=== PATIENT | female | born 1990 | race Caucasian/White ===

== ENCOUNTER 2022-06-07 10:49 | Inpatient (IN) | payer MEDICAID ==
[~2022-06-07] VITALS: Ht 167.7 cm; Wt 56.5 kg
[~2022-06-07 10:49] MED LIST: ACHD5005 PO; AMOX500C2 PO; ANTIBIOTIC FOR UTI; BCP; BUTA-234 PO; CEFD300C3 PO; CEFP500T4 PO; CEPH-38 PO; CEPH500C PO; CETI10TA17 PO; CPR500T; CPR500T PO; DOXY100C2 PO; ERYT333T4 PO; ETOMIDATE IV SOLN 20 MG/10 ML VIAL IV ONE; FAMO10TA71; FERR-57 PO; FERR325C PO; FRS325T PO; HYDR-3583 PO; HYDR1CAP2 PO; HYDR1TAB75 PO; HYDR1TAB8 OP; IBP800T PO; IRON1TAB94 PO; LEVO500T69 PO; MAGN400T6 PO; METR500T PO; MIDAZOLAM 5 MG/5 ML (VERSED) VIAL IJ ONE; NAPR-243 PO; NITR-65 PO; NITR100C3 PO; ONDA-42 SL; ONDAN4ODT PO; OXYC-12 PO; PHEN100T26 PO; PNT40TEC PO; PREN1TAB39 PO; PRM25T PO; PROM25SU10 PR; RNT150T PO; SUCCINYLCHOLINE INJ 20 MG/1 ML 10 ML VIAL INJ ONE; TRM50T PO
[2022-06-07] MEDS ORDERED: NS IV 500 ML 500 ML IV SCH (11:00)
[2022-06-07] MEDS ORDERED: ONDANSETRON 4 MG/2 ML (SDV) Z0FRAN IVP ONE (11:00)
--- NOTE | 2022-06-07 11:01 | ED General ---
General Stated Complaint: CHEST PAIN Source of Information: Patient Exam Limitations: No Limitations History of Present Illness Date Seen by Provider: Jun 07, 2022 Time Seen by Provider: 10:52 Initial Comments 32-year-old female with history of methamphetamine use abuse presents to the emergency department via ambulance for feeling well for the last 6 days. She states she had such profound generalized weakness that she has had to be carried around by her son on his back. She initially started to have chest pain which was the first symptom. Is described as dull achy and worse with deep inspiration. She feels as though she cannot catch her breath with some shortness of breath as well. She has been coughing. No fevers or chills per her report. No sick contacts. She has diffuse body aches. She states she has not smoked methamphetamine in about 7 days. She denies any IV drug use. She does have a history of a collapsed lung about 2 years ago. Allergies and Home Medications Allergies Coded Allergies: Sulfa (Sulfonamide Antibiotics) (Unverified Allergy, Intermediate, RASH, 10/13/11) Patient Home Medication List Home Medication List Reviewed: Yes Ferrous Sulfate (Ferrous Sulfate) 325 Mg Tablet, 325 MG PO TID, (Reported) Entered as Reported by: BEBO LEE on 12/12/12 0744 Hydrocodone Bit/Ibuprofen (Vicoprofen 200-7.5 Mg Tab) 1 Each Tablet, 1-2 EACH OP Q4-6HR PRN for PAIN Prescribed by: CHRISTY CORBETT on 02/14/14 1648 Levofloxacin (Levaquin 500 Mg) 500 Mg Tab, 1 EACH PO DAILY Prescribed by: CHRISTY CORBETT on 02/14/14 1648 Ondansetron Hcl (Zofran Oral Dissolve) 4 Mg Tab, 4 MG SL Q4H Prescribed by: CHRISTY CORBETT on 02/14/14 1648 Review of Systems Review of Systems Constitutional: weakness EENTM: nose congestion Respiratory: cough, short of breath Cardiovascular: chest pain Gastrointestinal: nausea Genitourinary: no symptoms reported Musculoskeletal: other (Body aches) Skin: other (Skin is mottled around her knees and distally on bilateral lower extremities.) Psychiatric/Neurological: No Symptoms Reported Hematologic/Lymphatic: No Symptoms Reported Immunological/Allergic: no symptoms reported Past Lbdwung-Jevzqs-Iuawyu Hx Patient Social History Tobacco Use?: Yes Use of E-Cig and/or Vaping dev: No Substance use?: Yes Substance type: Methamphetamine Alcohol Use?: No Seasonal Allergies Seasonal Allergies: No Past Medical History Reproductive Disorders: No Female Reproductive Disorders: Denies Sexually Transmitted Disease: No Family Medical History Reviewed Nursing Family Hx Patient reports no known family medical history. No Pertinent Family Hx Physical Exam Vital Signs Vital Signs - First Documented 06/07/22 10:51 Temp 36.1 Pulse 120 Resp 17 B/P (MAP) 119/72 (88) Pulse Ox 92 O2 Delivery Non Rebreather O2 Flow Rate 15.00 Capillary Refill : Height, Weight, BMI Height: 5'6" Weight: 120lbs. oz. 54.019004ej; BMI Method:Stated General Appearance: Chronically ill, Cachetic HEENT: PERRL/EOMI, Other (Mucous membranes) Neck: Normal Inspection, Non Tender Respiratory: Chest Non Tender, Normal Breath Sounds, Other (Tachypnea) Cardiovascular: Normal Peripheral Pulses, Tachycardia Gastrointestinal: Normal Bowel Sounds, No Organomegaly, Non Tender, Soft Extremity: Normal Capillary Refill, Normal Inspection, Non Tender, No Calf Tenderness Neurologic/Psychiatric: Alert, Oriented x3, No Motor/Sensory Deficits Skin: Normal Color, Warm/Dry Lymphatic: No Adenopathy Focused Exam Lactate Level 06/07/22 11:02: Lactic Acid Level 13.49*H Lactic Acid Level Laboratory Tests Test 06/07/22 11:02 Lactic Acid Level 13.49 MMOL/L (0.50-2.00) *H Progress/Results/Core Measures Suspected Sepsis SIRS Temperature: Pulse: Respiratory Rate: Laboratory Tests 06/07/22 11:02: White Blood Count 5.9 Blood Pressure / Mean: 06/07/22 11:02: Lactic Acid Level 13.49*H Laboratory Tests 06/07/22 11:02: Creatinine 1.54H, INR Comment 1.6H, Platelet Count 164, Total Bilirubin 0.6 Results/Orders Lab Results Laboratory Tests Test 06/07/22 11:02 06/07/22 11:05 06/07/22 11:09 Range/Units White Blood Count 5.9 4.3-11.0 10^3/uL Red Blood Count 4.29 3.80-5.11 10^6/uL Hemoglobin 8.1 L 11.5-16.0 g/dL Hematocrit 29 L 35-52 % Mean Corpuscular Volume 67 L 80-99 fL Mean Corpuscular Hemoglobin 19 L 25-34 pg Mean Corpuscular Hemoglobin Concent 28 L 32-36 g/dL Red Cell Distribution Width 18.7 H 10.0-14.5 % Platelet Count 164 130-400 10^3/uL Mean Platelet Volume 10.5 9.0-12.2 fL Immature Granulocyte % (Auto) 7 % Neutrophils (%) (Auto) 81 H 42-75 % Lymphocytes (%) (Auto) 9 L 12-44 % Monocytes (%) (Auto) 1 0-12 % Eosinophils (%) (Auto) 0 0-10 % Basophils (%) (Auto) 1 0-10 % Neutrophils # (Auto) 4.8 1.8-7.8 10^3/uL Lymphocytes # (Auto) 0.6 L 1.0-4.0 10^3/uL Monocytes # (Auto) 0.1 0.0-1.0 10^3/uL Eosinophils # (Auto) 0.0 0.0-0.3 10^3/uL Basophils # (Auto) 0.1 0.0-0.1 10^3/uL Immature Granulocyte # (Auto) 0.4 H 0.0-0.1 10^3/uL Neutrophils % (Manual) 41 % Lymphocytes % (Manual) 18 % Monocytes % (Manual) 3 % Eosinophils % (Manual) 0 % Basophils % (Manual) 0 % Metamyelocytes % 4 % Band Neutrophils 34 % Nucleated Red Blood Cells 1 Percent Immature Platelet Fraction 3.9 0.0-7.6 % Polychromasia MODERATE Hypochromasia MARKED Anisocytosis MODERATE Microcytosis MODERATE Target Cells SLIGHT Prothrombin Time 19.5 H 12.2-14.7 SEC INR Comment 1.6 H 0.8-1.4 Activated Partial Thromboplast Time 35 24-35 SEC Sodium Level 139 135-145 MMOL/L Potassium Level 4.4 3.6-5.0 MMOL/L Chloride Level 100 98-107 MMOL/L Carbon Dioxide Level 11 L 21-32 MMOL/L Anion Gap 28 H 5-14 MMOL/L Blood Urea Nitrogen 50 H 7-18 MG/DL Creatinine 1.54 H 0.60-1.30 MG/DL Estimat Glomerular Filtration Rate 46 BUN/Creatinine Ratio 32 Glucose Level 75 70-105 MG/DL Lactic Acid Level 13.49 *H 0.50-2.00 MMOL/L Calcium Level 8.6 8.5-10.1 MG/DL Corrected Calcium 9.6 8.5-10.1 MG/DL Total Bilirubin 0.6 0.1-1.0 MG/DL Aspartate Amino Transf (AST/SGOT) 71 H 5-34 U/L Alanine Aminotransferase (ALT/SGPT) 26 0-55 U/L Alkaline Phosphatase 86 40-136 U/L Troponin I < 0.028 <0.028 NG/ML Total Protein 7.2 6.4-8.2 GM/DL Albumin 2.8 L 3.2-4.5 GM/DL Serum Test, Qualitative NEGATIVE NEGATIVE Influenza Type A (RT-PCR) Not Detected Not Detecte Influenza Type B (RT-PCR) Not Detected Not Detecte SARS-CoV-2 RNA (RT-PCR) Not Detected Not Detecte Blood Gas Puncture Site L RAD Blood Gas Patient Temperature 36.1 Arterial Blood pH 7.34 *L 7.37-7.43 Arterial Blood Partial Pressure CO2 21 L 35-45 MMHG Arterial Blood Partial Pressure O2 39 *L 79-93 MMHG Arterial Blood HCO3 11 *L 23-27 MMOL/L Arterial Blood Total CO2 12.0 L 21.0-31.0 MMOL/L Arterial Blood Oxygen Saturation 64 L 94-100 % Arterial Blood Base Excess -13.6 L -2.5-2.5 MMOL/L Yong Test UNK Blood Gas Ventilator Setting NO Blood Gas Inspired Oxygen 15L My Orders Orders - BULL,HOLDEN L DO Hcg,Qualitative Serum (06/07/22 10:57) Cbc With Automated Diff (06/07/22 10:57) Comprehensive Metabolic Panel (06/07/22 10:57) Ua Culture If Indicated (06/07/22 10:57) Ns Iv 500 Ml (Sodium Chloride 0.9%) (06/07/22 11:00) Ondansetron Injection (Zofran Injectio (06/07/22 11:00) Blood Culture (06/07/22 10:57) Protime With Inr (06/07/22 10:57) Partial Thromboplastin Time (06/07/22 10:57) Chest 1 View, Ap/Pa Only (06/07/22 10:57) Ed Iv/Invasive Line Start (06/07/22 10:57) Vital Signs Adult Sepsis Patie Q15M (06/07/22 10:57) O2 (06/07/22 10:57) Lactic Acid Analyzer (06/07/22 10:57) Covid 19 Inhouse Test (06/07/22 10:57) Influenza A And B By Pcr (06/07/22 10:57) Troponin I Hai (06/07/22 11:01) Ekg Tracing (06/07/22 11:18) Arterial Blood Gas (06/07/22 11:18) Manual Differential (06/07/22 11:02) Cefepime Injection (Maxipime Injection) (06/07/22 11:45) Vancomycin Injection (Vancomycin Injecti (06/07/22 11:45) Ns Iv 1000 Ml (Sodium Chloride 0.9%) (06/07/22 11:45) Ct Chest W (06/07/22 11:59) Iohexol Injection (Omnipaque 350 Mg/Ml 1 (06/07/22 12:30) Received Contrast (Hold Metformin- Contr (06/07/22 12:30) Ns (Ivpb) (Sodium Chloride 0.9% Ivpb Bag (06/07/22 12:30) Ed Admission (Communication) (06/07/22 12:43) Medications Given in ED Current Medications Medications Dose Ordered Sig/Armida Route Start Time Stop Time Status Last Admin Dose Admin Cefepime HCl 1000 mg/Sodium Chloride 50 ml @ 100 mls/hr ONCE ONCE IV 06/07/22 11:45 06/07/22 12:14 DC 06/07/22 11:50 100 MLS/HR Iohexol 75 ml ONCE ONCE IV 06/07/22 12:30 06/07/22 12:31 DC 06/07/22 12:22 65 ML Ondansetron HCl 8 mg ONCE ONCE IVP 06/07/22 11:00 06/07/22 11:06 DC 06/07/22 11:23 8 MG Sodium Chloride 100 ml ONCE ONCE IV 06/07/22 12:30 06/07/22 12:31 DC 06/07/22 12:22 80 ML Vancomycin HCl 1000 mg/Sodium Chloride 250 ml @ 250 mls/hr ONCE ONCE IV 06/07/22 11:45 06/07/22 12:44 DC 06/07/22 11:50 250 MLS/HR Vital Signs/I&O 06/07/22 06/07/22 10:51 10:51 Temp 36.1 Pulse 120 Resp 17 B/P (MAP) 119/72 (88) Pulse Ox 92 92 O2 Delivery Non Rebreather Non Rebreather O2 Flow Rate 15.00 15.00 Capillary Refill : Critical Care Note Critical Care Total Time (minutes) 75 Departure Communication (Admissions) Patient appears acutely ill. Her oxygen saturation initially was quite low, confirmed on her ABG. She stable on a NRB with oxygen saturations 92 to 94%. She has increased work of breathing but is not in any respiratory distress. Chest x-ray shows no clear masslike lesion in her left lung, pneumonia versus mass per radiology read. CT scan confirms this is likely pneumonia. Prior to CT I did draw blood cultures, her lactic acid severely elevated so she is given 30 cc/kg fluid bolus as per protocol. She is also started on cefepime, vancomycin given her history of drug use. Though she denies IV drug use so we will go ahead and cover her for MRSA and use aggressive antibiotic administration and taper as able. I spoke with Dr. Powell. She initially was hesitant to admit the patient here and [facility] She spoke with the e[facility] doctor and they agree to admit the patient here. She is admitted in otherwise stable condition to the ICU Impression Primary Impression: CAP (community acquired pneumonia) Qualified Codes: J18.9 - Pneumonia, unspecified organism Additional Impression: Hypoxia Disposition: ADMITTED INPATIENT Condition: Stable Admissions Decision to Admit Reason: Admit from ER (General) Departure-Patient Inst. Referrals: NO,LOCAL PHYSICIAN (PCP/Family) Primary Care Physician HOLDEN GOTTLIEB DO Jun 07, 2022 11:01
[2022-06-07 11:15] LABS: BASOPHILS # (AUTO) 0.1 10^3/uL (0.0-0.1); BASOPHILS % (AUTO) 1 % (0-10); HEMOGLOBIN 8.1 g/dL (11.5-16.0)
[2022-06-07 11:17] LABS: EOSINOPHILS % (AUTO) 0 % (0-10); HEMATOCRIT 29 % (35-52); LYMPHOCYTES # (AUTO) 0.6 10^3/uL (1.0-4.0); LYMPHOCYTES % (AUTO) 9 % (12-44); MEAN CORPUSCULAR HEMOGLOBIN 19 pg (25-34); MEAN CORPUSCULAR HGB CONC 28 g/dL (32-36); MEAN CORPUSCULAR VOLUME 67 fL (80-99); MEAN PLATELET VOLUME 10.5 fL (9.0-12.2); MONOCYTES # (AUTO) 0.1 10^3/uL (0.0-1.0); MONOCYTES % (AUTO) 1 % (0-12); NEUTROPHILS # (AUTO) 4.8 10^3/uL (1.8-7.8); NEUTROPHILS % (AUTO) 81 % (42-75); PLATELET COUNT 164 10^3/uL (130-400); WHITE BLOOD COUNT 5.9 10^3/uL (4.3-11.0)
[2022-06-07 11:21] LABS: ABG BASE EXCESS -13.6 MMOL/L (-2.5-2.5); ABG PCO2 21 MMHG (35-45)
[2022-06-07 11:23] LABS: ABG PH 7.34 (7.37-7.43); ABG PO2 39 MMHG (79-93)
[2022-06-07 11:25] LABS: ABG OXYGEN SATURATION 64 % (94-100); INSPIRED O2 15L; PATIENT TEMP 36.1; VENTILATOR NO
[2022-06-07 11:27] LABS: ALBUMIN 2.8 GM/DL (3.2-4.5)
[2022-06-07 11:28] LABS: CHLORIDE 100 MMOL/L (98-107); INR 1.6 (0.8-1.4); POTASSIUM 4.4 MMOL/L (3.6-5.0); PROTHROMBIN TIME PATIENT 19.5 SEC (12.2-14.7); SODIUM 139 MMOL/L (135-145)
[2022-06-07 11:29] LABS: CALCIUM 8.6 MG/DL (8.5-10.1)
[2022-06-07 11:30] LABS: GLUCOSE 75 MG/DL (70-105); TOTAL PROTEIN 7.2 GM/DL (6.4-8.2)
[2022-06-07 11:31] LABS: CARBON DIOXIDE 11 MMOL/L (21-32)
[2022-06-07 11:32] LABS: BILIRUBIN,TOTAL 0.6 MG/DL (0.1-1.0)
[2022-06-07 11:33] LABS: ALKALINE PHOSPHATASE 86 U/L (40-136); BAND NEUTROPHILS 34 %; BASOPHILS % (MANUAL) 0 %; EOSINOPHILS % (MANUAL) 0 %; LYMPHOCYTES % (MANUAL) 18 %; METAMYELOCYTES % 4 %; MONOCYTES % (MANUAL) 3 %; NEUTROPHILS % (MANUAL) 41 %; NUCLEATED RED BLOOD CELLS 1
[2022-06-07 11:34] LABS: ANISOCYTOSIS MODERATE; CREATININE SERUM 1.54 MG/DL (0.60-1.30); GFR ESTIMATED 46; HYPOCHROMASIA MARKED; MICROCYTOSIS MODERATE; POLYCHROMASIA MODERATE; TARGET CELLS SLIGHT
[2022-06-07 11:35] LABS: BUN/CREATININE RATIO 32
[2022-06-07 11:36] LABS: ALANINE AMINOTRANSFERASE 26 U/L (0-55)
--- NOTE | 2022-06-07 11:44 | Diagnostic Imaging Report ---
CHEST 1 VIEW, AP/PA ONLY Indication: Dyspnea Comparison: 02/14/2014 Findings: Left lung masslike consolidation with surrounding opacities. There are patchy opacities in the right lung. No pleural effusion or pneumothorax. Heart is normal in size. Impression: 1. Left-sided masslike consolidation could be due to pneumonia. However, neoplasm could also give this appearance. At a minimum, short-term followup PA and lateral chest radiograph after appropriate antibiotic therapy is recommended. Alternatively, CT chest with IV contrast could provide more sensitive assessment. Dictated by: Dictated on workstation # [id number]
[2022-06-07] MEDS ORDERED: VANCOMYCIN INJECTION 1,000 MG in NS (IVPB) 250 ML IV ONE (11:45)
[2022-06-07] MEDS ORDERED: NS IV 1000 ML 1,000 ML IV SCH (11:45)
[2022-06-07] MEDS ORDERED: CEFEPIME INJECTION 1,000 MG in NS (IVPB) 50 ML IV ONE (11:45)
[2022-06-07] MEDS ORDERED: HOLD METFORMIN - RECEIVED CONTRAST 20 ML VIAL IV SCH (12:30)
[2022-06-07] MEDS ORDERED: IOHEXOL 350 MG/ML 100 ML (OMNIPAQUE 350) VIAL IV ONE (12:30)
[2022-06-07] MEDS ORDERED: NS 100 ML (IVPB) BAG IV ONE (12:30)
--- NOTE | 2022-06-07 12:38 | Diagnostic Imaging Report ---
CLINICAL INDICATIONS: Patient with chest pain, cough, shortness breath x1 week. Patient reports chronic meth use, last used a week ago. EXAM: Axial CT scan of the chest performed with 65 mL of Omnipaque 350 IV contrast. Sagittal and coronal reformatted images are created. Auto Exposure Controls were utilized during the CT exam to meet ALARA standards for radiation dose reduction. COMPARISON: Chest x-ray dated 12/12/2012. FINDINGS: Diffuse centrilobular emphysema is seen. There are multiple small areas of air-fluid level involving the lower aspect of left upper lobe related to the emphysema. There is near complete consolidation of right lower lobe concerning for infiltrate. There is small amount of infiltrates involving the posterior aspect of the right upper lobe. The middle lobe is clear. There is moderate amount of consolidation involving the left upper lobe and lingular region. There is moderate amount of consolidation involving the posterior left lower lobe region. There is no definite pleural effusion. There is no pneumothorax. There is no mediastinal or hilar lymphadenopathy. There is no significant axillary lymphadenopathy. There is fluid and air filled dilated esophagus which may be related to gastroesophageal reflux or esophageal dysmotility. There is air and fluid distended stomach noted. The visualized upper abdominal structures show no other significant abnormality. Bones show no significant abnormality. Extrathoracic soft tissue structures are unremarkable. IMPRESSION: 1: There are moderate size areas of consolidation involving both upper lobes and left lower lobe. There is complete consolidation right lower lobe. All of these findings are concerning for pneumonia. There is no endobronchial lesion or measurable mass seen. 2: There is centrilobular emphysema. 3.: Air-fluid filled dilated esophagus seen which may be related to gastroesophageal reflux or esophageal dysmotility. Dictated by: Dictated on workstation # [id number]
--- NOTE | 2022-06-07 13:12 | Tele-ICU Progress Note ---
Subjective Date Seen by a Provider: Jun 07, 2022 Subjective/Events-last exam This virtual visit was conducted using real time audio/video. Thank you for asking us to see this patient for respiratory insufficiency due todense B pna. Also pleutitic CP. Infl. and Covid serology neg. SH: smoking history: Meth. Denies IV use. PE: Ill appearing. VSS. O2 sat 92% on 15 LPM NRB mask. HEENT: No obvious masses, adenopathy or JVD. Chest: clear to auscultation. CV: RRR S1 S2 No murmur or added sounds. Abd: Non-tender. Bowel sounds Y. : Unremarkable. Figueroa N. TUMBLE TAILSTOCK TURRET LATHE OPERATOR/psychiatric: Grossly intact. No obvious focal findings. Extremities: No edema. Capillary refill < 3 seconds. Skin: unremarkable. Results: Elevated BUN 50, Creat 1.54, Lact 13.49. Decreased Hb 8.1. AB.34/21/39 on 15 LPM. CXR: B infilts. CTC: dilated esophagus, very dense ext ensile B infilts.. Available chart/ vitals / labs / images reviewed. Video assessment done using teleICU camera, rest of exam as per RN. A/P: Respiratory insufficiency: Continue present management with NRB. Monitor for increasing oxygenation needs and/or need for intubation. Critical Care: critically ill patient. Cont. abx, ivf. May need bronch if no significant clinical improvment. Would check HIV status. Discussed with KATHERINE Donato and Dr. Luna. Asked RN to reach out to eICU if any questions or concerns later. Time spent with patient/coordination of care with other health professionals (mins): 25 Sepsis Event Evaluation Height, Weight, BMI Height: 5'6" Weight: 120lbs. oz. 54.001512gg; 19.00 BMI Method:Stated Focused Exam Lactate Level 06/07/22 11:02: Lactic Acid Level 13.49*H Lactic Acid Level Laboratory Tests Test 06/07/22 11:02 Lactic Acid Level 13.49 MMOL/L (0.50-2.00) *H Exam Exam Patient acknowledged, consented, and participated in this virtual visit which was conducted using real time audio/video Vital Signs Date Time Temp Pulse Resp B/P (MAP) Pulse Ox O2 Delivery O2 Flow Rate FiO2 06/07/22 10:51 36.1 120 17 119/72 (88) 92 Non Rebreather 15.00 06/07/22 10:51 92 Non Rebreather 15.00 Height & Weight Height: 5'6" Weight: 120lbs. oz. 54.896173eq; 19.00 BMI Method:Stated General Appearance: Chronically ill, Cachetic HEENT: PERRL/EOMI, Other (Mucous membranes) Neck: Normal Inspection, Non Tender Respiratory: Chest Non Tender, Normal Breath Sounds, Other (Tachypnea) Cardiovascular: Normal Peripheral Pulses, Tachycardia Capillary Refill: Less Than 3 Seconds Extremity: Normal Capillary Refill, Normal Inspection, Non Tender, No Calf Tenderness Neurologic/Psychiatric: Alert, Oriented x3, No Motor/Sensory Deficits Skin: Normal Color, Warm/Dry Lymphatic: No Adenopathy Results Lab Laboratory Tests 06/07/22 11:02 Assessment/Plan Assessment/Plan See free text. Critical Care: Critically Ill Patient DONTE PACHECO MD Jun 07, 2022 13:12
[2022-06-07] MEDS ORDERED: BENZONATATE 100 MG (TESSALON) CAPSULE PO PRN (13:30)
[2022-06-07] MEDS ORDERED: VANCOMYCIN INJECTION 0.1 MG in NS (IVPB) 250 ML IV SCH (13:30)
[2022-06-07] MEDS ORDERED: MELATONIN 3 MG TABLET PO PRN (13:30)
[2022-06-07] MEDS ORDERED: ANTACID SUSP 30 ML UDC (MYLANTA) PO PRN (13:30)
--- NOTE | 2022-06-07 13:58 | History & Physical-Hospitalist ---
History of Present Illness HPI/Chief Complaint Pt is a 32yoCF with a PMH of methamphetamine abuse who presented to the ER due to weakness. History comes from both patient and her mom. Mom states she has a long history of meth use but has been trying to quit. She last used 7 days ago and then started to get very ill. Her mom wanted to take her in to be seen but the patient refused throoughout the week and finally decidied to come intoday due to her weakness. Reportedly her son has had to carry her from room to room because of how weak she is. On arrival to the emergency room her oxygen saturation was 40%. This was confirmed on an ABG with a PO2 of 39 and satu ration of 64 on 15 L nonrebreather. We were able to get her oxygen up into the 90s with oxi mask. Imaging revealed extensive bilateral infiltrates. She was also found to have a profound lactic acidosis fo 13. When I saw her in the ICU she was mottled to her knees and elbows though her capillary refill was adequate. She apparently has vomited twice this morning too. Source: patient, family Date Seen 06/07/22 Time Seen by a Provider: 13:48 Attending Physician No,Local Physician PCP Admitting Physician: Andi Luna MD Attending Physician: Andi Luna MD Referring Physician Date of Admission Jun 07, 2022 at 12:44 pm Home Medications & Allergies Home Medications Reviewed patient Home Medication Reconciliation performed by pharmacy medication reconciliations data reduction technician and/or nursing. Patients Allergies have been reviewed. Allergies Allergies Coded Allergies Sulfa (Sulfonamide Antibiotics) (Unverified Allergy, Intermediate, RASH, 10/13/11) Past Getoscy-Fgjpok-Nmzzze Hx Patient Social History Tobacco Use?: Yes Smoking Status: Heavy Tobacco Smoker Smokeless Tobacco Frequency: Never a User Use of E-Cig and/or Vaping dev: No Use of E-Cig and/or Vaping Radu: Never a User Substance use?: Yes Substance type: Methamphetamine Substance frequency: Couple times a week Alcohol Use?: No Pt feels they are or have been: No Seasonal Allergies Seasonal Allergies: No Current Status Advance Directives: No Communicates: Verbally Primary Language: Northern Irish Preferred Spoken Language: Northern Irish Is interpretation needed?: No Implanted or Applied Medical D: None Past Medical History Sexually Transmitted Disease: No Family Medical History Reviewed Nursing Family Hx Patient reports no known family medical history. No Pertinent Family Hx Review of Systems Constitutional: see HPI Physical Exam Physical Exam Vital Signs Vital Signs - First Documented 06/07/22 06/07/22 10:51 13:45 Temp 36.1 Pulse 120 Resp 17 B/P (MAP) 119/72 (88) Pulse Ox 92 O2 Delivery Non Rebreather O2 Flow Rate 15.00 FiO2 100 Capillary Refill : Less Than 3 Seconds Height, Weight, BMI Height: 5'6" Weight: 120lbs. oz. 54.151822np; 19.00 BMI Method:Stated General Appearance: Chronically ill, Cachetic, Thin HEENT: PERRL/EOMI, Scleral Icterus (L), Scleral Icterus (R) Neck: Normal Inspection, Supple Respiratory: Lungs Clear Cardiovascular: No Murmur, Tachycardia Gastrointestinal: Normal Bowel Sounds, Non Tender, Soft Extremity: Normal Capillary Refill, No Calf Tenderness, No Pedal Edema Neurologic/Psychiatric: Alert, Oriented x3 Skin: Mottled (to knees and on hands and forearms up to elbows), Other (grayish discoloration in general) Results Results/Procedures Labs Laboratory Tests 06/08/22 03:14 06/08/22 13:00 06/09/22 03:20 Patient resulted labs reviewed. Imaging: Reviewed Imaging Films, Reviewed Imaging Report Imaging [facility], [place] NAME: GEOVANNY LEON [facility] REC#: [id number] PT STATUS: REG ER : 1990 PHYSICIAN: HOLDEN GOTTLIEB DO ADMIT DATE: 06/07/22/ER Draft Date of Exam:06/07/22 CT CHEST W CLINICAL INDICATIONS: Patient with chest pain, cough, shortness breath x1 week. Patient reports chronic meth use, last used a week ago. EXAM: Axial CT scan of the chest performed with 65 mL of Omnipaque 350 IV contrast. Sagittal and coronal reformatted images are created. Auto Exposure Controls were utilized during the CT exam to meet ALARA standards for radiation dose reduction. COMPARISON: Chest x-ray dated 12/12/2012. FINDINGS: Diffuse centrilobular emphysema is seen. There are multiple small areas of air-fluid level involving the lower aspect of left upper lobe related to the emphysema. There is near complete consolidation of right lower lobe concerning for infiltrate. There is small amount of infiltrates involving the posterior aspect of the right upper lobe. The middle lobe is clear. There is moderate amount of consolidation involving the left upper lobe and lingular region. There is moderate amount of consolidation involving the posterior left lower lobe region. There is no definite pleural effusion. There is no pneumothorax. There is no mediastinal or hilar lymphadenopathy. There is no significant axillary lymphadenopathy. There is fluid and air filled dilated esophagus which may be related to gastroesophageal reflux or esophageal dysmotility. There is air and fluid distended stomach noted. The visualized upper abdominal structures show no other significant abnormality. Bones show no significant abnormality. Extrathoracic soft tissue structures are unremarkable. IMPRESSION: 1: There are moderate size areas of consolidation involving both upper lobes and left lower lobe. There is complete consolidation right lower lobe. All of these findings are concerning for pneumonia. There is no endobronchial lesion or measurable mass seen. 2: There is centrilobular emphysema. 3.: Air-fluid filled dilated esophagus seen which may be related to gastroesophageal reflux or esophageal dysmotility. Dictated on workstation # [id number] Dict: 06/07/22 1229 Trans: 06/07/22 1237 CV [id number] Interpreted by: GERMÁN SANCHEZ MD Electronically signed by: Assessment/Plan Admission Diagnosis septic shock Admission Status: Inpatient Order (span 2 midnights) Reason for Inpatient Admission: see below Assessment and Plan septic shock due to pneumonia Acute hypoxic respiratory failure ENOC transaminitis HAGMA- lactic acidosis Profound hypoxia on arrival CT Chest with extensive dense bilateral infiltrate Cefepime started in ER, continue and add Vanc Will check HIV status Cultures IVF Sats in the high 80s on NRB- switch to Vapotherm Agreeable to intubation if needed Very ill, guarded prognosis I discussed this with her mom and started I was unsure if she would survive but that we will continue all aggressive measures Methamphetamine use Cachexia Protein energy malnutrition Microcytic anemia REports only smokes Last use 7 days ago DVT ppx : Critical Care Critically Ill Patient Diagnosis/Problems Diagnosis/Problems (1) Transaminitis (2) Microcytic anemia (3) Bilateral pneumonia (4) Lactic acidosis Status: Acute (5) Tobacco abuse (6) Methamphetamine abuse (7) Cachexia (8) Protein-energy malnutrition (9) Acute respiratory failure Status: Acute Qualifiers: Respiratory failure complication: hypoxia and hypercapnia Qualified Codes: J96.01 - Acute respiratory failure with hypoxia; J96.02 - Acute respiratory failure with hypercapnia (10) Septic shock Status: Acute (11) ENOC (acute kidney injury) Status: Acute Clinical Quality Measures AMI/AHF: ASA po Prior to arrival: ANDI Hernandez MD Jun 07, 2022 13:58
[2022-06-07] MEDS ORDERED: PROMETHAZINE INJ 25 MG/ML (PHENERGAN) AMP IVP PRN (15:30)
[2022-06-07 15:36] VITALS: BP 126/77
[2022-06-07] MEDS: NS IV 1000 ML 1,000 ML IV SCH ×2 (15:54→20:43)
[2022-06-07] MEDS ORDERED: ACETAMINOPHEN 500 MG TAB (TYLENOL) PO PRN (16:45)
[2022-06-07 18:26] VITALS: BP 112/71
[2022-06-07] MEDS ORDERED: PROPOFOL DRIP (ICU) 100 ML IV ONE (18:40)
--- NOTE | 2022-06-07 19:28 | Anesthesia-Procedure Note ---
Procedures/Interventions Procedure Start/Stop/Diagnosis Date of Procedure: Jun 07, 2022 Start Time: 19:10 Referring Physician: Dr Luna Preprocedural Diagnosis: Respiratory Failure Brief History Brief history obtained from chart and patient/mother. Explained the intubation procedure, ?'s answered and consent signed. Stop Time: 19:20 Postprocedural Diagnosis: Same Intubation Reason Intubation/Diagnosis: Respiratory Failure RSI: Yes 100% pre-Ox, [id number]: Yes (via BiPAP) Intubation Method: orotracheal Videoscope used: Yes ([place]) Grade View: 1 Medications: Etomidate (20 mg), Rocuronium (10 mg), Succinylcholine (60 mg), Versed (2 mg) Mask Ventilation: negative Positive End Tide CO2: Yes (+ color change) Breath Sounds after Intubation: bilateral-equal ETT Securred @ (cm): 21 Intubated with ease: Yes Intubation Complications: no complications DAYNA JACKSON DO Jun 07, 2022 19:28
[2022-06-07] MEDS ORDERED: fentaNYL DRIP PRE-MIX 250 ML IV ONE (19:38)
--- NOTE | 2022-06-07 19:38 | Tele-ICU Progress Note ---
Progress Note Intubated for worsening oxygenation due to multifocal pneumonia. Vent , sedation , analgesia orders placed. ABG , CXR AND RESTRAINTS ORDERED WELL AND D/W THE BEDISDE NURSE. Interventions- Vent settings , sedation and cxr Focused Exam Lactate Level 06/07/22 13:30: Lactic Acid Level 9.25*H 06/07/22 15:43: Lactic Acid Level 5.63*H 06/07/22 18:27: Height, Weight, BMI Height: 5'6" Weight: 120lbs. oz. 54.313040je; 19.34 BMI Method:Stated Lactic Acid Level Laboratory Tests Test 06/07/22 15:43 06/07/22 18:27 Lactic Acid Level 5.63 MMOL/L (0.50-2.00) *ABEBA YEBOAH MD Jun 07, 2022 19:38
[2022-06-07 19:48] VITALS: BP 106/66
--- NOTE | 2022-06-07 19:49 | Diagnostic Imaging Report ---
INDICATION: Respiratory failure. FINDINGS: There is an ET tube projecting over the trachea. NG tube projects over the stomach. There are bilateral perihilar infiltrates which are worse compared to earlier in the day. There is no effusion or pneumothorax. IMPRESSION: Worsening bilateral pulmonary infiltrates. This is especially worse on the right compared to earlier in the day. Slightly worse on the left compared to earlier in the day. Dictated by: Dictated on workstation # [id number]
[2022-06-07] MEDS ORDERED: ROCURONIUM 50 MG/5 ML (ZEMURON) VIAL IV ONE (20:12)
[2022-06-07] MEDS ORDERED: ROCURONIUM 10 MG/ML 5 ML SYRINGE IV ONE (20:15)
[2022-06-07] MEDS: fentaNYL DRIP PRE-MIX 250 ML IV SCH ×2 (20:18→22:57)
[2022-06-07] MEDS: PROPOFOL DRIP (ICU) 100 ML IV SCH (20:19)
[2022-06-07] MEDS ORDERED: LACTATED RINGERS 1,000 ML IV SCH (20:30)
[2022-06-07] MEDS ORDERED: PROPOFOL DRIP (ICU) 100 ML IV SCH (20:30)
--- NOTE | 2022-06-07 20:36 | Tele-ICU Progress Note ---
Progress Note Chart and imaging - CT chest reviewed. CT chest with bilateral dense multifocal consolidations and extensive emphysematous bullous disease. Currently with ARDS picture, intubated and on high PEEP and FIO2. Will follow lung protective / ARDS net protocol and keep Peak pr < 35 and Pplat <30 as much as possible and DP <15. D/W RT and nursing. Pt is currently sedated to RASS -4 and Paralytics started. Will try prone ventilation. Viewed Pt on camera. Focused Exam Lactate Level 06/07/22 13:30: Lactic Acid Level 9.25*H 06/07/22 15:43: Lactic Acid Level 5.63*H 06/07/22 19:38: Lactic Acid Level 3.99*H Height, Weight, BMI Height: 5'6" Weight: 120lbs. oz. 54.254938wd; 19.34 BMI Method:Stated Lactic Acid Level Laboratory Tests Test 06/07/22 19:38 Lactic Acid Level 3.99 MMOL/L (0.50-2.00) *ABEBA YEBOAH MD Jun 07, 2022 20:36
[2022-06-07] MEDS: CEFEPIME INJECTION 1,000 MG in NS (IVPB) 50 ML IV SCH (20:44)
[2022-06-07 20:46] VITALS: BP 107/67
[2022-06-07] MEDS ORDERED: LACTATED RINGERS 1,000 ML IV ONE (21:08)
--- NOTE | 2022-06-07 21:57 | Anesthesia-Procedure Note ---
Procedures/Interventions Procedure Start/Stop/Diagnosis Date of Procedure: Jun 07, 2022 Start Time: 21:40 Stop Time: 21:50 Arterial Line Arterial Line Catheter: 20G Type: Radial Location: Left Procedure: prepped, draped in sterile fashion, good wave-form was obtained, patient tolerated procedure well, no immediate complications, post procedure area cleaned, post procedure dressing applied LELA AVILA CRNA Jun 07, 2022 21:57
[2022-06-07] MEDS ORDERED: NOREPINEPHRINE 8 MG/250 ML 250 ML IV ONE (22:06)
[2022-06-07] MEDS ORDERED: PHENYLEPHRINE DRIP 250 ML IV ONE (22:14)
--- NOTE | 2022-06-07 22:30 | Tele-ICU Progress Note ---
Progress Note Hypotension - likely due to sedation and possible septic shock as well. LA 4.5 Vaso and Brayden started in addition to Levo , HR 120s. Hydrocortisone started for possible adrenalin insufficiency. D/W the bedside nurse. Interventions Minor-Other: Septic shock Focused Exam Lactate Level 06/07/22 15:43: Lactic Acid Level 5.63*H 06/07/22 19:38: Lactic Acid Level 3.99*H 06/07/22 21:27: Lactic Acid Level 4.18*H Height, Weight, BMI Height: 5'6" Weight: 120lbs. oz. 54.865290xs; 19.34 BMI Method:Stated Lactic Acid Level Laboratory Tests Test 06/07/22 19:38 06/07/22 21:27 Lactic Acid Level 3.99 MMOL/L (0.50-2.00) *H 4.18 MMOL/L (0.50-2.00) *H ABEBA MCGUIRE MD Jun 07, 2022 22:29
[2022-06-07] MEDS: NOREPINEPHRINE 8 MG/250 ML 250 ML IV SCH (22:38)
[2022-06-07] MEDS: PHENYLEPHRINE DRIP 250 ML IV SCH (22:40)
[2022-06-07] MEDS ORDERED: LACTATED RINGERS 250 ML IV SCH (22:45)
--- NOTE | 2022-06-07 22:45 | CONSULTATION REPORT ---
DATE OF SERVICE: 06/07/2022 HISTORY OF PRESENT ILLNESS: The patient is a 32-year-old female who presented to the Emergency Department with generalized weakness, chest pain as well as shortness of breath. She states that this is worth upon inspiration. She also states that this has been associated with a cough that has been nonproductive. She also reports diffuse body aches. An x-ray did show significant bilateral lung consolidation consistent with pneumonia. The patient is also hypotensive and will require mechanical ventilation as well as IV sedation and likely pressors. She is also chronic methamphetamine user. PAST MEDICAL HISTORY: Drug abuse, history of spontaneous pneumothorax. PAST SURGICAL HISTORY: Unknown. ALLERGIES: SULFA. MEDICATIONS: Iron 325 mg t.i.d., hydrocodone p.r.n., levofloxacin 500 mg daily, Zofran p.r.n. SOCIAL HISTORY: Positive for cigarette smoking and methamphetamine. FAMILY HISTORY: Noncontributory. REVIEW OF SYSTEMS: This is a thin-appearing female who is intubated. She presented with shortness of breath as well as cough and generalized weakness. Chest x-ray does show considerable amount of consolidation consistent with bilateral pneumonia. There is no known history of any nausea or vomiting as well as no chest pain, palpitations or diaphoresis. She is now intubated and will require sedation and paralyzation and is also hypotensive. PHYSICAL EXAMINATION: VITAL SIGNS: Temperature 36.1, blood pressure 121/79, pulse 137, respirations 28, pulse ox 76%, on 100% FiO2. CHEST: Decreased breath sounds and scattered wheezes and rhonchi bilaterally. HEART: Regular, no murmurs. EXTREMITIES: No lower extremity edema. Negative Homans sign. HEENT: No scleral icterus. No cervical lymphadenopathy. ABDOMEN: Soft, nontender, nondistended. SKIN: Warm and dry. ASSESSMENT AND PLAN: A 32-year-old female with bilateral lung consolidation and likely pneumonia with respiratory requiring intubation and mechanical ventilation and will require a number of IV medical therapy as well as vasopressors and will require a central venous catheter, which we will proceed with. Job ID: [id number] DocumentID: [id number] Dictated Date: 06/07/2022 21:36:20 Composite Mechanic Date: 06/07/2022 22:43:00 Dictated By: HUBER STARK MD
--- NOTE | 2022-06-07 22:47 | Diagnostic Imaging Report ---
INDICATION: Line placement. EXAMINATION: Frontal chest was obtained at 10:14 p.m. COMPARISON: Same day at 7:25 PM. FINDINGS: ET tube and NG tube are unchanged. New left subclavian central line tip overlies the SVC. There is no pneumothorax or pleural fluid. Extensive bilateral infiltrates are unchanged. IMPRESSION: No change in extensive bilateral infiltrates. Stable ET tube and NG tube. New left subclavian central line tip overlies the upper SVC Dictated by: Dictated on workstation # [id number]
[2022-06-07] MEDS ORDERED: VASOPRESSIN (PYXIS DRIP KIT) 20 UNIT/1 ML VIAL ONE (22:53)
[2022-06-07] MEDS ORDERED: NS (IVPB) 100 ML ONE (22:54)
[2022-06-07] MEDS: HYDROCORTISONE 100 MG/2 ML (Solu-CORTEF) VIAL IV SCH (22:56)
[2022-06-07] MEDS: VASOPRESSIN INJECTION 20 UNIT in NS (IVPB) 100 ML IV SCH (23:02)
[2022-06-07] MEDS: CISATRACURIUM DRIP 250 ML IV SCH (23:27)
[2022-06-08] VITALS (9 sets, daily range): BP systolic 121–136; BP diastolic 48–62
[2022-06-08] MEDS: LACRI-LUBE OPTHALMIC OINT 3.5 GM TUBE OU SCH ×6 (00:31→21:11)
[2022-06-08] MEDS: PROPOFOL DRIP (ICU) 100 ML IV SCH ×4 (01:09→18:29)
[2022-06-08] MEDS: PHENYLEPHRINE DRIP 250 ML IV SCH ×4 (01:42→15:19)
[2022-06-08] MEDS: fentaNYL DRIP PRE-MIX 250 ML IV SCH ×4 (02:14→11:53)
--- NOTE | 2022-06-08 02:47 | OPERATIVE REPORT ---
DATE OF SERVICE: 06/07/2022 PREOPERATIVE DIAGNOSIS: Respiratory failure, sepsis, hypotension. POSTOPERATIVE DIAGNOSIS: Respiratory failure, sepsis, hypotension. PROCEDURE: Placement of left subclavian central venous catheter. SURGEON: Dr. Huber Stark ANESTHESIA: Local. ESTIMATED BLOOD LOSS: Minimal. DISPOSITION: The patient tolerated the procedure well. INDICATIONS: The patient is a 32-year-old female who presented to the Emergency Department with generalized weakness and shortness of breath starting 6 days ago, which progressively worsened. She had also described an achy pain upon deep inspiration. The patient also had state development and increased cough; however, nonproductive. The patient is a chronic methamphetamine user. Chest x-rays showed significant bilateral lung consolidation consistent with bilateral pneumonia. The patient is hypotensive and tachycardic and has been intubated on mechanical ventilation. The patient will need to be placed on a multitude of IV medications as well as vasopressors and will require a central venous catheter. DESCRIPTION OF PROCEDURE: The chest and neck were prepped and draped in standard surgical fashion. A 1% lidocaine was used to anesthetize the left subclavian region. The left subclavian vein was then cannulated with return venous blood. The guidewire was then inserted without any resistance. The cannulating needle was removed and a skin incision made using an 11 blade. A tract was then created using a venous dilator and through this opening, a triple lumen central venous catheter was placed over the wire using the Seldinger technique and the guidewire was removed. All 3 ports kecia venous blood and saline pushing without any resistance. The catheter was then sutured to the skin using interrupted 3-0 silk sutures. A catheter was then cleaned and covered with Op-Site. The patient tolerated the procedure well. We will get a post-procedure chest x-ray. Job ID: [id number] DocumentID: [id number] Dictated Date: 06/07/2022 22:12:19 Policy Issue Clerk Date: 06/08/2022 02:44:00 Dictated By: HUBER STARK MD [facility]
[2022-06-08] MEDS: NS IV 1000 ML 1,000 ML IV SCH ×2 (03:05→10:56)
[2022-06-08 03:27] LABS: BASOPHILS % (AUTO) 0 % (0-10); EOSINOPHILS % (AUTO) 0 % (0-10); MEAN CORPUSCULAR HEMOGLOBIN 19 pg (25-34); MEAN PLATELET VOLUME 10.5 fL (9.0-12.2); NEUTROPHILS % (AUTO) 85 % (42-75)
[2022-06-08 03:29] LABS: HEMATOCRIT 23 % (35-52); LYMPHOCYTES % (AUTO) 5 % (12-44); MEAN CORPUSCULAR HGB CONC 29 g/dL (32-36); MEAN CORPUSCULAR VOLUME 68 fL (80-99); MONOCYTES # (AUTO) 0.2 10^3/uL (0.0-1.0); MONOCYTES % (AUTO) 1 % (0-12); NEUTROPHILS # (AUTO) 17.2 10^3/uL (1.8-7.8); PLATELET COUNT 116 10^3/uL (130-400); WHITE BLOOD COUNT 20.2 10^3/uL (4.3-11.0)
[2022-06-08 03:37] LABS: POTASSIUM 4.4 MMOL/L (3.6-5.0)
[2022-06-08 03:39] LABS: CALCIUM 7.4 MG/DL (8.5-10.1)
[2022-06-08 03:40] LABS: TOTAL PROTEIN 5.5 GM/DL (6.4-8.2)
[2022-06-08 03:42] LABS: BILIRUBIN,TOTAL 0.5 MG/DL (0.1-1.0)
[2022-06-08 03:43] LABS: CREATININE SERUM 0.79 MG/DL (0.60-1.30)
[2022-06-08 03:46] LABS: HEMOGLOBIN 6.5 g/dL (11.5-16.0); MAGNESIUM 2.5 MG/DL (1.6-2.4)
[2022-06-08 04:00] LABS: BAND NEUTROPHILS 18 %; LYMPHOCYTES % (MANUAL) 6 %; MONOCYTES % (MANUAL) 2 %; NEUTROPHILS % (MANUAL) 71 %
[2022-06-08] MEDS ORDERED: NS IV 500 ML 500 ML IV SCH ×2 (04:00)
[2022-06-08] MEDS ORDERED: FUROSEMIDE 40 MG/4 ML INJ (LASIX) IVP ONE (04:00)
[2022-06-08 04:01] LABS: HYPOCHROMASIA SLIGHT; MICROCYTOSIS MARKED; TARGET CELLS SLIGHT
[2022-06-08 04:02] LABS: METAMYELOCYTES % 3 %; NUCLEATED RED BLOOD CELLS 4
[2022-06-08] MEDS: CEFEPIME INJECTION 1,000 MG in NS (IVPB) 50 ML IV SCH ×4 (04:23→22:19)
[2022-06-08] MEDS: HYDROCORTISONE 100 MG/2 ML (Solu-CORTEF) VIAL IV SCH ×4 (04:24→22:19)
[2022-06-08] MEDS: NOREPINEPHRINE 8 MG/250 ML 250 ML IV SCH (06:11)
--- NOTE | 2022-06-08 06:47 | Occ Therapy Progress Note ---
Therapy Progress Note OT orders received. Pt currently intubated and will need new orders when extubated until then OT will monitor pt's status and will initiate treatment when pt is medically stable and able to actively participate in skilled in skilled therapy. JESUS TAYLOR Jun 08, 2022 06:47
[2022-06-08] MEDS: VASOPRESSIN INJECTION 20 UNIT in NS (IVPB) 100 ML IV SCH ×2 (07:56→18:29)
--- NOTE | 2022-06-08 08:14 | Physical Therapy Progress Note ---
Therapy Progress Note PT orders received. Pt currently intubated and will need new orders when extubated until then PT will monitor pt's status and will initiate treatment when pt is medically stable and able to actively participate in skilled therapy. RADHA SOLIS PT Jun 08, 2022 08:14
--- NOTE | 2022-06-08 09:17 | Tele-ICU Progress Note ---
Subjective Date Seen by a Provider: Jun 08, 2022 Time Seen by a Provider: 09:17 Subjective/Events-last exam (Tele-ICU Physician , Progress Note ) Service provided via interactive audio and video telecommunications E-CARE system to a patient admitted to ICU bed in [facility]. Patient is seen today due to persistent need of ICU care Available chart/ vitals / labs / Images reviewed Video assessment done using teleICU camera, rest of exam as per RN Discussed with RN Events overnight : Afebrile hemodynamically stable Respiratory - I/O = Drips: Pressors- VENT SETTINGS and ABG reviewed NOT CANDIDATE for SBTreviewed possible contraindications including Cardiovascular Stability /Sedation Score / FI02/PEEP / ABG / CXR/ secretions Sedation, discussed with RN, RASS on prop 50 fent 100 nimbex 2 / Consultants: Hospital course: (06/07) 32F Admitted with PNA. CT shows Mod size areas of consolidation involving bilateral upper and left lower lobe. There is complete consolidation of RLL. Also centrilobular emphysema. -On BIPAP 100% sats 86%-Plan [place]ubate. [place] [address]/08 - AC 400 26 100% peep 5 , shock : levo 0.9 vaso , brant 175 , Hb 6.5 - transfusion 06/08 1 UPRBC A/P Acute resp failure with PNA ( in additional to signic=ficant emphyseme upper lovbes on CT - suspected due to inhalation of meth and possible other drugs ? ) - intubated 06/07 AC 400 26 100% peep 5 Shock . septic - stress dose steroid - pressors support - levo 0.9 vaso , brant 175 PNA - bilateral , most likely CAP ( neg covid , flu ) - sputum cx pending -vanco , cefepime Bacteremia - sterp pneumo - repeat 06/08 blood cx Anemia - Hb 6.5 - suspect delutiona; - transfusion 06/08 1 UPRBC thrombocytopenia - - delutional Elv trig - on propofol history of methamphetamine use abuse - sedated, paralized now Elv INT 1.6 Lines : l scl 06/07 , a line 06/07 , (Central Line Necessity Reviewed) Figueroa: + OG: Nutrition: npo Analgesia: Anxiety/ delirium VTE Prophylaxis: scd Stress Ulcer Prophylaxis: ppi Plans in collaboration with bedside consultants and IM MDs. Discussed with RN to reach out if any questions or concerns A total of 55 minutes of critical care time was devoted to this patient today, required to treat and/or prevent further deterioration of critical care condition ( as above ) . I am remotely monitoring this patient from another state. I am unable to do the bedside exam, and history/physical and pertinent information is taken from other notes in the computer and bedside staff. Sepsis Event Evaluation Height, Weight, BMI Height: 5'6" Weight: 120lbs. oz. 54.861130sm; 19.34 BMI Method:Stated Focused Exam Lactate Level 06/08/22 03:14: Lactic Acid Level 2.31*H 06/08/22 05:12: Lactic Acid Level 2.25*H 06/08/22 08:44: Lactic Acid Level 1.91 Lactic Acid Level Laboratory Tests Test 06/08/22 08:44 Lactic Acid Level 1.91 MMOL/L (0.50-2.00) Exam Exam Patient acknowledged, consented, and participated in this virtual visit which was conducted using real time audio/video Vital Signs Date Time Temp Pulse Resp B/P (MAP) Pulse Ox O2 Delivery O2 Flow Rate FiO2 06/08/22 08:48 100 129/56 06/08/22 08:47 100 130/56 06/08/22 07:56 104 135/53 06/08/22 07:56 104 134/53 06/08/22 07:51 37.2 06/08/22 07:20 105 06/08/22 07:12 105 26 86 100 06/08/22 07:10 37.3 104 26 128/48 88 Mechanical Ventilator 100 06/08/22 06:43 37.4 106 26 124/48 86 Mechanical Ventilator 100 06/08/22 06:12 107 121/46 06/08/22 06:11 107 119/46 06/08/22 06:08 107 120/46 06/08/22 06:00 37.2 107 20 86 Mechanical Ventilator 100.00 06/08/22 05:32 106 120/48 06/08/22 05:29 106 120/47 06/08/22 05:27 106 120/47 06/08/22 05:00 37.1 106 20 86 Mechanical Ventilator 100.00 06/08/22 04:00 86 Mechanical Ventilator 100 06/08/22 04:00 100 06/08/22 04:00 37.1 06/08/22 04:00 36.9 06/08/22 04:00 37.0 107 20 84 Mechanical Ventilator 100.00 06/08/22 03:06 110 126/49 06/08/22 03:00 37.3 06/08/22 03:00 37.4 110 20 82 Mechanical Ventilator 100.00 06/08/22 02:49 111 26 81 100 06/08/22 02:14 112 129/50 06/08/22 02:00 37.5 111 20 84 Mechanical Ventilator 100.00 06/08/22 01:42 113 126/49 06/08/22 01:09 113 133/51 06/08/22 01:00 113 06/08/22 01:00 37.4 113 20 82 Mechanical Ventilator 100.00 06/08/22 00:04 116 131/51 06/08/22 00:04 116 136/56 06/08/22 00:00 100 06/08/22 00:00 37.5 06/08/22 00:00 37.4 117 20 84 Mechanical Ventilator 100.00 06/08/22 00:00 81 Mechanical Ventilator 100 06/07/22 23:02 121 108/40 06/07/22 23:00 37.5 122 20 85 Mechanical Ventilator 100.00 06/07/22 22:57 121 113/41 06/07/22 22:40 122 121/40 06/07/22 22:38 122 111/40 06/07/22 22:35 37.5 123 20 86 Mechanical Ventilator 100.00 06/07/22 21:00 38.8 133 27 105/61 (76) 76 NIV Bilevel 100.00 06/07/22 20:46 137 28 76 100 06/07/22 20:19 137 104/66 06/07/22 20:18 137 104/66 06/07/22 20:00 133 41 122/65 (84) 79 NIV Bilevel 100.00 06/07/22 20:00 38.9 06/07/22 19:53 37.1 06/07/22 19:48 137 38 76 100 06/07/22 19:00 130 06/07/22 19:00 130 37 119/68 (85) 86 NIV Bilevel 100.00 06/07/22 18:26 126 34 86 100.00 06/07/22 18:00 125 35 125/74 (91) 90 NIV Bilevel 100.00 06/07/22 17:00 120 32 126/74 (91) 89 NIV Bilevel 100.00 06/07/22 16:00 121 31 126/75 (92) 93 NIV Bilevel 100.00 06/07/22 15:46 NIV Bilevel 100.00 06/07/22 15:36 117 26 93 100.00 06/07/22 15:00 90 Vapotherm 38.00 100 06/07/22 15:00 120 19 127/71 (89) 91 Vapotherm 38.00 100.00 06/07/22 14:00 116 27 121/79 (93) 93 Vapotherm 38.00 100.00 06/07/22 14:00 37.1 06/07/22 13:54 Vapotherm 35.00 100 06/07/22 13:45 88 Vapotherm 38.00 100 06/07/22 13:15 121 98/74 (82) Vapotherm 38.00 100.00 06/07/22 13:00 36.1 98 16 133/87 92 Non Rebreather 15.00 06/07/22 10:51 36.1 120 17 119/72 (88) 92 Non Rebreather 15.00 06/07/22 10:51 92 Non Rebreather 15.00 I & O 06/08/22 07:00 Intake Total 6575 ml Output Total 1450 ml Balance 5125 ml Height & Weight Height: 5'6" Weight: 120lbs. oz. 54.812402dn; 19.34 BMI Method:Stated General Appearance: Chronically ill, Cachetic HEENT: PERRL/EOMI, Other (Mucous membranes) Neck: Normal Inspection, Non Tender Respiratory: Chest Non Tender, Normal Breath Sounds, Other (Tachypnea) Cardiovascular: Normal Peripheral Pulses, Tachycardia Capillary Refill: Less Than 3 Seconds Extremity: Normal Capillary Refill, Normal Inspection, Non Tender, No Calf Tenderness Neurologic/Psychiatric: Alert, Oriented x3, No Motor/Sensory Deficits Skin: Normal Color, Warm/Dry Lymphatic: No Adenopathy Results Lab Laboratory Tests 06/07/22 11:02 06/08/22 03:14 Assessment/Plan Assessment/Plan 1 EFREN VALENCIA MD Jun 08, 2022 09:17
[2022-06-08] MEDS: PANTOPRAZOLE 40 MG (PROTONIX) VIAL IV SCH (10:18)
[2022-06-08] MEDS ORDERED: FUROSEMIDE 40 MG/4 ML INJ (LASIX) IVP NR (10:30)
[2022-06-08] MEDS ORDERED: fentaNYL DRIP PRE-MIX 250 ML IV ONE (11:44)
[2022-06-08] MEDS ORDERED: VANCOMYCIN 750 MG/NS 250 ML IVPB IV SCH ×2 (12:00)
[2022-06-08] MEDS: CISATRACURIUM DRIP 250 ML IV SCH (12:34)
--- NOTE | 2022-06-08 13:11 | Progress Note - Hospitalist ---
JASBIRFLO 06/08/22 1311: Subjective HPI/CC On Admission Date Seen by Provider: Jun 08, 2022 Time Seen by Provider: 08:00 Pt is a 32yoCF with a PMH of methamphetamine abuse who presented to the ER due to weakness. History comes from both patient and her mom. Mom states she has a long history of meth use but has been trying to quit. She last used 7 days ago and then started to get very ill. Her mom wanted to take her in to be seen but the patient refused throoughout the week and finally decidied to come intoday due to her weakness. Reportedly her son has had to carry her from room to room because of how weak she is. On arrival to the emergency room her oxygen saturation was 40%. This was confirmed on an ABG with a PO2 of 39 and saturation of 64 on 15 L nonrebreather. We were able to get her oxygen up into the 90s with oxi mask. Imaging revealed extensive bilateral infiltrates. She was also found to have a profound lactic acidosis fo 13. When I saw her in the ICU she was mottled to her knees and elbows though her capillary refill was adequate. She apparently has vomited twice this morning too. Subjective/Events-last exam Pt is sedated on mechanical vent. Per nurse pt has improved since admission, but is currently requiring 3 pressors to be stable. Family was contacted and plan was discussed. Focused Exam Lactate Level 06/08/22 03:14: Lactic Acid Level 2.31*H 06/08/22 05:12: Lactic Acid Level 2.25*H 06/08/22 08:44: Lactic Acid Level 1.91 Objective Exam Vital Signs Vital Signs Date Time Temp Pulse Resp B/P (MAP) Pulse Ox O2 Delivery O2 Flow Rate FiO2 06/08/22 11:56 96 115/51 06/08/22 10:44 26 88 100 06/08/22 10:00 36.8 Mechanical Ventilator 100.00 Capillary Refill : Less Than 3 Seconds General Appearance: No Apparent Distress Respiratory: Lungs Clear, Normal Breath Sounds Cardiovascular: Regular Rate, Rhythm, No Edema, No Murmur, Normal Peripheral Pulses Gastrointestinal: Normal Bowel Sounds, No Organomegaly, Soft Results/Procedures Lab Laboratory Tests 06/08/22 03:14 Patient resulted labs reviewed. Imaging: Reviewed Imaging Films, Reviewed Imaging Report Assessment/Plan Assessment and Plan Assess & Plan/Chief Complaint ARDS Consider lowering tidal volume on mechanical ventilator Continue sedation and paralysis Continue Stress Ulcer PPx w/ PPI Septic Shock Secondary to Pneumonia and Preliminary Strep. Pneumococcus Bacteremia Continue Blood Pressure Support Continue Abx ENOC Monitor Kidney Function Lactic Acidosis Continue supple fluids Monitor Lactic Acidosis Trend +Illicit Drug Use Thrombocytopenia Continue to monitor platelets and signs of bleeding Clinical Quality Measures AMI/AHF: ASA po Prior to arrival: No KENYA REYNA MD 06/08/22 1828: Subjective HPI/CC On Admission Time Seen by Provider: 09:30 Objective Exam General Appearance: No Apparent Distress, Thin, Other (intubated and sedated) Respiratory: No Respiratory Distress, Decreased Breath Sounds, Other (intubated and mechanically ventilated) Cardiovascular: Regular Rate, Rhythm, No Murmur Gastrointestinal: Normal Bowel Sounds, Soft Extremity: Normal Inspection, No Pedal Edema Neurologic/Psychiatric: Other (sedated) Assessment/Plan Assessment and Plan Assess & Plan/Chief Complaint Acute respiratory distress syndrome Acute respiratory failure with hypoxia and hypercapnia Endotracheally intubated Septic shock Multifocal pneumonia Strep pneumoniae bacteremia Lactic acidosis Acute kidney injury Substance abuse Poor prognosis TeleICU following Ventilator with near max oxygen support Sedated and paralyzed Wean pressors as able CXR with multifocal pneumonia Blood cultures with likely Strep pneumoniae IV antibiotics Poor prognosis discussed with patient's mother Critical Care: Critically Ill Patient Diagnosis/Problems Diagnosis/Problems (1) Septic shock Status: Acute (2) Acute respiratory failure Status: Acute Qualifiers: Qualified Codes: J96.01 - Acute respiratory failure with hypoxia; J96.02 - Acute respiratory failure with hypercapnia (3) ARDS (adult respiratory distress syndrome) Status: Acute (4) Endotracheally intubated Status: Acute (5) Bacteremia due to Streptococcus pneumoniae Status: Acute (6) Multifocal pneumonia Status: Acute (7) Substance abuse Status: Acute (8) Poor prognosis Status: Acute (9) Lactic acidosis Status: Acute (10) ENOC (acute kidney injury) Status: Acute Supervisory-Addendum Brief Verification & Attestation Participated in pt care: history, MDM, physical Personally performed: exam, history, MDM, supervision of care Care discussed with: Medical Student Procedures: n/a Results interpretation: Verified all documentation A medical student performed and documented this service in my presence. I reviewed and verified all information documented by the medical student and made modifications to such information, when appropriate. I personally performed the physical exam and medical decision making. FLO MARTELL Jun 08, 2022 13:11 KENYA REYNA MD Jun 08, 2022 18:28
[2022-06-08 13:17] LABS: HEMOGLOBIN 7.9 g/dL (11.5-16.0)
[2022-06-08 14:17] LABS: ABG BASE EXCESS -4.9 MMOL/L (-2.5-2.5); ABG OXYGEN SATURATION 89 % (94-100); ABG PCO2 53 MMHG (35-45); ABG PO2 65 MMHG (79-93); ABG TCO2 23.1 MMOL/L (21.0-31.0)
[2022-06-08 14:21] LABS: ABG PH 7.23 (7.37-7.43)
[2022-06-08 14:22] LABS: INSPIRED O2 100%; PATIENT TEMP 36.8; VENTILATOR YES
[2022-06-08] MEDS: RT-ALBUTEROL/IPRATROPIUM 3 ML (DUONEB) VIAL INH SCH ×4 (14:55→21:31)
[2022-06-08] MEDS: fentaNYL INJECTION 5,000 MCG in EMPTY IV BAG (PVC) 1 EA IV SCH (14:58)
[2022-06-08] MEDS ORDERED: ALBUMIN 25% 25 GM/100 ML 100 ML IV NR (15:00)
[2022-06-08] MEDS: NOREPINEPHRINE 16 MG/250 ML DRIP IV SCH ×2 (16:04)
[2022-06-08 18:07] LABS: BILIRUBIN,URINE NEGATIVE (NEGATIVE); CLARITY,URINE CLEAR; COLOR,URINE YELLOW; GLUCOSE, URINE (UA) NEGATIVE (NEGATIVE); KETONES,URINE NEGATIVE (NEGATIVE); LEUKOCYTE ESTERASE ,URINE NEGATIVE (NEGATIVE); NITRITE,URINE NEGATIVE (NEGATIVE); PH,URINE 5.5 (5-9); PROTEIN,URINE TRACE (NEGATIVE)
[2022-06-08 18:21] LABS: BACTERIA,URINE FEW /HPF; WBC,URINE RARE /HPF
[2022-06-09] VITALS (14 sets, daily range): BP systolic 114–135; BP diastolic 48–81
[2022-06-09] MEDS: LACRI-LUBE OPTHALMIC OINT 3.5 GM TUBE OU SCH ×7 (00:37→23:41)
[2022-06-09] MEDS: PROPOFOL DRIP (ICU) 100 ML IV SCH ×5 (00:52→22:34)
[2022-06-09] MEDS: RT-ALBUTEROL/IPRATROPIUM 3 ML (DUONEB) VIAL INH SCH ×6 (02:32→22:38)
[2022-06-09] MEDS: fentaNYL INJECTION 5,000 MCG in EMPTY IV BAG (PVC) 1 EA IV SCH ×2 (03:38→15:23)
[2022-06-09] MEDS: CISATRACURIUM DRIP 250 ML IV SCH ×2 (03:40→17:22)
[2022-06-09 03:42] LABS: BASOPHILS % (AUTO) 0 % (0-10); EOSINOPHILS % (AUTO) 0 % (0-10)
[2022-06-09 03:44] LABS: HEMATOCRIT 23 % (35-52); LYMPHOCYTES % (AUTO) 4 % (12-44); MEAN CORPUSCULAR HEMOGLOBIN 21 pg (25-34); MEAN CORPUSCULAR HGB CONC 30 g/dL (32-36); MEAN CORPUSCULAR VOLUME 71 fL (80-99); MEAN PLATELET VOLUME 10.6 fL (9.0-12.2); MONOCYTES # (AUTO) 0.3 10^3/uL (0.0-1.0); MONOCYTES % (AUTO) 1 % (0-12); NEUTROPHILS # (AUTO) 22.3 10^3/uL (1.8-7.8); NEUTROPHILS % (AUTO) 87 % (42-75); PLATELET COUNT 77 10^3/uL (130-400); WHITE BLOOD COUNT 25.6 10^3/uL (4.3-11.0)
[2022-06-09 03:50] LABS: HEMOGLOBIN 6.9 g/dL (11.5-16.0)
[2022-06-09 03:54] LABS: ABG BASE EXCESS -3.1 MMOL/L (-2.5-2.5); ABG OXYGEN SATURATION 95 % (94-100); ABG PCO2 67 MMHG (35-45); ABG PO2 109 MMHG (79-93); ABG TCO2 25.9 MMOL/L (21.0-31.0)
[2022-06-09 03:55] LABS: ALBUMIN 2.5 GM/DL (3.2-4.5); POTASSIUM 4.4 MMOL/L (3.6-5.0)
[2022-06-09 03:55] LABS: ABG PH 7.19 (7.37-7.43); ALLENS TEST YES-POS; INSPIRED O2 100%; PATIENT TEMP 37.9; VENTILATOR YES
[2022-06-09 03:56] LABS: CALCIUM 7.8 MG/DL (8.5-10.1)
[2022-06-09 03:58] LABS: TOTAL PROTEIN 5.9 GM/DL (6.4-8.2)
[2022-06-09 03:59] LABS: BILIRUBIN,TOTAL 0.9 MG/DL (0.1-1.0)
[2022-06-09 04:01] LABS: CREATININE SERUM 0.75 MG/DL (0.60-1.30)
[2022-06-09 04:04] LABS: MAGNESIUM 2.6 MG/DL (1.6-2.4)
--- NOTE | 2022-06-09 04:15 | Tele-ICU Progress Note ---
Subjective Date Seen by a Provider: Jun 09, 2022 Time Seen by a Provider: 04:12 Subjective/Events-last exam called for ABG 7./109 On AC 32,Vt 400 FiO2 100%, PEEP 15, will leave vent on same settings CXR shows dense peripoheral infiltrates, Hb 6.9, Sepsis Event Evaluation Height, Weight, BMI Height: 5'6" Weight: 120lbs. oz. 54.237315kf; 19.34 BMI Method:Stated Focused Exam Lactate Level 06/08/22 03:14: Lactic Acid Level 2.31*H 06/08/22 05:12: Lactic Acid Level 2.25*H 06/08/22 08:44: Lactic Acid Level 1.91 Exam Exam Patient acknowledged, consented, and participated in this virtual visit which was conducted using real time audio/video Vital Signs Date Time Temp Pulse Resp B/P (MAP) Pulse Ox O2 Delivery O2 Flow Rate FiO2 06/09/22 04:00 37.8 106 32 95 Mechanical Ventilator 100.00 06/09/22 03:00 37.9 105 32 95 Mechanical Ventilator 100.00 06/09/22 02:33 103 32 95 100 06/09/22 02:00 37.7 105 32 95 Mechanical Ventilator 100.00 06/09/22 01:00 37.7 105 32 95 Mechanical Ventilator 100.00 06/09/22 01:00 105 06/09/22 00:52 104 124/58 06/09/22 00:00 37.7 105 32 95 Mechanical Ventilator 100.00 06/09/22 00:00 100 06/08/22 23:59 94 Mechanical Ventilator 100.00 06/08/22 23:00 37.6 104 32 95 Mechanical Ventilator 100.00 06/08/22 22:00 37.5 103 32 95 Mechanical Ventilator 100.00 06/08/22 21:31 100 32 94 100 06/08/22 21:00 37.4 101 32 94 Mechanical Ventilator 100.00 06/08/22 20:50 100 120/55 06/08/22 20:00 94 Mechanical Ventilator 100.00 06/08/22 20:00 37.4 101 32 94 Mechanical Ventilator 100.00 06/08/22 20:00 100 06/08/22 19:55 100 123/56 06/08/22 19:00 37.2 98 32 94 Mechanical Ventilator 100.00 06/08/22 19:00 98 06/08/22 18:33 99 32 93 100 06/08/22 18:29 98 124/55 06/08/22 18:29 98 124/55 06/08/22 18:00 37.1 99 32 92 Mechanical Ventilator 100.00 06/08/22 17:18 104 121/50 06/08/22 17:00 37.1 101 31 90 Mechanical Ventilator 100.00 06/08/22 16:24 91 Mechanical Ventilator 100.00 06/08/22 16:23 100 06/08/22 16:04 104 121/50 06/08/22 16:00 37.1 105 28 91 Mechanical Ventilator 100.00 06/08/22 15:53 104 121/50 06/08/22 15:19 101 125/53 06/08/22 15:00 93 26 90 100 06/08/22 15:00 36.9 94 26 90 Mechanical Ventilator 100.00 06/08/22 14:00 36.8 94 26 90 Mechanical Ventilator 100.00 06/08/22 13:42 93 06/08/22 13:18 94 132/60 06/08/22 13:15 Mechanical Ventilator 100.00 06/08/22 13:00 36.7 93 26 90 Mechanical Ventilator 100.00 06/08/22 12:47 93 132/60 06/08/22 12:00 100 06/08/22 12:00 88 Mechanical Ventilator 100.00 06/08/22 12:00 36.8 93 25 86 Mechanical Ventilator 100.00 06/08/22 11:56 96 115/51 06/08/22 11:53 96 115/51 06/08/22 11:00 36.8 96 26 89 Mechanical Ventilator 100.00 06/08/22 10:44 96 26 88 100 06/08/22 10:00 36.8 98 25 88 Mechanical Ventilator 100.00 06/08/22 09:49 36.9 98 26 136/62 88 Mechanical Ventilator 100 06/08/22 09:27 96 130/58 06/08/22 09:00 36.9 100 25 88 Mechanical Ventilator 100.00 06/08/22 08:48 100 129/56 06/08/22 08:47 100 130/56 06/08/22 08:00 37.2 104 25 88 Mechanical Ventilator 100.00 06/08/22 07:56 104 135/53 06/08/22 07:56 104 134/53 06/08/22 07:51 37.2 06/08/22 07:30 86 Mechanical Ventilator 100.00 06/08/22 07:20 105 06/08/22 07:15 100 06/08/22 07:12 105 26 86 100 06/08/22 07:10 37.3 104 26 128/48 88 Mechanical Ventilator 100 06/08/22 07:00 37.3 106 34 86 Mechanical Ventilator 100.00 06/08/22 06:43 37.4 106 26 124/48 86 Mechanical Ventilator 100 06/08/22 06:12 107 121/46 06/08/22 06:11 107 119/46 06/08/22 06:08 107 120/46 06/08/22 06:00 37.2 107 20 86 Mechanical Ventilator 100.00 06/08/22 05:32 106 120/48 06/08/22 05:29 106 120/47 06/08/22 05:27 106 120/47 06/08/22 05:00 37.1 106 20 86 Mechanical Ventilator 100.00 I & O 06/09/22 07:00 Intake Total 3642 ml Output Total 2160 ml Balance 1482 ml Height & Weight Height: 5'6" Weight: 120lbs. oz. 54.841407lw; 19.34 BMI Method:Stated General Appearance: No Apparent Distress, Thin, Other (intubated and sedated) HEENT: PERRL/EOMI, Other (Mucous membranes) Neck: Normal Inspection, Non Tender Respiratory: No Respiratory Distress, Decreased Breath Sounds, Other (intubated and mechanically ventilated) Cardiovascular: Regular Rate, Rhythm, No Murmur Capillary Refill: Less Than 3 Seconds Extremity: Normal Inspection, No Pedal Edema Neurologic/Psychiatric: Other (sedated) Skin: Normal Color, Warm/Dry Lymphatic: No Adenopathy Results Lab Laboratory Tests 06/07/22 11:02 06/08/22 03:14 06/08/22 13:00 06/09/22 03:20 Assessment/Plan Assessment/Plan will give one unit of PRBC, vent is already on maximum also temp 37.8, has mild elevation of AST, will order PRN tylenol Critical Care: Critically Ill Patient Time spent with patient (mins): 20 NIKO LAMAS MD Jun 09, 2022 04:15
[2022-06-09] MEDS ORDERED: ACETAMINOPHEN 650 MG SUPP (TYLENOL) PR PRN (04:30)
[2022-06-09] MEDS: CEFEPIME INJECTION 1,000 MG in NS (IVPB) 50 ML IV SCH ×2 (04:33→09:19)
[2022-06-09] MEDS: HYDROCORTISONE 100 MG/2 ML (Solu-CORTEF) VIAL IV SCH ×4 (04:36→22:18)
[2022-06-09] MEDS: VASOPRESSIN INJECTION 20 UNIT in NS (IVPB) 100 ML IV SCH ×2 (05:41→17:22)
--- NOTE | 2022-06-09 06:51 | Occ Therapy Progress Note ---
Therapy Progress Note Pt currently intubated and will need new orders when extubated until then OT will monitor pt's status and will initiate treatment when new orders received and pt is medically stable and able to actively participate in skilled in skilled therapy. JESUS TAYLOR Jun 09, 2022 06:51
--- NOTE | 2022-06-09 07:22 | Physical Therapy Progress Note ---
Therapy Progress Note Pt currently intubated and will need new orders when extubated until then PT will monitor pt's status and will initiate treatment when pt is medically stable and able to actively participate in skilled therapy. DIMITRIOS GUERRERO PT Jun 09, 2022 07:22
--- NOTE | 2022-06-09 07:56 | Diagnostic Imaging Report ---
INDICATION: Mechanical ventilation, pulmonary infiltrate, ICU care management. TECHNIQUE: Single view chest 3:53 AM. CORRELATION STUDY: 06/07/2022 FINDINGS: Endotracheal tube, gastric tube and left-sided central line all remain in place. Heart size and mediastinum are generally stable. Overlying monitor leads and defibrillator pads obscure detail. Extensive infiltrate particularly in the mid and lower lung martinez does persist but overall appears perhaps minimally improved. IMPRESSION: 1. Stable support lines and tubes. 2. Extensive bilateral pulmonary infiltrate-like opacities do persist but overall may be slightly improved from previous study. Dictated by: Dictated on workstation # [id number]
--- NOTE | 2022-06-09 08:28 | Tele-ICU Progress Note ---
Subjective Date Seen by a Provider: Jun 09, 2022 Time Seen by a Provider: 08:27 Subjective/Events-last exam (Tele-ICU Physician , Progress Note ) Service provided via interactive audio and video telecommunications E-CARE system to a patient admitted to ICU bed in [facility]. Patient is seen today due to persistent need of ICU care Available chart/ vitals / labs / Images reviewed Video assessment done using teleICU camera, rest of exam as per RN Discussed with RN Events overnight : Afebrile hemodynamically stable Respiratory - I/O = 3 l pos Drips: Pressors- levo 0.19 , vaso OFF REYNALDO VENT SETTINGS and ABG reviewed NOT CANDIDATE for SBTreviewed possible contraindications including Cardiovascular Stability /Sedation Score / FI02/PEEP / ABG / CXR/ secretions Sedation, discussed with RN, RASS on prop 50 fent 400 nimbex 2.4 06/27 Consultants: Hospital course: (06/07) 32F Admitted with PNA. CT shows Mod size areas of consolidation involving bilateral upper and left lower lobe. There is complete consolidation of RLL. Also centrilobular emphysema. -On BIPAP 100% sats 86%-Plan to intubate. Intubated @ 1918 06/08 - AC 400 26 100% peep 5 , shock : levo 0.9 vaso , reynaldo 175 , Hb 6.5 - transfusion 06/08 1 UPRBC A/P Acute resp failure with PNA ( in additional to signic=ficant emphyseme upper lovbes on CT - suspected due to inhalation of meth and possible other drugs ? ) - intubated 06/07 AC 400 26 100% peep 5 Shock . septic - stress dose steroid - pressors support - levo 0.9 vaso , reynaldo OFF PNA - bilateral , most likely CAP ( neg covid , flu ) - sputum cx -Streptococcus pneumoniae -vanco , cefepime Bacteremia - sterp pneumo - repeat 06/08 blood cx Anemia - Hb 6.5 06/08 1 u PRBC , and 1uPRBC 06/09 - no clear sigh of bleeding - suspect delutiona; - transfusion 06/08 1 UPRBC thrombocytopenia - - delutional most likely , but will check dic panel Elv trig - on propofol history of methamphetamine use abuse - sedated, paralized now - HIV neg Lines : l scl 06/07 , a line 06/07 , (Central Line Necessity Reviewed) Figueroa: + OG: Nutrition: npo Analgesia: Anxiety/ delirium VTE Prophylaxis: scd Stress Ulcer Prophylaxis: ppi Plans in collaboration with bedside consultants and IM MDs. Discussed with RN to reach out if any questions or concerns A total of 35 minutes of critical care time was devoted to this patient today, required to treat and/or prevent further deterioration of critical care condition ( as above ) . I am remotely monitoring this patient from another state. I am unable to do the bedside exam, and history/physical and pertinent information is taken from other notes in the computer and bedside staff. Sepsis Event Evaluation Height, Weight, BMI Height: 5'6" Weight: 120lbs. oz. 54.389496ql; 20.05 BMI Method:Stated Focused Exam Lactate Level 06/08/22 03:14: Lactic Acid Level 2.31*H 06/08/22 05:12: Lactic Acid Level 2.25*H 06/08/22 08:44: Lactic Acid Level 1.91 Exam Exam Patient acknowledged, consented, and participated in this virtual visit which was conducted using real time audio/video Vital Signs Date Time Temp Pulse Resp B/P (MAP) Pulse Ox O2 Delivery O2 Flow Rate FiO2 06/09/22 07:00 37.9 110 32 96 Mechanical Ventilator 100.00 06/09/22 07:00 110 06/09/22 06:49 37.9 109 32 119/53 94 Mechanical Ventilator 100 06/09/22 06:39 108 32 94 100 06/09/22 06:29 37.9 113 32 119/55 94 Mechanical Ventilator 100 06/09/22 06:09 37.9 112 32 123/54 94 Mechanical Ventilator 100 06/09/22 06:00 37.9 112 32 95 Mechanical Ventilator 100.00 06/09/22 05:49 37.9 112 32 122/52 94 Mechanical Ventilator 100 06/09/22 05:41 112 120/50 06/09/22 05:29 37.8 112 32 118/49 94 Mechanical Ventilator 100 06/09/22 05:14 37.8 113 32 121/49 95 Mechanical Ventilator 100 06/09/22 05:10 37.8 113 32 121/48 94 Mechanical Ventilator 100 06/09/22 05:00 37.8 115 32 95 Mechanical Ventilator 100.00 06/09/22 04:00 100 06/09/22 04:00 37.8 106 32 95 Mechanical Ventilator 100.00 06/09/22 04:00 95 Mechanical Ventilator 100.00 06/09/22 03:00 37.9 105 32 95 Mechanical Ventilator 100.00 06/09/22 02:33 103 32 95 100 06/09/22 02:00 37.7 105 32 95 Mechanical Ventilator 100.00 06/09/22 01:00 37.7 105 32 95 Mechanical Ventilator 100.00 06/09/22 01:00 105 06/09/22 00:52 104 124/58 06/09/22 00:00 37.7 105 32 95 Mechanical Ventilator 100.00 06/09/22 00:00 100 06/08/22 23:59 94 Mechanical Ventilator 100.00 06/08/22 23:00 37.6 104 32 95 Mechanical Ventilator 100.00 06/08/22 22:00 37.5 103 32 95 Mechanical Ventilator 100.00 06/08/22 21:31 100 32 94 100 06/08/22 21:00 37.4 101 32 94 Mechanical Ventilator 100.00 06/08/22 20:50 100 120/55 06/08/22 20:00 94 Mechanical Ventilator 100.00 06/08/22 20:00 37.4 101 32 94 Mechanical Ventilator 100.00 06/08/22 20:00 100 06/08/22 19:55 100 123/56 06/08/22 19:00 37.2 98 32 94 Mechanical Ventilator 100.00 06/08/22 19:00 98 06/08/22 18:33 99 32 93 100 06/08/22 18:29 98 124/55 06/08/22 18:29 98 124/55 06/08/22 18:00 37.1 99 32 92 Mechanical Ventilator 100.00 06/08/22 17:18 104 121/50 06/08/22 17:00 37.1 101 31 90 Mechanical Ventilator 100.00 06/08/22 16:24 91 Mechanical Ventilator 100.00 06/08/22 16:23 100 06/08/22 16:04 104 121/50 06/08/22 16:00 37.1 105 28 91 Mechanical Ventilator 100.00 06/08/22 15:53 104 121/50 06/08/22 15:19 101 125/53 06/08/22 15:00 93 26 90 100 06/08/22 15:00 36.9 94 26 90 Mechanical Ventilator 100.00 06/08/22 14:00 36.8 94 26 90 Mechanical Ventilator 100.00 06/08/22 13:42 93 06/08/22 13:18 94 132/60 06/08/22 13:15 Mechanical Ventilator 100.00 06/08/22 13:00 36.7 93 26 90 Mechanical Ventilator 100.00 06/08/22 12:47 93 132/60 06/08/22 12:00 100 06/08/22 12:00 88 Mechanical Ventilator 100.00 06/08/22 12:00 36.8 93 25 86 Mechanical Ventilator 100.00 06/08/22 11:56 96 115/51 06/08/22 11:53 96 115/51 06/08/22 11:00 36.8 96 26 89 Mechanical Ventilator 100.00 06/08/22 10:44 96 26 88 100 06/08/22 10:00 36.8 98 25 88 Mechanical Ventilator 100.00 06/08/22 09:49 36.9 98 26 136/62 88 Mechanical Ventilator 100 06/08/22 09:27 96 130/58 06/08/22 09:00 36.9 100 25 88 Mechanical Ventilator 100.00 06/08/22 08:48 100 129/56 06/08/22 08:47 100 130/56 I & O 06/09/22 07:00 Intake Total 3893 ml Output Total 2540 ml Balance 1353 ml Height & Weight Height: 5'6" Weight: 120lbs. oz. 54.939070iz; 20.05 BMI Method:Stated General Appearance: No Apparent Distress, Thin, Other (intubated and sedated) HEENT: PERRL/EOMI, Other (Mucous membranes) Neck: Normal Inspection, Non Tender Respiratory: No Respiratory Distress, Decreased Breath Sounds, Other (intubated and mechanically ventilated) Cardiovascular: Regular Rate, Rhythm, No Murmur Capillary Refill: Less Than 3 Seconds Extremity: Normal Inspection, No Pedal Edema Neurologic/Psychiatric: Other (sedated) Skin: Normal Color, Warm/Dry Lymphatic: No Adenopathy Results Lab Laboratory Tests 06/07/22 11:02 06/08/22 03:14 06/08/22 13:00 06/09/22 03:20 Assessment/Plan Assessment/Plan 1 EFREN VALENCIA MD Jun 09, 2022 08:28
[2022-06-09] MEDS: PANTOPRAZOLE 40 MG (PROTONIX) VIAL IV SCH (08:50)
[2022-06-09 09:30] LABS: FIBRIN DEGRADATION PRODUCTS 8.42 UG/ML (0.00-0.49); INR 1.2 (0.8-1.4); PROTHROMBIN TIME PATIENT 15.9 SEC (12.2-14.7)
[2022-06-09] MEDS: NOREPINEPHRINE 16 MG/250 ML DRIP IV SCH ×4 (11:06→17:24)
[2022-06-09] MEDS: cefTRIAXone 2,000 MG in NS (IVPB) 50 ML IV SCH (11:39)
--- NOTE | 2022-06-09 15:16 | Progress Note - Hospitalist ---
FLO MARTELL 06/09/22 1516: Subjective HPI/CC On Admission Date Seen by Provider: Jun 09, 2022 Time Seen by Provider: 09:00 Pt is a 32yoCF with a PMH of methamphetamine abuse who presented to the ER due to weakness. History comes from both patient and her mom. Mom states she has a long history of meth use but has been trying to quit. She last used 7 days ago and then started to get very ill. Her mom wanted to take her in to be seen but the patient refused throoughout the week and finally decidied to come intoday due to her weakness. Reportedly her son has had to carry her from room to room because of how weak she is. On arrival to the emergency room her oxygen saturation was 40%. This was confirmed on an ABG with a PO2 of 39 and saturation of 64 on 15 L nonrebreather. We were able to get her oxygen up into the 90s with oxi mask. Imaging revealed extensive bilateral infiltrates. She was also found to have a profound lactic acidosis fo 13. When I saw her in the ICU she was mottled to her knees and elbows though her capillary refill was adequate. She apparently has vomited twice this morning too. Subjective/Events-last exam Pt is sedated on ventilator and was unable to participate in interview. Pt is currently on two pressors and had one unit of blood transfused due to low hemoglobin. Pt didn't have any family in room today. Focused Exam Lactate Level 06/08/22 03:14: Lactic Acid Level 2.31*H 06/08/22 05:12: Lactic Acid Level 2.25*H 06/08/22 08:44: Lactic Acid Level 1.91 Objective Exam Vital Signs Vital Signs Date Time Temp Pulse Resp B/P (MAP) Pulse Ox O2 Delivery O2 Flow Rate FiO2 06/09/22 14:41 99 34 97 80 06/09/22 14:00 38.3 Mechanical Ventilator 90.00 Capillary Refill : Less Than 3 Seconds General Appearance: Other (Sedated on Vent) Respiratory: Lungs Clear, Normal Breath Sounds Cardiovascular: Regular Rate, Rhythm, No Edema, No Murmur, Normal Peripheral Pulses Gastrointestinal: Normal Bowel Sounds, Soft Results/Procedures Lab Laboratory Tests 06/09/22 03:20 Patient resulted labs reviewed. Imaging: Reviewed Imaging Films, Reviewed Imaging Report Assessment/Plan Assessment and Plan Assess & Plan/Chief Complaint ARDS secondary to Septic Shock Change Vent setting per TeleICU Continue sedation and paralysis Continue Stress Ulcer PPx w/ PPI CXR: Stable support lines and tubes.Extensive bilateral pulmonary infiltrate- like opacities but overall may be slightly improved from previous study Septic Shock Secondary to Pneumonia and Preliminary Strep. Pneumococcus Bacteremia Continue Blood Pressure Support Continue Abx ENOC Monitor Kidney Function Continue Iv Fluids Lactic Acidosis Continue fluids Monitor Lactic Acidosis Trend +Illicit Drug Use Transaminitis Thrombocytopenia DIC pannel ordered Elevated Fibrinogen and D-Dimer not consistent with DIC Continue to monitor platelets and signs of bleeding Clinical Quality Measures AMI/AHF: ASA po Prior to arrival: KENYA Groves MD 06/09/22 1548: Subjective HPI/CC On Admission Time Seen by Provider: 09:05 Objective Exam General Appearance: No Apparent Distress, Thin, Other (intubated, sedated, paralyzed) Respiratory: No Respiratory Distress, Crackles, Decreased Breath Sounds, Other (intubated and mechanically ventilated) Cardiovascular: Regular Rate, Rhythm, No Murmur Gastrointestinal: Normal Bowel Sounds, Soft Extremity: Normal Inspection, No Pedal Edema Neurologic/Psychiatric: Other (sedated and paralyzed) Results/Procedures Imaging: Reviewed Imaging Report Assessment/Plan Assessment and Plan Assess & Plan/Chief Complaint Continue ventilator support, teleICU following. Transiiton to Rocephin for Strep. Weaning pressors as able. Prognosis remains guarded. Critical Care: Critically Ill Patient Diagnosis/Problems Diagnosis/Problems (1) ARDS (adult respiratory distress syndrome) Status: Acute (2) Acute respiratory failure Status: Acute Qualifiers: Qualified Codes: J96.01 - Acute respiratory failure with hypoxia; J96.02 - Acute respiratory failure with hypercapnia (3) Septic shock Status: Acute (4) Bacteremia due to Streptococcus pneumoniae Status: Acute (5) Endotracheally intubated Status: Acute (6) Multifocal pneumonia Status: Acute (7) Lactic acidosis Status: Resolved Resolution Date/Time: 06/09/22 @ 15:48 (8) ENOC (acute kidney injury) Status: Resolved Resolution Date/Time: 06/09/22 @ 15:48 (9) Anemia Status: Acute (10) Substance abuse Status: Acute (11) Poor prognosis Status: Acute Supervisory-Addendum Brief Verification & Attestation Participated in pt care: history, MDM, physical Personally performed: exam, history, MDM, supervision of care Care discussed with: Medical Student Procedures: n/a Results interpretation: Verified all documentation A medical student performed and documented this service in my presence. I reviewed and verified all information documented by the medical student and made modifications to such information, when appropriate. I personally performed the physical exam and medical decision making. FLO MARTELL Jun 09, 2022 15:16 KENYA REYNA MD Jun 09, 2022 15:48
[2022-06-10] MEDS: RT-ALBUTEROL/IPRATROPIUM 3 ML (DUONEB) VIAL INH SCH ×6 (02:51→22:16)
[2022-06-10 02:53] VITALS: BP 130/77
[2022-06-10] MEDS: fentaNYL INJECTION 5,000 MCG in EMPTY IV BAG (PVC) 1 EA IV SCH ×2 (03:35→16:02)
[2022-06-10] MEDS: VASOPRESSIN INJECTION 20 UNIT in NS (IVPB) 100 ML IV SCH (03:42)
[2022-06-10] MEDS: PROPOFOL DRIP (ICU) 100 ML IV SCH ×4 (03:42→22:22)
[2022-06-10] MEDS: PHENYLEPHRINE DRIP 250 ML IV SCH ×2 (03:46→18:01)
[2022-06-10] MEDS: LACRI-LUBE OPTHALMIC OINT 3.5 GM TUBE OU SCH ×5 (03:47→20:33)
[2022-06-10] MEDS: HYDROCORTISONE 100 MG/2 ML (Solu-CORTEF) VIAL IV SCH ×4 (03:48→22:31)
[2022-06-10 04:06] LABS: HEMOGLOBIN 7.8 g/dL (11.5-16.0)
[2022-06-10 04:07] LABS: ABG BASE EXCESS -1.7 MMOL/L (-2.5-2.5); ABG OXYGEN SATURATION 94 % (94-100); ABG PCO2 40 MMHG (35-45); ABG PH 7.37 (7.37-7.43); ABG PO2 80 MMHG (79-93); ALLENS TEST ART LINE; INSPIRED O2 60%; PATIENT TEMP 35.4; VENTILATOR YES
[2022-06-10 04:09] LABS: BASOPHILS # (AUTO) 0.1 10^3/uL (0.0-0.1); BASOPHILS % (AUTO) 1 % (0-10); EOSINOPHILS % (AUTO) 0 % (0-10); HEMATOCRIT 26 % (35-52); LYMPHOCYTES # (AUTO) 0.9 10^3/uL (1.0-4.0); LYMPHOCYTES % (AUTO) 5 % (12-44); MEAN CORPUSCULAR HEMOGLOBIN 22 pg (25-34); MEAN CORPUSCULAR HGB CONC 31 g/dL (32-36); MEAN CORPUSCULAR VOLUME 72 fL (80-99); MONOCYTES # (AUTO) 0.3 10^3/uL (0.0-1.0); MONOCYTES % (AUTO) 1 % (0-12); NEUTROPHILS # (AUTO) 16.5 10^3/uL (1.8-7.8); NEUTROPHILS % (AUTO) 83 % (42-75); PLATELET COUNT 56 10^3/uL (130-400); WHITE BLOOD COUNT 19.8 10^3/uL (4.3-11.0)
[2022-06-10 04:20] LABS: ALBUMIN 2.4 GM/DL (3.2-4.5); POTASSIUM 3.8 MMOL/L (3.6-5.0)
[2022-06-10 04:22] LABS: CALCIUM 7.7 MG/DL (8.5-10.1)
[2022-06-10 04:27] LABS: CREATININE SERUM 0.62 MG/DL (0.60-1.30)
[2022-06-10 04:30] LABS: MAGNESIUM 2.4 MG/DL (1.6-2.4)
[2022-06-10] MEDS: POTASSIUM CL 10MEQ/50ML IVPB 50 ML IV SCH (04:41)
[2022-06-10] MEDS: MAGNESIUM 1 GM/100 ML IVPB 100 ML IV SCH (04:42)
[2022-06-10] MEDS: KCL 20 MEQ TAB (K-DUR) PO SCH (04:42)
[2022-06-10] MEDS ORDERED: NS IV 500 ML 500 ML IV PRN (04:45)
--- NOTE | 2022-06-10 06:50 | Occ Therapy Progress Note ---
Therapy Progress Note Pt currently intubated and will need new orders when extubated until then OT will monitor pt's status and will initiate treatment when new orders received and pt is medically stable and able to actively participate in skilled in skilled therapy. JESUS TAYLOR Jun 10, 2022 06:50
[2022-06-10 07:28] VITALS: BP 105/77
[2022-06-10] MEDS: CISATRACURIUM DRIP 250 ML IV SCH (07:42)
--- NOTE | 2022-06-10 07:58 | Physical Therapy Progress Note ---
Therapy Progress Note Pt currently intubated and will need new orders when extubated until then PT will monitor pt's status and will initiate treatment when pt is medically stable and able to actively participate in skilled therapy. THEO ARNETT PT Jun 10, 2022 07:58
--- NOTE | 2022-06-10 08:16 | Tele-ICU Progress Note ---
Subjective Date Seen by a Provider: Jun 10, 2022 Time Seen by a Provider: 08:16 Subjective/Events-last exam (Tele-ICU Physician , Progress Note ) Service provided via interactive audio and video telecommunications E-CARE system to a patient admitted to ICU bed in [facility]. Patient is seen today due to persistent need of ICU care Available chart/ vitals / labs / Images reviewed Video assessment done using teleICU camera, rest of exam as per RN Discussed with RN Events overnight : Remaind on vent, paralyzed and sedated Nimbex @ 2.2, TOF 3-4, on IV Propofol @ 50, IV Fentanyl @ 400, AC 34 Vt 400 FiO2 55% PEEP 15, levo @0.04, vaso 0.3 remains on levophed @ CXR today shows ET in good position, same dense bilateral mid lung peripheral infiltrates, L > R, mild hyperinflation On IV Rocephin for strep pneumonia in blood WBC down to 19 from 25 TG's are elevated at 525, on IV Propofol-will check serum lipase Sepsis Event Evaluation Height, Weight, BMI Height: 5'6" Weight: 120lbs. oz. 54.279243af; 20.05 BMI Method:Stated Focused Exam Lactate Level 06/08/22 03:14: Lactic Acid Level 2.31*H 06/08/22 05:12: Lactic Acid Level 2.25*H 06/08/22 08:44: Lactic Acid Level 1.91 Exam Exam Patient acknowledged, consented, and participated in this virtual visit which was conducted using real time audio/video Vital Signs Date Time Temp Pulse Resp B/P (MAP) Pulse Ox O2 Delivery O2 Flow Rate FiO2 06/10/22 08:00 81 33 118/88 (98) 93 Mechanical Ventilator 55.00 06/10/22 07:45 Mechanical Ventilator 55.00 06/10/22 07:45 36.2 06/10/22 07:38 77 105/77 06/10/22 07:28 76 34 96 60 06/10/22 07:09 79 06/10/22 07:00 35.8 77 34 122/87 (99) 95 Mechanical Ventilator 60.00 06/10/22 06:00 35.6 78 34 120/84 (96) 95 Mechanical Ventilator 60.00 06/10/22 05:00 35.4 77 34 126/91 (103) 96 Mechanical Ventilator 60.00 06/10/22 04:10 35.4 80 34 94/70 (78) 96 Mechanical Ventilator 60.00 06/10/22 04:00 100 06/10/22 04:00 96 Mechanical Ventilator 60.00 06/10/22 03:42 77 130/77 06/10/22 03:42 77 130/77 06/10/22 03:23 36.4 06/10/22 03:00 35.6 77 34 95 Mechanical Ventilator 60.00 06/10/22 02:57 Mechanical Ventilator 60.00 06/10/22 02:53 77 34 98 70 06/10/22 02:00 35.7 77 34 97 Mechanical Ventilator 70.00 06/10/22 01:00 35.8 80 34 97 Mechanical Ventilator 70.00 06/10/22 01:00 80 06/10/22 00:00 36.0 84 34 96 Mechanical Ventilator 70.00 06/10/22 00:00 100 06/09/22 23:59 96 Mechanical Ventilator 70.00 06/09/22 23:55 37.0 06/09/22 23:00 36.3 82 34 96 Mechanical Ventilator 70.00 06/09/22 22:41 Mechanical Ventilator 70.00 06/09/22 22:38 82 34 98 80 06/09/22 22:34 79 135/79 06/09/22 22:00 36.5 79 34 98 Mechanical Ventilator 80.00 06/09/22 21:00 36.6 85 34 97 Mechanical Ventilator 80.00 06/09/22 20:00 96 Mechanical Ventilator 80.00 06/09/22 20:00 100 06/09/22 20:00 36.8 89 34 97 Mechanical Ventilator 80.00 06/09/22 19:31 36.4 06/09/22 19:18 89 34 97 80 06/09/22 19:00 37.1 88 34 96 Mechanical Ventilator 80.00 06/09/22 19:00 88 06/09/22 18:00 37.3 92 33 96 Mechanical Ventilator 80.00 06/09/22 17:24 99 114/63 06/09/22 17:22 99 114/63 06/09/22 17:00 37.8 96 34 96 Mechanical Ventilator 80.00 06/09/22 16:54 99 114/63 06/09/22 16:53 36.9 06/09/22 16:15 96 Mechanical Ventilator 80.00 06/09/22 16:15 99 114/63 06/09/22 16:00 38.3 100 33 95 Mechanical Ventilator 80.00 06/09/22 16:00 100 06/09/22 15:23 38.3 06/09/22 15:00 38.3 101 33 96 Mechanical Ventilator 80.00 06/09/22 14:41 99 34 97 80 06/09/22 14:00 38.3 100 34 97 Mechanical Ventilator 90.00 06/09/22 13:30 38.2 06/09/22 13:00 37.7 102 33 95 Mechanical Ventilator 90.00 06/09/22 12:44 38.3 06/09/22 12:16 96 Mechanical Ventilator 100.00 06/09/22 12:05 104 06/09/22 12:00 38.2 102 34 96 Mechanical Ventilator 90.00 06/09/22 12:00 100 06/09/22 11:59 101 114/57 06/09/22 11:06 101 118/61 06/09/22 11:00 38.1 101 33 96 Mechanical Ventilator 90.00 06/09/22 10:15 101 118/61 06/09/22 10:08 34 95 Mechanical Ventilator 90.00 06/09/22 10:00 37.9 101 33 96 Mechanical Ventilator 100.00 06/09/22 09:45 101 34 97 90 06/09/22 09:00 37.9 103 31 97 Mechanical Ventilator 100.00 06/09/22 08:32 38.0 105 32 119/59 96 Mechanical Ventilator 100 I & O 06/10/22 07:00 Intake Total 700 ml Output Total 1260 ml Balance -560 ml Height & Weight Height: 5'6" Weight: 120lbs. oz. 54.686716ey; 20.05 BMI Method:Stated General Appearance: No Apparent Distress, Thin, Other (intubated, sedated, paralyzed) HEENT: PERRL/EOMI, Scleral Icterus (L), Scleral Icterus (R) Neck: Normal Inspection, Supple Respiratory: No Respiratory Distress, Crackles, Decreased Breath Sounds, Rhonci (tracy RUL, ), Other (intubated and mechanically ventilated) Cardiovascular: Regular Rate, Rhythm, No Murmur Capillary Refill: Less Than 3 Seconds Gastrointestinal: non tender, soft, distended, other (hypoacitive BS, mild distension) Extremity: Normal Inspection, No Pedal Edema, Pedal Edema, Other Neurologic/Psychiatric: Other (sedated and paralyzed, trace leg edeam) Skin: Mottled (to knees and on hands and forearms up to elbows), Other (grayish discoloration in general) Lymphatic: No Adenopathy Results Lab Laboratory Tests 06/08/22 13:00 06/09/22 03:20 06/10/22 03:50 Assessment/Plan Assessment/Plan A/P Acute resp failure with PNA from strep pneumonie ( in additional to signic=ficant emphyseme upper lovbes on CT - suspected due to inhalation of meth and possible other drugs ? ) - intubated 06/07 AC 400 AC 34 60% peep 15 At this point I would try to lower PEEP which will allow to lower pressor infusiton Shock . septic - stress dose steroid - pressors support - levo 0.04 vaso 0.03, brant OFF PNA - bilateral , most likely CAP ( neg covid , flu ) - sputum cx -Streptococcus pneumoniae -IV rocephin Bacteremia - sterp pneumo - repeat 06/08 blood cx Anemia - Hb today 7.8 thrombocytopenia - - delutional most likely , plt today 56 Elv trig - on propofol @ 50 TG 524, will order lipase history of methamphetamine use abuse - sedated, paralyzed now TOF 4/4, will try to decrease and possibly stop, no autoPPEP on vent graphics according to RT, [place] in low 30's - HIV neg Lines : l scl 06/07 , a line 06/07 , (Central Line Necessity Reviewed) Critical Care: Ventilator Management Time spent with patient (mins): 30 NIKO LAMAS MD Jun 10, 2022 08:16
--- NOTE | 2022-06-10 08:24 | Diagnostic Imaging Report ---
INDICATION: Pulmonary infiltrate, mechanical ventilation, ICU care management. TECHNIQUE: Single view chest 4:23 AM. CORRELATION STUDY: 06/09/2022 FINDINGS: The endotracheal tube, gastric tube and left-sided central line remain in place and appears stable. Heart size and mediastinal configuration appear unchanged. Extensive infiltrate-like opacities about the particularly central aspect of both lung martinez, left greater than right, persist. On the right, may be minimally improved. Stable to slightly increased on the left. Some relative sparing of the upper lung field. IMPRESSION: 1. Extensive infiltrate-like opacities at both lung martinez, left greater than right. May be minimally improved on the right and perhaps slightly increased on the left. Dictated by: Dictated on workstation # [id number]
[2022-06-10] MEDS: PANTOPRAZOLE 40 MG (PROTONIX) VIAL IV SCH (08:39)
[2022-06-10 10:03] VITALS: BP 109/80
[2022-06-10] MEDS ORDERED: NS IV 1000 ML 1,000 ML ONE (10:36)
--- NOTE | 2022-06-10 11:02 | Anesthesia-Procedure Note ---
Procedures/Interventions Procedure Start/Stop/Diagnosis Date of Procedure: Jun 10, 2022 Start Time: 10:40 Stop Time: 10:50 Postprocedural Diagnosis: X1 ATTEMPT WITH ULTRASOUND Arterial Line Arterial Line Catheter: 22G Type: Radial Location: Right Procedure: prepped, draped in sterile fashion, good wave-form was obtained, patient tolerated procedure well, no immediate complications, post procedure area cleaned, post procedure dressing applied NIKKI BUSCH CRNA Jun 10, 2022 11:02
[2022-06-10] MEDS: cefTRIAXone 2,000 MG in NS (IVPB) 50 ML IV SCH (13:17)
--- NOTE | 2022-06-10 14:23 | Progress Note - Hospitalist ---
FLO MARTELL 06/10/22 1423: Subjective HPI/CC On Admission Date Seen by Provider: Jun 10, 2022 Time Seen by Provider: 08:15 Pt is a 32yoCF with a PMH of methamphetamine abuse who presented to the ER due to weakness. History comes from both patient and her mom. Mom states she has a long history of meth use but has been trying to quit. She last used 7 days ago and then started to get very ill. Her mom wanted to take her in to be seen but the patient refused throoughout the week and finally decidied to come intoday due to her weakness. Reportedly her son has had to carry her from room to room because of how weak she is. On arrival to the emergency room her oxygen saturation was 40%. This was confirmed on an ABG with a PO2 of 39 and saturation of 64 on 15 L nonrebreather. We were able to get her oxygen up into the 90s with oxi mask. Imaging revealed extensive bilateral infiltrates. She was also found to have a profound lactic acidosis fo 13. When I saw her in the ICU she was mottled to her knees and elbows though her capillary refill was adequate. She apparently has vomited twice this morning too. Subjective/Events-last exam Pt is improving on ventilator. Pt still sedated, so could not participate during interview. FiO2 requirement have decreased down to 55% which is an improvement from yesterday. Anesthesiology consulted for new arterial line. Focused Exam Lactate Level 06/08/22 03:14: Lactic Acid Level 2.31*H 06/08/22 05:12: Lactic Acid Level 2.25*H 06/08/22 08:44: Lactic Acid Level 1.91 Objective Exam Vital Signs Vital Signs Date Time Temp Pulse Resp B/P (MAP) Pulse Ox O2 Delivery O2 Flow Rate FiO2 06/10/22 12:45 93 Mechanical Ventilator 60.00 06/10/22 12:45 55 06/10/22 11:56 36.7 06/10/22 11:00 93 34 118/77 (91) Capillary Refill : Less Than 3 Seconds General Appearance: Other (Sedated on Vent) Respiratory: Chest Non Tender, Lungs Clear, Normal Breath Sounds Cardiovascular: Regular Rate, Rhythm, No Murmur, Normal Peripheral Pulses Gastrointestinal: Normal Bowel Sounds, Soft Rectal: Deferred Results/Procedures Lab Laboratory Tests 06/10/22 03:50 Patient resulted labs reviewed. Imaging: Reviewed Imaging Report Assessment/Plan Assessment and Plan Assess & Plan/Chief Complaint ARDS secondary to Septic Shock CAP ENOC Lactic Acidosis Anemia Transaminitis Change Vent setting per TeleICU Consider relief from paralysis Consider Tube Feeding w/ nutrition consultation if relieved from paralysis Continue Stress Ulcer PPx w/ PPI CXR: 06/09 Stable support lines and tubes.Extensive bilateral pulmonary infiltrate-like opacities but overall may be slightly improved from previous study 06/10 Minimally improved on the right and perhaps slightly increased on the left. Continue Blood Pressure Support Continue Abx Monitor Kidney Function Continue IV Fluids Monitor H&H trends transfuse accordingly +Illicit Drug Use Thrombocytopenia DIC pannel ordered Elevated Fibrinogen and D-Dimer not consistent with DIC Continue to monitor platelets and signs of bleeding Transfuse accordingly Clinical Quality Measures AMI/AHF: ASA po Prior to arrival: KENYA Groves MD 06/10/22 1545: Subjective HPI/CC On Admission Time Seen by Provider: 10:25 Assessment/Plan Assessment and Plan Assess & Plan/Chief Complaint Remains intubated and sedated. Ventilator requirements decreased. Attempt to wean Nimbex today. If able, begin tube feeds. Wean pressors as able. Critical Care: Critically Ill Patient Diagnosis/Problems Diagnosis/Problems (1) Septic shock Status: Acute (2) Multifocal pneumonia Status: Acute (3) Bacteremia due to Streptococcus pneumoniae Status: Acute (4) Endotracheally intubated Status: Acute (5) Acute respiratory failure Status: Acute Qualifiers: Qualified Codes: J96.01 - Acute respiratory failure with hypoxia; J96.02 - Acute respiratory failure with hypercapnia (6) ARDS (adult respiratory distress syndrome) Status: Acute (7) Anemia Status: Acute (8) ENOC (acute kidney injury) Status: Resolved Resolution Date/Time: 06/09/22 @ 15:48 (9) Substance abuse Status: Acute Supervisory-Addendum Brief Verification & Attestation Participated in pt care: history, MDM, physical Personally performed: exam, history, MDM, supervision of care Care discussed with: Medical Student Procedures: n/a Results interpretation: Verified all documentation A medical student performed and documented this service in my presence. I reviewed and verified all information documented by the medical student and made modifications to such information, when appropriate. I personally performed the physical exam and medical decision making. FLO MARTELL Jun 10, 2022 14:23 KENYA REYNA MD Jun 10, 2022 15:45
[2022-06-10 14:59] VITALS: BP 108/53
[2022-06-10] MEDS: APAP 325 MG/10.15 ML LIQ (TYLENOL) UDC PO PRN (15:26)
[2022-06-10 18:40] VITALS: BP 102/67
[2022-06-10 22:16] VITALS: BP 108/67
[2022-06-11] MEDS: LACRI-LUBE OPTHALMIC OINT 3.5 GM TUBE OU SCH ×7 (00:42→23:46)
[2022-06-11 02:33] VITALS: BP 97/69
[2022-06-11] MEDS: RT-ALBUTEROL/IPRATROPIUM 3 ML (DUONEB) VIAL INH SCH ×6 (02:33→22:06)
[2022-06-11 04:04] LABS: ABG BASE EXCESS 2.2 MMOL/L (-2.5-2.5); ABG OXYGEN SATURATION 96 % (94-100); ABG PCO2 41 MMHG (35-45); ABG PH 7.42 (7.37-7.43); ABG PO2 89 MMHG (79-93); ABG TCO2 27.5 MMOL/L (21.0-31.0)
[2022-06-11 04:06] LABS: ALLENS TEST ART LINE; INSPIRED O2 60%; PATIENT TEMP 37.2; VENTILATOR YES
[2022-06-11] MEDS: PROPOFOL DRIP (ICU) 100 ML IV SCH ×2 (04:06→09:51)
[2022-06-11] MEDS: HYDROCORTISONE 100 MG/2 ML (Solu-CORTEF) VIAL IV SCH ×4 (04:06→22:09)
[2022-06-11 04:13] LABS: BASOPHILS % (AUTO) 0 % (0-10); EOSINOPHILS % (AUTO) 0 % (0-10); PLATELET COUNT 62 10^3/uL (130-400)
[2022-06-11 04:15] LABS: HEMATOCRIT 23 % (35-52); LYMPHOCYTES # (AUTO) 0.7 10^3/uL (1.0-4.0); LYMPHOCYTES % (AUTO) 5 % (12-44); MEAN CORPUSCULAR HEMOGLOBIN 22 pg (25-34); MEAN CORPUSCULAR HGB CONC 31 g/dL (32-36); MEAN CORPUSCULAR VOLUME 72 fL (80-99); MONOCYTES # (AUTO) 0.3 10^3/uL (0.0-1.0); MONOCYTES % (AUTO) 2 % (0-12); NEUTROPHILS # (AUTO) 13.2 10^3/uL (1.8-7.8); NEUTROPHILS % (AUTO) 87 % (42-75); WHITE BLOOD COUNT 15.3 10^3/uL (4.3-11.0)
[2022-06-11 04:20] LABS: ALBUMIN 2.4 GM/DL (3.2-4.5)
[2022-06-11 04:21] LABS: POTASSIUM 3.5 MMOL/L (3.6-5.0)
[2022-06-11 04:22] LABS: CALCIUM 7.4 MG/DL (8.5-10.1)
[2022-06-11 04:23] LABS: TOTAL PROTEIN 5.7 GM/DL (6.4-8.2)
[2022-06-11 04:25] LABS: BILIRUBIN,TOTAL 0.9 MG/DL (0.1-1.0)
[2022-06-11 04:27] LABS: CREATININE SERUM 0.56 MG/DL (0.60-1.30)
[2022-06-11 04:30] LABS: MAGNESIUM 2.2 MG/DL (1.6-2.4)
[2022-06-11] MEDS: fentaNYL DRIP PRE-MIX 250 ML IV SCH ×4 (05:06→17:08)
--- NOTE | 2022-06-11 05:34 | Diagnostic Imaging Report ---
INDICATION: Shortness of breath. Comparison is made with prior examination 06/10/2022. FINDINGS: Heart size is normal. There is some venous congestion. There is a persistent infiltrate in left midlung compatible with pneumonia. There is no pleural effusion or pneumothorax. Mediastinum is unremarkable. Lines and tubes are in satisfactory position. IMPRESSION: Persistent pneumonia in the mid left lung. Central pulmonary venous congestion. Dictated by: Dictated on workstation # [id number]
[2022-06-11] MEDS: MAGNESIUM 1 GM/100 ML IVPB 100 ML IV SCH (05:56)
[2022-06-11] MEDS: KCL 20 MEQ TAB (K-DUR) PO SCH (05:57)
[2022-06-11] MEDS: POTASSIUM CL 10MEQ/50ML IVPB 50 ML IV SCH ×3 (05:57→07:12)
--- NOTE | 2022-06-11 06:50 | Occ Therapy Progress Note ---
Therapy Progress Note Pt currently intubated and will need new orders when extubated until then OT will monitor pt's status and will initiate treatment when new orders received and pt is medically stable and able to actively participate in skilled in skilled therapy. JESUS TAYLOR Jun 11, 2022 06:50
[2022-06-11 07:01] VITALS: BP 92/69
--- NOTE | 2022-06-11 07:10 | Physical Therapy Progress Note ---
Therapy Progress Note Pt currently intubated and will need new orders when extubated until then PT will monitor pt's status and will initiate treatment when pt is medically stable and able to actively participate in skilled therapy. DIMITRIOS GUERRERO PT Jun 11, 2022 07:10
[2022-06-11] MEDS: PHENYLEPHRINE DRIP 250 ML IV SCH ×2 (07:12→19:35)
[2022-06-11] MEDS ORDERED: fentaNYL DRIP PRE-MIX 250 ML IV ONE ×2 (08:30→12:22)
[2022-06-11] MEDS: PANTOPRAZOLE 40 MG (PROTONIX) VIAL IV SCH (08:37)
--- NOTE | 2022-06-11 09:10 | Tele-ICU Progress Note ---
Subjective Date Seen by a Provider: Jun 11, 2022 Time Seen by a Provider: 09:10 Subjective/Events-last exam (Tele-ICU Physician , Progress Note ) Service provided via interactive audio and video telecommunications E-CARE system to a patient admitted to ICU bed in [facility]. Patient is seen today due to persistent need of ICU care Available chart/ vitals / labs / Images reviewed Video assessment done using teleICU camera, rest of exam as per RN Discussed with RN Events overnight : Afebrile hemodynamically stable Respiratory - I/O = neg 300 Drips: Pressors- levo , vaso OFF, OFF REYNALDO VENT SETTINGS and ABG reviewed NOT CANDIDATE for SBTreviewed possible contraindications including Cardiovascular Stability /Sedation Score / FI02/PEEP / ABG / CXR/ secretions Sedation, discussed with RN, RASS on prop 50 fent 375 Consultants: Hospital course: (06/07) 32F Admitted with PNA. CT shows Mod size areas of consolidation involving bilateral upper and left lower lobe. There is complete consolidation of RLL. Also centrilobular emphysema. -On BIPAP 100% sats 86%-Plan to intubate. Intubated @ 1918 06/08 - AC 400 26 100% peep 5 , shock : levo 0.9 vaso , reynaldo 175 , Hb 6.5 - transfusion 06/08 1 UPRBC 06/10 - OFF nimbex 06/10-Fio2 60 % +10 A/P Acute resp failure with PNA ( in additional to signic=ficant emphyseme upper lovbes on CT - suspected due to inhalation of meth and possible other drugs ? ) - intubated 06/07 AC 400 26 100% peep 5 Shock . septic - stress dose steroid 50 q 6 - pressors support - levo to wean off PNA - bilateral , most likely CAP ( neg covid , flu ) - sputum cx -Streptococcus pneumoniae -ceftriaxone Bacteremia - sterp pneumo - repeat 06/08 blood cx - NEG so far Anemia - Hb 6.5 06/08 1 u PRBC , and 1uPRBC 06/09 - no clear sigh of bleeding - suspect delutiona; - transfusion 06/09 1 UPRBC - tending down , still thrombocytopenia - DIC panel l neg on 06/09 - delutional most likely , but will check dic panel Elv trig - on propofol 06/10 history of methamphetamine use abuse - sedated, fentanyl - HIV neg Nutritions - try to advance 20 /h - talha alena advance - Increase free wated Lines : l scl 06/07 , a line 06/07 , (Central Line Necessity Reviewed) Figueroa: + OG: Nutrition: TF Analgesia: Anxiety/ delirium VTE Prophylaxis: scd Stress Ulcer Prophylaxis: ppi Plans in collaboration with bedside consultants and IM MDs. Discussed with RN to reach out if any questions or concerns A total of 35 minutes of critical care time was devoted to this patient today, required to treat and/or prevent further deterioration of critical care condition ( as above ) . I am remotely monitoring this patient from another state. I am unable to do the bedside exam, and history/physical and pertinent information is taken from other notes in the computer and bedside staff. Sepsis Event Evaluation Height, Weight, BMI Height: 5'6" Weight: 120lbs. oz. 54.821803am; 20.05 BMI Method:Stated Exam Exam Patient acknowledged, consented, and participated in this virtual visit which was conducted using real time audio/video Vital Signs Date Time Temp Pulse Resp B/P (MAP) Pulse Ox O2 Delivery O2 Flow Rate FiO2 06/11/22 08:39 90 127/71 06/11/22 08:37 90 127/71 06/11/22 08:06 93 129/69 06/11/22 08:00 36.5 06/11/22 08:00 37.0 85 33 95 Mechanical Ventilator 60.00 06/11/22 07:01 86 34 95 60 06/11/22 07:00 37.0 86 33 98 Mechanical Ventilator 60.00 06/11/22 07:00 85 06/11/22 06:00 37.0 86 33 93 Mechanical Ventilator 60.00 06/11/22 05:06 86 93/62 06/11/22 05:00 37.1 89 34 94 Mechanical Ventilator 60.00 06/11/22 04:06 89 108/66 06/11/22 04:00 37.2 89 33 95 Mechanical Ventilator 60.00 06/11/22 03:34 91 Mechanical Ventilator 65.00 06/11/22 03:31 60 06/11/22 03:00 37.3 89 34 95 Mechanical Ventilator 60.00 06/11/22 02:42 FI02 60.00 06/11/22 02:33 88 34 95 60 06/11/22 02:22 88 97/69 06/11/22 02:00 37.3 87 34 96 Mechanical Ventilator 65.00 06/11/22 01:00 37.4 93 34 96 Mechanical Ventilator 65.00 06/11/22 01:00 90 06/11/22 00:00 37.5 95 34 94 Mechanical Ventilator 65.00 06/10/22 23:46 65 06/10/22 23:45 91 Mechanical Ventilator 65.00 06/10/22 23:00 37.7 97 34 95 Mechanical Ventilator 65.00 06/10/22 22:22 93 102/68 06/10/22 22:16 92 34 95 65 06/10/22 22:00 37.7 93 34 95 Mechanical Ventilator 65.00 06/10/22 21:00 37.7 96 34 94 Mechanical Ventilator 65.00 06/10/22 20:00 37.8 101 33 94 Mechanical Ventilator 65.00 06/10/22 19:45 101 108/66 06/10/22 19:36 65 06/10/22 19:36 91 Mechanical Ventilator 65.00 06/10/22 19:00 101 06/10/22 19:00 38.0 105 33 92 Mechanical Ventilator 65.00 06/10/22 18:40 105 34 92 65 06/10/22 18:00 37.9 107 33 92 Mechanical Ventilator 65.00 06/10/22 17:58 37.9 06/10/22 17:00 37.9 112 34 92 Mechanical Ventilator 65.00 06/10/22 16:45 55 06/10/22 16:45 91 Mechanical Ventilator 65.00 06/10/22 16:02 38.0 06/10/22 16:00 37.9 106 32 107/63 (78) 91 Mechanical Ventilator 65.00 06/10/22 15:26 37.9 06/10/22 15:25 110 115/55 06/10/22 15:07 Mechanical Ventilator 65.00 06/10/22 15:00 37.8 101 33 103/63 (76) 92 Mechanical Ventilator 60.00 06/10/22 14:59 100 34 92 60 06/10/22 14:00 37.5 93 34 114/75 (88) 93 Mechanical Ventilator 60.00 06/10/22 14:00 110 115/55 06/10/22 13:37 91 06/10/22 13:00 37.2 89 34 106/75 (85) 93 Mechanical Ventilator 60.00 06/10/22 12:45 93 Mechanical Ventilator 60.00 06/10/22 12:45 55 06/10/22 12:00 36.9 88 33 118/77 (91) 93 Mechanical Ventilator 60.00 06/10/22 11:56 36.7 06/10/22 11:00 36.7 93 34 118/77 (91) 92 Mechanical Ventilator 60.00 06/10/22 10:41 92 60 06/10/22 10:41 Mechanical Ventilator 60.00 06/10/22 10:03 88 34 95 55 06/10/22 10:00 84 111/80 06/10/22 10:00 36.5 85 33 109/80 (90) 93 Mechanical Ventilator 55.00 I & O 06/11/22 06:59 Intake Total 946 ml Output Total 1275 ml Balance -329 ml Height & Weight Height: 5'6" Weight: 120lbs. oz. 54.600860rb; 20.05 BMI Method:Stated General Appearance: No Apparent Distress, Thin, Other (intubated, sedated, paralyzed) HEENT: PERRL/EOMI, Scleral Icterus (L), Scleral Icterus (R) Neck: Normal Inspection, Supple Respiratory: No Respiratory Distress, Crackles, Decreased Breath Sounds, Rhonci (tracy RUL, ), Other (intubated and mechanically ventilated) Cardiovascular: Regular Rate, Rhythm, No Murmur Capillary Refill: Less Than 3 Seconds Gastrointestinal: non tender, soft, distended, other (hypoacitive BS, mild distension) Extremity: Normal Inspection, No Pedal Edema, Pedal Edema, Other Neurologic/Psychiatric: Other (sedated and paralyzed, trace leg edeam) Skin: Mottled (to knees and on hands and forearms up to elbows), Other (grayish discoloration in general) Lymphatic: No Adenopathy Results Lab Laboratory Tests 06/10/22 03:50 06/11/22 03:50 Assessment/Plan Assessment/Plan 1 EFREN VALENCIA MD Jun 11, 2022 09:10
[2022-06-11] MEDS ORDERED: SODIUM PHOSPHATE INJ 30 MM in NS (IVPB) 250 ML INJ ONE (09:30)
[2022-06-11] MEDS: MIDAZOLAM DRIP PRE-MIX 100 ML IV SCH (10:13)
[2022-06-11] MEDS: NOREPINEPHRINE 16 MG/250 ML DRIP IV SCH ×2 (10:15)
[2022-06-11 10:30] VITALS: BP 111/68
[2022-06-11] MEDS: inSUlin ASPART (NovoLOG) 1 UNIT/0.01 ML (CHARGE PER UNIT) SC SCH ×3 (11:00→20:00)
[2022-06-11] MEDS ORDERED: IBUPROFEN 600 MG (MOTRIN) TAB PO ONE (11:28)
[2022-06-11] MEDS: cefTRIAXone 2,000 MG in NS (IVPB) 50 ML IV SCH (12:31)
--- NOTE | 2022-06-11 13:28 | Progress Note - Hospitalist ---
JASBIRFLO 06/11/22 1328: Subjective HPI/CC On Admission Pt is a 32yoCF with a PMH of methamphetamine abuse who presented to the ER due to weakness. History comes from both patient and her mom. Mom states she has a long history of meth use but has been trying to quit. She last used 7 days ago and then started to get very ill. Her mom wanted to take her in to be seen but the patient refused throoughout the week and finally decidied to come intoday due to her weakness. Reportedly her son has had to carry her from room to room because of how weak she is. On arrival to the emergency room her oxygen saturation was 40%. This was confirmed on an ABG with a PO2 of 39 and saturation of 64 on 15 L nonrebreather. We were able to get her oxygen up into the 90s with oxi mask. Imaging revealed extensive bilateral infiltrates. She was also found to have a profound lactic acidosis fo 13. When I saw her in the ICU she was mottled to her knees and elbows though her capillary refill was adequate. She apparently has vomited twice this morning too. Subjective/Events-last exam Pt is sedated on vent. Pt is improving; started tube feeding after discontinuation of nimbex. Pt is only requiring one pressor at this time for blood pressure control. Pt was w/o family in room. Objective Exam Vital Signs Vital Signs Date Time Temp Pulse Resp B/P (MAP) Pulse Ox O2 Delivery O2 Flow Rate FiO2 06/11/22 12:42 89 06/11/22 12:38 98/62 06/11/22 12:00 36.9 33 93 Mechanical Ventilator 60.00 06/11/22 10:30 60 Capillary Refill : Less Than 3 Seconds General Appearance: Other (sedated on vent) Respiratory: Lungs Clear, Normal Breath Sounds Cardiovascular: Regular Rate, Rhythm, No Murmur, Normal Peripheral Pulses Gastrointestinal: Normal Bowel Sounds, Soft Results/Procedures Lab Laboratory Tests 06/11/22 03:50 Patient resulted labs reviewed. Imaging: Reviewed Imaging Report Assessment/Plan Assessment and Plan Assess & Plan/Chief Complaint ARDS secondary to Septic Shock CAP ENOC Lactic Acidosis Anemia Transaminitis Endotracheal Intubation Hypernatremia Change Vent setting per TeleICU Nimbex discontinued yesterday Continue Tube Feeding w/ nutrition Continue Stress Ulcer PPx w/ PPI CXR: 06/09 Stable support lines and tubes.Extensive bilateral pulmonary infiltrate-like opacities but overall may be slightly improved from previous study 06/10 Minimally improved on the right and perhaps slightly increased on the left 06/11 Persistent pneumonia in the mid left lung Continue Blood Pressure Support Continue Abx Monitor Kidney Function Continue IV Fluids Monitor H&H trends transfuse accordingly Free water bolus tx Hypernatremia +Illicit Drug Use Thrombocytopenia Platelet count improved; still low; monitor for signs of bleeding and transfuse accordingly Clinical Quality Measures AMI/AHF: ASA po Prior to arrival: No KENYA REYNA MD 06/11/221918: Subjective HPI/CC On Admission Date Seen by Provider: Jun 11, 2022 Time Seen by Provider: 09:40 Objective Exam General Appearance: No Apparent Distress, Thin Respiratory: Lungs Clear, No Respiratory Distress, Other (intubated and sedated) Cardiovascular: Regular Rate, Rhythm, No Murmur Gastrointestinal: Normal Bowel Sounds, Soft Extremity: Normal Inspection, No Pedal Edema Neurologic/Psychiatric: Other (sedated) Skin: Normal Color, Warm/Dry Assessment/Plan Assessment and Plan Assess & Plan/Chief Complaint Off Nimbex. Weaning sedation and ventilator. Started on tube feeds. Increase free water boluses. Critical Care: Critically Ill Patient Diagnosis/Problems Diagnosis/Problems (1) Septic shock Status: Acute (2) Bacteremia due to Streptococcus pneumoniae Status: Acute (3) Multifocal pneumonia Status: Acute (4) Endotracheally intubated Status: Acute (5) Acute respiratory failure Status: Acute Qualifiers: Qualified Codes: J96.01 - Acute respiratory failure with hypoxia; J96.02 - Acute respiratory failure with hypercapnia (6) ARDS (adult respiratory distress syndrome) Status: Acute (7) ENOC (acute kidney injury) Status: Resolved Resolution Date/Time: 06/09/22 @ 15:48 (8) Anemia Status: Acute Supervisory-Addendum Brief Verification & Attestation Participated in pt care: history, MDM, physical Personally performed: exam, history, MDM, supervision of care Care discussed with: Medical Student Procedures: n/a Results interpretation: Verified all documentation A medical student performed and documented this service in my presence. I reviewed and verified all information documented by the medical student and made modifications to such information, when appropriate. I personally performed the physical exam and medical decision making. FLO MARTELL Jun 11, 2022 13:28 KENYA REYNA MD Jun 11, 2022 19:19
[2022-06-11 13:34] VITALS: BP 117/65
[2022-06-11 18:51] VITALS: BP 125/77
[2022-06-11 22:06] VITALS: BP 115/74
[2022-06-12] MEDS: fentaNYL DRIP PRE-MIX 250 ML IV SCH ×4 (00:26→22:53)
[2022-06-12 02:27] VITALS: BP 115/72
[2022-06-12] MEDS: RT-ALBUTEROL/IPRATROPIUM 3 ML (DUONEB) VIAL INH SCH ×6 (02:27→22:18)
[2022-06-12] MEDS: HYDROCORTISONE 100 MG/2 ML (Solu-CORTEF) VIAL IV SCH ×3 (04:35→21:34)
[2022-06-12] MEDS: LACRI-LUBE OPTHALMIC OINT 3.5 GM TUBE OU SCH ×6 (04:35→23:25)
[2022-06-12 05:02] LABS: ABG BASE EXCESS 5.9 MMOL/L (-2.5-2.5); ABG OXYGEN SATURATION 92 % (94-100); ABG PCO2 41 MMHG (35-45); ABG PH 7.47 (7.37-7.43); ABG PO2 58 MMHG (79-93); ABG TCO2 30.9 MMOL/L (21.0-31.0); ALLENS TEST YES-POS; INSPIRED O2 100%; VENTILATOR YES
[2022-06-12 05:03] LABS: PATIENT TEMP 37
[2022-06-12 05:07] LABS: BASOPHILS % (AUTO) 0 % (0-10); EOSINOPHILS % (AUTO) 0 % (0-10); HEMOGLOBIN 7.2 g/dL (11.5-16.0); MEAN CORPUSCULAR HEMOGLOBIN 22 pg (25-34)
[2022-06-12 05:08] LABS: BASOPHILS # (AUTO) 0.1 10^3/uL (0.0-0.1); HEMATOCRIT 24 % (35-52); LYMPHOCYTES # (AUTO) 0.8 10^3/uL (1.0-4.0); LYMPHOCYTES % (AUTO) 6 % (12-44); MEAN CORPUSCULAR HGB CONC 30 g/dL (32-36); MEAN CORPUSCULAR VOLUME 73 fL (80-99); MONOCYTES # (AUTO) 0.3 10^3/uL (0.0-1.0); MONOCYTES % (AUTO) 2 % (0-12); NEUTROPHILS # (AUTO) 12.4 10^3/uL (1.8-7.8); NEUTROPHILS % (AUTO) 85 % (42-75); PLATELET COUNT 73 10^3/uL (130-400); WHITE BLOOD COUNT 14.5 10^3/uL (4.3-11.0)
[2022-06-12 05:30] LABS: ALBUMIN 2.2 GM/DL (3.2-4.5); BILIRUBIN,TOTAL 0.7 MG/DL (0.1-1.0); CALCIUM 7.3 MG/DL (8.5-10.1); CREATININE SERUM 0.46 MG/DL (0.60-1.30); MAGNESIUM 2.2 MG/DL (1.6-2.4); POTASSIUM 2.9 MMOL/L (3.6-5.0); TOTAL PROTEIN 5.6 GM/DL (6.4-8.2)
[2022-06-12] MEDS: MAGNESIUM 1 GM/100 ML IVPB 100 ML IV SCH (05:54)
[2022-06-12] MEDS: KCL 20 MEQ TAB (K-DUR) PO SCH (05:54)
[2022-06-12] MEDS: inSUlin ASPART (NovoLOG) 1 UNIT/0.01 ML (CHARGE PER UNIT) SC SCH ×3 (05:55→18:17)
[2022-06-12] MEDS: POTASSIUM CL 10MEQ/50ML IVPB 50 ML IV SCH ×8 (05:57→17:09)
--- NOTE | 2022-06-12 06:41 | Occ Therapy Progress Note ---
Therapy Progress Note Pt is currently intubated and will need new orders when extubated until then OT to monitor pt's status then will initiate treatment when new orders received and pt is medically stable and able to participate in skilled therapy. JESUS TAYLOR Jun 12, 2022 06:41
[2022-06-12 07:09] VITALS: BP 93/88
--- NOTE | 2022-06-12 07:14 | Physical Therapy Progress Note ---
Therapy Progress Note Pt currently intubated and will need new orders when extubated until then PT will monitor pt's status and will initiate treatment when pt is medically stable and able to actively participate in skilled therapy. DIMITRIOS GUERRERO PT Jun 12, 2022 07:13
[2022-06-12] MEDS ORDERED: POTASSIUM PHOSPHATE INJ 30 MM in NS (IVPB) 250 ML IV ONE (08:00)
[2022-06-12] MEDS: PANTOPRAZOLE 40 MG (PROTONIX) VIAL IV SCH (08:19)
[2022-06-12] MEDS: MILK OF MAGNESIA 400 MG/5 ML 30 ML UDC PO PRN (08:19)
[2022-06-12] MEDS: PHENYLEPHRINE DRIP 250 ML IV SCH ×2 (08:30→21:29)
[2022-06-12] MEDS ORDERED: FUROSEMIDE 40 MG/4 ML INJ (LASIX) IVP ONE (09:45)
--- NOTE | 2022-06-12 10:00 | Tele-ICU Progress Note ---
Subjective Date Seen by a Provider: Jun 12, 2022 Time Seen by a Provider: 10:00 Subjective/Events-last exam (Tele-ICU Physician , Progress Note ) Service provided via interactive audio and video telecommunications E-CARE system to a patient admitted to ICU bed in [facility]. Patient is seen today due to persistent need of ICU care Available chart/ vitals / labs / Images reviewed Video assessment done using teleICU camera, rest of exam as per RN Discussed with RN Events overnight : Afebrile hemodynamically stable Respiratory - I/O = neg 300 Drips: Pressors- levo , vaso OFF, OFF REYNALDO VENT SETTINGS and ABG reviewed NOT CANDIDATE for SBTreviewed possible contraindications including Cardiovascular Stability /Sedation Score / FI02/PEEP / ABG / CXR/ secretions Sedation, discussed with RN, RASS -2 versed 2 , fent 150 - open eyes , can open mouth on direction Consultants: Hospital course: (06/07) 32F Admitted with PNA. CT shows Mod size areas of consolidation involving bilateral upper and left lower lobe. There is complete consolidation of RLL. Also centrilobular emphysema. -On BIPAP 100% sats 86%-Plan to intubate. Intubated @ 1918 06/08 - AC 400 26 100% peep 5 , shock : levo 0.9 vaso , reynaldo 175 , Hb 6.5 - transfusion 06/08 1 UPRBC 06/10 - OFF nimbex 06/10-Fio2 60 % +10 06/11- Episodes of junctional robson or sinus robson with PAC. fibrinogen 213 06/12 - 50 % , s/p transfusion 06/08 1 u PRBC, PLT 73 A/P Acute resp failure with PNA ( in additional to signic=ficant emphyseme upper lovbes on CT - suspected due to inhalation of meth and possible other drugs ? ) - intubated 06/07 AC 400 34 100% peep 5 decrease to 26 Shock . septic - stress dose steroid 50 q 6 - decrease dose q8 06/12 - pressors support - levo OFF PNA - bilateral , most likely CAP ( neg covid , flu ) - sputum cx -Streptococcus pneumoniae -ceftriaxone Bacteremia - sterp pneumo - repeat 06/08 blood cx - NEG so far Anemia s/p transfusion 06/08 1 u PRBC , 1uPRBC 06/09 - no clear sigh of bleeding - suspect delutional? vs slow bleed thrombocytopenia - DIC panel l neg on 06/09 , fibrinogen 213 on 06/11 Episodes of junctional robson or sinus robson with PAC. 06/11 - resolved - monitor lytes Elv trig - on propofol 06/10 - decreasing , lipase 69 06/11 Encephalopaty - doing SAT -sedation awakening trials - versed 2 , fent 150 - open eyes , can open mouth on direction history of methamphetamine use abuse - sedated, fentanyl gtt , decresing - HIV neg Nutritions - try to advance /h - try to advance - 06/12 - added reglan prn Hypernatremia - TF with already H2O 100 q4 h - will add DW gtt ( given lasix Lines : l scl 06/07 , a line 06/07 , (Central Line Necessity Reviewed) Figueroa: + OG: Nutrition: TF Analgesia: Anxiety/ delirium VTE Prophylaxis: scd Stress Ulcer Prophylaxis: ppi Plans in collaboration with bedside consultants and IM MDs. Discussed with RN to reach out if any questions or concerns A total of 35 minutes of critical care time was devoted to this patient today, required to treat and/or prevent further deterioration of critical care condition ( as above ) . I am remotely monitoring this patient from another state. I am unable to do the bedside exam, and history/physical and pertinent information is taken from other notes in the computer and bedside staff. Sepsis Event Evaluation Height, Weight, BMI Height: 5'6" Weight: 120lbs. oz. 54.154295xx; 20.05 BMI Method:Stated Exam Exam Patient acknowledged, consented, and participated in this virtual visit which was conducted using real time audio/video Vital Signs Date Time Temp Pulse Resp B/P (MAP) Pulse Ox O2 Delivery O2 Flow Rate FiO2 06/12/22 08:20 88 150/74 06/12/22 08:00 37.2 06/12/22 08:00 37.2 82 33 93 Mechanical Ventilator 50.00 06/12/22 07:40 50 06/12/22 07:40 91 Mechanical Ventilator 50.00 06/12/22 07:09 92 34 91 50 06/12/22 07:00 92 06/12/22 07:00 37.4 87 33 91 Mechanical Ventilator 50.00 06/12/22 06:00 37.5 93 34 92 Mechanical Ventilator 50.00 06/12/22 05:00 37.4 83 33 92 Mechanical Ventilator 50.00 06/12/22 04:26 81 115/72 06/12/22 04:00 96 Mechanical Ventilator 50.00 06/12/22 04:00 50 06/12/22 04:00 37.5 87 33 95 Mechanical Ventilator 50.00 06/12/22 03:00 37.5 84 33 94 Mechanical Ventilator 50.00 06/12/22 02:32 Mechanical Ventilator 50.00 06/12/22 02:27 81 34 96 60 06/12/22 02:00 37.4 80 34 95 Mechanical Ventilator 60.00 06/12/22 01:00 88 06/12/22 01:00 37.7 88 34 99 Mechanical Ventilator 60.00 06/12/22 00:26 89 115/74 06/11/22 23:51 99 Mechanical Ventilator 60.00 06/11/22 23:49 60 06/11/22 23:49 37.6 77 33 99 Mechanical Ventilator 60.00 06/11/22 23:00 37.4 77 33 99 Mechanical Ventilator 60.00 06/11/22 22:06 89 34 99 60 06/11/22 22:00 37.3 77 33 99 Mechanical Ventilator 60.00 06/11/22 21:06 84 125/77 06/11/22 21:00 37.2 77 33 100 Mechanical Ventilator 60.00 06/11/22 20:00 60 06/11/22 20:00 100 Mechanical Ventilator 60.00 06/11/22 20:00 37.0 96 34 95 Mechanical Ventilator 60.00 06/11/22 19:51 37.0 06/11/22 19:35 84 125/77 06/11/22 19:00 81 06/11/22 19:00 37.0 78 34 100 Mechanical Ventilator 60.00 06/11/22 18:51 84 34 100 60 06/11/22 18:17 37.1 80 33 99 Mechanical Ventilator 60.00 06/11/22 17:34 37.1 98 33 () 96 Mechanical Ventilator 60.00 06/11/22 17:08 93 144/76 06/11/22 16:38 93 144/76 06/11/22 16:00 60 06/11/22 16:00 37.2 98 33 112/67 (82) 95 Mechanical Ventilator 06/11/22 16:00 95 Mechanical Ventilator 60.00 06/11/22 14:00 37.0 95 34 95 Mechanical Ventilator 60.00 06/11/22 13:51 95 117/65 06/11/22 13:34 95 34 96 60 06/11/22 12:42 89 06/11/22 12:38 89 98/62 06/11/22 12:37 95 117/65 06/11/22 12:32 93 111/68 06/11/22 12:00 60 06/11/22 12:00 91 Mechanical Ventilator 60.00 06/11/22 12:00 36.9 93 33 93 Mechanical Ventilator 60.00 06/11/22 11:00 36.9 102 34 92 Mechanical Ventilator 60.00 06/11/22 10:30 98 34 91 60 06/11/22 10:15 40 178/90 06/11/22 10:13 89 33 102/71 I & O 06/12/22 07:00 Intake Total 2260 ml Output Total 1200 ml Balance 1060 ml Height & Weight Height: 5'6" Weight: 120lbs. oz. 54.638005qo; 20.05 BMI Method:Stated General Appearance: No Apparent Distress, Thin HEENT: PERRL/EOMI, Scleral Icterus (L), Scleral Icterus (R) Neck: Normal Inspection, Supple Respiratory: Lungs Clear, No Respiratory Distress, Other (intubated and sedated) Cardiovascular: Regular Rate, Rhythm, No Murmur Capillary Refill: Less Than 3 Seconds Gastrointestinal: non tender, soft, distended, other (hypoacitive BS, mild distension) Extremity: Normal Inspection, No Pedal Edema Neurologic/Psychiatric: Other (sedated) Skin: Normal Color, Warm/Dry Lymphatic: No Adenopathy Results Lab Laboratory Tests 06/11/22 03:50 06/12/22 04:51 Assessment/Plan Assessment/Plan 1 EFREN VALENCIA MD Jun 12, 2022 10:00
--- NOTE | 2022-06-12 10:03 | Diagnostic Imaging Report ---
CHEST 1 VIEW, AP/PA ONLY Indication: Intubation Comparison: 06/11/2022 Findings: Stable ET and enteric tubes. Stable left subclavian central venous catheter. Bilateral basilar pulmonary consolidations are unchanged. No pleural effusion or pneumothorax. Normal heart size. Impression: 1. Stable support devices. 2. No change in bibasilar pulmonary consolidations. Dictated by: Dictated on workstation # [id number]
[2022-06-12] MEDS: D5W 1000 ML IV SOLUTION 1,000 ML IV SCH (10:16)
[2022-06-12] MEDS: NOREPINEPHRINE 16 MG/250 ML DRIP IV SCH ×2 (10:16)
[2022-06-12] MEDS: METOCLOPRAMIDE INJ 10 MG/2 ML (REGLAN) IVP PRN ×2 (10:16→18:43)
[2022-06-12 10:55] VITALS: BP 155/73
[2022-06-12] MEDS: cefTRIAXone 2,000 MG in NS (IVPB) 50 ML IV SCH (12:14)
[2022-06-12 14:29] VITALS: BP 145/70
--- NOTE | 2022-06-12 14:38 | Progress Note - Hospitalist ---
JASBIRFLO 06/12/22 1438: Subjective HPI/CC On Admission Date Seen by Provider: Jun 12, 2022 Time Seen by Provider: 10:30 Pt is a 32yoCF with a PMH of methamphetamine abuse who presented to the ER due to weakness. History comes from both patient and her mom. Mom states she has a long history of meth use but has been trying to quit. She last used 7 days ago and then started to get very ill. Her mom wanted to take her in to be seen but the patient refused throoughout the week and finally decidied to come intoday due to her weakness. Reportedly her son has had to carry her from room to room because of how weak she is. On arrival to the emergency room her oxygen saturation was 40%. This was confirmed on an ABG with a PO2 of 39 and saturation of 64 on 15 L nonrebreather. We were able to get her oxygen up into the 90s with oxi mask. Imaging revealed extensive bilateral infiltrates. She was also found to have a profound lactic acidosis fo 13. When I saw her in the ICU she was mottled to her knees and elbows though her capillary refill was adequate. She apparently has vomited twice this morning too. Subjective/Events-last exam Pt is doing better. Still sedated and on vent. Per nurse pt opened eyes and was able to follow commands during oral care. Pt is currently off propofol and is currently sedated with versed and fentanyl. Yesterday pt had two bardycardic events w// unknown etiology, but is not stable. She is requiring less oxygen support. Objective Exam Vital Signs Vital Signs Date Time Temp Pulse Resp B/P (MAP) Pulse Ox O2 Delivery O2 Flow Rate FiO2 06/12/22 13:00 36.9 96 22 93 Mechanical Ventilator 60.00 06/12/22 12:09 60 Capillary Refill : Less Than 3 Seconds Respiratory: Lungs Clear, Normal Breath Sounds Cardiovascular: Regular Rate, Rhythm, No Edema, No Murmur, Normal Peripheral Pulses Gastrointestinal: Abnormal Bowel Sounds, Distended Results/Procedures Lab Laboratory Tests 06/12/22 04:51 06/12/22 13:25 Patient resulted labs reviewed. Imaging: Reviewed Imaging Report Assessment/Plan Assessment and Plan Assess & Plan/Chief Complaint ARDS secondary to Septic Shock CAP ENOC Lactic Acidosis Anemia Transaminitis Endotracheal Intubation Hypernatremia Change Vent setting per TeleICU Nimbex discontinued Continue Tube Feeding w/ nutrition Continue Stress Ulcer PPx w/ PPI CXR: 06/09 Stable support lines and tubes.Extensive bilateral pulmonary infiltrate-like opacities but overall may be slightly improved from previous study 06/10 Minimally improved on the right and perhaps slightly increased on the left 06/11 Persistent pneumonia in the mid left lung 06/12 No change in bibasilar pulmonary consolidations Continue Blood Pressure Support Continue Abx Monitor Kidney Function Continue IV Fluids and Free water bolus: D5W amd Free water bolus; increase bolus to 150 at end of the day dependent on gastric residuals Monitor H&H trends transfuse accordingly +Illicit Drug Use Thrombocytopenia Platelet count improved; still low; monitor for signs of bleeding and transfu se accordingly Clinical Quality Measures AMI/AHF: ASA po Prior to arrival: KENYA Groves MD 06/12/22 1728: Subjective HPI/CC On Admission Time Seen by Provider: 10:40 Objective Exam General Appearance: No Apparent Distress, Chronically ill, Thin Respiratory: Lungs Clear, No Respiratory Distress, Other (intubated and mechani cici ventilated) Cardiovascular: Regular Rate, Rhythm, No Murmur Gastrointestinal: Soft, Abnormal Bowel Sounds Extremity: Normal Inspection, No Pedal Edema Neurologic/Psychiatric: Other (sedated) Assessment/Plan Assessment and Plan Assess & Plan/Chief Complaint Off paralytics. Off pressors. Weaning sedation as able. Ventilator requirements decreasing. Continue tube feeds. Increase free water. Critical Care: Critically Ill Patient Diagnosis/Problems Diagnosis/Problems (1) Septic shock Status: Acute (2) Bacteremia due to Streptococcus pneumoniae Status: Acute (3) Multifocal pneumonia Status: Acute (4) Endotracheally intubated Status: Acute (5) Acute respiratory failure Status: Acute Qualifiers: Qualified Codes: J96.01 - Acute respiratory failure with hypoxia; J96.02 - Acute respiratory failure with hypercapnia (6) ARDS (adult respiratory distress syndrome) Status: Acute (7) ENOC (acute kidney injury) Status: Resolved Resolution Date/Time: 06/09/22 @ 15:48 (8) Lactic acidosis Status: Resolved Resolution Date/Time: 06/09/22 @ 15:48 (9) Anemia Status: Acute (10) Substance abuse Status: Acute Supervisory-Addendum Brief Verification & Attestation Participated in pt care: history, MDM, physical Personally performed: exam, history, MDM, supervision of care Care discussed with: Medical Student Procedures: n/a Results interpretation: Verified all documentation A medical student performed and documented this service in my presence. I reviewed and verified all information documented by the medical student and made modifications to such information, when appropriate. I personally performed the physical exam and medical decision making. FLO MARTELL Jun 12, 2022 14:38 KENYA REYNA MD Jun 12, 2022 17:28
[2022-06-12 18:52] VITALS: BP 136/75
[2022-06-12 22:18] VITALS: BP 154/75
[2022-06-13] VITALS (8 sets, daily range): BP systolic 104–127; BP diastolic 63–75
[2022-06-13] MEDS: MIDAZOLAM DRIP PRE-MIX 100 ML IV SCH (02:08)
[2022-06-13 02:17] LABS: BASOPHILS % (AUTO) 0 % (0-10); EOSINOPHILS % (AUTO) 0 % (0-10); HEMATOCRIT 23 % (35-52); LYMPHOCYTES # (AUTO) 0.7 10^3/uL (1.0-4.0); LYMPHOCYTES % (AUTO) 5 % (12-44); MEAN CORPUSCULAR HEMOGLOBIN 22 pg (25-34); MEAN CORPUSCULAR HGB CONC 30 g/dL (32-36); MEAN CORPUSCULAR VOLUME 74 fL (80-99); MONOCYTES # (AUTO) 0.3 10^3/uL (0.0-1.0); MONOCYTES % (AUTO) 2 % (0-12); NEUTROPHILS # (AUTO) 12.9 10^3/uL (1.8-7.8); NEUTROPHILS % (AUTO) 88 % (42-75); PLATELET COUNT 95 10^3/uL (130-400); WHITE BLOOD COUNT 14.6 10^3/uL (4.3-11.0)
[2022-06-13 02:21] LABS: HEMOGLOBIN 6.7 g/dL (11.5-16.0)
[2022-06-13 02:30] LABS: ALBUMIN 2.4 GM/DL (3.2-4.5)
[2022-06-13 02:31] LABS: POTASSIUM 3.7 MMOL/L (3.6-5.0)
[2022-06-13 02:32] LABS: CALCIUM 7.4 MG/DL (8.5-10.1)
[2022-06-13 02:33] LABS: TOTAL PROTEIN 6.1 GM/DL (6.4-8.2)
[2022-06-13 02:35] LABS: BILIRUBIN,TOTAL 0.5 MG/DL (0.1-1.0)
[2022-06-13 02:37] LABS: CREATININE SERUM 0.47 MG/DL (0.60-1.30)
[2022-06-13 02:40] LABS: MAGNESIUM 2.3 MG/DL (1.6-2.4)
[2022-06-13 02:41] LABS: ABG OXYGEN SATURATION 99 % (94-100); ABG PCO2 41 MMHG (35-45); ABG PH 7.48 (7.37-7.43); ABG PO2 171 MMHG (79-93); ABG TCO2 30.9 MMOL/L (21.0-31.0)
[2022-06-13 02:44] LABS: ALLENS TEST YES-POS; INSPIRED O2 100%; PATIENT TEMP 37.3; VENTILATOR YES
[2022-06-13] MEDS: RT-ALBUTEROL/IPRATROPIUM 3 ML (DUONEB) VIAL INH SCH ×6 (02:57→21:12)
[2022-06-13] MEDS ORDERED: NS IV 500 ML 500 ML IV SCH ×2 (03:00)
[2022-06-13] MEDS: LACRI-LUBE OPTHALMIC OINT 3.5 GM TUBE OU SCH ×5 (03:48→20:04)
[2022-06-13] MEDS: fentaNYL DRIP PRE-MIX 250 ML IV SCH ×4 (05:20→20:55)
[2022-06-13] MEDS: HYDROCORTISONE 100 MG/2 ML (Solu-CORTEF) VIAL IV SCH ×3 (05:20→22:06)
[2022-06-13] MEDS: MAGNESIUM 1 GM/100 ML IVPB 100 ML IV SCH (05:21)
[2022-06-13] MEDS: POTASSIUM CL 10MEQ/50ML IVPB 50 ML IV SCH (05:21)
[2022-06-13] MEDS: KCL 20 MEQ TAB (K-DUR) PO SCH (05:21)
[2022-06-13] MEDS: inSUlin ASPART (NovoLOG) 1 UNIT/0.01 ML (CHARGE PER UNIT) SC SCH ×4 (05:24→18:04)
[2022-06-13] MEDS: D5W 1000 ML IV SOLUTION 1,000 ML IV SCH ×2 (06:15→22:06)
--- NOTE | 2022-06-13 08:09 | Diagnostic Imaging Report ---
INDICATION: Dyspnea, follow-up infiltrates. COMPARISON: 06/12/2022. DISCUSSION: Single portable frontal view of the chest was obtained. Left-sided central line and endotracheal tube along with the enteric tube are stable. Stable normal heart size. Severe infiltrates within the lung bases, left greater than right, stable. No pleural fluid or pneumothorax. No osseous abnormality. IMPRESSION: 1. Stable chest. Dictated by: Dictated on workstation # [id number]
[2022-06-13] MEDS: PANTOPRAZOLE 40 MG (PROTONIX) VIAL IV SCH (08:32)
--- NOTE | 2022-06-13 09:25 | Tele-ICU Progress Note ---
Subjective Date Seen by a Provider: Jun 13, 2022 Time Seen by a Provider: 09:25 Subjective/Events-last exam (Tele-ICU Physician , Progress Note ) Service provided via interactive audio and video telecommunications E-CARE system to a patient admitted to ICU bed in [facility]. Patient is seen today due to persistent need of ICU care Available chart/ vitals / labs / Images reviewed Video assessment done using teleICU camera, rest of exam as per RN Discussed with RN Events overnight : Afebrile hemodynamically stable Respiratory - I/O = neg 300 Drips: Pressors- levo , vaso OFF, OFF REYNALDO VENT SETTINGS and ABG reviewed NOT CANDIDATE for SBTreviewed possible contraindications including Cardiovascular Stability /Sedation Score / FI02/PEEP / ABG / CXR/ secretions Sedation, discussed with RN, RASS -2 versed 3 , fent 250- open eyes, Consultants: Hospital course: (06/07) 32F Admitted with PNA. CT shows Mod size areas of consolidation involving bilateral upper and left lower lobe. There is complete consolidation of RLL. Also centrilobular emphysema. -On BIPAP 100% sats 86%-Plan to intubate. Intubated @ 1918 06/08 - AC 400 26 100% peep 5 , shock : levo 0.9 vaso , reynaldo 175 , Hb 6.5 - transfusion 06/08 1 UPRBC 06/10 - OFF nimbex 06/10-Fio2 60 % +10 06/11- Episodes of junctional robson or sinus robson with PAC. fibrinogen 213 06/12 - 50 % , s/p transfusion 06/08 1 u PRBC, PLT 73 06/13 - 65%, hb 6.7 - transfusion 1 pRBC A/P Acute resp failure with PNA ( in additional to signic=ficant emphyseme upper lovbes on CT - suspected due to inhalation of meth and possible other drugs ? ) - intubated 06/07 AC 400 34 100% peep 5 decrease to 22 Shock . septic - stress dose steroid 50 q 6 - decrease dose q8 06/12 - >25 q8 06/13 - pressors support - levo OFF PNA - bilateral , most likely CAP ( neg covid , flu ) - sputum cx -Streptococcus pneumoniae -ceftriaxone Bacteremia - sterp pneumo - repeat 06/08 blood cx - NEG so far Anemia s/p transfusion 06/08 1 u PRBC , 1uPRBC 1/17 , 06/13-hb 6.7 - transfusion 1 pRBC - no clear sigh of bleeding - suspect delutional? vs slow bleed thrombocytopenia - DIC panel l neg on 06/09 , fibrinogen 213 on 06/11 - stable low Episodes of junctional robson or sinus robson with PAC. 06/11 - resolved - monitor lytes Elv trig - on propofol 06/10 - decreasing , lipase 69 06/11 Encephalopaty - doing SAT -sedation awakening trials - versed 2 , fent 150 - open eyes , can open mouth on direction history of methamphetamine use abuse - sedated, fentanyl gtt , decresing - HIV neg Nutritions - try to advance 20 /h - try to advance - 06/12 - added reglan prn Hypernatremia - TF with already H2O 100 q4 h - will add DW gtt ( given lasix - CPM , improving Lines : l scl 06/07 , a line 06/07 , (Central Line Necessity Reviewed) Figueroa: + OG: Nutrition: TF Analgesia: Anxiety/ delirium VTE Prophylaxis: scd Stress Ulcer Prophylaxis: ppi Plans in collaboration with bedside consultants and IM MDs. Discussed with RN to reach out if any questions or concerns A total of 35 minutes of critical care time was devoted to this patient today, required to treat and/or prevent further deterioration of critical care condition ( as above ) . I am remotely monitoring this patient from another state. I am unable to do the bedside exam, and history/physical and pertinent information is taken from other notes in the computer and bedside staff. Sepsis Event Evaluation Height, Weight, BMI Height: 5'6" Weight: 120lbs. oz. 54.981710xd; 20.05 BMI Method:Stated Exam Exam Patient acknowledged, consented, and participated in this virtual visit which was conducted using real time audio/video Vital Signs Date Time Temp Pulse Resp B/P (MAP) Pulse Ox O2 Delivery O2 Flow Rate FiO2 06/13/22 09:00 37.3 102 20 91 Mechanical Ventilator 65.00 06/13/22 08:00 37.1 96 30 93 Mechanical Ventilator 65.00 06/13/22 07:37 37.1 90 30 124/73 95 Mechanical Ventilator 65 06/13/22 07:00 92 06/13/22 07:00 37.3 102 30 97 Mechanical Ventilator 60.00 1/21/23 06:53 89 29 98 70 06/13/22 06:00 98 28 98 Mechanical Ventilator 60.00 06/13/22 05:21 37.2 94 26 125/75 99 Mechanical Ventilator 70 06/13/22 05:20 93 115/71 06/13/22 05:06 37.2 93 17 118/72 98 70 06/13/22 05:00 96 16 98 Mechanical Ventilator 60.00 06/13/22 04:01 91 Mechanical Ventilator 70 06/13/22 04:01 70 06/13/22 04:00 96 24 96 Mechanical Ventilator 60.00 06/13/22 03:00 105 16 94 Mechanical Ventilator 60.00 06/13/22 02:55 104 30 97 70 06/13/22 02:53 96 120/72 06/13/22 02:08 100 23 137/70 06/13/22 02:00 101 23 98 Mechanical Ventilator 60.00 06/13/22 01:00 100 06/13/22 01:00 99 29 99 Mechanical Ventilator 60.00 06/13/22 00:00 99 28 99 Mechanical Ventilator 60.00 06/12/22 23:46 70 06/12/22 23:46 91 Mechanical Ventilator 70 06/12/22 23:00 98 28 98 Mechanical Ventilator 60.00 06/12/22 22:53 98 160/74 06/12/22 22:18 94 30 98 70 06/12/22 22:00 97 25 99 Mechanical Ventilator 60.00 06/12/22 21:00 98 29 99 Mechanical Ventilator 60.00 06/12/22 20:11 98 111/84 06/12/22 20:00 98 28 99 Mechanical Ventilator 60.00 06/12/22 19:30 70 06/12/22 19:30 91 Mechanical Ventilator 70 06/12/22 19:00 100 06/12/22 19:00 96 29 96 Mechanical Ventilator 60.00 06/12/22 18:52 98 30 97 70 06/12/22 18:00 102 26 95 Mechanical Ventilator 60.00 06/12/22 17:00 109 23 97 Mechanical Ventilator 60.00 06/12/22 16:35 60 06/12/22 16:35 91 Mechanical Ventilator 60.00 06/12/22 16:25 97 135/77 06/12/22 16:00 96 24 92 Mechanical Ventilator 60.00 06/12/22 15:00 106 29 92 Mechanical Ventilator 60.00 06/12/22 14:29 98 28 93 60 06/12/22 14:00 92 25 93 Mechanical Ventilator 60.00 06/12/22 13:00 36.9 96 22 93 Mechanical Ventilator 60.00 06/12/22 12:59 92 06/12/22 12:20 96 155/73 06/12/22 12:15 93 Mechanical Ventilator 60.00 06/12/22 12:09 60 06/12/22 12:00 37.3 98 26 93 Mechanical Ventilator 60.00 06/12/22 11:49 Mechanical Ventilator 60.00 06/12/22 11:00 37.4 90 25 91 Mechanical Ventilator 50.00 06/12/22 10:55 90 29 91 50 06/12/22 10:00 37.2 82 33 94 Mechanical Ventilator 50.00 I & O 06/13/22 07:00 Intake Total 2970 ml Output Total 2775 ml Balance 195 ml Height & Weight Height: 5'6" Weight: 120lbs. oz. 54.529632tl; 20.05 BMI Method:Stated General Appearance: No Apparent Distress, Chronically ill, Thin HEENT: PERRL/EOMI, Scleral Icterus (L), Scleral Icterus (R) Neck: Normal Inspection, Supple Respiratory: Lungs Clear, No Respiratory Distress, Other (intubated and mechanically ventilated) Cardiovascular: Regular Rate, Rhythm, No Murmur Capillary Refill: Less Than 3 Seconds Gastrointestinal: non tender, soft, distended, other (hypoacitive BS, mild distension) Extremity: Normal Inspection, No Pedal Edema Neurologic/Psychiatric: Other (sedated) Skin: Normal Color, Warm/Dry Lymphatic: No Adenopathy Results Lab Laboratory Tests 06/12/22 04:51 06/12/22 13:25 06/13/22 02:00 Assessment/Plan Assessment/Plan 1 EFREN VALENCIA MD Jun 13, 2022 09:25
[2022-06-13] MEDS ORDERED: FUROSEMIDE 40 MG/4 ML INJ (LASIX) IVP ONE (09:30)
[2022-06-13] MEDS ORDERED: KCL 20 MEQ TAB (K-DUR) PO ONE (09:30)
--- NOTE | 2022-06-13 10:13 | Tele-ICU Progress Note ---
Subjective Date Seen by a Provider: Jun 13, 2022 Time Seen by a Provider: 10:13 Subjective/Events-last exam (Tele-ICU Physician , Progress Note ) Service provided via interactive audio and video telecommunications E-CARE system to a patient admitted to ICU bed in [facility]. Patient is seen today due to persistent need of ICU care Available chart/ vitals / labs / Images reviewed Video assessment done using teleICU camera, rest of exam as per RN Discussed with RN Events overnight : Afebrile hemodynamically stable Respiratory - I/O = neg 300 Drips: Pressors- levo , vaso OFF, OFF REYNALDO VENT SETTINGS and ABG reviewed NOT CANDIDATE for SBTreviewed possible contraindications including Cardiovascular Stability /Sedation Score / FI02/PEEP / ABG / CXR/ secretions Sedation, discussed with RN, RASS -2 versed 3 , fent 250- open eyes, Consultants: Hospital course: (06/07) 32F Admitted with PNA. CT shows Mod size areas of consolidation involving bilateral upper and left lower lobe. There is complete consolidation of RLL. Also centrilobular emphysema. -On BIPAP 100% sats 86%-Plan to intubate. Intubated @ 1918 06/08 - AC 400 26 100% peep 5 , shock : levo 0.9 vaso , reynaldo 175 , Hb 6.5 - transfusion 06/08 1 UPRBC 06/10 - OFF nimbex 06/10-Fio2 60 % +10 06/11- Episodes of junctional robson or sinus robson with PAC. fibrinogen 213 06/12 - 50 % , s/p transfusion 06/08 1 u PRBC, PLT 73 06/13 - 65%, hb 6.7 - transfusion 1 pRBC A/P Acute resp failure with PNA ( in additional to signic=ficant emphyseme upper lovbes on CT - suspected due to inhalation of meth and possible other drugs ? ) - intubated 06/07 AC 400 34 100% peep 5 decrease to 22 Shock . septic - stress dose steroid 50 q 6 - decrease dose q8 06/12 - >25 q8 06/13 - pressors support - levo OFF PNA - bilateral , most likely CAP ( neg covid , flu ) - sputum cx -Streptococcus pneumoniae -ceftriaxone Bacteremia - sterp pneumo - repeat 06/08 blood cx - NEG so far Anemia s/p transfusion 06/08 1 u PRBC , 1uPRBC 1/17 , 06/13-hb 6.7 - transfusion 1 pRBC - no clear sigh of bleeding - suspect delutional? vs slow bleed thrombocytopenia - DIC panel l neg on 06/09 , fibrinogen 213 on 06/11 - stable low Episodes of junctional robson or sinus robson with PAC. 06/11 - resolved - monitor lytes Elv trig - on propofol 06/10 - decreasing , lipase 69 06/11 Encephalopaty - doing SAT -sedation awakening trials - versed 2 , fent 150 - open eyes , can open mouth on direction history of methamphetamine use abuse - sedated, fentanyl gtt , decresing - HIV neg Nutritions - try to advance 20 /h - try to advance - 06/12 - added reglan prn Hypernatremia - TF with already H2O 100 q4 h - will add DW gtt ( given lasix - CPM , improving Lines : l scl 06/07 , a line 06/07 , (Central Line Necessity Reviewed) Figueroa: + OG: Nutrition: TF Analgesia: Anxiety/ delirium VTE Prophylaxis: scd Stress Ulcer Prophylaxis: ppi Plans in collaboration with bedside consultants and IM MDs. Discussed with RN to reach out if any questions or concerns A total of 35 minutes of critical care time was devoted to this patient today, required to treat and/or prevent further deterioration of critical care condition ( as above ) . I am remotely monitoring this patient from another state. I am unable to do the bedside exam, and history/physical and pertinent information is taken from other notes in the computer and bedside staff. Sepsis Event Evaluation Height, Weight, BMI Height: 5'6" Weight: 120lbs. oz. 54.414730tc; 20.05 BMI Method:Stated Exam Exam Patient acknowledged, consented, and participated in this virtual visit which was conducted using real time audio/video Vital Signs Date Time Temp Pulse Resp B/P (MAP) Pulse Ox O2 Delivery O2 Flow Rate FiO2 06/13/22 10:00 37.2 99 30 90 Mechanical Ventilator 65.00 06/13/22 09:00 37.3 102 20 91 Mechanical Ventilator 65.00 06/13/22 08:00 37.1 96 30 93 Mechanical Ventilator 65.00 06/13/22 08:00 70 06/13/22 07:48 92 Mechanical Ventilator 65 06/13/22 07:37 37.1 90 30 124/73 95 Mechanical Ventilator 65 06/13/22 07:00 92 06/13/22 07:00 37.3 102 30 97 Mechanical Ventilator 60.00 06/13/22 06:53 89 29 98 70 06/13/22 06:00 98 28 98 Mechanical Ventilator 60.00 06/13/22 05:21 37.2 94 26 125/75 99 Mechanical Ventilator 70 06/13/22 05:20 93 115/71 06/13/22 05:06 37.2 93 17 118/72 98 70 06/13/22 05:00 96 16 98 Mechanical Ventilator 60.00 06/13/22 04:01 91 Mechanical Ventilator 70 06/13/22 04:01 70 06/13/22 04:00 96 24 96 Mechanical Ventilator 60.00 06/13/22 03:00 105 16 94 Mechanical Ventilator 60.00 06/13/22 02:55 104 30 97 70 06/13/22 02:53 96 120/72 06/13/22 02:08 100 23 137/70 06/13/22 02:00 101 23 98 Mechanical Ventilator 60.00 06/13/22 01:00 100 06/13/22 01:00 99 29 99 Mechanical Ventilator 60.00 06/13/22 00:00 99 28 99 Mechanical Ventilator 60.00 06/12/22 23:46 70 06/12/22 23:46 91 Mechanical Ventilator 70 06/12/22 23:00 98 28 98 Mechanical Ventilator 60.00 06/12/22 22:53 98 160/74 06/12/22 22:18 94 30 98 70 06/12/22 22:00 97 25 99 Mechanical Ventilator 60.00 06/12/22 21:00 98 29 99 Mechanical Ventilator 60.00 06/12/22 20:11 98 111/84 06/12/22 20:00 98 28 99 Mechanical Ventilator 60.00 06/12/22 19:30 70 06/12/22 19:30 91 Mechanical Ventilator 70 06/12/22 19:00 100 06/12/22 19:00 96 29 96 Mechanical Ventilator 60.00 06/12/22 18:52 98 30 97 70 06/12/22 18:00 102 26 95 Mechanical Ventilator 60.00 06/12/22 17:00 109 23 97 Mechanical Ventilator 60.00 06/12/22 16:35 60 06/12/22 16:35 91 Mechanical Ventilator 60.00 06/12/22 16:25 97 135/77 06/12/22 16:00 96 24 92 Mechanical Ventilator 60.00 06/12/22 15:00 106 29 92 Mechanical Ventilator 60.00 06/12/22 14:29 98 28 93 60 06/12/22 14:00 92 25 93 Mechanical Ventilator 60.00 06/12/22 13:00 36.9 96 22 93 Mechanical Ventilator 60.00 06/12/22 12:59 92 06/12/22 12:20 96 155/73 06/12/22 12:15 93 Mechanical Ventilator 60.00 06/12/22 12:09 60 06/12/22 12:00 37.3 98 26 93 Mechanical Ventilator 60.00 06/12/22 11:49 Mechanical Ventilator 60.00 06/12/22 11:00 37.4 90 25 91 Mechanical Ventilator 50.00 06/12/22 10:55 90 29 91 50 I & O 06/13/22 07:00 Intake Total 2970 ml Output Total 2775 ml Balance 195 ml Height & Weight Height: 5'6" Weight: 120lbs. oz. 54.988501bv; 20.05 BMI Method:Stated General Appearance: No Apparent Distress, Chronically ill, Thin HEENT: PERRL/EOMI, Scleral Icterus (L), Scleral Icterus (R) Neck: Normal Inspection, Supple Respiratory: Lungs Clear, No Respiratory Distress, Other (intubated and m echanically ventilated) Cardiovascular: Regular Rate, Rhythm, No Murmur Capillary Refill: Less Than 3 Seconds Gastrointestinal: non tender, soft, distended, other (hypoacitive BS, mild distension) Extremity: Normal Inspection, No Pedal Edema Neurologic/Psychiatric: Other (sedated) Skin: Normal Color, Warm/Dry Lymphatic: No Adenopathy Results Lab Laboratory Tests 06/12/22 04:51 06/12/22 13:25 06/13/22 02:00 Assessment/Plan Assessment/Plan 1 EFREN VALENCIA MD Jun 13, 2022 10:13
[2022-06-13] MEDS: NOREPINEPHRINE 16 MG/250 ML DRIP IV SCH ×2 (10:19)
[2022-06-13] MEDS: cefTRIAXone 2,000 MG in NS (IVPB) 50 ML IV SCH (11:03)
[2022-06-13] MEDS: PHENYLEPHRINE DRIP 250 ML IV SCH (12:05)
[2022-06-13] MEDS: APAP 325 MG/10.15 ML LIQ (TYLENOL) UDC PO PRN (12:05)
--- NOTE | 2022-06-13 13:43 | Progress Note - Hospitalist ---
GEOVANNA MARTELLEB 06/13/22 1343: Subjective HPI/CC On Admission Date Seen by Provider: Jun 13, 2022 Time Seen by Provider: 08:25 Pt is a 32yoCF with a PMH of methamphetamine abuse who presented to the ER due to weakness. History comes from both patient and her mom. Mom states she has a long history of meth use but has been trying to quit. She last used 7 days ago and then started to get very ill. Her mom wanted to take her in to be seen but the patient refused throoughout the week and finally decidied to come intoday due to her weakness. Reportedly her son has had to carry her from room to room because of how weak she is. On arrival to the emergency room her oxygen saturation was 40%. This was confirmed on an ABG with a PO2 of 39 and saturation of 64 on 15 L nonrebreather. We were able to get her oxygen up into the 90s with oxi mask. Imaging revealed extensive bilateral infiltrates. She was also found to have a profound lactic acidosis fo 13. When I saw her in the ICU she was mottled to her knees and elbows though her capillary refill was adequate. She apparently has vomited twice this morning too. Subjective/Events-last exam Pt is improving, but is still sedated on ventilator. Pt attempted opening eyes and wiggling toes on command. Pt was not able to communicate during the visit. She is currently not requiring any support from pressors. Pt was not accompanied by family. Objective Exam Vital Signs Vital Signs Date Time Temp Pulse Resp B/P (MAP) Pulse Ox O2 Delivery O2 Flow Rate FiO2 06/13/22 13:00 37.7 105 23 95 Mechanical Ventilator 90.00 06/13/22 12:38 65 Capillary Refill : Less Than 3 Seconds General Appearance: Other (Sedated) Respiratory: Lungs Clear, Normal Breath Sounds Cardiovascular: Regular Rate, Rhythm, No Edema, No Murmur, Normal Peripheral Pulses Gastrointestinal: Normal Bowel Sounds, Soft Rectal: Deferred Skin: Normal Color, Warm/Dry Results/Procedures Lab Laboratory Tests 06/13/22 02:00 Patient resulted labs reviewed. Imaging: Reviewed Imaging Report Assessment/Plan Assessment and Plan Assess & Plan/Chief Complaint ARDS Endotracheal Intubation w/ Vent Sedation w/ Fentanyl and Midazolam Continue to wean off Sedation and Ventilation Continue Stress Ulcer PPx w/ PPI Septic Shock Improved; Pressors discontinued CAP CXR - Severe infiltrates within the lung bases, left greater than right, stable Continue Abx regime Repeat CXR tomorrow Anemia Hgb dropped to 6.7 1 Unit Transfused Iron Study ordered e Monitor H&H trends transfuse accordingly Hypernatremia Due to free water deficit Improving Continue D5W IV Fluids and Free water bolus Thrombocytopenia Platelet count improving; still low; monitor for signs of bleeding and transfuse accordingly ENOC Slightly worse Cr Monitor production and Cr levels +Illicit Drug Use Clinical Quality Measures AMI/AHF: ASA po Prior to arrival: KEYNA Groves MD 06/13/22 1652: Subjective HPI/CC On Admission Time Seen by Provider: 10:30 Objective Exam General Appearance: No Apparent Distress, WD/WN, Other (sedated but following commands) Respiratory: Lungs Clear, No Respiratory Distress, Other (intubated and mechanically ventilated) Cardiovascular: No Murmur, Tachycardia Gastrointestinal: Normal Bowel Sounds, Soft Extremity: Normal Inspection, No Pedal Edema Neurologic/Psychiatric: Other (sedated, attempts to open eyes and wiggle toes, following commands) Results/Procedures Imaging: Reviewed Imaging Report Assessment/Plan Assessment and Plan Assess & Plan/Chief Complaint Continue weaning sedation and ventilator as able. TeleICU following. Critical Care: Critically Ill Patient Diagnosis/Problems Diagnosis/Problems (1) Septic shock Status: Acute (2) Bacteremia due to Streptococcus pneumoniae Status: Acute (3) Multifocal pneumonia Status: Acute (4) Endotracheally intubated Status: Acute (5) Acute respiratory failure Status: Acute Qualifiers: Qualified Codes: J96.01 - Acute respiratory failure with hypoxia; J96.02 - Acute respiratory failure with hypercapnia (6) ARDS (adult respiratory distress syndrome) Status: Acute (7) Anemia Status: Acute (8) ENOC (acute kidney injury) Status: Resolved Resolution Date/Time: 06/09/22 @ 15:48 (9) Substance abuse Status: Acute Supervisory-Addendum Brief Verification & Attestation Participated in pt care: history, MDM, physical Personally performed: exam, history, MDM, supervision of care Care discussed with: Medical Student Procedures: n/a Results interpretation: Verified all documentation A medical student performed and documented this service in my presence. I reviewed and verified all information documented by the medical student and made modifications to such information, when appropriate. I personally performed the physical exam and medical decision making. FLO MARTELL Jun 13, 2022 13:43 KENYA REYNA MD Jun 13, 2022 16:52
[2022-06-13] MEDS: LORazepam INJ 2 MG/ML (ATIVAN) VIAL IVP PRN (14:29)
[2022-06-13] MEDS: ENOXAPARIN 40 MG/0.4 ML (LOVENOX) SYR SC SCH (17:19)
[2022-06-14] MEDS: inSUlin ASPART (NovoLOG) 1 UNIT/0.01 ML (CHARGE PER UNIT) SC SCH ×4 (00:57→18:47)
[2022-06-14] MEDS: LACRI-LUBE OPTHALMIC OINT 3.5 GM TUBE OU SCH ×3 (00:58→08:01)
[2022-06-14] MEDS: PHENYLEPHRINE DRIP 250 ML IV SCH ×2 (00:58→14:35)
[2022-06-14] MEDS: fentaNYL DRIP PRE-MIX 250 ML IV SCH ×5 (01:38→22:42)
[2022-06-14] MEDS: RT-ALBUTEROL/IPRATROPIUM 3 ML (DUONEB) VIAL INH SCH ×6 (02:27→22:31)
[2022-06-14 02:28] VITALS: BP 165/79
[2022-06-14 03:44] LABS: ABG BASE EXCESS 4.2 MMOL/L (-2.5-2.5); ABG OXYGEN SATURATION 98 % (94-100); ABG PCO2 42 MMHG (35-45); ABG PH 7.44 (7.37-7.43); ABG PO2 136 MMHG (79-93); ABG TCO2 29.4 MMOL/L (21.0-31.0); ALLENS TEST YES-POS; INSPIRED O2 100%; PATIENT TEMP 37.3; VENTILATOR YES
[2022-06-14 03:50] LABS: BASOPHILS % (AUTO) 0 % (0-10); WHITE BLOOD COUNT 13.3 10^3/uL (4.3-11.0)
[2022-06-14 03:52] LABS: EOSINOPHILS # (AUTO) 0.1 10^3/uL (0.0-0.3); EOSINOPHILS % (AUTO) 1 % (0-10); HEMATOCRIT 25 % (35-52); HEMOGLOBIN 7.4 g/dL (11.5-16.0); LYMPHOCYTES # (AUTO) 0.7 10^3/uL (1.0-4.0); LYMPHOCYTES % (AUTO) 5 % (12-44); MEAN CORPUSCULAR HEMOGLOBIN 23 pg (25-34); MEAN CORPUSCULAR HGB CONC 30 g/dL (32-36); MEAN CORPUSCULAR VOLUME 77 fL (80-99); MEAN PLATELET VOLUME 11.5 fL (9.0-12.2); MONOCYTES # (AUTO) 0.2 10^3/uL (0.0-1.0); MONOCYTES % (AUTO) 2 % (0-12); NEUTROPHILS # (AUTO) 12.1 10^3/uL (1.8-7.8); NEUTROPHILS % (AUTO) 91 % (42-75); PLATELET COUNT 124 10^3/uL (130-400)
[2022-06-14 04:00] LABS: ALBUMIN 2.3 GM/DL (3.2-4.5)
[2022-06-14 04:01] LABS: POTASSIUM 3.7 MMOL/L (3.6-5.0)
[2022-06-14 04:02] LABS: CALCIUM 7.6 MG/DL (8.5-10.1)
[2022-06-14 04:03] LABS: TOTAL PROTEIN 5.8 GM/DL (6.4-8.2)
[2022-06-14 04:05] LABS: BILIRUBIN,TOTAL 0.4 MG/DL (0.1-1.0)
[2022-06-14 04:07] LABS: CREATININE SERUM 0.43 MG/DL (0.60-1.30)
[2022-06-14 04:10] LABS: MAGNESIUM 1.8 MG/DL (1.6-2.4)
[2022-06-14 04:44] LABS: LYMPHOCYTES % (MANUAL) 6 %; NEUTROPHILS % (MANUAL) 94 %
[2022-06-14] MEDS: MIDAZOLAM DRIP PRE-MIX 100 ML IV SCH (04:44)
[2022-06-14 04:45] LABS: HYPOCHROMASIA MODERATE; POLYCHROMASIA SLIGHT
[2022-06-14 04:46] LABS: ANISOCYTOSIS SLIGHT
[2022-06-14] MEDS: MAGNESIUM 1 GM/100 ML IVPB 100 ML IV SCH (05:03)
[2022-06-14] MEDS: POTASSIUM CL 10MEQ/50ML IVPB 50 ML IV SCH (05:03)
[2022-06-14] MEDS: KCL 20 MEQ TAB (K-DUR) PO SCH (05:03)
[2022-06-14] MEDS: HYDROCORTISONE 100 MG/2 ML (Solu-CORTEF) VIAL IV SCH ×3 (05:56→22:42)
[2022-06-14 07:38] VITALS: BP 123/69
--- NOTE | 2022-06-14 07:41 | Diagnostic Imaging Report ---
INDICATION: Shortness of breath. COMPARISON is made with prior exam of 06/13/2022. FINDINGS: There are bilateral pulmonary infiltrates. There is no pleural effusion or pneumothorax. Lines and tubes are in satisfactory position. Heart size is normal. The mediastinum is unremarkable. IMPRESSION: Bilateral pulmonary infiltrates suspect for pneumonia. Some underlying central pulmonary venous congestion could not be excluded. Recommend clinical correlation. Dictated by: Dictated on workstation # [id number]
[2022-06-14] MEDS: PANTOPRAZOLE 40 MG (PROTONIX) VIAL IV SCH (08:01)
[2022-06-14] MEDS: LORazepam INJ 2 MG/ML (ATIVAN) VIAL IVP PRN ×3 (08:41→22:42)
--- NOTE | 2022-06-14 09:16 | Tele-ICU Progress Note ---
Progress Note video rounds completed 32 y/o female with hx of methamphetamine use admited with PNA and hypoxemia Required mechanical ventilation Still intubated but hypoxemia improving FIO2 turned down to 65% PE sedated and comfortable on vent Pulse: 100 BP: 121/71 Pulse ox 97% IMP: sepsis and PNA with hypoxemia vent depeendent, but improving Hyponatremia improving , na is 134 today Thrombocytopenia improving, plts up to 124,000 today PLAN: wean FIO2 as tolerates, if can get FIOS around 40$ beck stop sedation and try SBT Continue antibiotics for PNA Focused Exam Height, Weight, BMI Height: 5'6" Weight: 120lbs. oz. 54.141568kd; 20.05 BMI Method:Stated Labs Laboratory Tests 06/14/22 03:35 NIKO PALOMO MD Jun 14, 2022 09:16
[2022-06-14] MEDS: NOREPINEPHRINE 16 MG/250 ML DRIP IV SCH ×2 (10:16)
[2022-06-14 10:49] VITALS: BP 134/74
[2022-06-14] MEDS: cefTRIAXone 2,000 MG in NS (IVPB) 50 ML IV SCH (11:14)
[2022-06-14] MEDS ORDERED: FUROSEMIDE 40 MG/4 ML INJ (LASIX) IVP ONE (11:30)
[2022-06-14] MEDS ORDERED: FUROSEMIDE 40 MG/4 ML INJ (LASIX) ONE (11:45)
--- NOTE | 2022-06-14 13:59 | Progress Note - Hospitalist ---
GEOVANNA MARTELLEB 06/14/22 1359: Subjective HPI/CC On Admission Date Seen by Provider: Jun 14, 2022 Time Seen by Provider: 09:15 Pt is a 32yoCF with a PMH of methamphetamine abuse who presented to the ER due to weakness. History comes from both patient and her mom. Mom states she has a long history of meth use but has been trying to quit. She last used 7 days ago and then started to get very ill. Her mom wanted to take her in to be seen but the patient refused throoughout the week and finally decidied to come intoday due to her weakness. Reportedly her son has had to carry her from room to room because of how weak she is. On arrival to the emergency room her oxygen saturation was 40%. This was confirmed on an ABG with a PO2 of 39 and saturation of 64 on 15 L nonrebreather. We were able to get her oxygen up into the 90s with oxi mask. Imaging revealed extensive bilateral infiltrates. She was also found to have a profound lactic acidosis fo 13. When I saw her in the ICU she was mottled to her knees and elbows though her capillary refill was adequate. She apparently has vomited twice this morning too. Subjective/Events-last exam Pt is a 32yo female presenting with ARDS and Septic Shock. Yesterday nurse turned off all sedation for 3min to check her status; during this pt attempted to squeeze hands but pt became tachypenic and hypertensive, so sedation was restarted. This morning pt's versed was increased due to agitation. FiO2 is currently at 65% which is down from the night guard. Pt was unable to participate in interview due to sedation. Objective Exam Vital Signs Vital Signs Date Time Temp Pulse Resp B/P (MAP) Pulse Ox O2 Delivery O2 Flow Rate FiO2 06/14/22 13:00 37.7 110 25 116/70 (85) 92 Mechanical Ventilator 55.00 06/14/22 12:28 55 Capillary Refill : Less Than 3 Seconds General Appearance: Other (Sedated on Vent) Respiratory: Chest Non Tender, Lungs Clear, Normal Breath Sounds Cardiovascular: Regular Rate, Rhythm, No Murmur, Normal Peripheral Pulses Gastrointestinal: Normal Bowel Sounds, Soft Results/Procedures Lab Laboratory Tests 06/14/22 03:35 Patient resulted labs reviewed. Imaging: Reviewed Imaging Report Assessment/Plan Assessment and Plan Assess & Plan/Chief Complaint ARDS Endotracheal Intubation w/ Vent Sedation w/ Fentanyl and Midazolam Continue to wean off Sedation and Ventilation Continue Stress Ulcer PPx w/ PPI Lasix Ordered for lung optimization Septic Shock Improved; Pressors discontinued CAP CXR - Severe infiltrates within the lung bases, left greater than right, stable Continue Abx regime Repeat CXR tomorrow Anemia Hgb has improved; @ 7.4 Monitor H&H trends transfuse accordingly Hypernatremia Due to free water deficit Improved Continue Free water bolus q6hr Thrombocytopenia Platelet count improving; still low; monitor for signs of bleeding and transfuse accordingly ENOC Improving +Illicit Drug Use Clinical Quality Measures AMI/AHF: ASA po Prior to arrival: KENYA Groves MD 06/14/225: Subjective HPI/CC On Admission Time Seen by Provider: 11:00 Objective Exam General Appearance: No Apparent Distress, Chronically ill, Thin Respiratory: Lungs Clear, No Respiratory Distress, Other (intubated and mechanically ventilated) Cardiovascular: No Murmur, Tachycardia Gastrointestinal: Normal Bowel Sounds, Soft Extremity: Normal Inspection, Pedal Edema Neurologic/Psychiatric: Other (sedated) Skin: Normal Color, Warm/Dry Assessment/Plan Assessment and Plan Assess & Plan/Chief Complaint Continue antibiotics. Weaning sedation and oxygen as able. Lasix ordered. Decrease free water boluses. Critical Care: Critically Ill Patient Diagnosis/Problems Diagnosis/Problems (1) Septic shock Status: Acute (2) Multifocal pneumonia Status: Acute (3) Bacteremia due to Streptococcus pneumoniae Status: Acute (4) Endotracheally intubated Status: Acute (5) Acute respiratory failure Status: Acute Qualifiers: Qualified Codes: J96.01 - Acute respiratory failure with hypoxia; J96.02 - Acute respiratory failure with hypercapnia (6) ARDS (adult respiratory distress syndrome) Status: Acute (7) ENOC (acute kidney injury) Status: Resolved Resolution Date/Time: 06/09/22 @ 15:48 (8) Lactic acidosis Status: Resolved Resolution Date/Time: 06/09/22 @ 15:48 (9) Anemia Status: Acute (10) Substance abuse Status: Acute Supervisory-Addendum Brief Verification & Attestation Participated in pt care: history, MDM, physical Personally performed: exam, history, MDM, supervision of care Care discussed with: Medical Student Procedures: n/a Results interpretation: Verified all documentation A medical student performed and documented this service in my presence. I reviewed and verified all information documented by the medical student and made modifications to such information, when appropriate. I personally performed the physical exam and medical decision making. FLO MARTELL Jun 14, 2022 13:59 KENYA REYNA MD Jun 14, 2022 18:15
[2022-06-14 14:44] VITALS: BP 152/66
[2022-06-14] MEDS: ENOXAPARIN 40 MG/0.4 ML (LOVENOX) SYR SC SCH (16:58)
[2022-06-14 18:52] VITALS: BP 131/61
[2022-06-14 22:32] VITALS: BP 204/180
[2022-06-15] MEDS: inSUlin ASPART (NovoLOG) 1 UNIT/0.01 ML (CHARGE PER UNIT) SC SCH ×5 (00:44→23:18)
[2022-06-15] MEDS: LORazepam INJ 2 MG/ML (ATIVAN) VIAL IVP PRN ×3 (02:11→21:29)
[2022-06-15 02:38] VITALS: BP 166/137
[2022-06-15] MEDS: RT-ALBUTEROL/IPRATROPIUM 3 ML (DUONEB) VIAL INH SCH ×3 (02:38→10:29)
[2022-06-15] MEDS: PHENYLEPHRINE DRIP 250 ML IV SCH ×2 (03:50→17:00)
[2022-06-15] MEDS: KCL 20 MEQ TAB (K-DUR) PO SCH (03:53)
[2022-06-15] MEDS: fentaNYL DRIP PRE-MIX 250 ML IV SCH ×6 (04:01→23:05)
[2022-06-15 04:18] LABS: ABG BASE EXCESS 4.8 MMOL/L (-2.5-2.5); ABG OXYGEN SATURATION 93 % (94-100); ABG PCO2 43 MMHG (35-45); ABG PH 7.44 (7.37-7.43); ABG PO2 67 MMHG (79-93); BASOPHILS % (AUTO) 0 % (0-10); EOSINOPHILS % (AUTO) 0 % (0-10); HEMATOCRIT 24 % (35-52); HEMOGLOBIN 7.2 g/dL (11.5-16.0); LYMPHOCYTES # (AUTO) 0.7 10^3/uL (1.0-4.0); LYMPHOCYTES % (AUTO) 5 % (12-44); MEAN CORPUSCULAR HEMOGLOBIN 23 pg (25-34); MEAN CORPUSCULAR HGB CONC 30 g/dL (32-36); MEAN CORPUSCULAR VOLUME 76 fL (80-99); MEAN PLATELET VOLUME 11.7 fL (9.0-12.2); MONOCYTES # (AUTO) 0.3 10^3/uL (0.0-1.0); MONOCYTES % (AUTO) 2 % (0-12); NEUTROPHILS # (AUTO) 11.5 10^3/uL (1.8-7.8); NEUTROPHILS % (AUTO) 92 % (42-75); PLATELET COUNT 165 10^3/uL (130-400); WHITE BLOOD COUNT 12.5 10^3/uL (4.3-11.0)
[2022-06-15 04:19] LABS: ALLENS TEST YES-POS; INSPIRED O2 100%; VENTILATOR YES
[2022-06-15 04:22] LABS: PATIENT TEMP 37.4
[2022-06-15 04:43] LABS: BILIRUBIN,TOTAL 0.5 MG/DL (0.1-1.0); CALCIUM 7.5 MG/DL (8.5-10.1); CREATININE SERUM 0.41 MG/DL (0.60-1.30); MAGNESIUM 1.7 MG/DL (1.6-2.4); POTASSIUM 3.4 MMOL/L (3.6-5.0); TOTAL PROTEIN 5.7 GM/DL (6.4-8.2)
[2022-06-15] MEDS: POTASSIUM CL 10MEQ/50ML IVPB 50 ML IV SCH ×2 (05:14→06:05)
[2022-06-15] MEDS: MAGNESIUM 1 GM/100 ML IVPB 100 ML IV SCH ×2 (05:15→06:05)
[2022-06-15] MEDS: HYDROCORTISONE 100 MG/2 ML (Solu-CORTEF) VIAL IV SCH ×2 (05:17→20:41)
[2022-06-15] MEDS: MIDAZOLAM DRIP PRE-MIX 100 ML IV SCH ×5 (05:34→18:06)
--- NOTE | 2022-06-15 06:32 | Occ Therapy Progress Note ---
Therapy Progress Note Pt currently intubated. Pt will need new orders when extubated until then OT to monitor pt's status and initiate treatment when new orders received and pt is medically stable to participate in skilled therapy. JESUS TAYLOR Jun 15, 2022 06:32
[2022-06-15 07:25] VITALS: BP 111/53
--- NOTE | 2022-06-15 07:37 | Physical Therapy Progress Note ---
Therapy Progress Note Patient remains intubated and sedated. PT to remove patient from services at this time. Will require new orders when patient is able to actively participate with skilled therapy. DIMITRIOS GUERRERO PT Jun 15, 2022 07:37
[2022-06-15] MEDS: PANTOPRAZOLE 40 MG (PROTONIX) VIAL IV SCH (08:28)
--- NOTE | 2022-06-15 08:56 | Diagnostic Imaging Report ---
INDICATION: Respiratory distress. COMPARISON: 06/14/2022. FINDINGS: ET tube in thoracic trachea. Left PICC at the lower SVC. Bilateral infiltrates greatest in the lower lobe. Consolidations and background COPD showed no significant change. No effusion or pneumothorax. IMPRESSION: Unchanged bilateral infiltrates. Support apparatus projects in good alignment stable from prior. Dictated by: Dictated on workstation # [id number]
--- NOTE | 2022-06-15 09:23 | Tele-ICU Progress Note ---
Subjective Date Seen by a Provider: Jun 15, 2022 Time Seen by a Provider: 09:23 Subjective/Events-last exam (Tele-ICU Physician , Progress Note ) Service provided via interactive audio and video telecommunications E-CARE system to a patient admitted to ICU bed in [facility]. Patient is seen today due to persistent need of ICU care Available chart/ vitals / labs / Images reviewed Video assessment done using teleICU camera, rest of exam as per RN Discussed with RN Events overnight : FEBRILE hemodynamically stable Respiratory - I/O = neg 300 Drips: Pressors- REYNALDO VENT SETTINGS and ABG reviewed NOT CANDIDATE for SBTreviewed possible contraindications including Cardiovascular Stability /Sedation Score / FI02/PEEP / ABG / CXR/ secretions Sedation, discussed with RN, RASS -2 versed 10 , fent 250- open eyes, Consultants: Hospital course: (06/07) 32F Admitted with PNA. CT shows Mod size areas of consolidation involving bilateral upper and left lower lobe. There is complete consolidation of RLL. Also centrilobular emphysema. -On BIPAP 100% sats 86%-Plan [place]ubate. [place] [address]/08 - AC 400 26 100% peep 5 , shock : levo 0.9 vaso , reynaldo 175 , Hb 6.5 - transfusion 06/08 1 UPRBC 06/10 - OFF nimbex 06/10-Fio2 60 % +10 06/11- Episodes of junctional robson or sinus robson with PAC. fibrinogen 213 06/12 - 50 % , s/p transfusion 06/08 1 u PRBC, PLT 73 06/13 - 65%, hb 6.7 - transfusion 1 pRBC 06/15- follows commands on SAT. 60% +7 . T38 A/P Acute resp failure with PNA ( in additional to signic=ficant emphyseme upper lovbes on CT - suspected due to inhalation of meth and possible other drugs ? ) - intubated 06/07 AC 400 22 peep 7 60% - minimal secretions , no wheezing Shock . septic - stress dose steroid 50 q 6 - decrease dose q8 06/12 - >25 q8 06/13 - pressors OFF ID - STILL FEBRILE 38 last 24 h PNA - bilateral , most likely CAP ( neg covid , flu ) - sputum cx -Streptococcus pneumoniae and H flu 06/08 , sputum 06/14 - posible Staph Aur - pending -ceftriaxone Bacteremia - sterp pneumo - repeat 06/08 blood cx - NEG so far Anemia s/p transfusion 06/08 1 u PRBC , 1uPRBC 06/09 , 06/13-hb 6.7 - transfusion 1 pRBC - no clear sigh of bleeding - suspect delutional? vs slow bleed thrombocytopenia - DIC panel l neg on 06/09 , fibrinogen 213 on 06/11 - stable - IMPROVING Episodes of junctional robson or sinus robson with PAC. 06/11 - resolved - monitor lytes Elv trig - on propofol 06/10 -OFF now , lipase 69 06/11 Encephalopaty - doing SAT -sedation awakening trials - versed 2 , fent 150 - open eyes , can open mouth on direction , follow command history of methamphetamine use abuse - sedated, fentanyl gtt , decresing - HIV neg Nutritions - almost at goal - 06/12 - added reglan prn Hypernatremia - resolved Lines : l scl 06/07 , a line 06/07 , (Central Line Necessity Reviewed) Figueroa: + OG: Nutrition: TF Analgesia: Anxiety/ delirium VTE Prophylaxis: lovenox 40 Stress Ulcer Prophylaxis: ppi Plans in collaboration with bedside consultants and IM MDs. Discussed with RN to reach out if any questions or concerns A total of 35 minutes of critical care time was devoted to this patient today, required to treat and/or prevent further deterioration of critical care condition ( as above ) . I am remotely monitoring this patient from another state. I am unable to do the bedside exam, and history/physical and pertinent information is taken from other notes in the computer and bedside staff. Sepsis Event Evaluation Height, Weight, BMI Height: 5'6" Weight: 120lbs. oz. 54.643329kv; 20.05 BMI Method:Stated Exam Exam Patient acknowledged, consented, and participated in this virtual visit which was conducted using real time audio/video Vital Signs Date Time Temp Pulse Resp B/P (MAP) Pulse Ox O2 Delivery O2 Flow Rate FiO2 06/15/22 09:00 37.1 104 41 108/60 (76) 96 Mechanical Ventilator 60.00 06/15/22 08:33 40 06/15/22 08:29 107 20 97/51 06/15/22 08:05 107 99/53 06/15/22 08:00 37.2 107 26 113/63 (80) 93 Mechanical Ventilator 60.00 06/15/22 08:00 95 Mechanical Ventilator 60.00 06/15/22 07:36 112 06/15/22 07:25 109 29 91 60 06/15/22 07:00 37.1 113 25 115/63 (80) 91 Mechanical Ventilator 60.00 06/15/22 06:33 125 40 121/86 06/15/22 06:32 123 121/86 06/15/22 06:00 36.9 109 37 131/76 (94) 93 Mechanical Ventilator 60.00 06/15/22 05:41 120 06/15/22 05:34 115 40 121/84 06/15/22 05:18 Mechanical Ventilator 60.00 06/15/22 05:00 37.3 93 26 108/63 (78) 94 Mechanical Ventilator 40.00 06/15/22 04:00 40 06/15/22 04:00 37.4 93 26 110/65 (80) 94 Mechanical Ventilator 40.00 06/15/22 04:00 92 50 06/15/22 03:00 37.5 98 25 113/68 (83) 98 Mechanical Ventilator 40.00 06/15/22 02:38 99 26 95 50 06/15/22 02:00 37.8 108 25 110/63 (79) 96 Mechanical Ventilator 50.00 06/15/22 01:00 105 06/15/22 01:00 38.0 105 34 106/66 (79) 93 Mechanical Ventilator 50.00 06/15/22 00:00 37.9 103 26 109/66 (80) 93 Mechanical Ventilator 50.00 06/15/22 00:00 50 06/14/22 23:59 92 50 06/14/22 23:00 37.4 103 25 108/64 (79) 90 Mechanical Ventilator 50.00 06/14/22 22:32 112 28 94 50 06/14/22 22:00 37.7 108 27 116/85 (95) 92 Mechanical Ventilator 50.00 06/14/22 21:00 37.6 108 34 103/57 (72) 93 Mechanical Ventilator 50.00 06/14/22 20:00 37.4 103 25 113/64 (80) 93 Mechanical Ventilator 50.00 06/14/22 20:00 92 50 06/14/22 20:00 50 06/14/22 19:00 37.8 06/14/22 19:00 103 06/14/22 19:00 37.5 104 31 104/60 (75) 93 Mechanical Ventilator 50.00 06/14/22 18:52 101 29 96 55 06/14/22 18:00 37.7 109 26 115/64 (81) 94 Mechanical Ventilator 55.00 06/14/22 17:24 37.8 109 26 116/67 (83) 92 Mechanical Ventilator 55.00 06/14/22 16:16 106 152/66 06/14/22 16:15 93 Mechanical Ventilator 55 06/14/22 16:00 37.7 112 36 128/70 (89) 91 Mechanical Ventilator 55.00 06/14/22 16:00 55 06/14/22 15:12 106 152/66 06/14/22 15:00 112 39 135/77 (96) 91 Mechanical Ventilator 55.00 06/14/22 14:44 106 38 94 55 06/14/22 14:00 37.6 104 25 121/74 (90) 91 Mechanical Ventilator 55.00 06/14/22 13:00 37.7 110 25 116/70 (85) 92 Mechanical Ventilator 55.00 06/14/22 12:59 103 06/14/22 12:28 92 Mechanical Ventilator 55 06/14/22 12:27 55 06/14/22 12:00 37.5 99 29 148/69 (95) 92 Mechanical Ventilator 55.00 06/14/22 11:11 97 134/74 06/14/22 11:00 37.4 102 29 116/76 (89) 94 Mechanical Ventilator 55.00 06/14/22 10:53 Mechanical Ventilator 55.00 06/14/22 10:49 97 28 96 55 06/14/22 10:45 97 134/74 06/14/22 10:02 96 Mechanical Ventilator 60.00 06/14/22 10:00 37.5 96 96 Mechanical Ventilator 65.00 I & O 06/15/22 07:00 Intake Total 1700 ml Output Total 3675 ml Balance -1975 ml Height & Weight Height: 5'6" Weight: 120lbs. oz. 54.065288tg; 20.05 BMI Method:Stated General Appearance: No Apparent Distress, Chronically ill, Thin HEENT: PERRL/EOMI, Scleral Icterus (L), Scleral Icterus (R) Neck: Normal Inspection, Supple Respiratory: Lungs Clear, No Respiratory Distress, Other (intubated and mechanically ventilated) Cardiovascular: No Murmur, Tachycardia Capillary Refill: Less Than 3 Seconds Gastrointestinal: non tender, soft, distended, other (hypoacitive BS, mild distension) Extremity: Normal Inspection, Pedal Edema Neurologic/Psychiatric: Other (sedated) Skin: Normal Color, Warm/Dry Lymphatic: No Adenopathy Results Lab Laboratory Tests 06/14/22 03:35 06/15/22 04:05 Assessment/Plan Assessment/Plan 1 EFREN VALENCIA MD Jun 15, 2022 09:23
--- NOTE | 2022-06-15 09:31 | Progress Note - Hospitalist ---
JOAQUÍN SMITH 06/15/22 0931: Subjective HPI/CC On Admission Pt is a 32yoCF with a PMH of methamphetamine abuse who presented to the ER due to weakness. History comes from both patient and her mom. Mom states she has a long history of meth use but has been trying to quit. She last used 7 days ago and then started to get very ill. Her mom wanted to take her in to be seen but the patient refused throoughout the week and finally decidied to come intoday due to her weakness. Reportedly her son has had to carry her from room to room because of how weak she is. On arrival to the emergency room her oxygen saturation was 40%. This was confirmed on an ABG with a PO2 of 39 and saturation of 64 on 15 L nonrebreather. We were able to get her oxygen up into the 90s with oxi mask. Imaging revealed extensive bilateral infiltrates. She was also found to have a profound lactic acidosis fo 13. When I saw her in the ICU she was mottled to her knees and elbows though her capillary refill was adequate. She apparently has vomited twice this morning too. Subjective/Events-last exam patient is in bed sedated at the time I saw her. She is currently intubated with FiO2 60 and PEEP 7.0. She is receiving pulmicare tube feeding at 40ml/hr. She has a cameron catheter in place with good urine output. It was reported to me by the nurse that sedation was attempted to be decreased this morning and the patient became agitated at that time. She is being followed by E-ICU who is hoping to trial SBT if FiO2 reaches around 40%. Review of Systems Unable to be obtained at this time Objective Exam Vital Signs Vital Signs Date Time Temp Pulse Resp B/P (MAP) Pulse Ox O2 Delivery O2 Flow Rate FiO2 06/15/22 10:29 101 26 96 60 06/15/22 10:00 37.1 106/56 (73) Mechanical Ventilator 60.00 Capillary Refill : Less Than 3 Seconds General Appearance: Thin, Other (Sedated and intubated) HEENT: No Moist Mucous Membranes Respiratory: No Accessory Muscle Use, No Respiratory Distress, Rhonci (diffusely); No Wheezing Cardiovascular: No Edema, No Murmur, Normal Peripheral Pulses, Tachycardia, Other (regular rhythm) Gastrointestinal: Normal Bowel Sounds, Non Tender, Soft Extremity: Normal Capillary Refill, No Pedal Edema Neurologic/Psychiatric: Other (patient is sedated at this time with minimal stirring when I tried speaking to her.) Skin: Normal Color, Warm/Dry Lymphatic: No Adenopathy Results/Procedures Lab Laboratory Tests 06/15/22 04:05 Patient resulted labs reviewed. Imaging: Reviewed Imaging Report Assessment/Plan Assessment and Plan Assess & Plan/Chief Complaint Acute respiratory Distress Syndrome -Mechanical Ventilation with PEEP 7.0 and FiO2 60%. Back off the vent as tolerated. Will trial SBT if fiO2 nears 40. -Sedation wih fentanyl 50 mcg/hr IV and Midazolam 450 mcg/hr IV -Lasix given yesterday for possible pulmonary vascular congestion seen on CXR. -Stress ulcer prophylaxis w/ PPI Septic Shock -Patient originally presented in septic shock. This is improved and patient is normotensive w/out requiring pressors at this time. CAP -Day 7 ceftriaxone 2g IV Q24 -Sputum culture from 06/14 is suspicious for probable s. aureas with final culture/susceptibility pending. -Initiating Vancomycin IV at this time. 1250mg IV loading dose followed by 750mg IV BID 12 hours later. Anemia -Hgb today 7.2 which is down slightly from 7.4 pn 06/14. -Patient received 1 unit RBC 06/13 for a hgb of 6.7. 3 total units received as of 06/15. Hypernatremia -Improved. Monitor for now. Hyperkalemia -K+ of 3.4 today. Likely dilutional. monitor for now. thrombocytopenia -Platelets today of 165, improved from 124 yesterday. ENOC -improved metabolic alkalosis -06/15 pH 7.44, paCO2 43, PaO2 67, PaHCO3 29 -very mild at this time and mostly unchanged since yesterday. Monitor for now. Clinical Quality Measures AMI/AHF: ASA po Prior to arrival: No ANDI LUNA MD 06/15/22 1301: Assessment/Plan Assessment and Plan Assess & Plan/Chief Complaint Pt remains on vent though settings and support lessening. Discussed with RN and decreassing sedation as well. Staph growing in sputum culture and sensitivities pending. Will add Vancomycin for now as this grew with Rocephin on board. Has been intubated for roughly 8 days. I am hopeful with lessening vent support she will be able to be extubated but may need trach if unable to wean soon. Supervisory-Addendum Brief Verification & Attestation Participated in pt care: history, MDM, physical Personally performed: exam, history, MDM, supervision of care Care discussed with: Medical Student Procedures: n/a Results interpretation: Verified all documentation Verification and Attestation of Medical Student E/M Service A medical student performed and documented this service in my presence. I reviewed and verified all information documented by the medical student and made modifications to such information, when appropriate. I personally performed the physical exam and medical decision making. Andi Luna, Jun 15, 2022,12:58 JOAQUÍN SMITH Jun 15, 2022 09:31 ANDI LUNA MD Jun 15, 2022 13:01
[2022-06-15] MEDS ORDERED: VANCOMYCIN INJECTION 0.1 MG in NS (IVPB) 250 ML IV SCH (10:15)
[2022-06-15 10:29] VITALS: BP 179/165
[2022-06-15] MEDS: NOREPINEPHRINE 16 MG/250 ML DRIP IV SCH ×2 (10:52)
[2022-06-15] MEDS ORDERED: VANCOMYCIN 1250 MG/NS 250 ML IVPB IV ONE ×2 (11:00)
[2022-06-15] MEDS: cefTRIAXone 2,000 MG in NS (IVPB) 50 ML IV SCH (11:08)
[2022-06-15 14:51] VITALS: BP 140/123
[2022-06-15] MEDS: RT-IPRATROPIUM (ATROVENT) 0.5MG/2.5ML AMP IH SCH ×3 (14:51→21:16)
[2022-06-15] MEDS: RT-ALBUTEROL SULF 2.5 MG/3 ML PRE-MIX VIAL INH SCH ×3 (14:51→21:16)
[2022-06-15] MEDS: ENOXAPARIN 40 MG/0.4 ML (LOVENOX) SYR SC SCH (18:04)
[2022-06-15 18:10] VITALS: BP 109/61
[2022-06-15 21:16] VITALS: BP 120/68
[2022-06-15] MEDS ORDERED: VANCOMYCIN 750 MG/NS 250 ML IVPB IV SCH ×2 (23:00)
[2022-06-16] MEDS: RT-IPRATROPIUM (ATROVENT) 0.5MG/2.5ML AMP IH SCH ×6 (01:34→22:11)
[2022-06-16 01:35] VITALS: BP 104/56
[2022-06-16] MEDS: RT-ALBUTEROL SULF 2.5 MG/3 ML PRE-MIX VIAL INH SCH ×6 (01:35→22:11)
[2022-06-16] MEDS: fentaNYL DRIP PRE-MIX 250 ML IV SCH ×3 (02:31→17:40)
[2022-06-16] MEDS: PHENYLEPHRINE DRIP 250 ML IV SCH ×2 (04:04→20:09)
[2022-06-16 04:11] LABS: BASOPHILS % (AUTO) 0 % (0-10); EOSINOPHILS % (AUTO) 0 % (0-10); HEMATOCRIT 25 % (35-52); HEMOGLOBIN 7.7 g/dL (11.5-16.0); LYMPHOCYTES # (AUTO) 0.5 10^3/uL (1.0-4.0); LYMPHOCYTES % (AUTO) 4 % (12-44); MEAN CORPUSCULAR HEMOGLOBIN 24 pg (25-34); MEAN CORPUSCULAR HGB CONC 30 g/dL (32-36); MEAN CORPUSCULAR VOLUME 78 fL (80-99); MEAN PLATELET VOLUME 11.2 fL (9.0-12.2); MONOCYTES # (AUTO) 0.2 10^3/uL (0.0-1.0); MONOCYTES % (AUTO) 2 % (0-12); NEUTROPHILS # (AUTO) 11.4 10^3/uL (1.8-7.8); NEUTROPHILS % (AUTO) 93 % (42-75); PLATELET COUNT 249 10^3/uL (130-400); WHITE BLOOD COUNT 12.2 10^3/uL (4.3-11.0)
[2022-06-16 04:18] LABS: ALBUMIN 2.3 GM/DL (3.2-4.5); POTASSIUM 4.1 MMOL/L (3.6-5.0)
[2022-06-16 04:19] LABS: CALCIUM 7.8 MG/DL (8.5-10.1)
[2022-06-16 04:21] LABS: TOTAL PROTEIN 6.3 GM/DL (6.4-8.2)
[2022-06-16 04:23] LABS: BILIRUBIN,TOTAL 0.3 MG/DL (0.1-1.0)
[2022-06-16 04:24] LABS: CREATININE SERUM 0.47 MG/DL (0.60-1.30)
[2022-06-16 04:27] LABS: MAGNESIUM 1.9 MG/DL (1.6-2.4)
[2022-06-16 04:30] LABS: ABG BASE EXCESS 3.1 MMOL/L (-2.5-2.5); ABG OXYGEN SATURATION 93 % (94-100); ABG PCO2 42 MMHG (35-45); ABG PH 7.43 (7.37-7.43); ABG PO2 67 MMHG (79-93); ABG TCO2 28.3 MMOL/L (21.0-31.0); ALLENS TEST ARTLINE
[2022-06-16 04:31] LABS: INSPIRED O2 100%; PATIENT TEMP 37.2; VENTILATOR YES
[2022-06-16] MEDS: LORazepam INJ 2 MG/ML (ATIVAN) VIAL IVP PRN ×2 (04:39→17:40)
[2022-06-16] MEDS: MIDAZOLAM DRIP PRE-MIX 100 ML IV SCH ×2 (04:39→14:18)
[2022-06-16] MEDS: inSUlin ASPART (NovoLOG) 1 UNIT/0.01 ML (CHARGE PER UNIT) SC SCH ×3 (04:43→17:15)
[2022-06-16] MEDS: KCL 20 MEQ TAB (K-DUR) PO SCH (04:43)
--- NOTE | 2022-06-16 06:37 | Occ Therapy Progress Note ---
Therapy Progress Note Patient remains intubated and sedated. OT to remove patient from services at this time. Pt will require new orders when patient is able to actively participate with skilled therapy. JESUS TAYLOR Jun 16, 2022 06:36
[2022-06-16 07:05] VITALS: BP 103/60
--- NOTE | 2022-06-16 07:50 | Diagnostic Imaging Report ---
Indication: 32-year-old female inpatient currently on a vent, pneumonia follow-up Comparisons: 06/15/2022 FINDINGS: Single view chest shows bilateral lower lobe consolidation. A slight interval increase in the right lower lobe consolidation. Cardiac contour is within normal limits. ET tube tip overlies trachea at the level of the clavicles. Left subclavian central line tip is projected over the SVC. Soft tissues and bony thorax unremarkable. IMPRESSION: 1. Increasing right lower lobe consolidation with persistent left lower lobe consolidation. 2. Stable support lines. Dictated by: Dictated on workstation # [id number]
[2022-06-16] MEDS: HYDROCORTISONE 100 MG/2 ML (Solu-CORTEF) VIAL IV SCH ×2 (08:06→20:49)
[2022-06-16] MEDS: PANTOPRAZOLE 40 MG (PROTONIX) VIAL IV SCH (08:09)
[2022-06-16] MEDS: MILK OF MAGNESIA 400 MG/5 ML 30 ML UDC PO PRN (08:19)
--- NOTE | 2022-06-16 08:48 | Progress Note - Hospitalist ---
JOAQUÍN SMITH 06/16/22 8:48am: Subjective HPI/CC On Admission Time Seen by Provider: 08:00 Pt is a 32yoCF with a PMH of methamphetamine abuse who presented to the ER due to weakness. History comes from both patient and her mom. Mom states she has a long history of meth use but has been trying to quit. She last used 7 days ago and then started to get very ill. Her mom wanted to take her in to be seen but the patient refused throoughout the week and finally decidied to come intoday due to her weakness. Reportedly her son has had to carry her from room to room because of how weak she is. On arrival to the emergency room her oxygen satura tion was 40%. This was confirmed on an ABG with a PO2 of 39 and saturation of 64 on 15 L nonrebreather. We were able to get her oxygen up into the 90s with oxi mask. Imaging revealed extensive bilateral infiltrates. She was also found to have a profound lactic acidosis fo 13. When I saw her in the ICU she was mottled to her knees and elbows though her capillary refill was adequate. She apparently has vomited twice this morning too. Subjective/Events-last exam Patient was in bed sedated when seen this morning. She stirred slightly when I spoke with her this morning. She remains intubated at this time with a PEEP of 7.0 and FiO2 of 45% which is improved from 60% yesterday. She had a sedation vacation this morning that lasted for 28 minutes before patient had increased work of breathing and cough. She is currently on midazolam 8mg/hr and Fentanyl 200mcg/hr for sedation. She has a cameron catheter in place with clear yellow urine present. She is receiving Pulmicare 45ml/hr tube feeding. She has not had a BM charted since she arrived. Review of Systems Unable to be obtained at this time Objective Exam Vital Signs Vital Signs Date Time Temp Pulse Resp B/P (MAP) Pulse Ox O2 Delivery O2 Flow Rate FiO2 06/16/22 11:05 106 120/72 06/16/22 11:00 37.1 24 94 Mechanical Ventilator 45.00 06/16/22 10:08 45 Capillary Refill : Less Than 3 Seconds General Appearance: Thin, Other (Patient is sedated and intubated at this time) HEENT: No Moist Mucous Membranes Respiratory: No Accessory Muscle Use; Rhonci (diffusely); No Wheezing Cardiovascular: Regular Rate, Rhythm, No Murmur, Normal Peripheral Pulses Gastrointestinal: Other (decreased bowel sounds. soft, nondistended, no masses felt.) Extremity: Normal Capillary Refill, No Pedal Edema Skin: Normal Color, Warm/Dry Lymphatic: No Adenopathy Results/Procedures Lab Laboratory Tests 06/16/22 04:03 Patient resulted labs reviewed. Imaging: Reviewed Imaging Report Assessment/Plan Assessment and Plan Assess & Plan/Chief Complaint Acute respiratory Distress Syndrome -Mechanical Ventilation with PEEP 7.0 and FiO2 45%. Back off the vent and sedation as tolerated. Will trial SBT if fiO2 nears 40. -Sedation with fentanyl 200 mcg/hr IV and Midazolam 8 mg/hr IV at this time. Plan to transition from midazolam to precedex per E-ICU doctors recommendations. -Lasix 40mg IV given 06/15 for possible pulmonary vascular congestion seen on CXR. -Stress ulcer prophylaxis w/ PPI Septic Shock -Patient originally presented in septic shock. This is improved and patient is normotensive w/out requiring pressors at this time. -Hydrocortisone 25mg Q12hr IV for refractory shock. E-ICU doctor weening pt. off slowly at this time. CAP -Day 8 ceftriaxone 2g IV Q24 -Sputum culture from 06/14 showed presumptive MSSA. -06/15/22 Initiated Vancomycin IV. 1250mg IV loading dose followed by 750mg IV BID 12 hours later. Today (06/16) would be day 2 of Vanc, but will discontinue at this time given MSSA results. Anemia -Hgb today 7.7 which is slightly improved from 7.2 on 06/15. -Patient received 1 unit RBC 06/13 for a hgb of 6.7. 3 total units received as of 06/16. Hypernatremia -Improved. Monitor for now. Hyperkalemia -Improved. Monitor for now thrombocytopenia -Platelets today of 249. Continuing to improve. ENOC -improved metabolic alkalosis -06/15 pH 7.44, paCO2 43, PaO2 67, PaHCO3 29 -06/16 improved at this time. PaO2 does remain at 67. Continue to monitor. Constipation -No BM since arrival -Likely secondary to decreased consumption and opioid sedation -Will trial relistor given prolonged opioid sedation Clinical Quality Measures AMI/AHF: ASA po Prior to arrival: No ANDI LUNA MD 06/16/22 11:35am: Assessment/Plan Assessment and Plan Assess & Plan/Chief Complaint Patient continues to slowly improve. Down to 45% FiO2. Hopeful for liberation maybe end of week if she continues to improve. No BM and has been on high dose fentanyl gtt. Will trial Relistor. Supervisory-Addendum Brief Verification & Attestation Participated in pt care: history, MDM, physical Personally performed: exam, history, MDM, supervision of care Care discussed with: Medical Student Procedures: n/a Results interpretation: Verified all documentation Verification and Attestation of Medical Student E/M Service A medical student performed and documented this service in my presence. I reviewed and verified all information documented by the medical student and made modifications to such information, when appropriate. I personally performed the physical exam and medical decision making. Andi Luna, Jun 16, 2022,11:33 JOAQUÍN SMITH Jun 16, 2022 8:48 am ANDI LUNA MD Jun 16, 2022 11:35 am
[2022-06-16 10:08] VITALS: BP 131/84
[2022-06-16] MEDS: NOREPINEPHRINE 16 MG/250 ML DRIP IV SCH ×2 (11:04)
[2022-06-16] MEDS: DexMEDEtomidine 250 ML DRIP 250 ML IV SCH (11:05)
[2022-06-16] MEDS: cefTRIAXone 2,000 MG in NS (IVPB) 50 ML IV SCH (11:06)
[2022-06-16] MEDS ORDERED: METHYLNALTREXONE 12 MG/0.6 ML (RELISTOR) VIAL SQ NR (12:00)
[2022-06-16] MEDS: fentaNYL PATCH 75 MCG (DURAGESIC) TD SCH (12:42)
--- NOTE | 2022-06-16 13:29 | Tele-ICU Progress Note ---
Subjective Date Seen by a Provider: Jun 16, 2022 Time Seen by a Provider: 13:29 Subjective/Events-last exam (Tele-ICU Physician , Progress Note ) Service provided via interactive audio and video telecommunications E-CARE system to a patient admitted to ICU bed in [facility]. Patient is seen today due to persistent need of ICU care Available chart/ vitals / labs / Images reviewed Video assessment done using teleICU camera, rest of exam as per RN Discussed with RN Events overnight : FEBRILE , but less them yesterday , t max 37.7 hemodynamically stable Respiratory - I/O = pos 1L Drips: Pressors- REYNALDO VENT SETTINGS and ABG reviewed NOT CANDIDATE for SBTreviewed possible contraindications including Cardiovascular Stability /Sedation Score / FI02/PEEP / ABG / CXR/ secretions Sedation, discussed with RN, RASS -2 versed 10-7 , fent 250 150 - open eyes, Consultants: Hospital course: (06/07) 32F Admitted with PNA. CT shows Mod size areas of consolidation involving bilateral upper and left lower lobe. There is complete consolidation of RLL. Also centrilobular emphysema. -On BIPAP 100% sats 86%-Plan to intubate. Intubated @ 1918 06/08 - AC 400 26 100% peep 5 , shock : levo 0.9 vaso , reynaldo 175 , Hb 6.5 - transfusion 06/08 1 UPRBC 06/10 - OFF nimbex 06/10-Fio2 60 % +10 06/11- Episodes of junctional robson or sinus robson with PAC. fibrinogen 213 06/12 - 50 % , s/p transfusion 06/08 1 u PRBC, PLT 73 06/13 - 65%, hb 6.7 - transfusion 1 pRBC 06/15- follows commands on SAT. 60% +7 . T38 06/16 - fentanyl gtt , decreasing dose , changing to precedex , starting fentanyl patch , fio2 40% , but secreating thicker - adding mucomist nebs A/P Acute resp failure with PNA ( in additional to signic=ficant emphyseme upper lovbes on CT - suspected due to inhalation of meth and possible other drugs ? ) - intubated 06/07 AC 400 22 peep 7 45 % - secreating thicker - adding mucomist nebs , no wheezing -WILL TRY SBT TOMORROW IF CAN BALANCE SEDATION FOR SBT , MIGHT NEED TRACH Shock . septic - stress dose steroid 50 q 6 - decrease dose q8 06/12 - >25 q8 06/13 - pressors OFF ID PNA - bilateral , most likely CAP ( neg covid , flu ) - sputum cx -Streptococcus pneumoniae and H flu 06/08 , sputum 06/14 - posible Staph Aur - PRESUMPTIVE MSSA -ceftriaxone Bacteremia - sterp pneumo - repeat 06/08 blood cx - NEG so far Anemia s/p transfusion 06/08 1 u PRBC , 1uPRBC 06/09 , 06/13-hb 6.7 - transfusion 1 pRBC - no clear sigh of bleeding - suspect delutional? vs slow bleed thrombocytopenia - DIC panel l neg on 06/09 , fibrinogen 213 on 06/11 - stable - IMPROVING Episodes of junctional robson or sinus robson with PAC. 06/11 - resolved - monitor lytes Encephalopaty - doing SAT -sedation awakening trials - versed 2 , fent 150 - open eyes , can open mouth on direction , follow command history of methamphetamine use abuse - sedated, fentanyl gtt , decresing dose , changing to precedex , starting fentanyl patch - HIV neg Nutritions - at goal - 06/12 - added reglan prn Hypernatremia - resolved Lines : l scl 06/07 , a line 06/07 - removed 06/16 , (Central Line Necessity Reviewed) Figueroa: + OG: Nutrition: TF Analgesia: Anxiety/ delirium VTE Prophylaxis: lovenox 40 Stress Ulcer Prophylaxis: ppi Plans in collaboration with bedside consultants and IM MDs. Discussed with RN to reach out if any questions or concerns A total of 34 minutes of critical care time was devoted to this patient today, required to treat and/or prevent further deterioration of critical care condition ( as above ) . I am remotely monitoring this patient from another state. I am unable to do the bedside exam, and history/physical and pertinent information is taken from other notes in the computer and bedside staff. Sepsis Event Evaluation Height, Weight, BMI Height: 5'6" Weight: 120lbs. oz. 54.188162rg; 21.51 BMI Method:Stated Exam Exam Patient acknowledged, consented, and participated in this virtual visit which was conducted using real time audio/video Vital Signs Date Time Temp Pulse Resp B/P (MAP) Pulse Ox O2 Delivery O2 Flow Rate FiO2 06/16/22 12:46 89 06/16/22 12:45 90 114/62 06/16/22 12:45 91 114/62 06/16/22 12:00 37.1 104 27 113/63 (80) 92 Mechanical Ventilator 45.00 06/16/22 12:00 37.1 06/16/22 11:58 93 Mechanical Ventilator 45 06/16/22 11:57 45 06/16/22 11:05 106 120/72 06/16/22 11:00 37.1 109 24 120/72 (88) 94 Mechanical Ventilator 45.00 06/16/22 10:08 89 29 94 45 06/16/22 10:00 36.9 101 22 128/78 (95) 95 Mechanical Ventilator 45.00 06/16/22 09:25 100 125/79 06/16/22 09:00 36.9 90 26 114/73 (87) 93 Mechanical Ventilator 45.00 06/16/22 08:10 90 Mechanical Ventilator 45 06/16/22 08:10 45 06/16/22 08:00 37.0 102 25 113/68 (83) 91 Mechanical Ventilator 45.00 06/16/22 08:00 37.0 06/16/22 07:05 103 27 92 45 06/16/22 07:00 98 06/16/22 07:00 37.0 100 26 103/60 (74) 92 Mechanical Ventilator 45.00 06/16/22 06:31 97 110/64 06/16/22 06:00 37.0 97 28 110/64 (79) 97 Mechanical Ventilator 45.00 06/16/22 05:00 37.1 105 28 132/80 (97) 97 Mechanical Ventilator 45.00 06/16/22 04:57 105 130/86 06/16/22 04:57 105 35 130/86 06/16/22 04:45 105 130/86 06/16/22 04:41 93 138/87 06/16/22 04:39 105 30 138/87 06/16/22 04:32 105 138/87 06/16/22 04:00 105 34 91 06/16/22 04:00 37.1 102 28 131/85 (100) 93 Mechanical Ventilator 45.00 06/16/22 03:55 93 Mechanical Ventilator 45 06/16/22 03:55 45 1/24/23 03:05 94 106/58 06/16/22 03:00 37.2 96 28 104/55 (71) 92 Mechanical Ventilator 45.00 06/16/22 02:31 102 102/57 06/16/22 02:31 103 28 102/57 06/16/22 02:00 37.2 94 28 107/57 (74) 93 Mechanical Ventilator 45.00 06/16/22 01:50 89 106/58 06/16/22 01:50 89 26 106/58 06/16/22 01:49 Mechanical Ventilator 45.00 06/16/22 01:35 83 22 94 50 06/16/22 01:00 37.4 105 28 112/59 (76) 94 Mechanical Ventilator 50.00 06/16/22 01:00 105 06/16/22 00:44 83 104/56 06/16/22 00:00 37.5 100 28 109/67 (81) 94 Mechanical Ventilator 50.00 06/15/22 23:46 98 116/75 06/15/22 23:15 92 Mechanical Ventilator 50 06/15/22 23:10 50 06/15/22 23:10 37.6 105 28 92 Mechanical Ventilator 50.00 06/15/22 23:05 108 112/66 06/15/22 23:00 37.7 110 26 112/66 (81) 93 Mechanical Ventilator 50.00 06/15/22 22:00 37.7 110 26 116/70 (85) 100 Mechanical Ventilator 50.00 06/15/22 21:31 105 129/78 06/15/22 21:16 104 29 92 50 06/15/22 21:00 37.4 97 26 115/70 (85) 94 Mechanical Ventilator 50.00 06/15/22 20:44 100 114/67 06/15/22 20:43 100 114/67 06/15/22 20:41 Mechanical Ventilator 50.00 06/15/22 20:37 101 114/67 06/15/22 20:36 104 114/67 06/15/22 20:00 93 Mechanical Ventilator 60 06/15/22 20:00 37.5 106 26 108/89 (95) 93 Mechanical Ventilator 60.00 06/15/22 19:50 60 06/15/22 19:00 115 06/15/22 19:00 37.5 113 26 110/60 (77) 91 Mechanical Ventilator 60.00 Arterial Line 06/15/22 18:10 111 30 92 60 06/15/22 18:06 111 19 109/61 06/15/22 18:00 37.2 113 35 109/61 (77) 91 Mechanical Ventilator 60.00 06/15/22 17:31 Mechanical Ventilator 60.00 06/15/22 17:00 37.2 110 47 112/63 (79) 89 Mechanical Ventilator 55.00 06/15/22 16:34 Mechanical Ventilator 55.00 06/15/22 16:32 105 120/98 06/15/22 16:00 40 06/15/22 16:00 37.2 110 25 116/62 (80) 92 Mechanical Ventilator 50.00 06/15/22 16:00 90 55 06/15/22 15:00 37.3 96 26 110/59 (76) 92 Mechanical Ventilator 50.00 06/15/22 15:00 98 110/86 06/15/22 14:51 92 26 92 50 06/15/22 14:00 37.1 101 26 106/58 (74) 92 Mechanical Ventilator 50.00 I & O 06/16/22 06:59 Intake Total 3394.5 ml Output Total 1625 ml Balance 1769.5 ml Height & Weight Height: 5'6" Weight: 120lbs. oz. 54.598801hk; 21.51 BMI Method:Stated General Appearance: Thin, Other (Patient is sedated and intubated at this time) HEENT: No Moist Mucous Membranes Neck: Normal Inspection, Supple Respiratory: No Accessory Muscle Use; Rhonci (diffusely); No Wheezing Cardiovascular: Regular Rate, Rhythm, No Murmur, Normal Peripheral Pulses Capillary Refill: Less Than 3 Seconds Gastrointestinal: non tender, soft, distended, other (hypoacitive BS, mild d istension) Extremity: Normal Capillary Refill, No Pedal Edema Neurologic/Psychiatric: Other (patient is sedated at this time with minimal stirring when I tried speaking to her.) Skin: Normal Color, Warm/Dry Lymphatic: No Adenopathy Results Lab Laboratory Tests 06/15/22 04:05 06/16/22 04:03 Assessment/Plan Assessment/Plan 1 EFREN VALENCIA MD Jun 16, 2022 13:29
[2022-06-16 13:49] VITALS: BP 106/62
[2022-06-16] MEDS: aCETylcysteine 20% (MUCOMYST) 4 ML SOLN VIAL INH SCH ×2 (13:49→22:12)
[2022-06-16] MEDS: ENOXAPARIN 40 MG/0.4 ML (LOVENOX) SYR SC SCH (17:15)
[2022-06-16 18:42] VITALS: BP 106/57
[2022-06-16 22:12] VITALS: BP 101/58
[2022-06-17] VITALS (9 sets, daily range): BP systolic 1–137; BP diastolic 58–88
[2022-06-17] MEDS: inSUlin ASPART (NovoLOG) 1 UNIT/0.01 ML (CHARGE PER UNIT) SC SCH ×4 (00:14→18:00)
[2022-06-17] MEDS: RT-IPRATROPIUM (ATROVENT) 0.5MG/2.5ML AMP IH SCH ×6 (02:16→22:29)
[2022-06-17] MEDS: RT-ALBUTEROL SULF 2.5 MG/3 ML PRE-MIX VIAL INH SCH ×6 (02:16→22:29)
[2022-06-17 04:27] LABS: ABG BASE EXCESS 3.1 MMOL/L (-2.5-2.5); ABG OXYGEN SATURATION 96 % (94-100); ABG PCO2 43 MMHG (35-45); ABG PH 7.42 (7.37-7.43); ABG PO2 80 MMHG (79-93); ABG TCO2 28.7 MMOL/L (21.0-31.0)
[2022-06-17 04:31] LABS: ALLENS TEST YES-POS; BASOPHILS % (AUTO) 0 % (0-10); EOSINOPHILS % (AUTO) 0 % (0-10); HEMATOCRIT 23 % (35-52); LYMPHOCYTES # (AUTO) 0.9 10^3/uL (1.0-4.0); LYMPHOCYTES % (AUTO) 11 % (12-44); MEAN CORPUSCULAR HEMOGLOBIN 24 pg (25-34); MEAN CORPUSCULAR HGB CONC 30 g/dL (32-36); MEAN CORPUSCULAR VOLUME 79 fL (80-99); MEAN PLATELET VOLUME 10.6 fL (9.0-12.2); MONOCYTES # (AUTO) 0.4 10^3/uL (0.0-1.0); MONOCYTES % (AUTO) 5 % (0-12); NEUTROPHILS # (AUTO) 6.6 10^3/uL (1.8-7.8); NEUTROPHILS % (AUTO) 83 % (42-75); PATIENT TEMP 36.5; PLATELET COUNT 287 10^3/uL (130-400); VENTILATOR YES
[2022-06-17 04:34] LABS: HEMOGLOBIN 6.9 g/dL (11.5-16.0)
[2022-06-17] MEDS ORDERED: NS IV 500 ML 500 ML IV SCH ×2 (04:45)
[2022-06-17 04:46] LABS: ALBUMIN 2.2 GM/DL (3.2-4.5); BILIRUBIN,TOTAL 0.3 MG/DL (0.1-1.0); CREATININE SERUM 0.44 MG/DL (0.60-1.30); MAGNESIUM 2.1 MG/DL (1.6-2.4); PHOSPHORUS 3.8 MG/DL (2.3-4.7); POTASSIUM 4.1 MMOL/L (3.6-5.0); TOTAL PROTEIN 5.9 GM/DL (6.4-8.2)
[2022-06-17] MEDS: MAGNESIUM 1 GM/100 ML IVPB 100 ML IV SCH (04:48)
[2022-06-17] MEDS: POTASSIUM CL 10MEQ/50ML IVPB 50 ML IV SCH (04:48)
[2022-06-17] MEDS: KCL 20 MEQ TAB (K-DUR) PO SCH (04:48)
[2022-06-17] MEDS: fentaNYL DRIP PRE-MIX 250 ML IV SCH ×3 (05:25→17:39)
[2022-06-17] MEDS: aCETylcysteine 20% (MUCOMYST) 4 ML SOLN VIAL INH SCH ×3 (06:30→22:29)
[2022-06-17] MEDS: PHENYLEPHRINE DRIP 250 ML IV SCH ×2 (06:58→21:28)
[2022-06-17] MEDS ORDERED: fentaNYL INJ 1,250 MCG in NS (IVPB) 225 ML IV SCH (07:00)
[2022-06-17] MEDS: MIDAZOLAM DRIP PRE-MIX 100 ML IV SCH (08:15)
[2022-06-17] MEDS: PANTOPRAZOLE 40 MG (PROTONIX) VIAL IV SCH (08:15)
[2022-06-17] MEDS: HYDROCORTISONE 100 MG/2 ML (Solu-CORTEF) VIAL IV SCH (08:15)
--- NOTE | 2022-06-17 09:14 | Diagnostic Imaging Report ---
INDICATION: Respiratory distress. It is compared to 06/16/2022. FINDINGS: Bilateral [id number]-chooq lung consolidations, airspace disease, and infiltrates greater right showed no significant change. ET tube mid thoracic trachea. Vascular catheter at the lower SVC. No pneumothorax. IMPRESSION: Extensive lower lobe consolidations unchanged. Stable support apparatus. Dictated by: Dictated on workstation # [id number]
--- NOTE | 2022-06-17 09:33 | Tele-ICU Progress Note ---
Subjective Date Seen by a Provider: Jun 17, 2022 Time Seen by a Provider: 09:32 Subjective/Events-last exam (Tele-ICU Physician , Progress Note ) Service provided via interactive audio and video telecommunications E-CARE system to a patient admitted to ICU bed in [facility]. Patient is seen today due to persistent need of ICU care Available chart/ vitals / labs / Images reviewed Video assessment done using teleICU camera, rest of exam as per RN Discussed with RN Events overnight : FEBRILE , but less them yesterday , t max 37.7 hemodynamically stable Respiratory - I/O = pos 1L Drips: Pressors- REYNALDO VENT SETTINGS and ABG reviewed CANDIDATE for SBTreviewed possible contraindications including Cardiovascular Stability /Sedation Score / FI02/PEEP / ABG / CXR/ secretions Sedation, discussed with RN, RASS -2 versed 5 , fent 100- precedex 0.5 folow commands Consultants: Hospital course: (06/07) 32F Admitted with PNA. CT shows Mod size areas of consolidation involving bilateral upper and left lower lobe. There is complete consolidation of RLL. Also centrilobular emphysema. -On BIPAP 100% sats 86%-Plan [place]ubate. [place] [address]/08 - AC 400 26 100% peep 5 , shock : levo 0.9 vaso , reynaldo 175 , Hb 6.5 - transfusion 06/08 1 UPRBC 06/10 - OFF nimbex 06/10-Fio2 60 % +10 06/11- Episodes of junctional robson or sinus robson with PAC. fibrinogen 213 06/12 - 50 % , s/p transfusion 06/08 1 u PRBC, PLT 73 06/13 - 65%, hb 6.7 - transfusion 1 pRBC 06/15- follows commands on SAT. 60% +7 . T38 06/16 - fentanyl gtt , decreasing dose , changing to precedex , starting fentanyl patch , fio2 40% , but secreating thicker - adding mucomist nebs 06/17- 55% +6 . transfusion 1 P rbc , - Iron low - starting IV iron 06/17 , follows commands A/P Acute resp failure with PNA ( in additional to signic=ficant emphyseme upper lovbes on CT - suspected due to inhalation of meth and possible other drugs ? ) - intubated 06/07 AC 400 22 peep 7 45 % - secreating thicker - adding mucomist nebs , no wheezing -WILL TRY SBT TODAY , - cough strong enoiught , ? general weakness , ++ secreations -MIGHT NEED TRACH ID PNA - bilateral , most likely CAP ( neg covid , flu ) - sputum cx -Streptococcus pneumoniae and H flu 06/08 , sputum 06/14 - posible Staph Aur - PRESUMPTIVE MSSA -ceftriaxone Bacteremia - sterp pneumo - repeat 06/08 blood cx - NEG so far Anemia s/p transfusion 1 u PRBC on 06/08 , 06/09 , 06/13, - no clear sigh of bleeding - suspect delutional? vs slow bleed - Iron low - starting IV iron 06/17 Encephalopaty - doing SAT -sedation awakening trials - follow command , on fentanyl patch 100 and minmal versed thrombocytopenia - DIC panel l neg on 06/09 , fibrinogen 213 on 06/11 - stable -RESOLVED Shock . septic - stress dose steroid 50 q 6 - decrease dose q8 06/12 - >25 q8 06/13- decrease dose to 25 q24 h - pressors OFF Episodes of junctional robson or sinus robson with PAC. 06/11 - resolved history of methamphetamine use abuse - sedated, fentanyl gtt , decresing dose , changing to precedex , starting fentanyl patch - HIV neg Nutritions - at goal 45 - 06/12 - added reglan prn Hypernatremia - resolved Lines : l scl 06/07 , a line 06/07 - removed 06/16 , (Central Line Necessity Reviewed) Figueroa: + OG: Nutrition: TF Analgesia: Anxiety/ delirium VTE Prophylaxis: lovenox 40 Stress Ulcer Prophylaxis: ppi Plans in collaboration with bedside consultants and IM MDs. Discussed with RN to reach out if any questions or concerns A total of 34 minutes of critical care time was devoted to this patient today, required to treat and/or prevent further deterioration of critical care condition ( as above ) . I am remotely monitoring this patient from another state. I am unable to do the bedside exam, and history/physical and pertinent information is taken from other notes in the computer and bedside staff. Sepsis Event Evaluation Height, Weight, BMI Height: 5'6" Weight: 120lbs. oz. 54.807607ge; 21.51 BMI Method:Stated Exam Exam Patient acknowledged, consented, and participated in this virtual visit which was conducted using real time audio/video Vital Signs Date Time Temp Pulse Resp B/P (MAP) Pulse Ox O2 Delivery O2 Flow Rate FiO2 06/17/22 08:34 37.1 89 34 126/75 93 Mechanical Ventilator 55 06/17/22 08:15 89 25 119/75 06/17/22 07:28 70 06/17/22 06:53 36.7 63 25 101/60 93 Mechanical Ventilator 55 06/17/22 06:38 36.6 63 26 101/63 96 Mechanical Ventilator 55 06/17/22 06:30 66 26 96 55 06/17/22 06:00 36.7 71 18 104/59 (74) 96 Mechanical Ventilator 55.00 06/17/22 05:25 76 99/62 06/17/22 05:00 36.6 66 25 101/62 (75) 96 Mechanical Ventilator 55.00 06/17/22 04:00 36.5 68 25 100/64 (76) 95 Mechanical Ventilator 55.00 06/17/22 04:00 45 06/17/22 04:00 96 Mechanical Ventilator 55 06/17/22 03:00 36.7 73 25 102/63 (76) 97 Mechanical Ventilator 55.00 06/17/22 02:16 76 26 96 45 06/17/22 02:00 75 25 99/59 (72) 95 Mechanical Ventilator 55.00 06/17/22 02:00 37.1 06/17/22 01:00 77 25 101/57 (72) 97 Mechanical Ventilator 55.00 06/17/22 01:00 77 06/17/22 01:00 37.2 06/17/22 00:00 37.2 06/17/22 00:00 45 06/17/22 00:00 82 25 103/58 (73) 96 Mechanical Ventilator 55.00 06/16/22 23:59 94 Mechanical Ventilator 55 06/16/22 23:00 85 26 102/58 (73) 94 Mechanical Ventilator 55.00 06/16/22 23:00 37.1 06/16/22 22:12 79 26 94 45 06/16/22 22:00 37.0 06/16/22 22:00 85 26 100/55 (70) 94 Mechanical Ventilator 55.00 06/16/22 21:40 87 104/55 06/16/22 21:00 37.0 87 26 104/55 (71) 94 Mechanical Ventilator 55.00 06/16/22 20:09 Mechanical Ventilator 55.00 06/16/22 20:00 45 06/16/22 20:00 37.6 98 29 106/56 (73) 93 Mechanical Ventilator 45.00 06/16/22 20:00 89 Mechanical Ventilator 45 06/16/22 19:32 37.8 101 26 102/54 (70) 89 Mechanical Ventilator 45.00 06/16/22 19:00 37.9 96 24 98/53 (68) 91 Mechanical Ventilator 45.00 06/16/22 19:00 96 06/16/22 18:42 91 26 92 45 06/16/22 18:00 37.7 95 26 112/55 (74) 90 Mechanical Ventilator 45.00 06/16/22 17:40 98 106/58 06/16/22 17:40 98 29 104/58 06/16/22 17:02 89 113/58 06/16/22 17:02 93 27 113/58 06/16/22 17:00 37.3 99 28 104/58 (73) 88 Mechanical Ventilator 45.00 06/16/22 16:05 104 106/60 06/16/22 16:05 96 27 106/60 06/16/22 16:00 90 Mechanical Ventilator 45 06/16/22 16:00 45 06/16/22 16:00 37.3 98 30 118/80 (93) 92 Mechanical Ventilator 45.00 06/16/22 16:00 98 118/80 06/16/22 15:00 37.0 90 25 110/64 (79) 91 Mechanical Ventilator 45.00 06/16/22 14:19 90 111/65 06/16/22 14:18 104 111/65 06/16/22 14:18 89 26 111/65 06/16/22 14:00 36.8 89 27 113/69 (84) 92 Mechanical Ventilator 45.00 06/16/22 13:49 87 27 91 45 06/16/22 13:30 89 111/65 06/16/22 13:00 36.9 92 25 106/62 (77) 94 Mechanical Ventilator 45.00 06/16/22 12:46 89 06/16/22 12:45 90 114/62 06/16/22 12:45 91 114/62 06/16/22 12:45 92 26 113/69 06/16/22 12:00 37.1 104 27 113/63 (80) 92 Mechanical Ventilator 45.00 06/16/22 12:00 37.1 06/16/22 11:58 93 Mechanical Ventilator 45 06/16/22 11:57 45 06/16/22 11:05 106 120/72 06/16/22 11:00 37.1 109 24 120/72 (88) 94 Mechanical Ventilator 45.00 06/16/22 10:08 89 29 94 45 06/16/22 10:00 36.9 101 22 128/78 (95) 95 Mechanical Ventilator 45.00 I & O 06/17/22 07:00 Intake Total 2070 ml Output Total 1770 ml Balance 300 ml Height & Weight Height: 5'6" Weight: 120lbs. oz. 54.723687it; 21.51 BMI Method:Stated General Appearance: Thin, Other (Patient is sedated and intubated at this time) HEENT: No Moist Mucous Membranes Neck: Normal Inspection, Supple Respiratory: No Accessory Muscle Use; Rhonci (diffusely); No Wheezing Cardiovascular: Regular Rate, Rhythm, No Murmur, Normal Peripheral Pulses Capillary Refill: Less Than 3 Seconds Gastrointestinal: non tender, soft, distended, other (hypoacitive BS, mild distension) Extremity: Normal Capillary Refill, No Pedal Edema Neurologic/Psychiatric: Other (patient is sedated at this time with minimal stirring when I tried speaking to her.) Skin: Normal Color, Warm/Dry Lymphatic: No Adenopathy Results Lab Laboratory Tests 06/16/22 04:03 06/17/22 03:55 Assessment/Plan Assessment/Plan 1 EFREN VALENCIA MD Jun 17, 2022 09:33
[2022-06-17] MEDS: DOCUSATE SODIUM 10 MG/ML 10 ML UDC (COLACE) PO PRN (09:41)
[2022-06-17] MEDS ORDERED: TROUGH ORDER-PHARMACY XX ONE (10:00)
--- NOTE | 2022-06-17 10:25 | Progress Note - Hospitalist ---
JOAQUÍN SMITH 06/17/22 1025: Subjective HPI/CC On Admission Pt is a 32yoCF with a PMH of methamphetamine abuse who presented to the ER due to weakness. History comes from both patient and her mom. Mom states she has a long history of meth use but has been trying to quit. She last used 7 days ago and then started to get very ill. Her mom wanted to take her in to be seen but the patient refused throoughout the week and finally decidied to come intoday due to her weakness. Reportedly her son has had to carry her from room to room because of how weak she is. On arrival to the emergency room her oxygen saturation was 40%. This was confirmed on an ABG with a PO2 of 39 and saturation of 64 on 15 L nonrebreather. We were able to get her oxygen up into the 90s with oxi mask. Imaging revealed extensive bilateral infiltrates. She was also found to have a profound lactic acidosis fo 13. When I saw her in the ICU she was mottled to her knees and elbows though her capillary refill was adequate. She apparently has vomited twice this morning too. Subjective/Events-last exam Patient remains intubated and sedated when seen this morning. She was able to be aroused minimally upon questioning. Her vent settings at the time included PEEP 6.0, FiO2 55% and TV 400. She is sedated at this time with fentanyl 75 mcg Patch Q72hr, Fentanyl 100mcg/hr IV drip, Precidex .5mcg/hr, and medazolam 5mg/hr. She did not have a SBT yesterday. She has not had a BM despite receiving relistor 12mg SQ yesterday. She is receiving pulmicare 45ml/hr and continues to have cameron catheter in place with clear yellow drainage. Review of Systems Unable to be obtained at this time Objective Exam Vital Signs Vital Signs Date Time Temp Pulse Resp B/P (MAP) Pulse Ox O2 Delivery O2 Flow Rate FiO2 06/17/22 11:59 92 125/76 06/17/22 11:53 37.4 06/17/22 10:25 Mechanical Ventilator 60.00 06/17/22 10:00 25 92 06/17/22 08:34 55 Capillary Refill : Less Than 3 Seconds General Appearance: No Apparent Distress, Thin HEENT: No Moist Mucous Membranes Respiratory: No Accessory Muscle Use, Other (diffuse rhonchi bilaterally) Cardiovascular: Regular Rate, Rhythm, No Edema, No Murmur, Normal Peripheral Pulses Gastrointestinal: Normal Bowel Sounds, Non Tender, Soft, Distended Extremity: Normal Capillary Refill, No Pedal Edema Neurologic/Psychiatric: Other (Patient remains sedated) Skin: Normal Color, Warm/Dry Lymphatic: No Adenopathy Results/Procedures Lab Laboratory Tests 06/17/22 03:55 Patient resulted labs reviewed. Imaging: Reviewed Imaging Report Assessment/Plan Assessment and Plan Assess & Plan/Chief Complaint Acute respiratory Distress Syndrome -Mechanical Ventilation with PEEP 76.0 and FiO2 55%. Back off the vent and sedation as tolerated. Will trial SBT if fiO2 nears 40. -Sedation with fentanyl 100 mcg/hr IV, fentanyl 75mcg patch Q72hr, Midazolam 5 mg/hr IV, and precidex .5mcg/hr at this time. Plan to transition from midazolam to precidex per E-ICU doctors recommendations. -Stress ulcer prophylaxis w/ Pantoprazole 40mg IV PO - 06/17/22: PEEP improved slightly, FiO2 back to 55%. PaO2 of 80 this morning. Will continue to attempt to back off FiO2 as tolerated and will trial SBT if FiO2 approaches 40% w/ PEEP of around 5. Continue to ween sedation as tolerated. Septic Shock -Patient originally presented in septic shock. This is improved and patient is normotensive w/out requiring pressors at this time. -Hydrocortisone 25mg Q12hr IV for refractory shock. E-ICU doctor weening pt. off slowly at this time. CAP -Day 9 ceftriaxone 2g IV Q24. Will continue 5 more days for initial Streptococcal bacteremia and continued CAP. -Sputum culture from 06/14 showed presumptive MSSA. -06/15/22 Initiated Vancomycin IV. 1250mg IV loading dose followed by 750mg IV BID 12 hours later. Discontinued after 1 day following presumptive MSSA sputum culture. -06/17/22 WBC improved to 8 from 12.2 yesterday. CXR unchanged from previous and pt. continues to have diffuse rhonchi on exam Anemia -Hgb today 6.9. Will give 1 unit pRBC. 4 total units received as of 06/17 Hypernatremia -Improved. Monitor for now. Hyperkalemia -Improved. Monitor for now thrombocytopenia -resolved. platelets today of 287 Continuing to improve. ENOC -improved metabolic alkalosis -1/23 pH 7.44, paCO2 43, PaO2 67, PaHCO3 29 -06/16 improved at this time. PaO2 does remain at 67. Continue to monitor. -06/17 continues to improve. PaO2 of 80 today. Constipation -No BM since arrival -Likely secondary to decreased consumption and opioid sedation -Relistor 12mg SC QD for opioid-induced constipation -docusate 100mg PO PRN added Clinical Quality Measures AMI/AHF: ASA po Prior to arrival: No ANDI LUNA MD 06/17/22 1440: Subjective HPI/CC On Admission Date Seen by Provider: Jun 17, 2022 Assessment/Plan Assessment and Plan Assess & Plan/Chief Complaint Pt remains sedated on the ventilator. Plan to try SBT today. Will adjust abx per sensitivities and extend duration. Discussed with pharmacy and will switch to Ancef for MSSA in sputum. I called and spoke with pt's mom today to update and discuss possible trach in the near future if unable to liberate from vent. Supervisory-Addendum Brief Verification & Attestation Participated in pt care: history, MDM, physical Personally performed: exam, history, MDM, supervision of care Care discussed with: Medical Student Procedures: n/a Results interpretation: Verified all documentation Verification and Attestation of Medical Student E/M Service A medical student performed and documented this service in my presence. I reviewed and verified all information documented by the medical student and made modifications to such information, when appropriate. I personally performed the physical exam and medical decision making. Andi Luna, Jun 17, 2022,14:25 JOAQUÍN SMITH Jun 17, 2022 10:25 ANDI LUNA MD Jun 17, 2022 14:40
[2022-06-17] MEDS: cefTRIAXone 2,000 MG in NS (IVPB) 50 ML IV SCH (11:10)
[2022-06-17] MEDS ORDERED: HYDROCORTISONE 100 MG/2 ML (Solu-CORTEF) VIAL IV PRN (11:45)
[2022-06-17] MEDS ORDERED: EPINEPHrine INJECTION 1 MG/ML AMP IM PRN (11:45)
[2022-06-17] MEDS ORDERED: RT-ALBUTEROL SULF 2.5 MG/3 ML PRE-MIX VIAL IH PRN (11:45)
[2022-06-17] MEDS ORDERED: diphenhydrAMINE 50 MG/ML INJ (BENADRYL) IV PRN (11:45)
[2022-06-17] MEDS: DexMEDEtomidine 250 ML DRIP 250 ML IV SCH (11:59)
[2022-06-17] MEDS ORDERED: IRON DEXTRAN INJECTION 25 MG in NS (IVPB) 5.75 ML IV NR (12:00)
[2022-06-17] MEDS ORDERED: IRON DEXTRAN INJECTION 1,000 MG in NS (IVPB) 250 ML IV ONE (12:15)
[2022-06-17] MEDS: NS IV 500 ML 500 ML IV SCH (12:57)
[2022-06-17] MEDS: NOREPINEPHRINE 16 MG/250 ML DRIP IV SCH ×2 (13:00)
[2022-06-17] MEDS: APAP 325 MG/10.15 ML LIQ (TYLENOL) UDC PO PRN (15:08)
[2022-06-17] MEDS: ENOXAPARIN 40 MG/0.4 ML (LOVENOX) SYR SC SCH (16:59)
[2022-06-17] MEDS: MICONAZOLE 2% POWDER (DESENEX AF) 90 GM TOP SCH ×2 (17:11→21:35)
[2022-06-17] MEDS: LORazepam INJ 2 MG/ML (ATIVAN) VIAL IVP PRN ×2 (19:24→23:37)
[2022-06-17] MEDS: ceFAZolin INJECTION 2,000 MG in NS (IVPB) 50 ML IV SCH (21:35)
[2022-06-17 22:47] LABS: ABG BASE EXCESS 2.5 MMOL/L (-2.5-2.5); ABG OXYGEN SATURATION 95 % (94-100); ABG PCO2 46 MMHG (35-45); ABG PH 7.39 (7.37-7.43); ABG PO2 73 MMHG (79-93); ABG TCO2 28.5 MMOL/L (21.0-31.0)
[2022-06-17 22:48] LABS: ALLENS TEST YES-POS; INSPIRED O2 85%; VENTILATOR YES
[2022-06-18] MEDS: inSUlin ASPART (NovoLOG) 1 UNIT/0.01 ML (CHARGE PER UNIT) SC SCH ×4 (00:13→18:36)
[2022-06-18] MEDS: APAP 325 MG/10.15 ML LIQ (TYLENOL) UDC PO PRN ×3 (00:27→17:43)
[2022-06-18] MEDS: fentaNYL DRIP PRE-MIX 250 ML IV SCH ×5 (01:57→20:38)
[2022-06-18] MEDS: MIDAZOLAM DRIP PRE-MIX 100 ML IV SCH ×3 (01:59→23:46)
[2022-06-18] MEDS: RT-IPRATROPIUM (ATROVENT) 0.5MG/2.5ML AMP IH SCH ×7 (02:34→23:22)
[2022-06-18] MEDS: RT-ALBUTEROL SULF 2.5 MG/3 ML PRE-MIX VIAL INH SCH ×6 (02:34→23:22)
[2022-06-18 02:35] VITALS: BP 110/62
[2022-06-18 03:58] LABS: BASOPHILS % (AUTO) 0 % (0-10); EOSINOPHILS # (AUTO) 0.1 10^3/uL (0.0-0.3); EOSINOPHILS % (AUTO) 1 % (0-10); HEMATOCRIT 27 % (35-52); HEMOGLOBIN 8.4 g/dL (11.5-16.0); LYMPHOCYTES # (AUTO) 0.9 10^3/uL (1.0-4.0); LYMPHOCYTES % (AUTO) 10 % (12-44); MEAN CORPUSCULAR HEMOGLOBIN 25 pg (25-34); MEAN CORPUSCULAR HGB CONC 31 g/dL (32-36); MEAN CORPUSCULAR VOLUME 80 fL (80-99); MEAN PLATELET VOLUME 9.8 fL (9.0-12.2); MONOCYTES # (AUTO) 0.4 10^3/uL (0.0-1.0); MONOCYTES % (AUTO) 5 % (0-12); NEUTROPHILS # (AUTO) 7.6 10^3/uL (1.8-7.8); NEUTROPHILS % (AUTO) 84 % (42-75); PLATELET COUNT 325 10^3/uL (130-400)
[2022-06-18 04:20] LABS: ABG OXYGEN SATURATION 90 % (94-100); ABG PCO2 47 MMHG (35-45); ABG PH 7.39 (7.37-7.43); ABG PO2 61 MMHG (79-93); ABG TCO2 28.7 MMOL/L (21.0-31.0)
[2022-06-18 04:21] LABS: ALLENS TEST YES-POS; INSPIRED O2 85%; PATIENT TEMP 37.8; VENTILATOR YES
[2022-06-18] MEDS: NS IV 500 ML 500 ML IV SCH ×2 (04:21→21:14)
[2022-06-18 04:31] LABS: ALBUMIN 2.2 GM/DL (3.2-4.5); POTASSIUM 3.8 MMOL/L (3.6-5.0)
[2022-06-18 04:34] LABS: TOTAL PROTEIN 6.1 GM/DL (6.4-8.2)
[2022-06-18 04:36] LABS: BILIRUBIN,TOTAL 0.3 MG/DL (0.1-1.0)
[2022-06-18 04:38] LABS: CREATININE SERUM 0.45 MG/DL (0.60-1.30)
[2022-06-18] MEDS ORDERED: DEXTROSE 50% 50 ML (IMS) SYR ONE (05:58)
[2022-06-18] MEDS ORDERED: DEXTROSE 50% 50 ML (IMS) SYR IV ONE (06:00)
[2022-06-18] MEDS: MAGNESIUM 1 GM/100 ML IVPB 100 ML IV SCH (06:03)
[2022-06-18] MEDS: KCL 20 MEQ TAB (K-DUR) PO SCH (06:03)
[2022-06-18] MEDS: POTASSIUM CL 10MEQ/50ML IVPB 50 ML IV SCH (06:03)
[2022-06-18] MEDS: ceFAZolin INJECTION 2,000 MG in NS (IVPB) 50 ML IV SCH ×3 (06:09→22:17)
[2022-06-18 06:45] VITALS: BP 95/57
[2022-06-18] MEDS: LORazepam INJ 2 MG/ML (ATIVAN) VIAL IVP PRN ×2 (06:45→20:57)
[2022-06-18] MEDS: aCETylcysteine 20% (MUCOMYST) 4 ML SOLN VIAL INH SCH ×3 (06:45→23:22)
[2022-06-18] MEDS: DOCUSATE SODIUM 10 MG/ML 10 ML UDC (COLACE) PO PRN (06:45)
[2022-06-18] MEDS: D5 NS 1000 ML IV SOLUTION 1,000 ML IV SCH (07:52)
[2022-06-18] MEDS: HYDROCORTISONE 100 MG/2 ML (Solu-CORTEF) VIAL IV SCH (08:42)
[2022-06-18] MEDS: MICONAZOLE 2% POWDER (DESENEX AF) 90 GM TOP SCH ×2 (08:56→20:38)
[2022-06-18] MEDS: PANTOPRAZOLE 40 MG (PROTONIX) VIAL IV SCH (08:56)
[2022-06-18 09:07] VITALS: BP 106/74
--- NOTE | 2022-06-18 09:13 | Diagnostic Imaging Report ---
CHEST 1 VIEW, AP/PA ONLY Indication: Intubation. Comparison: 06/17/2022 Findings: Stable ET and enteric tubes. Stable left subclavian central venous catheter. Bilateral mid and lower lung zone pulmonary consolidations have not substantially changed. No pneumothorax. Stable cardiac silhouette. Impression: 1. Stable support devices. 2. No appreciable change in bilateral pulmonary consolidations that could be due to edema, hemorrhage and/or ARDS. Dictated by: Dictated on workstation # [id number]
--- NOTE | 2022-06-18 09:52 | Progress Note - Hospitalist ---
JOAQUÍN SMITH 06/18/22 0952: Subjective HPI/CC On Admission Pt is a 32yoCF with a PMH of methamphetamine abuse who presented to the ER due to weakness. History comes from both patient and her mom. Mom states she has a long history of meth use but has been trying to quit. She last used 7 days ago and then started to get very ill. Her mom wanted to take her in to be seen but the patient refused throoughout the week and finally decidied to come intoday due to her weakness. Reportedly her son has had to carry her from room to room because of how weak she is. On arrival to the emergency room her oxygen saturation was 40%. This was confirmed on an ABG with a PO2 of 39 and saturation of 64 on 15 L nonrebreather. We were able to get her oxygen up into the 90s with oxi mask. Imaging revealed extensive bilateral infiltrates. She was also found to have a profound lactic acidosis fo 13. When I saw her in the ICU she was mottled to her knees and elbows though her capillary refill was adequate. She apparently has vomited twice this morning too. Subjective/Events-last exam Patient was in bed sedated when seen this morning. Her respiratory status slightly worsened overnight and she is now requiring FiO2 85% and PEEP of 6.0. She is requiring more sedation as well and was receiving fentanyl IV 275mcg/hr, fentanyl 75mg Patch, Precidex IV 15 mls/hr, and midazolam 9 mg/hr. This morning she required an additional lorazepam 2mg one time dose for increased agitation and pulling at tube. E-ICU would like to do a SBT but it has been unable to happen due to patients increased vent requirements. She continues to receive 45ml/hr pulmicare. She has not yet had a BM. Review of Systems Unable to be obtained at this time Focused Exam Lactate Level 06/18/22 10:23: Lactic Acid Level 0.66 Lactic Acid Level Laboratory Tests Test 06/18/22 10:23 Lactic Acid Level 0.66 MMOL/L (0.50-2.00) Objective Exam Vital Signs Vital Signs Date Time Temp Pulse Resp B/P (MAP) Pulse Ox O2 Delivery O2 Flow Rate FiO2 06/18/22 12:00 37.6 89 24 103/62 (76) 90 Mechanical Ventilator 85.00 06/18/22 08:00 85 Capillary Refill : Less Than 3 Seconds General Appearance: No Apparent Distress, Thin Respiratory: Other (tachypnic breathing with diffuse rhonchi) Cardiovascular: Regular Rate, Rhythm, No Edema, No Murmur Gastrointestinal: Other (decreased bowel sounds, abdomen feels full) Extremity: No Pedal Edema, Slow Capillary Refill (bilateral feet) Neurologic/Psychiatric: Other (medically sedated) Skin: Mottled (feet bilaterally) Lymphatic: No Adenopathy Results/Procedures Lab Laboratory Tests 06/18/22 03:40 Patient resulted labs reviewed. Imaging: Reviewed Imaging Report Assessment/Plan Assessment and Plan Assess & Plan/Chief Complaint Acute respiratory Distress Syndrome -Mechanical Ventilation with PEEP 76.0 and FiO2 55%. Back off the vent and sedation as tolerated. Will trial SBT if fiO2 nears 40. -Sedation with fentanyl 100 mcg/hr IV, fentanyl 75mcg patch Q72hr, Midazolam 5 mg/hr IV, and precidex .5mcg/hr at this time. Plan to transition from midazolam to precidex per E-ICU doctors recommendations. -Stress ulcer prophylaxis w/ Pantoprazole 40mg IV PO - 06/17/22: PEEP improved slightly, FiO2 back to 55%. PaO2 of 80 this morning. Will continue to attempt to back off FiO2 as tolerated and will trial SBT if FiO2 approaches 40% w/ PEEP of around 5. Continue to ween sedation as tolerated. - 06/18/22: peep 6.0, fIo2 85%, paO2 61. Requiring more sedation and vent sup port at this time. will continue to attempt to ween as appropriate. Potential need for Trach has been communicated with family who is in agreement if needed. Septic Shock -Patient originally presented in septic shock. This is improved and patient is normotensive w/out requiring pressors at this time. -Hydrocortisone was given refractory shock. last dose given 06/17/22. CAP -Sputum culture from 06/14 showed presumptive MSSA. -06/15/22 Initiated Vancomycin IV. 1250mg IV loading dose followed by 750mg IV BID 12 hours later. Discontinued after 1 day following presumptive MSSA sputum culture. -06/17/22 WBC improved to 8 from 12.2 yesterday. CXR unchanged from previous and pt. continues to have diffuse rhonchi on exam -06/18/22 Patient finished course of ceftriaxone. Cefazolin 2g IV TID for 5 days initiated for MSSA sputum culture/sensitivity results. Anemia -Hgb improved from 6.9 to 8.4 following 1 unit pRBC yesterday.4 total units received as of 06/18 Hypernatremia -Improved. Monitor for now. Hyperkalemia -Improved. Monitor for now thrombocytopenia -resolved. platelets today of 325. ENOC -improved metabolic alkalosis -06/15 pH 7.44, paCO2 43, PaO2 67, PaHCO3 29 -06/16 improved at this time. PaO2 does remain at 67. Continue to monitor. -06/17 continues to improve. PaO2 of 80 today. Constipation -No BM since arrival -Likely secondary to decreased consumption and opioid sedation -Relistor 12mg SC QD for opioid-induced constipation -docusate 100mg PO PRN added 06/17. Senna started 06/18. Clinical Quality Measures AMI/AHF: ASA po Prior to arrival: No ANDI LUNA MD 06/19/22 1143: Assessment/Plan Assessment and Plan Assess & Plan/Chief Complaint Patient doing worse today. Had increasing oxygen requirement overnight and now fevering. Repeat cultures ordered by eICU. Will add COVID swab. CT Chest/Abd/Pelvis ordered by eICU as well. Family discussed with RN and wish to make patient a DNR. Will meet with them tomorrow to discuss goals of care and prognosis. Supervisory-Addendum Brief Verification & Attestation Participated in pt care: history, MDM, physical Personally performed: exam, history, MDM, supervision of care Care discussed with: Medical Student Procedures: n/a Results interpretation: Verified all documentation Verification and Attestation of Medical Student E/M Service A medical student performed and documented this service in my presence. I reviewed and verified all information documented by the medical student and made modifications to such information, when appropriate. I personally performed the physical exam and medical decision making. Andi Luna, Jun 19, 2022,11:40 JOAQUÍN SMITH Jun 18, 2022 09:52 ANDI LUNA MD Jun 19, 2022 11:43
[2022-06-18] MEDS ORDERED: ROCURONIUM 10 MG/ML 5 ML SYRINGE IV PRN (10:00)
[2022-06-18] MEDS: DexMEDEtomidine 250 ML DRIP 250 ML IV SCH (10:15)
[2022-06-18] MEDS ORDERED: NS 100 ML (IVPB) BAG IV ONE (10:30)
[2022-06-18] MEDS ORDERED: IOHEXOL 350 MG/ML 100 ML (OMNIPAQUE 350) VIAL IV ONE (10:30)
[2022-06-18] MEDS ORDERED: ROCURONIUM 50 MG/5 ML (ZEMURON) VIAL IV PRN (10:30)
[2022-06-18] MEDS ORDERED: SENNA W/DOCUSATE (SENOKOT S) TABLET PO PRN (11:00)
--- NOTE | 2022-06-18 11:24 | Diagnostic Imaging Report ---
PROCEDURE: CT chest with contrast, CT abdomen and pelvis with and without contrast. TECHNIQUE: Pre and post intravenous contrast axial imaging of the abdomen and pelvis and post contrast axial imaging of the chest were performed. Auto Exposure Controls were utilized during the CT exam to meet ALARA standards for radiation dose reduction. INDICATION: Persistent fever with pneumonia and possible abscess. COMPARISON: 06/07/2022. FINDINGS: There has been development of moderate amount of bilateral pleural fluid with persistent bilateral lower lobe consolidation. Extensive emphysema involves the remaining upper lobes and right middle lobe. There has been placement of nasogastric tube with decompression of the esophagus. Endotracheal tube is in place with tip extending just to the level of the thoracic inlet. Below the diaphragm, there is obgl-ox-ypzwdscm residual fluid within the lumen of the stomach with mild hyperdensity in the dependent aspect. Unenhanced images of liver are unremarkable. There is mild splenomegaly without focal splenic lesion. Unenhanced images of the pancreas, adrenal glands and kidneys are also unremarkable. Gallbladder is partially contracted which limits evaluation. There is mild peritoneal free fluid within the abdomen and pelvis. There is diffuse mural thickening of sigmoid colon without pericolonic inflammation or abscess identified. There is anasarca. Figueroa catheter is present in the urinary bladder with intraluminal gas, likely related to instrumentation. IMPRESSION: Bilateral lower lobe consolidations with background emphysema are again identified with interval development of moderate bilateral pleural fluid. There is also diffuse anasarca and mild peritoneal fluid. No drainable fluid collections identified. There is contraction of the gallbladder which limits evaluation and moderate mural thickening is seen throughout the sigmoid colon. Dictated by: Dictated on workstation # [id number]
--- NOTE | 2022-06-18 12:24 | Tele-ICU Progress Note ---
Subjective Date Seen by a Provider: Jun 18, 2022 Time Seen by a Provider: 10:06 Subjective/Events-last exam (Tele-ICU Physician , Progress Note ) Service provided via interactive audio and video telecommunications E-CARE system to a patient admitted to ICU bed in [facility]. Patient is seen today due to persistent need of ICU care Available chart/ vitals / labs / Images reviewed Video assessment done using teleICU camera, rest of exam as per RN Discussed with RN Events overnight : FEBRILE , but less them yesterday , t max 37.7 hemodynamically stable Respiratory - I/O = pos 1L Drips: Pressors- REYNALDO VENT SETTINGS and ABG reviewed CANDIDATE for SBTreviewed possible contraindications including Cardiovascular Stability /Sedation Score / FI02/PEEP / ABG / CXR/ secretions Sedation, discussed with RN, RASS -2 versed 5 , fent 100- precedex 0.5 folow commands Consultants: Hospital course: (06/07) 32F Admitted with PNA. CT shows Mod size areas of consolidation involving bilateral upper and left lower lobe. There is complete consolidation of RLL. Also centrilobular emphysema. -On BIPAP 100% sats 86%-Plan to intubate. Intubated @ 1918 06/08 - AC 400 26 100% peep 5 , shock : levo 0.9 vaso , reynaldo 175 , Hb 6.5 - transfusion 06/08 1 UPRBC 06/10 - OFF nimbex 06/10-Fio2 60 % +10 06/11- Episodes of junctional robson or sinus robson with PAC. fibrinogen 213 06/12 - 50 % , s/p transfusion 06/08 1 u PRBC, PLT 73 06/13 - 65%, hb 6.7 - transfusion 1 pRBC 06/15- follows commands on SAT. 60% +7 . T38 06/16 - fentanyl gtt , decreasing dose , changing to precedex , starting fentanyl patch , fio2 40% , but secreating thicker - adding mucomist nebs 06/17- 55% +6 . transfusion 1 P rbc , - Iron low - starting IV iron 06/17 , follows commands can NOT TRY SBT TODAY with elevated RR 06/18- [id number]% peep 8 A/P Acute resp failure with PNA ( in additional to significant emphysema upper lovbes on CT - suspected due to inhalation of meth and possible other drugs ? ) - intubated 06/07 AC 400 22 peep 7 45 % - secreting thicker - adding mucomist nebs , no wheezing , no wheezing if correct fio2 - WILL NEED TRACH FEVER - infection vs not infectious ( less likely, low suspicious for thrombosis or dug fever - will do CT today to r/o abscess , cavitary lesion in lungs , empyema, intra- abd issues - repeat mixon cx ID PNA - bilateral , most likely CAP ( neg covid , flu ) - sputum cx -Streptococcus pneumoniae and H flu 06/08 , sputum 06/14 - posible Staph Aur - PRESUMPTIVE MSSA -ceftriaxone Bacteremia - sterp pneumo - repeat 06/08 blood cx - NEG so far Anemia s/p transfusion 1 u PRBC on 06/08 , 06/09 , 06/13, - no clear sigh of bleeding - suspect delutional? vs slow bleed - Iron low - starting IV iron 06/17 Encephalopaty - doing SAT -sedation awakening trials - follow command , on fentanyl patch 100 and minmal versed thrombocytopenia - DIC panel l neg on 06/09 , fibrinogen 213 on 06/11 - stable -RESOLVED Shock . septic - stress dose steroid 50 q 6 - decrease dose q8 06/12 - >25 q8 06/13- decrease dose to 25 q24 h - pressors OFF Episodes of junctional robson or sinus robson with PAC. 06/11 - resolved history of methamphetamine use abuse - sedated, fentanyl gtt , decresing dose , changing to precedex , starting fentanyl patch - HIV neg Nutritions - at goal 45 - 06/12 - added reglan prn Hypernatremia - resolved Lines : l scl 06/07 , a line 06/07 - removed 06/16 , (Central Line Necessity Reviewed) Figueroa: + OG: Nutrition: TF Analgesia: Anxiety/ delirium VTE Prophylaxis: lovenox 40 Stress Ulcer Prophylaxis: ppi Plans in collaboration with bedside consultants and IM MDs. Discussed with RN to reach out if any questions or concerns A total of 37 minutes of critical care time was devoted to this patient today, required to treat and/or prevent further deterioration of critical care condition ( as above ) . I am remotely monitoring this patient from another state. I am unable to do the bedside exam, and history/physical and pertinent information is taken from other notes in the computer and bedside staff. Sepsis Event Evaluation Height, Weight, BMI Height: 5'6" Weight: 120lbs. oz. 54.456879oc; 21.51 BMI Method:Stated Focused Exam Lactate Level 06/18/22 10:23: Lactic Acid Level 0.66 Lactic Acid Level Laboratory Tests Test 06/18/22 10:23 Lactic Acid Level 0.66 MMOL/L (0.50-2.00) Exam Exam Patient acknowledged, consented, and participated in this virtual visit which was conducted using real time audio/video Vital Signs Date Time Temp Pulse Resp B/P (MAP) Pulse Ox O2 Delivery O2 Flow Rate FiO2 06/18/22 12:00 37.6 89 24 103/62 (76) 90 Mechanical Ventilator 85.00 06/18/22 11:00 37.6 86 21 113/67 (82) 93 Mechanical Ventilator 85.00 06/18/22 10:15 78 90/55 06/18/22 10:13 78 90/55 06/18/22 10:00 37.8 93 21 98/46 (63) 93 Mechanical Ventilator 85.00 06/18/22 09:00 37.9 78 24 90/55 (67) 93 Mechanical Ventilator 85.00 06/18/22 08:00 38.1 89 25 96/61 (73) 92 Mechanical Ventilator 85.00 06/18/22 08:00 85 06/18/22 08:00 38.0 06/18/22 08:00 92 Mechanical Ventilator 85 06/18/22 07:15 38.1 06/18/22 07:00 90 06/18/22 07:00 38.0 89 19 97/67 (77) 92 Mechanical Ventilator 85.00 06/18/22 06:53 83 104/95 06/18/22 06:53 83 24 104/95 06/18/22 06:45 38.1 06/18/22 06:32 90 113/68 06/18/22 06:00 38.0 90 26 113/68 (83) 93 Mechanical Ventilator 85.00 06/18/22 05:57 87 108/67 06/18/22 05:00 37.8 87 24 108/67 (81) 93 Mechanical Ventilator 85.00 06/18/22 04:00 90 Mechanical Ventilator 85 06/18/22 04:00 85 06/18/22 04:00 37.7 92 21 106/61 (76) 94 Mechanical Ventilator 85.00 06/18/22 03:00 37.7 96 23 105/58 (74) 94 Mechanical Ventilator 85.00 06/18/22 02:45 89 108/62 06/18/22 02:35 91 27 95 85 06/18/22 02:00 100 114/62 06/18/22 02:00 37.8 102 25 114/62 (79) 94 Mechanical Ventilator 85.00 06/18/22 01:59 103 23 132/79 06/18/22 01:57 103 132/79 06/18/22 01:16 103 132/79 06/18/22 01:16 103 132/79 06/18/22 01:06 109 131/71 06/18/22 01:06 108 131/71 06/18/22 01:00 109 06/18/22 01:00 37.9 103 23 131/71 (91) 93 Mechanical Ventilator 85.00 06/18/22 00:57 108 123/61 06/18/22 00:57 108 22 123/61 06/18/22 00:57 37.8 06/18/22 00:27 37.8 06/18/22 00:12 110 131/77 06/18/22 00:00 85 06/18/22 00:00 37.5 111 27 131/77 (95) 91 Mechanical Ventilator 85.00 06/17/22 23:59 92 Mechanical Ventilator 85 06/17/22 23:40 107 124/70 06/17/22 23:00 37.1 92 20 99/60 (73) 94 Mechanical Ventilator 85.00 06/17/22 22:29 89 25 95 85 06/17/22 22:00 93 18 102/53 (69) 95 Mechanical Ventilator 85.00 06/17/22 21:39 94 90/56 06/17/22 21:00 37.1 94 18 90/56 (67) 95 Mechanical Ventilator 85.00 06/17/22 20:15 37.0 Mechanical Ventilator 85.00 06/17/22 20:00 75 06/17/22 20:00 89 Mechanical Ventilator 75 06/17/22 20:00 36.9 94 19 104/63 (77) 95 Mechanical Ventilator 75.00 06/17/22 19:44 36.5 06/17/22 19:40 Mechanical Ventilator 75.00 06/17/22 19:34 85 105/66 06/17/22 19:05 92 24 94 65 06/17/22 19:05 Mechanical Ventilator 65.00 06/17/22 19:00 37.1 94 26 101/65 (77) 93 Mechanical Ventilator 60.00 06/17/22 19:00 73 06/17/22 18:00 37.2 102 17 103/71 (82) 93 Mechanical Ventilator 60.00 06/17/22 17:39 100 109/58 06/17/22 17:00 37.2 98 24 111/77 (88) 93 Mechanical Ventilator 60.00 06/17/22 16:26 95 Mechanical Ventilator 55 06/17/22 16:26 55 06/17/22 16:23 96 110/102 06/17/22 16:00 37.5 96 21 110/102 (105) 90 Mechanical Ventilator 60.00 06/17/22 15:45 37.4 06/17/22 15:32 36.7 06/17/22 15:08 37.9 06/17/22 15:00 37.8 101 24 132/96 (108) 94 Mechanical Ventilator 60.00 06/17/22 14:29 90 25 92 65 06/17/22 14:00 37.7 97 27 127/72 (90) 91 Mechanical Ventilator 60.00 06/17/22 13:00 37.6 90 24 124/77 (93) 95 Mechanical Ventilator 60.00 06/17/22 12:50 100 I & O 06/18/22 07:00 Intake Total 2800 ml Output Total 2150 ml Balance 650 ml Height & Weight Height: 5'6" Weight: 120lbs. oz. 54.396857pz; 21.51 BMI Method:Stated General Appearance: No Apparent Distress, Thin HEENT: No Moist Mucous Membranes Neck: Normal Inspection, Supple Respiratory: Other (tachypnic breathing with diffuse rhonchi) Cardiovascular: Regular Rate, Rhythm, No Edema, No Murmur Capillary Refill: Less Than 3 Seconds Gastrointestinal: non tender, soft, distended, other (hypoacitive BS, mild distension) Extremity: No Pedal Edema, Slow Capillary Refill (bilateral feet) Neurologic/Psychiatric: Other (medically sedated) Skin: Mottled (feet bilaterally) Lymphatic: No Adenopathy Results Lab Laboratory Tests 06/17/22 03:55 06/18/22 03:40 Assessment/Plan Assessment/Plan 1 EFREN VALENCIA MD Jun 18, 2022 12:24
[2022-06-18] MEDS: NOREPINEPHRINE 16 MG/250 ML DRIP IV SCH ×2 (12:34)
[2022-06-18] MEDS: PHENYLEPHRINE DRIP 250 ML IV SCH (12:34)
[2022-06-18 13:54] VITALS: BP 88/63
[2022-06-18] MEDS: ENOXAPARIN 40 MG/0.4 ML (LOVENOX) SYR SC SCH (17:43)
[2022-06-18] MEDS ORDERED: PIPERACILLIN SODIUM/TAZOBACTAM 4.5 GM in NS (IVPB) 100 ML IV NR (19:15)
[2022-06-18 19:49] VITALS: BP 92/60
[2022-06-18 23:22] VITALS: BP 98/67
[2022-06-19] MEDS: fentaNYL DRIP PRE-MIX 250 ML IV SCH ×5 (00:33→19:26)
[2022-06-19] MEDS: inSUlin ASPART (NovoLOG) 1 UNIT/0.01 ML (CHARGE PER UNIT) SC SCH ×4 (00:35→17:48)
[2022-06-19] MEDS: D5 NS 1000 ML IV SOLUTION 1,000 ML IV SCH ×2 (00:35→17:16)
[2022-06-19] MEDS: PIPERACILLIN SODIUM/TAZOBACTAM 4.5 GM in NS (IVPB) 100 ML IV SCH ×3 (01:20→17:15)
[2022-06-19] MEDS: PHENYLEPHRINE DRIP 250 ML IV SCH ×2 (01:20→15:08)
[2022-06-19] MEDS: DexMEDEtomidine 250 ML DRIP 250 ML IV SCH ×2 (02:49→19:26)
[2022-06-19 03:13] VITALS: BP 101/63
[2022-06-19] MEDS: RT-IPRATROPIUM (ATROVENT) 0.5MG/2.5ML AMP IH SCH ×6 (03:13→23:12)
[2022-06-19] MEDS: RT-ALBUTEROL SULF 2.5 MG/3 ML PRE-MIX VIAL INH SCH ×6 (03:13→23:12)
[2022-06-19 03:45] LABS: ABG BASE EXCESS 2.6 MMOL/L (-2.5-2.5); ABG OXYGEN SATURATION 92 % (94-100); ABG PCO2 52 MMHG (35-45); ABG PH 7.35 (7.37-7.43); ABG PO2 79 MMHG (79-93); ABG TCO2 29.3 MMOL/L (21.0-31.0)
[2022-06-19 03:47] LABS: ALLENS TEST YES-POS; BASOPHILS % (AUTO) 0 % (0-10); EOSINOPHILS # (AUTO) 0.1 10^3/uL (0.0-0.3); EOSINOPHILS % (AUTO) 1 % (0-10); HEMATOCRIT 27 % (35-52); HEMOGLOBIN 7.9 g/dL (11.5-16.0); INSPIRED O2 85%; LYMPHOCYTES # (AUTO) 0.8 10^3/uL (1.0-4.0); LYMPHOCYTES % (AUTO) 12 % (12-44); MEAN CORPUSCULAR HEMOGLOBIN 24 pg (25-34); MEAN CORPUSCULAR HGB CONC 30 g/dL (32-36); MEAN CORPUSCULAR VOLUME 82 fL (80-99); MEAN PLATELET VOLUME 9.8 fL (9.0-12.2); MONOCYTES # (AUTO) 0.4 10^3/uL (0.0-1.0); MONOCYTES % (AUTO) 6 % (0-12); NEUTROPHILS # (AUTO) 5.2 10^3/uL (1.8-7.8); NEUTROPHILS % (AUTO) 80 % (42-75); PATIENT TEMP 37.2; PLATELET COUNT 347 10^3/uL (130-400); VENTILATOR YES; WHITE BLOOD COUNT 6.5 10^3/uL (4.3-11.0)
[2022-06-19 03:57] LABS: ALBUMIN 2.1 GM/DL (3.2-4.5)
[2022-06-19 03:58] LABS: POTASSIUM 3.7 MMOL/L (3.6-5.0)
[2022-06-19 04:00] LABS: TOTAL PROTEIN 5.7 GM/DL (6.4-8.2)
[2022-06-19 04:02] LABS: BILIRUBIN,TOTAL 0.3 MG/DL (0.1-1.0)
[2022-06-19 04:04] LABS: CREATININE SERUM 0.45 MG/DL (0.60-1.30)
[2022-06-19 04:06] LABS: MAGNESIUM 1.8 MG/DL (1.6-2.4)
[2022-06-19] MEDS: POTASSIUM CL 10MEQ/50ML IVPB 50 ML IV SCH (04:14)
[2022-06-19] MEDS: MAGNESIUM 1 GM/100 ML IVPB 100 ML IV SCH (04:14)
[2022-06-19] MEDS: KCL 20 MEQ TAB (K-DUR) PO SCH (04:15)
[2022-06-19] MEDS: LORazepam INJ 2 MG/ML (ATIVAN) VIAL IVP PRN ×2 (05:07→10:48)
[2022-06-19] MEDS: ceFAZolin INJECTION 2,000 MG in NS (IVPB) 50 ML IV SCH (05:43)
[2022-06-19 06:56] VITALS: BP 104/70
[2022-06-19] MEDS: aCETylcysteine 20% (MUCOMYST) 4 ML SOLN VIAL INH SCH ×3 (06:56→23:12)
[2022-06-19] MEDS ORDERED: IRON SUCROSE 200 MG/10 ML (VENOFER) VIAL IV SCH (09:00)
[2022-06-19] MEDS: MIDAZOLAM DRIP PRE-MIX 100 ML IV SCH ×2 (09:20→18:27)
[2022-06-19] MEDS: HYDROCORTISONE 100 MG/2 ML (Solu-CORTEF) VIAL IV SCH (09:21)
[2022-06-19] MEDS: PANTOPRAZOLE 40 MG (PROTONIX) VIAL IV SCH (09:21)
[2022-06-19] MEDS: MICONAZOLE 2% POWDER (DESENEX AF) 90 GM TOP SCH ×2 (09:21→21:15)
[2022-06-19] MEDS: NOREPINEPHRINE 16 MG/250 ML DRIP IV SCH ×2 (10:15)
--- NOTE | 2022-06-19 10:30 | Tele-ICU Progress Note ---
Subjective Date Seen by a Provider: Jun 19, 2022 Time Seen by a Provider: 10:30 Subjective/Events-last exam (Tele-ICU Physician , Progress Note ) Service provided via interactive audio and video telecommunications E-CARE system to a patient admitted to ICU bed in [facility]. Patient is seen today due to persistent need of ICU care Available chart/ vitals / labs / Images reviewed Video assessment done using teleICU camera, rest of exam as per RN Discussed with RN Events overnight : AFEBRILE hemodynamically stable Respiratory - 80% + 8 I/O = neg 900 Drips: Pressors- REYNALDO OFF VENT SETTINGS and ABG reviewed CANDIDATE for SBTreviewed possible contraindications including Cardiovascular Stability /Sedation Score / FI02/PEEP / ABG / CXR/ secretions Sedation, discussed with RN, RASS -2 versed 10 , fent 300 precedex 1 , folow commands Consultants: Hospital course: (06/07) 32F Admitted with PNA. CT shows Mod size areas of consolidation involving bilateral upper and left lower lobe. There is complete consolidation of RLL. Also centrilobular emphysema. -On BIPAP 100% sats 86%-Plan to intubate. Intubated @ 1918 06/08 - AC 400 26 100% peep 5 , shock : levo 0.9 vaso , reynaldo 175 , Hb 6.5 - transfusion 06/08 1 UPRBC 06/10 - OFF nimbex 06/10-Fio2 60 % +10 06/11- Episodes of junctional robson or sinus robson with PAC. fibrinogen 213 06/12 - 50 % , s/p transfusion 06/08 1 u PRBC, PLT 73 06/13 - 65%, hb 6.7 - transfusion 1 pRBC 06/15- follows commands on SAT. 60% +7 . T38 06/16 - fentanyl gtt , decreasing dose , changing to precedex , starting fentanyl patch , fio2 40% , but secreating thicker - adding mucomist nebs 06/17- 55% +6 . transfusion 1 P rbc , - Iron low - starting IV iron 06/17 , follows commands can NOT TRY SBT TODAY with elevated RR 06/18- xlt7502-39% peep 8, CT chest/abd/pelvis - no abscess, anasarca , plural effusions , ZOSYN started 06/19-80% + 8 , afebrile , LASIX with albumin x3 A/P Acute resp failure with PNA ( in additional to significant emphysema upper lovbes on CT - suspected due to inhalation of meth and possible other drugs ? ) - intubated 06/07 AC 400 22 80% + 8 - secreting thick. LESS - on mucomist nebs , no wheezing if correct fio2 - WILL NEED TRACH, discussed with Dr Luna - as per her discussion with POA - will re-asses on Wednesday FEVER - infection vs not infectious ( less likely, low suspicious for thrombosis or dug fever - will do CT06/18/22 -NO abscess , cavitary lesion in lungs , empyema, intra- abd issues, + anasarca , plural effusions - mixon cx 06/18- pendin g -ZOSYN 06/18--> ID PNA - bilateral , most likely CAP ( neg covid , flu ) - sputum cx -Streptococcus pneumoniae and H flu 06/08 , sputum 06/14 - posible Staph Aur - PRESUMPTIVE MSSA, zosyn started 06/18 Bacteremia - sterp pneumo - repeat 06/08 blood cx - NEG so far Anasarca , plural effusions on Ct 06/18 - LASIX with albumin x3 Anemia s/p transfusion 1 u PRBC on 06/08 , 06/09 , 06/13, - no clear sigh of bleeding - suspect delutional? vs slow bleed - Iron low - starting IV iron 06/17 Encephalopaty - doing SAT -sedation awakening trials - follow command , on fentanyl patch 100 and minmal versed thrombocytopenia - DIC panel l neg on 06/09 , fibrinogen 213 on 06/11 - stable -RESOLVED Shock . septic - stress dose steroid 50 q 6 - decrease dose q8 06/12 - >25 q8 06/13- decrease dose to 25 q24 h - pressors OFF Episodes of junctional robson or sinus robson with PAC. 06/11 - resolved history of methamphetamine use abuse - sedated, fentanyl gtt , decresing dose , changing to precedex , starting fentanyl patch - HIV neg Nutritions - at goal 45 - 06/12 - added reglan prn Lines : l scl 06/07 , a line 06/07 - removed 06/16 , (Central Line Necessity Reviewed) Figueroa: + OG: Nutrition: TF Analgesia: Anxiety/ delirium VTE Prophylaxis: lovenox 40 Stress Ulcer Prophylaxis: ppi Plans in collaboration with bedside consultants and IM MDs. Discussed with RN to reach out if any questions or concerns A total of 37 minutes of critical care time was devoted to this patient today, required to treat and/or prevent further deterioration of critical care condition ( as above ) . I am remotely monitoring this patient from another state. I am unable to do the bedside exam, and history/physical and pertinent information is taken from other notes in the computer and bedside staff. Sepsis Event Evaluation Height, Weight, BMI Height: 5'6" Weight: 120lbs. oz. 54.548441kd; 21.51 BMI Method:Stated Focused Exam Lactate Level 06/18/22 10:23: Lactic Acid Level 0.66 Exam Exam Patient acknowledged, consented, and participated in this virtual visit which was conducted using real time audio/video Vital Signs Date Time Temp Pulse Resp B/P (MAP) Pulse Ox O2 Delivery O2 Flow Rate FiO2 06/19/22 09:53 100 Mechanical Ventilator 75.00 06/19/22 09:20 86 109/81 06/19/22 09:20 89 25 109/81 06/19/22 09:00 37.3 89 18 118/80 (93) 96 Mechanical Ventilator 80.00 06/19/22 08:53 89 109/81 06/19/22 08:07 Mechanical Ventilator 80.00 06/19/22 08:00 37.1 99 20 125/84 (98) 96 Mechanical Ventilator 85.00 06/19/22 07:47 37.2 06/19/22 07:40 80 06/19/22 07:40 94 Mechanical Ventilator 80 06/19/22 07:00 37.1 91 23 109/63 (78) 98 Mechanical Ventilator 85.00 06/19/22 07:00 92 06/19/22 06:56 93 28 98 85 06/19/22 06:00 37.2 101 24 107/74 (85) 97 Mechanical Ventilator 85.00 06/19/22 05:00 37.1 100 23 111/64 (80) 94 Mechanical Ventilator 85.00 06/19/22 04:53 89 101/63 06/19/22 04:00 94 Mechanical Ventilator 85 06/19/22 04:00 85 06/19/22 04:00 37.2 100 24 115/70 (85) 95 Mechanical Ventilator 85.00 06/19/22 03:13 89 25 99 85 06/19/22 03:00 37.0 86 20 107/71 (83) 99 Mechanical Ventilator 85.00 06/19/22 02:49 90 112/72 06/19/22 02:00 36.6 86 24 99/61 (74) 97 Mechanical Ventilator 85.00 06/19/22 01:00 89 06/19/22 01:00 36.0 89 24 98/67 (77) 96 Mechanical Ventilator 85.00 06/19/22 00:33 90 112/72 06/19/22 00:00 85 06/19/22 00:00 35.7 90 25 112/72 (85) 97 Mechanical Ventilator 85.00 06/18/22 23:59 94 Mechanical Ventilator 85 06/18/22 23:46 83 24 98/67 06/18/22 23:22 83 24 97 85 06/18/22 23:00 35.8 84 24 93/64 (74) 97 Mechanical Ventilator 85.00 06/18/22 22:00 35.9 77 24 98/62 (74) 93 Mechanical Ventilator 85.00 06/18/22 21:00 36.4 77 25 101/62 (75) 90 Mechanical Ventilator 85.00 06/18/22 20:38 73 92/60 06/18/22 20:00 Mechanical Ventilator 85.00 06/18/22 20:00 36.7 74 20 92/60 (71) 95 Mechanical Ventilator 85.00 06/18/22 20:00 94 Mechanical Ventilator 85 06/18/22 20:00 85 06/18/22 19:49 73 24 93 85 06/18/22 19:00 83 06/18/22 19:00 37.4 80 24 92/60 (71) 92 Mechanical Ventilator 85.00 06/18/22 18:13 37.5 06/18/22 18:00 37.5 84 23 97/60 (72) 90 Mechanical Ventilator 85.00 06/18/22 17:00 37.5 85 25 99/61 (74) 91 Mechanical Ventilator 85.00 06/18/22 16:09 85 06/18/22 16:09 94 Mechanical Ventilator 80 06/18/22 16:02 89 103/65 06/18/22 16:00 37.6 86 27 97/60 (72) 92 Mechanical Ventilator 85.00 06/18/22 15:00 37.5 89 27 103/65 (78) 97 Mechanical Ventilator 85.00 06/18/22 14:13 89 88/63 06/18/22 14:13 89 88/63 06/18/22 14:00 37.7 89 15 88/63 (71) 97 Mechanical Ventilator 85.00 06/18/22 13:54 84 24 97 80 06/18/22 13:41 90 24 103/62 06/18/22 13:00 37.7 88 24 93/63 (73) 94 Mechanical Ventilator 85.00 06/18/22 13:00 90 06/18/22 12:34 89 103/62 06/18/22 12:34 89 103/62 06/18/22 12:00 85 06/18/22 12:00 37.6 89 24 103/62 (76) 90 Mechanical Ventilator 85.00 06/18/22 12:00 90 Mechanical Ventilator 85 06/18/22 11:00 37.6 86 21 113/67 (82) 93 Mechanical Ventilator 85.00 06/18/22 10:32 89 103/62 I & O 06/19/22 07:00 Intake Total 1560 ml Output Total 3100 ml Balance -1540 ml Height & Weight Height: 5'6" Weight: 120lbs. oz. 54.258675ya; 21.51 BMI Method:Stated General Appearance: No Apparent Distress, Thin HEENT: No Moist Mucous Membranes Neck: Normal Inspection, Supple Respiratory: Other (tachypnic breathing with diffuse rhonchi) Cardiovascular: Regular Rate, Rhythm, No Edema, No Murmur Capillary Refill: Less Than 3 Seconds Gastrointestinal: non tender, soft, distended, other (hypoacitive BS, mild distension) Extremity: No Pedal Edema, Slow Capillary Refill (bilateral feet) Neurologic/Psychiatric: Other (medically sedated) Skin: Mottled (feet bilaterally) Lymphatic: No Adenopathy Results Lab Laboratory Tests 06/18/22 03:40 06/19/22 03:35 Assessment/Plan Assessment/Plan 1 EFREN VALENCIA MD Jun 19, 2022 10:30
[2022-06-19] MEDS: ALBUMIN 25% 25 GM/100 ML 100 ML IV SCH ×2 (10:48→19:25)
[2022-06-19 11:12] VITALS: BP 98/63
--- NOTE | 2022-06-19 11:50 | Progress Note - Hospitalist ---
Subjective HPI/CC On Admission Date Seen by Provider: Jun 19, 2022 Pt is a 32yoCF with a PMH of methamphetamine abuse who presented to the ER due to weakness. History comes from both patient and her mom. Mom states she has a long history of meth use but has been trying to quit. She last used 7 days ago and then started to get very ill. Her mom wanted to take her in to be seen but the patient refused throoughout the week and finally decidied to come intoday due to her weakness. Reportedly her son has had to carry her from room to room because of how weak she is. On arrival to the emergency room her oxygen saturation was 40%. This was confirmed on an ABG with a PO2 of 39 and saturation of 64 on 15 L nonrebreather. We were able to get her oxygen up into the 90s with oxi mask. Imaging revealed extensive bilateral infiltrates. She was also found to have a profound lactic acidosis fo 13. When I saw her in the ICU she was mottled to her knees and elbows though her capillary refill was adequate. She apparently has vomited twice this morning too. Subjective/Events-last exam Pt remains on vent. Does answer some yes or no questions for me. Denies pain. RN reports no concerns. Returned to the room to discuss with mom and kayla. We discussed her current status from our last conversation two days ago and increasing oxygen requirement but stability in her BP. Starting to wean down oxygen again though today. Plan is for time trial to see how she does over the weekend before decided on trach/peg. Focused Exam Lactate Level 06/18/22 10:23: Lactic Acid Level 0.66 Objective Exam Vital Signs Vital Signs Date Time Temp Pulse Resp B/P (MAP) Pulse Ox O2 Delivery O2 Flow Rate FiO2 06/19/22 11:12 93 25 98 75 06/19/22 11:00 37.8 99/61 (74) Mechanical Ventilator 75.00 Capillary Refill : Less Than 3 Seconds General Appearance: Chronically ill, Thin Respiratory: No Accessory Muscle Use, Rhonci Cardiovascular: Regular Rate, Rhythm, No Murmur Neurologic/Psychiatric: Alert, Other (answers some yes and no questions) Results/Procedures Lab Laboratory Tests 06/19/22 03:35 Patient resulted labs reviewed. Imaging: Reviewed Imaging Report Assessment/Plan Assessment and Plan Assess & Plan/Chief Complaint septic shock due to pneumonia,staph aureus pneumonia Acute hypoxic respiratory failure Emphysema Remains on vent Continue IV abx TeleICU consulted, appreciate recs Discussed with Dr Prince this morning, patient will likely need trach/peg next week Updated family, plan is to watch patient throughout the weekend and see if she improves or backsteps again Continue to wean stress dose steroids Will attempt to diuresis today Microcytic anemia Hgb stable today s/p 4 units pRBCs total Methamphetamine use Cachexia Protein energy malnutrition DVT ppx : lovenox Critical Care Critically Ill Patient Diagnosis/Problems Diagnosis/Problems (1) Transaminitis (2) Microcytic anemia (3) Bilateral pneumonia (4) Lactic acidosis Status: Resolved Resolution Date/Time: 06/09/22 @ 15:48 (5) Tobacco abuse (6) Methamphetamine abuse (7) Cachexia (8) Protein-energy malnutrition (9) Acute respiratory failure Status: Acute Qualifiers: Respiratory failure complication: hypoxia and hypercapnia Qualified Codes: J96.01 - Acute respiratory failure with hypoxia; J96.02 - Acute respiratory failure with hypercapnia (10) Septic shock Status: Acute (11) ENOC (acute kidney injury) Status: Resolved Resolution Date/Time: 06/09/22 @ 15:48 Clinical Quality Measures AMI/AHF: ASA po Prior to arrival: ANDI Hernandez MD Jun 19, 2022 11:50
[2022-06-19] MEDS ORDERED: DEXTROSE 50% 50 ML (IMS) SYR IV NR (12:00)
[2022-06-19] MEDS: FENTANYL PATCH REMOVAL TP SCH (12:04)
[2022-06-19] MEDS: fentaNYL PATCH 75 MCG (DURAGESIC) TD SCH (12:06)
--- NOTE | 2022-06-19 12:06 | Diagnostic Imaging Report ---
INDICATION: OG tube placement Frontal chest obtained at 11:18 a.m. and compared with yesterday. ET tube tip overlies the mid trachea. OG tube tip overlies the gastric fundus. Left subclavian central catheter is unchanged. There is no change in extensive bibasilar infiltrates and emphysematous changes. There is no pneumothorax or pleural fluid. IMPRESSION: Life support lines, as above. No change in extensive bilateral infiltrates. Dictated by: Dictated on workstation # [id number]
[2022-06-19] MEDS: FUROSEMIDE 40 MG/4 ML INJ (LASIX) IVP SCH ×2 (13:37→21:15)
[2022-06-19] MEDS ORDERED: ALBUMIN 25% 25 GM/100 ML 100 ML IV SCH (14:00)
[2022-06-19] MEDS ORDERED: FUROSEMIDE 40 MG/4 ML INJ (LASIX) IVP SCH (14:00)
[2022-06-19] MEDS: NS IV 500 ML 500 ML IV SCH (14:01)
[2022-06-19 14:27] VITALS: BP 96/60
[2022-06-19] MEDS: ENOXAPARIN 40 MG/0.4 ML (LOVENOX) SYR SC SCH (17:15)
[2022-06-19 19:00] VITALS: BP 102/58
[2022-06-19 23:13] VITALS: BP 97/63
[2022-06-20] MEDS: fentaNYL DRIP PRE-MIX 250 ML IV SCH ×5 (00:26→21:30)
[2022-06-20] MEDS: inSUlin ASPART (NovoLOG) 1 UNIT/0.01 ML (CHARGE PER UNIT) SC SCH ×4 (00:31→18:13)
[2022-06-20] MEDS: PIPERACILLIN SODIUM/TAZOBACTAM 4.5 GM in NS (IVPB) 100 ML IV SCH ×3 (01:42→18:10)
[2022-06-20 01:54] VITALS: BP 111/80
[2022-06-20] MEDS: RT-IPRATROPIUM (ATROVENT) 0.5MG/2.5ML AMP IH SCH ×6 (01:54→21:55)
[2022-06-20] MEDS: RT-ALBUTEROL SULF 2.5 MG/3 ML PRE-MIX VIAL INH SCH ×6 (01:54→21:55)
[2022-06-20] MEDS: ALBUMIN 25% 25 GM/100 ML 100 ML IV SCH (02:49)
[2022-06-20] MEDS: MIDAZOLAM DRIP PRE-MIX 100 ML IV SCH ×2 (04:45→15:33)
[2022-06-20] MEDS: FUROSEMIDE 40 MG/4 ML INJ (LASIX) IVP SCH (04:46)
[2022-06-20 05:02] LABS: BASOPHILS % (AUTO) 0 % (0-10); EOSINOPHILS # (AUTO) 0.1 10^3/uL (0.0-0.3); EOSINOPHILS % (AUTO) 1 % (0-10); HEMATOCRIT 25 % (35-52); HEMOGLOBIN 7.6 g/dL (11.5-16.0); LYMPHOCYTES # (AUTO) 0.9 10^3/uL (1.0-4.0); LYMPHOCYTES % (AUTO) 19 % (12-44); MEAN CORPUSCULAR HEMOGLOBIN 25 pg (25-34); MEAN CORPUSCULAR HGB CONC 30 g/dL (32-36); MEAN CORPUSCULAR VOLUME 82 fL (80-99); MEAN PLATELET VOLUME 9.5 fL (9.0-12.2); MONOCYTES # (AUTO) 0.4 10^3/uL (0.0-1.0); MONOCYTES % (AUTO) 8 % (0-12); NEUTROPHILS # (AUTO) 3.3 10^3/uL (1.8-7.8); NEUTROPHILS % (AUTO) 72 % (42-75); PLATELET COUNT 359 10^3/uL (130-400); WHITE BLOOD COUNT 4.7 10^3/uL (4.3-11.0)
[2022-06-20 05:28] LABS: ALBUMIN 3.2 GM/DL (3.2-4.5)
[2022-06-20 05:29] LABS: CALCIUM 8.4 MG/DL (8.5-10.1)
[2022-06-20 05:31] LABS: TOTAL PROTEIN 6.3 GM/DL (6.4-8.2)
[2022-06-20 05:32] LABS: BILIRUBIN,TOTAL 0.3 MG/DL (0.1-1.0)
[2022-06-20] MEDS: PHENYLEPHRINE DRIP 250 ML IV SCH ×2 (05:33→16:55)
[2022-06-20 05:34] LABS: CREATININE SERUM 0.44 MG/DL (0.60-1.30)
[2022-06-20 05:37] LABS: MAGNESIUM 1.8 MG/DL (1.6-2.4)
[2022-06-20] MEDS ORDERED: POTASSIUM CL 10MEQ/50ML IVPB 250 ML IV ONE (05:44)
[2022-06-20] MEDS ORDERED: POTASSIUM CL 10MEQ/50ML IVPB 50 ML IV ONE (05:45)
[2022-06-20] MEDS: POTASSIUM CL 10MEQ/50ML IVPB 50 ML IV SCH ×4 (05:46→09:04)
[2022-06-20] MEDS: MAGNESIUM 1 GM/100 ML IVPB 100 ML IV SCH (06:02)
[2022-06-20] MEDS: KCL 20 MEQ TAB (K-DUR) PO SCH (06:02)
[2022-06-20] MEDS: NS IV 500 ML 500 ML IV SCH ×2 (06:03→23:05)
[2022-06-20] MEDS: aCETylcysteine 20% (MUCOMYST) 4 ML SOLN VIAL INH SCH ×3 (07:14→21:55)
[2022-06-20 07:16] VITALS: BP 96/61
[2022-06-20] MEDS: HYDROCORTISONE 100 MG/2 ML (Solu-CORTEF) VIAL IV SCH (07:54)
[2022-06-20] MEDS: PANTOPRAZOLE 40 MG (PROTONIX) VIAL IV SCH (07:54)
[2022-06-20] MEDS: MICONAZOLE 2% POWDER (DESENEX AF) 90 GM TOP SCH ×2 (07:54→21:31)
--- NOTE | 2022-06-20 08:02 | Progress Note - Hospitalist ---
Subjective HPI/CC On Admission Date Seen by Provider: Jun 20, 2022 Pt is a 32yoCF with a PMH of methamphetamine abuse who presented to the ER due to weakness. History comes from both patient and her mom. Mom states she has a long history of meth use but has been trying to quit. She last used 7 days ago and then started to get very ill. Her mom wanted to take her in to be seen but the patient refused throoughout the week and finally decidied to come intoday due to her weakness. Reportedly her son has had to carry her from room to room because of how weak she is. On arrival to the emergency room her oxygen saturation was 40%. This was confirmed on an ABG with a PO2 of 39 and saturation of 64 on 15 L nonrebreather. We were able to get her oxygen up into the 90s with oxi mask. Imaging revealed extensive bilateral infiltrates. She was also found to have a profound lactic acidosis fo 13. When I saw her in the ICU she was mottled to her knees and elbows though her capillary refill was adequate. She apparently has vomited twice this morning too. Subjective/Events-last exam Pt remains sedated on the vent. No concerns per RN. No family at bedside this AM. Down to 45% FiO2. Focused Exam Lactate Level 06/18/22 10:23: Lactic Acid Level 0.66 Objective Exam Vital Signs Vital Signs Date Time Temp Pulse Resp B/P (MAP) Pulse Ox O2 Delivery O2 Flow Rate FiO2 06/20/22 07:16 72 24 97 45 06/20/22 06:00 37.3 106/68 (81) Mechanical Ventilator 45.00 Capillary Refill : Less Than 3 Seconds General Appearance: Chronically ill, Thin Respiratory: No Accessory Muscle Use, Decreased Breath Sounds, Other (on vent) Cardiovascular: Regular Rate, Rhythm, No Murmur Gastrointestinal: Normal Bowel Sounds, Non Tender, Soft, Abnormal Bowel Sounds (slow) Extremity: No Pedal Edema Neurologic/Psychiatric: Other (sedated, appears comfortable) Results/Procedures Lab Laboratory Tests 06/20/22 04:50 Patient resulted labs reviewed. Imaging: Reviewed Imaging Report Assessment/Plan Assessment and Plan Assess & Plan/Chief Complaint septic shock due to pneumonia,staph aureus pneumonia Acute hypoxic respiratory failure Emphysema Remains on vent- improving oxygen need Continue IV abx TeleICU consulted, appreciate recs Continue to wean stress dose steroids Diuresed well yesterday, ~1L negative Microcytic anemia Hgb stable today s/p 4 units pRBCs total Methamphetamine use Cachexia Protein energy malnutrition DVT ppx : lovenox Critical Care Critically Ill Patient Diagnosis/Problems Diagnosis/Problems (1) Transaminitis (2) Microcytic anemia (3) Bilateral pneumonia (4) Lactic acidosis Status: Resolved Resolution Date/Time: 06/09/22 @ 3:48 pm (5) Tobacco abuse (6) Methamphetamine abuse (7) Cachexia (8) Protein-energy malnutrition (9) Acute respiratory failure Status: Acute Qualifiers: Respiratory failure complication: hypoxia and hypercapnia Qualified Codes: J96.01 - Acute respiratory failure with hypoxia; J96.02 - Acute respiratory failure with hypercapnia (10) Septic shock Status: Acute (11) ENOC (acute kidney injury) Status: Resolved Resolution Date/Time: 06/09/22 @ 3:48 pm Clinical Quality Measures AMI/AHF: ASA po Prior to arrival: ANDI Hernandez MD Jun 20, 2022 8:02 am
[2022-06-20] MEDS ORDERED: METHYLNALTREXONE 12 MG/0.6 ML (RELISTOR) VIAL SQ NR (08:30)
--- NOTE | 2022-06-20 09:19 | Tele-ICU Progress Note ---
Subjective Date Seen by a Provider: Jun 20, 2022 Subjective/Events-last exam This virtual visit was conducted using real time audio/video. Thank you for asking us to see this patient for respiratory insufficiency due to dense B pna, sepsis with AMS. Also B uper lobe emphysema noted. PE: sedated on vent. VSS. O2 sat 87-93% on AC 24/400/50%/+6 HEENT: No obvious masses, adenopathy or JVD. Chest: clear to auscultation. CV: RRR S1 S2 No murmur or added sounds. Abd: Non-tender. Bowel sounds Y. : Unremarkable. Figueroa Y. [employer]PERINT[employer]ENT GENERAL/psychiatric: Grossly intact. No obvious focal findings. Extremities: No edema. Capillary refill < 3 seconds. Skin: unremarkable. Results: Decreased Hb 7.6. AB.35/52/79 on 85%. CXR: B dense infilts, unchanged, hyperinflated. Available chart/ vitals / labs / images reviewed. Video assessment done using teleICU camera, rest of exam as per RN. A/P: Respiratory insufficiency: Continue present management with vent., duonebs, mucomyst, Fent., Prec., Versed. No SBT with high FiO2. Possible trach/PEG. Critical Care: critically ill patient. Cont. Jalil., PPI, hydrocort., SSI. Discussed with KATHERINE Shine. Asked RN to reach out to eICU if any questions or concerns later. Time spent with patient/coordination of care with other health professionals (mins): 25 Sepsis Event Evaluation Height, Weight, BMI Height: 5'6" Weight: 120lbs. oz. 54.527036td; 21.51 BMI Method:Stated Focused Exam Lactate Level 06/18/22 10:23: Lactic Acid Level 0.66 Exam Exam Patient acknowledged, consented, and participated in this virtual visit which was conducted using real time audio/video Vital Signs Date Time Temp Pulse Resp B/P (MAP) Pulse Ox O2 Delivery O2 Flow Rate FiO2 06/20/22 09:09 89 Mechanical Ventilator 55.00 06/20/22 09:04 87 97/64 06/20/22 09:00 87 Mechanical Ventilator 50.00 06/20/22 08:50 88 Mechanical Ventilator 45.00 06/20/22 08:11 Mechanical Ventilator 40.00 06/20/22 08:03 100 Mechanical Ventilator 40 06/20/22 08:02 45 06/20/22 08:00 37.3 79 24 93/59 (71) 100 Mechanical Ventilator 45.00 06/20/22 07:16 72 24 97 45 06/20/22 07:00 77 06/20/22 07:00 37.3 80 24 97/59 (73) 97 Mechanical Ventilator 45.00 06/20/22 06:00 37.3 99 24 106/68 (81) 99 Mechanical Ventilator 45.00 06/20/22 05:00 37.3 87 24 105/67 (80) 97 Mechanical Ventilator 45.00 06/20/22 04:46 86 116/75 06/20/22 04:45 86 24 116/75 06/20/22 04:00 98 Mechanical Ventilator 55 06/20/22 04:00 50 06/20/22 04:00 37.2 86 24 116/75 (89) 98 Mechanical Ventilator 45.00 06/20/22 03:00 37.1 86 24 103/62 (76) 98 Mechanical Ventilator 45.00 06/20/22 02:00 37.0 81 24 108/69 (82) 98 Mechanical Ventilator 45.00 06/20/22 01:54 78 24 99 55 06/20/22 01:00 91 06/20/22 01:00 36.8 91 24 109/69 (82) 98 Mechanical Ventilator 55.00 06/20/22 00:26 86 103/65 06/20/22 00:00 36.8 86 24 103/65 (78) 100 Mechanical Ventilator 55.00 06/20/22 00:00 50 06/19/22 23:59 98 Mechanical Ventilator 55 06/19/22 23:13 73 24 100 55 06/19/22 23:00 36.8 80 24 97/63 (74) 100 Mechanical Ventilator 55.00 06/19/22 22:00 36.8 84 24 103/69 (80) 100 Mechanical Ventilator 55.00 06/19/22 21:00 37.0 96 24 100/59 (73) 91 Mechanical Ventilator 55.00 06/19/22 20:00 37.0 91 24 102/60 (74) 91 Mechanical Ventilator 55.00 06/19/22 20:00 96 Mechanical Ventilator 55 06/19/22 20:00 50 06/19/22 20:00 37.0 06/19/22 19:26 81 102/58 06/19/22 19:26 81 102/58 06/19/22 19:00 81 24 90 55 06/19/22 19:00 Mechanical Ventilator 55.00 06/19/22 19:00 37.0 82 24 102/58 (73) 90 Mechanical Ventilator 55.00 06/19/22 19:00 82 06/19/22 18:37 80 99/56 06/19/22 18:27 80 24 99/56 06/19/22 18:00 37.0 85 19 97/56 (66) 91 Mechanical Ventilator 55.00 06/19/22 17:18 89 Mechanical Ventilator 55.00 06/19/22 17:00 37.0 86 23 93/55 (68) 89 Mechanical Ventilator 50.00 06/19/22 16:03 50 06/19/22 16:03 96 Mechanical Ventilator 65 06/19/22 16:02 94 Mechanical Ventilator 50.00 06/19/22 16:00 36.9 80 23 91/54 (66) 94 Mechanical Ventilator 60.00 06/19/22 15:00 36.9 82 24 94/62 (72) 93 Mechanical Ventilator 60.00 06/19/22 14:27 80 24 94 60 06/19/22 14:20 82 94/61 06/19/22 14:00 37.1 85 24 101/62 (74) 95 Mechanical Ventilator 60.00 06/19/22 13:41 96 Mechanical Ventilator 60.00 06/19/22 13:20 81 101/62 06/19/22 13:05 97 Mechanical Ventilator 65.00 06/19/22 13:00 37.5 100 23 99/67 (79) 98 Mechanical Ventilator 75.00 06/19/22 12:47 95 06/19/22 12:00 37.8 93 23 93/55 (68) 98 Mechanical Ventilator 75.00 06/19/22 12:00 65 06/19/22 12:00 96 Mechanical Ventilator 65 06/19/22 11:12 93 25 98 75 06/19/22 11:00 37.8 96 13 99/61 (74) 97 Mechanical Ventilator 75.00 06/19/22 09:53 100 Mechanical Ventilator 75.00 06/19/22 09:20 86 109/81 06/19/22 09:20 89 25 109/81 I & O 06/20/22 07:00 Intake Total 3210 ml Output Total 6225 ml Balance -3015 ml Height & Weight Height: 5'6" Weight: 120lbs. oz. 54.577542lr; 21.51 BMI Method:Stated General Appearance: Chronically ill, Thin HEENT: No Moist Mucous Membranes Neck: Normal Inspection, Supple Respiratory: No Accessory Muscle Use, Decreased Breath Sounds, Other (on vent) Cardiovascular: Regular Rate, Rhythm, No Murmur Capillary Refill: Less Than 3 Seconds Gastrointestinal: non tender, soft, distended, other (hypoacitive BS, mild distension) Extremity: No Pedal Edema Neurologic/Psychiatric: Other (sedated, appears comfortable) Skin: Mottled (feet bilaterally) Lymphatic: No Adenopathy Results Lab Laboratory Tests 06/19/22 03:35 06/20/22 04:50 Assessment/Plan Assessment/Plan See free text. Critical Care: Ventilator Management DONTE PACHECO MD Jun 20, 2022 09:19
[2022-06-20] MEDS: D5 NS 1000 ML IV SOLUTION 1,000 ML IV SCH (09:57)
[2022-06-20] MEDS: NOREPINEPHRINE 16 MG/250 ML DRIP IV SCH ×2 (10:20)
[2022-06-20 10:43] VITALS: BP 101/60
[2022-06-20] MEDS: DexMEDEtomidine 250 ML DRIP 250 ML IV SCH (13:20)
[2022-06-20 15:23] VITALS: BP 100/65
[2022-06-20] MEDS: ENOXAPARIN 40 MG/0.4 ML (LOVENOX) SYR SC SCH (17:42)
[2022-06-20 18:59] VITALS: BP 93/61
[2022-06-20 21:56] VITALS: BP 98/66
[2022-06-21] MEDS: PIPERACILLIN SODIUM/TAZOBACTAM 4.5 GM in NS (IVPB) 100 ML IV SCH ×3 (02:15→18:04)
[2022-06-21] MEDS: RT-IPRATROPIUM (ATROVENT) 0.5MG/2.5ML AMP IH SCH ×6 (02:31→22:23)
[2022-06-21] MEDS: RT-ALBUTEROL SULF 2.5 MG/3 ML PRE-MIX VIAL INH SCH ×6 (02:31→22:23)
[2022-06-21 02:32] VITALS: BP 102/63
[2022-06-21] MEDS: D5 NS 1000 ML IV SOLUTION 1,000 ML IV SCH ×2 (02:40→18:49)
[2022-06-21] MEDS: MIDAZOLAM DRIP PRE-MIX 100 ML IV SCH (04:15)
[2022-06-21] MEDS: DexMEDEtomidine 250 ML DRIP 250 ML IV SCH (04:43)
[2022-06-21] MEDS: fentaNYL DRIP PRE-MIX 250 ML IV SCH ×3 (04:57→18:03)
[2022-06-21 05:06] LABS: BASOPHILS % (AUTO) 0 % (0-10); EOSINOPHILS % (AUTO) 1 % (0-10); HEMATOCRIT 26 % (35-52); HEMOGLOBIN 7.6 g/dL (11.5-16.0); LYMPHOCYTES # (AUTO) 0.9 10^3/uL (1.0-4.0); LYMPHOCYTES % (AUTO) 25 % (12-44); MEAN CORPUSCULAR HEMOGLOBIN 25 pg (25-34); MEAN CORPUSCULAR HGB CONC 30 g/dL (32-36); MEAN CORPUSCULAR VOLUME 84 fL (80-99); MEAN PLATELET VOLUME 9.1 fL (9.0-12.2); MONOCYTES # (AUTO) 0.4 10^3/uL (0.0-1.0); MONOCYTES % (AUTO) 10 % (0-12); NEUTROPHILS # (AUTO) 2.5 10^3/uL (1.8-7.8); NEUTROPHILS % (AUTO) 64 % (42-75); PLATELET COUNT 358 10^3/uL (130-400); WHITE BLOOD COUNT 3.8 10^3/uL (4.3-11.0)
[2022-06-21 05:15] LABS: ABG BASE EXCESS 2.6 MMOL/L (-2.5-2.5); ABG OXYGEN SATURATION 94 % (94-100); ABG PCO2 46 MMHG (35-45); ABG PH 7.39 (7.37-7.43); ABG PO2 76 MMHG (79-93); ABG TCO2 28.2 MMOL/L (21.0-31.0)
[2022-06-21 05:15] LABS: ALBUMIN 2.8 GM/DL (3.2-4.5); POTASSIUM 3.8 MMOL/L (3.6-5.0)
[2022-06-21 05:16] LABS: CALCIUM 8.4 MG/DL (8.5-10.1)
[2022-06-21 05:17] LABS: ALLENS TEST YES-POS
[2022-06-21 05:18] LABS: TOTAL PROTEIN 6.2 GM/DL (6.4-8.2)
[2022-06-21 05:18] LABS: INSPIRED O2 80%; PATIENT TEMP 38.1; VENTILATOR YES
[2022-06-21 05:19] LABS: BILIRUBIN,TOTAL 0.4 MG/DL (0.1-1.0)
[2022-06-21 05:21] LABS: CREATININE SERUM 0.47 MG/DL (0.60-1.30); PHOSPHORUS 3.4 MG/DL (2.3-4.7)
[2022-06-21 05:24] LABS: MAGNESIUM 1.8 MG/DL (1.6-2.4)
[2022-06-21] MEDS: KCL 20 MEQ TAB (K-DUR) PO SCH (06:00)
[2022-06-21] MEDS: MAGNESIUM 1 GM/100 ML IVPB 100 ML IV SCH (06:00)
[2022-06-21] MEDS: POTASSIUM CL 10MEQ/50ML IVPB 50 ML IV SCH (06:00)
[2022-06-21] MEDS: inSUlin ASPART (NovoLOG) 1 UNIT/0.01 ML (CHARGE PER UNIT) SC SCH ×4 (06:00→18:14)
[2022-06-21] MEDS: PHENYLEPHRINE DRIP 250 ML IV SCH ×2 (06:15→19:35)
[2022-06-21 06:46] VITALS: BP 107/67
[2022-06-21] MEDS: aCETylcysteine 20% (MUCOMYST) 4 ML SOLN VIAL INH SCH ×3 (06:46→22:23)
[2022-06-21] MEDS: PANTOPRAZOLE 40 MG (PROTONIX) VIAL IV SCH (08:26)
[2022-06-21] MEDS: MICONAZOLE 2% POWDER (DESENEX AF) 90 GM TOP SCH ×2 (08:27→22:35)
[2022-06-21] MEDS: HYDROCORTISONE 100 MG/2 ML (Solu-CORTEF) VIAL IV SCH (08:27)
--- NOTE | 2022-06-21 09:39 | Tele-ICU Progress Note ---
Progress Note video rounds completed 32 y/o female with PNA and sepsis and respiratory failure. Currently intubated on 80% FIO2 Had low platelet ct which has resp;sam Hgb stable IMP: PNA with respiratory failure PLAN: continue vet support May need trach Focused Exam Lactate Level 06/18/22 10:23: Lactic Acid Level 0.66 Height, Weight, BMI Height: 5'6" Weight: 120lbs. oz. 54.265020pj; 21.51 BMI Method:Stated Labs Laboratory Tests 06/21/22 04:50 Results Results/Procedures Lab Laboratory Tests 06/20/22 04:50 06/21/22 04:50 Results Results/Procedures Labs Laboratory Tests 06/20/22 04:50 06/21/22 04:50 Patient resulted labs reviewed. Imaging: Reviewed Imaging Report Results Labs Labs Laboratory Tests 06/20/22 11:27: Glucometer 131H 06/21/22 00:23: Glucometer 89 06/21/22 04:50: White Blood Count 3.8L, Red Blood Count 3.07L, Hemoglobin 7.6L, Hematocrit 26L, Mean Corpuscular Volume 84, Mean Corpuscular Hemoglobin 25, Mean Corpuscular Hemoglobin Concent 30L, Red Cell Distribution Width 27.1H, Platelet Count 358, Mean Platelet Volume 9.1, Immature Granulocyte % (Auto) 0, Neutrophils (%) (Auto) 64, Lymphocytes (%) (Auto) 25, Monocytes (%) (Auto) 10, Eosinophils (%) (Auto) 1, Basophils (%) (Auto) 0, Neutrophils # (Auto) 2.5, Lymphocytes # (Auto) 0.9L, Monocytes # (Auto) 0.4, Eosinophils # (Auto) 0.0, Basophils # (Auto) 0.0, Immature Granulocyte # (Auto) 0.0, Sodium Level 138, Potassium Level 3.8, Chloride Level 105, Carbon Dioxide Level 25, Anion Gap 8, Blood Urea Nitrogen 10, Creatinine 0.47L, Estimat Glomerular Filtration Rate 130, BUN/Creatinine Ratio 21, Glucose Level 87, Calcium Level 8.4L, Corrected Calcium 9.4, Phosphorus Level 3.4, Magnesium Level 1.8, Total Bilirubin 0.4, Aspartate Amino Transf (AST/SGOT) 19, Alanine Aminotransferase (ALT/SGPT) 17, Alkaline Phosphatase 104, Total Protein 6.2L, Albumin 2.8L 06/21/22 05:07: [facility], [facility] Gas Patient Temperature 38.1, Arterial Blood pH 7.39, Arterial Blood Partial Pressure CO2 46H, Arterial Blood Partial Pressure O2 76L, Arterial Blood HCO3 27, Arterial Blood Total CO2 28.2, Arterial Blood Oxygen Saturation 94, Arterial Blood Base Excess 2.6H, Yong Test YES-POS, Blood Gas Ventilator Setting YES, Blood Gas Inspired Oxygen 80% Microbiology 06/18/22 Gram Stain - Final, Resulted 06/18/22 Sputum Culture - Preliminary, Resulted Staphylococcus aureus Susceptibility To Follow 06/18/22 Blood Culture - Preliminary, Resulted No growth 06/08/22 Urine Culture - Final, Complete NO GROWTH NIKO PALOMO MD Jun 21, 2022 09:39
--- NOTE | 2022-06-21 10:08 | Progress Note ---
Subjective Date Seen by a Provider: Jun 21, 2022 Time Seen by a Provider: 09:30 Subjective/Events-last exam pneumonia with ARDS and prolonged respiratory failure. likely no improvement with intubation status now at 2 weeks. Focused Exam Lactate Level 06/18/22 10:23: Lactic Acid Level 0.66 Objective Exam Vital Signs Date Time Temp Pulse Resp B/P (MAP) Pulse Ox O2 Delivery O2 Flow Rate FiO2 06/21/22 09:00 37.8 97 24 124/77 (91) 92 Mechanical Ventilator 80.00 06/21/22 08:38 90 118/70 06/21/22 08:38 90 118/70 06/21/22 08:16 36.7 06/21/22 08:00 80 06/21/22 08:00 37.8 90 24 118/70 (88) 92 Mechanical Ventilator 80.00 06/21/22 07:00 98 06/21/22 07:00 38.0 93 19 106/64 (82) 89 Mechanical Ventilator 80.00 06/21/22 06:46 87 27 88 80 06/21/22 06:15 90 109/64 06/21/22 06:00 38.0 94 24 109/64 (79) 92 Mechanical Ventilator 80.00 06/21/22 05:00 38.0 80 24 121/77 (92) 91 Mechanical Ventilator 80.00 06/21/22 04:15 87 20 106/65 06/21/22 04:00 91 Mechanical Ventilator 80 06/21/22 04:00 37.4 74 24 114/71 (85) 94 Mechanical Ventilator 80.00 06/21/22 04:00 80 06/21/22 03:00 37.4 77 24 103/66 (78) 95 Mechanical Ventilator 80.00 06/21/22 02:32 71 25 96 80 06/21/22 02:00 37.5 72 23 107/71 (83) 95 Mechanical Ventilator 80.00 06/21/22 01:00 37.5 75 24 99/64 (76) 95 Mechanical Ventilator 80.00 06/21/22 01:00 75 06/21/22 00:00 37.3 73 20 96/58 (71) 94 Mechanical Ventilator 80.00 06/21/22 00:00 80 06/20/22 23:59 92 Mechanical Ventilator 80 06/20/22 23:00 37.2 75 25 108/73 (85) 95 Mechanical Ventilator 80.00 06/20/22 22:41 Mechanical Ventilator 80.00 06/20/22 22:00 36.9 64 18 104/68 (80) 91 Mechanical Ventilator 55.00 06/20/22 21:56 65 25 92 55 06/20/22 21:00 36.8 69 20 98/66 (77) 90 Mechanical Ventilator 55.00 06/20/22 20:00 45 06/20/22 20:00 36.8 69 20 98/66 (77) 90 Mechanical Ventilator 55.00 06/20/22 20:00 92 Mechanical Ventilator 55 06/20/22 19:00 71 06/20/22 19:00 36.8 63 23 94/60 (71) 92 Mechanical Ventilator 55.00 06/20/22 18:59 64 24 92 55 06/20/22 18:00 36.7 67 23 98/73 (81) 92 Mechanical Ventilator 55.00 06/20/22 17:42 70 97/62 06/20/22 17:00 36.7 64 23 103/67 (77) 89 Mechanical Ventilator 55.00 06/20/22 16:00 94 Mechanical Ventilator 55 06/20/22 16:00 55 06/20/22 16:00 36.6 68 27 104/67 (79) 93 Mechanical Ventilator 55.00 06/20/22 15:33 59 23 101/68 06/20/22 15:32 58 101/68 06/20/22 15:23 59 24 94 55 06/20/22 15:00 36.7 61 24 99/60 (68) 94 Mechanical Ventilator 55.00 06/20/22 14:00 70 24 97/56 (71) 91 Mechanical Ventilator 55.00 06/20/22 14:00 58 101/68 06/20/22 13:20 75 94/66 06/20/22 13:00 76 24 98/64 (72) 94 Mechanical Ventilator 55.00 06/20/22 12:37 93 Mechanical Ventilator 55.00 06/20/22 12:35 75 06/20/22 12:00 37.1 73 23 95/59 (68) 94 06/20/22 12:00 94 Mechanical Ventilator 60.00 06/20/22 11:59 94 Mechanical Ventilator 60 06/20/22 11:58 45 06/20/22 11:00 37.2 93 22 102/63 (73) 94 Mechanical Ventilator 70.00 06/20/22 10:43 88 24 92 70 I & O 06/21/22 07:00 Intake Total 3780 ml Output Total 3650 ml Balance 130 ml Capillary Refill : Less Than 3 Seconds General Appearance: No Apparent Distress HEENT: PERRL/EOMI Neck: Full Range of Motion Respiratory: Decreased Breath Sounds, Rhonci Cardiovascular: Regular Rate, Rhythm Gastrointestinal: normal bowel sounds, non tender, soft Extremity: Normal Capillary Refill Neurologic/Psychiatric: Alert Skin: Normal Color Lymphatic: No Adenopathy Results Lab Laboratory Tests 06/20/22 11:27: Glucometer 131H 06/21/22 00:23: Glucometer 89 06/21/22 04:50: White Blood Count 3.8L, Red Blood Count 3.07L, Hemoglobin 7.6L, Hematocrit 26L, Mean Corpuscular Volume 84, Mean Corpuscular Hemoglobin 25, Mean Corpuscular Hemoglobin Concent 30L, Red Cell Distribution Width 27.1H, Platelet Count 358, Mean Platelet Volume 9.1, Immature Granulocyte % (Auto) 0, Neutrophils (%) (Auto) 64, Lymphocytes (%) (Auto) 25, Monocytes (%) (Auto) 10, Eosinophils (%) (Auto) 1, Basophils (%) (Auto) 0, Neutrophils # (Auto) 2.5, Lymphocytes # (Auto) 0.9L, Monocytes # (Auto) 0.4, Eosinophils # (Auto) 0.0, Basophils # (Auto) 0.0, Immature Granulocyte # (Auto) 0.0, Sodium Level 138, Potassium Level 3.8, Chloride Level 105, Carbon Dioxide Level 25, Anion Gap 8, Blood Urea Nitrogen 10, Creatinine 0.47L, Estimat Glomerular Filtration Rate 130, BUN/Creatinine Ratio 21, Glucose Level 87, Calcium Level 8.4L, Corrected Calcium 9.4, Phosphorus Level 3.4, Magnesium Level 1.8, Total Bilirubin 0.4, Aspartate Amino Transf (AST/SGOT) 19, Alanine Aminotransferase (ALT/SGPT) 17, Alkaline Quinton sphatase 104, Total Protein 6.2L, Albumin 2.8L 06/21/22 05:07: Blood Gas Puncture Site R [facility], Blood Gas Patient Temperature 38.1, Arterial Blood pH 7.39, Arterial Blood Partial Pressure CO2 46H, Arterial Blood Partial Pressure O2 76L, Arterial Blood HCO3 27, Arterial Blood Total CO2 28.2, Arterial Blood Oxygen Saturation 94, Arterial Blood Base Excess 2.6H, Yong Test YES-POS, Blood Gas Ventilator Setting YES, Blood Gas Inspired Oxygen 80% Microbiology 06/18/22 Gram Stain - Final, Resulted 06/18/22 Sputum Culture - Preliminary, Resulted Staphylococcus aureus Susceptibility To Follow 06/18/22 Blood Culture - Preliminary, Resulted No growth 06/08/22 Urine Culture - Final, Complete NO GROWTH Assessment/Plan Assessment/Plan Assess & Plan/Chief Complaint Pneumonia/ARDS with prolonged resp failure. If patient and family amenable, will be available for PEG and trach. Clinical Quality Measures AMI/AHF: ASA po Prior to arrival: HUBER Radford MD Jun 21, 2022 10:08
[2022-06-21 10:20] VITALS: BP 117/69
[2022-06-21] MEDS: NOREPINEPHRINE 16 MG/250 ML DRIP IV SCH ×2 (11:17)
[2022-06-21] MEDS ORDERED: BISACODYL 10 MG SUPP (DULCOLAX) PR NR (11:30)
[2022-06-21] MEDS ORDERED: LACTULOSE SYRUP 10GM/15ML (ENULOSE) 30ML UDC PO NR (11:30)
--- NOTE | 2022-06-21 13:12 | Progress Note - Hospitalist ---
MAQRUIS SMITH 06/21/22 1312: Subjective HPI/CC On Admission Pt is a 32yoCF with a PMH of methamphetamine abuse who presented to the ER due to weakness. History comes from both patient and her mom. Mom states she has a long history of meth use but has been trying to quit. She last used 7 days ago and then started to get very ill. Her mom wanted to take her in to be seen but the patient refused throoughout the week and finally decidied to come intoday due to her weakness. Reportedly her son has had to carry her from room to room because of how weak she is. On arrival to the emergency room her oxygen saturation was 40%. This was confirmed on an ABG with a PO2 of 39 and saturation of 64 on 15 L nonrebreather. We were able to get her oxygen up into the 90s with oxi mask. Imaging revealed extensive bilateral infiltrates. She was also found to have a profound lactic acidosis fo 13. When I saw her in the ICU she was mottled to her knees and elbows though her capillary refill was adequate. She apparently has vomited twice this morning too. Subjective/Events-last exam Patient continues to be sedated and on the vent when seen today. She would awaken to answer brief yes/no questions. She continues to receive pulmicare at 45mls/hr. She has a cameron catheter in place with clear yellow urine output. She was receiving fentanyl 200 mg/hr, fentanyl 72mcg patch Q72hr, precidex 15.125 ml/hr, and medaolam 8 ml/hr when I was with her. Her vent settings included a PEEP of 8.0 and FiO2 of 80% which is increased from yesterday. When asked, patient reported no CP, no SOB, no abd pain, and no pain elsewhere. When asked if she would like a trach/peg tube if it is deemed necessary she shook her head yes. She still has not had a BM. Review of Systems HEENT: No Head Aches Cardiovascular: No: Chest Pain Gastrointestinal: No: Abdominal Pain Objective Exam Vital Signs Vital Signs Date Time Temp Pulse Resp B/P (MAP) Pulse Ox O2 Delivery O2 Flow Rate FiO2 06/21/22 12:43 90 06/21/22 12:18 36.4 06/21/22 12:00 20 121/76 (90) 94 Mechanical Ventilator 80.00 06/21/22 12:00 80 Capillary Refill : Less Than 3 Seconds General Appearance: No Apparent Distress, Thin Respiratory: Chest Non Tender, Normal Breath Sounds, No Accessory Muscle Use, Other (diffuse rhonchi) Cardiovascular: Regular Rate, Rhythm, No Murmur, Normal Peripheral Pulses Gastrointestinal: Normal Bowel Sounds, Non Tender (abd feels full on exam), Other (f) Extremity: Normal Capillary Refill, Non Tender, No Calf Tenderness, No Pedal Edema Neurologic/Psychiatric: Other (sedated but able to be awoken to answer yes/no questions) Skin: Normal Color, Warm/Dry Lymphatic: No Adenopathy Results/Procedures Lab Laboratory Tests 06/21/22 04:50 Patient resulted labs reviewed. Imaging: Reviewed Imaging Report Assessment/Plan Assessment and Plan Assess & Plan/Chief Complaint Acute respiratory Distress Syndrome -Mechanical Ventilation with PEEP 8 and FiO2 80%. Back off the vent and sedation as tolerated. Will trial SBT if fiO2 nears 40. -Sedation with fentanyl 200 mcg/hr IV, fentanyl 75mcg patch Q72hr, Midazolam 8 mg/hr IV, and precidex 15.125 ml/hr at this time. -Stress ulcer prophylaxis w/ Pantoprazole 40mg IV PO -06/21/22: patient continues to rely heavily on vent. PaO2 n ABG of 76. Will need to discuss Trach/peg tube placement with Pt. and family tomorrow. Pt appears to wish for placement if deemed necessary Septic Shock -Patient originally presented in septic shock. This is improved and patient is normotensive w/out requiring pressors at this time. -Hydrocortisone was given refractory shock. last dose given 06/17/22. CAP -Sputum culture from 06/14 showed presumptive MSSA. -06/15/22 Initiated Vancomycin IV. 1250mg IV loading dose followed by 750mg IV BID 12 hours later. Discontinued after 1 day following presumptive MSSA sputum culture. -06/17/22 WBC improved to 8 from 12.2 yesterday. CXR unchanged from previous and pt. continues to have diffuse rhonchi on exam -06/18/22 Patient finished course of ceftriaxone. Cefazolin 2g IV TID initiated for MSSA sputum culture/sensitivity results. -06/21/22 abx were changed from cefazolin to Zosyn 4.5g Q8hr IV by E-ICU docto r on 06/19 out of concerns for intermittent fevers. Will continue. Anemia -Remains stable at this time. 4 total units received as of 06/18 ENOC -improved Constipation -No BM since arrival despite relistor, milk of mag, senna, and docusate. -will initiate lactulose PO and docusate suppository Clinical Quality Measures AMI/AHF: ASA po Prior to arrival: No ANDI LUNA MD 06/22/22 1302: Assessment/Plan Assessment and Plan Assess & Plan/Chief Complaint Patient back up to 85% FiO2 again and PEEP up slightly. On light sedation and toelrating it well. She was able to answer some questions for me. She denies any pain and nods her head when I clarified her nickname (Pudge). When asked about the potential for a tracheostomy she nodded her head in agreement with plan if needed. She did this in a presence of KATHERINE Chandler and my medical student Marquis. She did appear to understand the question. Discussed with RN and will escalate bowel regimen again to hopefully produce a BM today. Supervisory-Addendum Brief Verification & Attestation Participated in pt care: history, MDM, physical Personally performed: exam, history, MDM, supervision of care Care discussed with: Medical Student Procedures: n/a Results interpretation: Verified all documentation Verification and Attestation of Medical Student E/M Service A medical student performed and documented this service in my presence. I reviewed and verified all information documented by the medical student and made modifications to such information, when appropriate. I personally performed the physical exam and medical decision making. Andi Luna, Jun 22, 2022,13:00 MARQUIS SMITH Jun 21, 2022 13:12 ANDI LUNA MD Jun 22, 2022 13:02
[2022-06-21 14:50] VITALS: BP 100/60
[2022-06-21] MEDS: NS IV 500 ML 500 ML IV SCH (15:54)
[2022-06-21] MEDS: ENOXAPARIN 40 MG/0.4 ML (LOVENOX) SYR SC SCH (18:04)
[2022-06-21 18:58] VITALS: BP 111/76
[2022-06-21] MEDS: LACTULOSE SYRUP 10GM/15ML (ENULOSE) 30ML UDC PO SCH (21:38)
[2022-06-21 22:24] VITALS: BP 106/61
[2022-06-22] MEDS: MIDAZOLAM DRIP PRE-MIX 100 ML IV SCH ×3 (00:19→23:44)
[2022-06-22] MEDS: fentaNYL DRIP PRE-MIX 250 ML IV SCH ×4 (00:20→20:01)
[2022-06-22] MEDS: PIPERACILLIN SODIUM/TAZOBACTAM 4.5 GM in NS (IVPB) 100 ML IV SCH ×3 (00:58→18:21)
[2022-06-22] MEDS: APAP 325 MG/10.15 ML LIQ (TYLENOL) UDC PO PRN (00:59)
[2022-06-22] MEDS: DexMEDEtomidine 250 ML DRIP 250 ML IV SCH ×2 (01:56→16:26)
[2022-06-22] MEDS: RT-IPRATROPIUM (ATROVENT) 0.5MG/2.5ML AMP IH SCH ×6 (02:32→22:32)
[2022-06-22 02:33] VITALS: BP 92/53
[2022-06-22] MEDS: RT-ALBUTEROL SULF 2.5 MG/3 ML PRE-MIX VIAL INH SCH ×6 (02:33→22:32)
[2022-06-22 05:34] LABS: BASOPHILS % (AUTO) 1 % (0-10); EOSINOPHILS % (AUTO) 1 % (0-10); HEMATOCRIT 25 % (35-52); HEMOGLOBIN 7.6 g/dL (11.5-16.0); LYMPHOCYTES % (AUTO) 22 % (12-44); MEAN CORPUSCULAR HEMOGLOBIN 25 pg (25-34); MEAN CORPUSCULAR HGB CONC 30 g/dL (32-36); MEAN CORPUSCULAR VOLUME 84 fL (80-99); MEAN PLATELET VOLUME 9.3 fL (9.0-12.2); MONOCYTES # (AUTO) 0.4 10^3/uL (0.0-1.0); MONOCYTES % (AUTO) 10 % (0-12); NEUTROPHILS # (AUTO) 2.9 10^3/uL (1.8-7.8); NEUTROPHILS % (AUTO) 67 % (42-75); PLATELET COUNT 371 10^3/uL (130-400); WHITE BLOOD COUNT 4.4 10^3/uL (4.3-11.0)
[2022-06-22 05:39] LABS: ALBUMIN 2.6 GM/DL (3.2-4.5); POTASSIUM 3.6 MMOL/L (3.6-5.0)
[2022-06-22 05:41] LABS: CALCIUM 8.4 MG/DL (8.5-10.1)
[2022-06-22 05:42] LABS: TOTAL PROTEIN 6.3 GM/DL (6.4-8.2)
[2022-06-22 05:44] LABS: BILIRUBIN,TOTAL 0.4 MG/DL (0.1-1.0)
[2022-06-22 05:45] LABS: CREATININE SERUM 0.48 MG/DL (0.60-1.30); PHOSPHORUS 4.2 MG/DL (2.3-4.7)
[2022-06-22 05:48] LABS: MAGNESIUM 1.9 MG/DL (1.6-2.4)
[2022-06-22 05:49] LABS: ABG BASE EXCESS 3.1 MMOL/L (-2.5-2.5); ABG OXYGEN SATURATION 97 % (94-100); ABG PCO2 46 MMHG (35-45); ABG PH 7.39 (7.37-7.43); ABG PO2 91 MMHG (79-93); ALLENS TEST YES-POS; INSPIRED O2 80%; PATIENT TEMP 36.9; VENTILATOR YES
[2022-06-22] MEDS: KCL 20 MEQ TAB (K-DUR) PO SCH (06:00)
[2022-06-22] MEDS: inSUlin ASPART (NovoLOG) 1 UNIT/0.01 ML (CHARGE PER UNIT) SC SCH ×5 (06:00→23:42)
[2022-06-22] MEDS: POTASSIUM CL 10MEQ/50ML IVPB 50 ML IV SCH (06:00)
[2022-06-22] MEDS: MAGNESIUM 1 GM/100 ML IVPB 100 ML IV SCH (06:00)
[2022-06-22 07:04] VITALS: BP 103/63
[2022-06-22] MEDS: aCETylcysteine 20% (MUCOMYST) 4 ML SOLN VIAL INH SCH ×3 (07:18→22:38)
[2022-06-22] MEDS: MICONAZOLE 2% POWDER (DESENEX AF) 90 GM TOP SCH ×2 (08:19→20:02)
[2022-06-22] MEDS: PANTOPRAZOLE 40 MG (PROTONIX) VIAL IV SCH (08:19)
[2022-06-22] MEDS: HYDROCORTISONE 100 MG/2 ML (Solu-CORTEF) VIAL IV SCH (08:19)
[2022-06-22] MEDS: LACTULOSE SYRUP 10GM/15ML (ENULOSE) 30ML UDC PO SCH ×2 (08:19→20:00)
[2022-06-22] MEDS: NS IV 500 ML 500 ML IV SCH (08:30)
[2022-06-22] MEDS: PHENYLEPHRINE DRIP 250 ML IV SCH ×2 (09:00→23:41)
[2022-06-22] MEDS ORDERED: ALBUMIN 25% 25 GM/100 ML 100 ML IV ONE (10:15)
[2022-06-22] MEDS: NOREPINEPHRINE 16 MG/250 ML DRIP IV SCH ×2 (10:15)
[2022-06-22] MEDS ORDERED: FUROSEMIDE 40 MG/4 ML INJ (LASIX) IVP ONE ×2 (10:15→10:30)
--- NOTE | 2022-06-22 10:35 | Diagnostic Imaging Report ---
ABDOMEN/KUB 1VIEW INDICATION: Abdominal distention COMPARISON: CT abdomen pelvis of 06/18/2022 FINDINGS AND IMPRESSION: 1. Enteric tube has tip and side-port in the proximal to mid stomach. 2. Nonobstructive bowel gas pattern. 3. Small burden of colonic stool. Dictated by: Dictated on workstation # [id number]
[2022-06-22 10:37] VITALS: BP 133/78
--- NOTE | 2022-06-22 10:43 | Diagnostic Imaging Report ---
CHEST 1 VIEW, AP/PA ONLY Indication: Hypoxia Comparison: 06/19/2022 Findings: Stable ET and enteric tubes. No change in bilateral perihilar consolidations. Small bilateral pleural effusions are similar. No pneumothorax. Stable cardiac silhouette. Left subclavian Port-A-Cath is stable in position. Impression: 1. Stable support devices. 2. Stable pulmonary consolidations that are most likely on the basis of edema. Other possibilities would include multifocal infection, hemorrhage and/or ARDS. Dictated by: Dictated on workstation # [id number]
--- NOTE | 2022-06-22 11:01 | Tele-ICU Progress Note ---
Subjective Date Seen by a Provider: Jun 22, 2022 Time Seen by a Provider: 11:01 Subjective/Events-last exam (Tele-ICU Physician , Progress Note ) Service provided via interactive audio and video telecommunications E-CARE system to a patient admitted to ICU bed in [facility]. Patient is seen today due to persistent need of ICU care Available chart/ vitals / labs / Images reviewed Video assessment done using teleICU camera, rest of exam as per RN Discussed with RN Events overnight : AFEBRILE hemodynamically stable Respiratory - 80% + 8 I/O = neg 900 Drips: Pressors- REYNALDO OFF VENT SETTINGS and ABG reviewed CANDIDATE for SBTreviewed possible contraindications including Cardiovascular Stability /Sedation Score / FI02/PEEP / ABG / CXR/ secretions Sedation, discussed with RN, RASS -2 versed 10 , fent 300 precedex 1 , folow commands Consultants: Hospital course: (06/07) 32F Admitted with PNA. CT shows Mod size areas of consolidation involving bilateral upper and left lower lobe. There is complete consolidation of RLL. Also centrilobular emphysema. -On BIPAP 100% sats 86%-Plan to intubate. Intubated @ 1918 06/08 - AC 400 26 100% peep 5 , shock : levo 0.9 vaso , reynaldo 175 , Hb 6.5 - transfusion 06/08 1 UPRBC 06/10 - OFF nimbex 06/10-Fio2 60 % +10 06/11- Episodes of junctional robson or sinus robson with PAC. fibrinogen 213 06/12 - 50 % , s/p transfusion 06/08 1 u PRBC, PLT 73 06/13 - 65%, hb 6.7 - transfusion 1 pRBC 06/15- follows commands on SAT. 60% +7 . T38 06/16 - fentanyl gtt , decreasing dose , changing to precedex , starting fentanyl patch , fio2 40% , but secreating thicker - adding mucomist nebs 06/17- 55% +6 . transfusion 1 P rbc , - Iron low - starting IV iron 06/17 , follows commands can NOT TRY SBT TODAY with elevated RR 06/18- [id number]% peep 8, CT chest/abd/pelvis - no abscess, anasarca , plural effusions , ZOSYN started 06/19-80% + 8 , afebrile , LASIX with albumin x3 06/21 45% 06/22 80% , neg 2L A/P Acute resp failure with PNA ( in additional to significant emphysema upper lovbes on CT - suspected due to inhalation of meth and possible other drugs ? ) - intubated 06/07 AC 400 22 80% + 8 - secreting thick. LESS - on mucomist nebs , no wheezing if correct fio2 - WILL NEED TRACH, discussed with Dr Luna - as per her di scussion with POA - will re-asses FEVER - infection vs not infectious ( less likely, low suspicious for thrombosis or dug fever - will do CT06/18/22 -NO abscess , cavitary lesion in lungs , empyema, intra- abd issues, + anasarca , plural effusions - mixon cx 06/18- pendin g -ZOSYN 06/18--> ID PNA - bilateral , most likely CAP ( neg covid , flu ) - sputum cx -Streptococcus pneumoniae and H flu 06/08 , sputum 06/14 - posible Staph Aur - PRESUMPTIVE MSSA, zosyn started 06/18 Bacteremia - sterp pneumo - repeat 06/08 blood cx - NEG so far Anasarca , plural effusions on Ct 06/18 - LASIX with albumin x 1 Anemia s/p transfusion 1 u PRBC on 06/08 , 06/09 , 06/13, - no clear sigh of bleeding - suspect delutional? vs slow bleed - Iron low - starting IV iron 06/17 Encephalopaty - doing SAT -sedation awakening trials - follow command , on fentanyl patch 100 and minmal versed thrombocytopenia - DIC panel l neg on 06/09 , fibrinogen 213 on 06/11 - stable -RESOLVED Shock . septic - stress dose steroid 50 q 6 - decrease dose q8 06/12 - >25 q8 06/13- decrease dose to 25 q24 h - pressors OFF Episodes of junctional robson or sinus robson with PAC. 06/11 - resolved history of methamphetamine use abuse - sedated, fentanyl gtt , decresing dose , changing to precedex , starting fentanyl patch - HIV neg Nutritions - at goal 45 - 06/12 - added reglan prn Lines : l scl 06/07 , a line 06/07 - removed 06/16 , (Central Line Necessity Reviewed) Figueroa: + OG: Nutrition: TF Analgesia: Anxiety/ delirium VTE Prophylaxis: lovenox 40 Stress Ulcer Prophylaxis: ppi Plans in collaboration with bedside consultants and IM MDs. Discussed with RN to reach out if any questions or concerns A total of 37 minutes of critical care time was devoted to this patient today, required to treat and/or prevent further deterioration of critical care condition ( as above ) . I am remotely monitoring this patient from another state. I am unable to do the bedside exam, and history/physical and pertinent information is taken from other notes in the computer and bedside staff. Sepsis Event Evaluation Height, Weight, BMI Height: 5'6" Weight: 120lbs. oz. 54.446962bx; 21.51 BMI Method:Stated Exam Exam Patient acknowledged, consented, and participated in this virtual visit which was conducted using real time audio/video Vital Signs Date Time Temp Pulse Resp B/P (MAP) Pulse Ox O2 Delivery O2 Flow Rate FiO2 06/22/22 10:37 99 27 92 100 06/22/22 10:00 37.1 90 30 102/57 (72) 94 Mechanical Ventilator 80.00 06/22/22 09:00 37.1 87 26 94/56 (69) 95 Mechanical Ventilator 80.00 06/22/22 08:00 37.1 89 51 102/60 (74) 93 Mechanical Ventilator 80.00 06/22/22 07:04 89 24 92 80 06/22/22 07:00 37.1 87 39 99/60 (73) 92 Mechanical Ventilator 80.00 06/22/22 07:00 92 06/22/22 06:00 37.0 83 24 113/64 (80) 94 Mechanical Ventilator 80.00 06/22/22 05:00 36.9 80 24 98/61 (73) 95 Mechanical Ventilator 80.00 06/22/22 04:00 80 06/22/22 04:00 37.1 87 24 95/57 (70) 94 Mechanical Ventilator 80.00 06/22/22 04:00 92 Mechanical Ventilator 80 06/22/22 03:00 37.6 92 24 96/55 (69) 94 Mechanical Ventilator 80.00 06/22/22 02:33 87 24 93 80 06/22/22 02:00 38.3 102 24 99/60 (73) 95 Mechanical Ventilator 80.00 06/22/22 01:29 38.0 06/22/22 01:00 98 06/22/22 01:00 38.4 97 24 118/73 (88) 93 Mechanical Ventilator 80.00 06/22/22 00:59 38.4 06/22/22 00:19 99 24 136/80 06/22/22 00:00 38.2 101 24 137/85 (102) 93 Mechanical Ventilator 80.00 06/22/22 00:00 80 06/21/22 23:59 94 Mechanical Ventilator 80 06/21/22 23:00 38.0 84 24 118/74 (89) 95 Mechanical Ventilator 80.00 06/21/22 22:24 82 27 92 80 06/21/22 22:00 38.0 88 24 117/63 (81) 95 Mechanical Ventilator 80.00 06/21/22 21:00 37.8 64 24 127/88 (101) 92 Mechanical Ventilator 80.00 06/21/22 20:00 80 06/21/22 20:00 38.0 86 24 121/76 (91) 91 Mechanical Ventilator 80.00 06/21/22 20:00 92 Mechanical Ventilator 80 06/21/22 19:26 37.6 06/21/22 19:00 72 06/21/22 19:00 37.9 72 24 114/73 (87) 96 Mechanical Ventilator 80.00 06/21/22 18:58 71 25 96 80 06/21/22 18:03 77 99/65 06/21/22 18:00 37.8 70 23 104/68 (80) 97 Mechanical Ventilator 80.00 06/21/22 17:00 37.6 77 24 99/65 (75) 95 Mechanical Ventilator 80.00 06/21/22 16:00 80 06/21/22 16:00 91 Mechanical Ventilator 80 06/21/22 16:00 37.3 80 24 110/71 (79) 95 Mechanical Ventilator 80.00 06/21/22 15:47 37.5 06/21/22 15:08 84 100/60 06/21/22 15:00 37.5 75 21 106/61 (76) 97 Mechanical Ventilator 80.00 06/21/22 14:50 84 25 97 80 06/21/22 14:00 37.5 86 24 104/78 (91) 95 Mechanical Ventilator 80.00 06/21/22 13:00 37.5 85 23 113/67 (85) 95 Mechanical Ventilator 80.00 06/21/22 12:43 90 06/21/22 12:18 36.4 06/21/22 12:00 37.8 96 20 121/76 (90) 94 Mechanical Ventilator 80.00 06/21/22 12:00 80 06/21/22 12:00 91 Mechanical Ventilator 80 06/21/22 11:08 85 117/69 I & O 06/22/22 07:00 Intake Total 1890 ml Output Total 4500 ml Balance -2610 ml Height & Weight Height: 5'6" Weight: 120lbs. oz. 54.781593jt; 21.51 BMI Method:Stated General Appearance: No Apparent Distress, Thin HEENT: PERRL/EOMI Neck: Full Range of Motion Respiratory: Chest Non Tender, Normal Breath Sounds, No Accessory Muscle Use, Other (diffuse rhonchi) Cardiovascular: Regular Rate, Rhythm, No Murmur, Normal Peripheral Pulses Capillary Refill: Less Than 3 Seconds Gastrointestinal: normal bowel sounds, non tender, soft Extremity: Normal Capillary Refill, Non Tender, No Calf Tenderness, No Pedal Edema Neurologic/Psychiatric: Other (sedated but able to be awoken to answer yes/no questions) Skin: Normal Color, Warm/Dry Lymphatic: No Adenopathy Results Lab Laboratory Tests 06/21/22 04:50 06/22/22 05:20 Assessment/Plan Assessment/Plan 1 EFREN VALENCIA MD Jun 22, 2022 11:01
[2022-06-22] MEDS: FENTANYL PATCH REMOVAL TP SCH (12:00)
[2022-06-22] MEDS ORDERED: ANIDULAFUNGIN INJECTION 200 MG in NS (IVPB) 250 ML IV NR (12:00)
[2022-06-22] MEDS: D5 NS 1000 ML IV SOLUTION 1,000 ML IV SCH (12:12)
[2022-06-22] MEDS: fentaNYL PATCH 75 MCG (DURAGESIC) TD SCH (12:31)
[2022-06-22 16:03] VITALS: BP 112/72
[2022-06-22] MEDS: ENOXAPARIN 40 MG/0.4 ML (LOVENOX) SYR SC SCH (18:20)
[2022-06-22 18:39] VITALS: BP 105/65
--- NOTE | 2022-06-22 18:57 | Progress Note - Hospitalist ---
Subjective HPI/CC On Admission Date Seen by Provider: Jun 22, 2022 Time Seen by Provider: 10:20 Pt is a 32yoCF with a PMH of methamphetamine abuse who presented to the ER due to weakness. History comes from both patient and her mom. Mom states she has a long history of meth use but has been trying to quit. She last used 7 days ago and then started to get very ill. Her mom wanted to take her in to be seen but the patient refused throoughout the week and finally decidied to come intoday due to her weakness. Reportedly her son has had to carry her from room to room because of how weak she is. On arrival to the emergency room her oxygen saturation was 40%. This was confirmed on an ABG with a PO2 of 39 and saturation of 64 on 15 L nonrebreather. We were able to get her oxygen up into the 90s with oxi mask. Imaging revealed extensive bilateral infiltrates. She was also found to have a profound lactic acidosis fo 13. When I saw her in the ICU she was mottled to her knees and elbows though her capillary refill was adequate. She apparently has vomited twice this morning too. Subjective/Events-last exam She remains intubated and sedated. Her mother expressed that she is concerned that her respiratory failure is not improving. She is concerned that it may take her a long time to recover and that she would have to be away from family (at an LTAC). She is concerned that if she does make it through this she will return to her previous lifestyle of substance abuse. She says that "she is not strong en ough to make it through this". Objective Exam Vital Signs Vital Signs Date Time Temp Pulse Resp B/P (MAP) Pulse Ox O2 Delivery O2 Flow Rate FiO2 06/22/22 18:39 85 24 93 100 06/22/22 18:00 36.4 99/66 (77) Mechanical Ventilator 80.00 Capillary Refill : Less Than 3 Seconds General Appearance: No Apparent Distress, Thin Respiratory: Lungs Clear, No Respiratory Distress, Other (intubated) Cardiovascular: Regular Rate, Rhythm, No Murmur Gastrointestinal: Normal Bowel Sounds, Soft Extremity: Normal Inspection, Pedal Edema Neurologic/Psychiatric: Other (lethargic, sedated) Skin: Normal Color, Warm/Dry Results/Procedures Lab Laboratory Tests 06/22/22 05:20 Patient resulted labs reviewed. Imaging: Reviewed Imaging Report Assessment/Plan Assessment and Plan Assess & Plan/Chief Complaint Acute respiratory failure with hypoxia Endotracheally intubated Pneumonia Fluid overload Anemia Severe protein calorie malnutrition Critical illness myopathy TeleICU following Remains on ventilator Eraxis Lasix Tube feeds Ethics consult Will need trach, PEG, and LTAC placement Septic shock, resolved Strep pneumoniae bacteremia, resolved ARDS, resolved ENOC, resolved Lactic acidosis, resolved Critical Care Critically Ill Patient Diagnosis/Problems Diagnosis/Problems (1) Septic shock Status: Resolved Resolution Date/Time: 06/22/22 @ 19:07 (2) Multifocal pneumonia Status: Acute (3) Bacteremia due to Streptococcus pneumoniae Status: Resolved Resolution Date/Time: 06/22/22 @ 19:07 (4) Endotracheally intubated Status: Acute (5) Acute respiratory failure Status: Acute Qualifiers: Respiratory failure complication: hypoxia and hypercapnia Qualified Codes: J96.01 - Acute respiratory failure with hypoxia; J96.02 - Acute respiratory failure with hypercapnia (6) ARDS (adult respiratory distress syndrome) Status: Resolved Resolution Date/Time: 06/22/22 @ 19:07 (7) ENOC (acute kidney injury) Status: Resolved Resolution Date/Time: 06/09/22 @ 15:48 (8) Lactic acidosis Status: Resolved Resolution Date/Time: 06/09/22 @ 15:48 (9) Anemia Status: Acute (10) Substance abuse Status: Acute (11) Severe protein-calorie malnutrition Status: Acute (12) Critical illness myopathy Status: Acute Clinical Quality Measures AMI/AHF: ASA po Prior to arrival: KENYA Groves MD Jun 22, 2022 18:57
[2022-06-22 22:32] VITALS: BP 107/66
[2022-06-23 01:52] VITALS: BP 103/59
[2022-06-23] MEDS: RT-ALBUTEROL SULF 2.5 MG/3 ML PRE-MIX VIAL INH SCH ×6 (01:52→22:31)
[2022-06-23] MEDS: NS IV 500 ML 500 ML IV SCH ×2 (02:44→18:11)
[2022-06-23] MEDS: fentaNYL DRIP PRE-MIX 250 ML IV SCH ×3 (03:13→23:13)
[2022-06-23] MEDS: D5 NS 1000 ML IV SOLUTION 1,000 ML IV SCH ×2 (03:25→19:27)
[2022-06-23 04:18] LABS: BASOPHILS % (AUTO) 1 % (0-10); EOSINOPHILS % (AUTO) 1 % (0-10); HEMATOCRIT 24 % (35-52); HEMOGLOBIN 7.1 g/dL (11.5-16.0); LYMPHOCYTES # (AUTO) 0.9 10^3/uL (1.0-4.0); LYMPHOCYTES % (AUTO) 23 % (12-44); MEAN CORPUSCULAR HEMOGLOBIN 25 pg (25-34); MEAN CORPUSCULAR HGB CONC 30 g/dL (32-36); MEAN CORPUSCULAR VOLUME 84 fL (80-99); MEAN PLATELET VOLUME 8.8 fL (9.0-12.2); MONOCYTES # (AUTO) 0.4 10^3/uL (0.0-1.0); MONOCYTES % (AUTO) 11 % (0-12); NEUTROPHILS # (AUTO) 2.6 10^3/uL (1.8-7.8); NEUTROPHILS % (AUTO) 64 % (42-75); PLATELET COUNT 306 10^3/uL (130-400)
[2022-06-23 04:25] LABS: ALBUMIN 2.8 GM/DL (3.2-4.5)
[2022-06-23 04:26] LABS: POTASSIUM 3.5 MMOL/L (3.6-5.0)
[2022-06-23 04:27] LABS: CALCIUM 8.3 MG/DL (8.5-10.1)
[2022-06-23 04:28] LABS: TOTAL PROTEIN 6.3 GM/DL (6.4-8.2)
[2022-06-23 04:30] LABS: BILIRUBIN,TOTAL 0.4 MG/DL (0.1-1.0)
[2022-06-23 04:31] LABS: PHOSPHORUS 3.7 MG/DL (2.3-4.7)
[2022-06-23 04:32] LABS: CREATININE SERUM 0.49 MG/DL (0.60-1.30)
[2022-06-23 04:34] LABS: MAGNESIUM 1.8 MG/DL (1.6-2.4)
[2022-06-23] MEDS: KCL 20 MEQ TAB (K-DUR) PO SCH (05:13)
[2022-06-23] MEDS: MAGNESIUM 1 GM/100 ML IVPB 100 ML IV SCH (05:13)
[2022-06-23] MEDS: inSUlin ASPART (NovoLOG) 1 UNIT/0.01 ML (CHARGE PER UNIT) SC SCH ×3 (05:14→18:13)
[2022-06-23] MEDS: POTASSIUM CL 10MEQ/50ML IVPB 50 ML IV SCH ×3 (05:20→06:22)
[2022-06-23] MEDS: APAP 325 MG/10.15 ML LIQ (TYLENOL) UDC PO PRN (05:34)
[2022-06-23 07:09] VITALS: BP 89/52
[2022-06-23] MEDS: aCETylcysteine 20% (MUCOMYST) 4 ML SOLN VIAL INH SCH ×2 (07:09→14:39)
[2022-06-23] MEDS: RT-IPRATROPIUM (ATROVENT) 0.5MG/2.5ML AMP IH SCH ×5 (07:09→22:31)
[2022-06-23] MEDS: PANTOPRAZOLE 40 MG (PROTONIX) VIAL IV SCH (08:04)
[2022-06-23] MEDS: HYDROCORTISONE 100 MG/2 ML (Solu-CORTEF) VIAL IV SCH (08:04)
[2022-06-23] MEDS: MICONAZOLE 2% POWDER (DESENEX AF) 90 GM TOP SCH ×2 (08:05→20:32)
[2022-06-23] MEDS: LACTULOSE SYRUP 10GM/15ML (ENULOSE) 30ML UDC PO SCH ×2 (08:05→20:32)
[2022-06-23] MEDS: ANIDULAFUNGIN INJECTION 100 MG in NS (IVPB) 100 ML IV SCH (09:11)
[2022-06-23] MEDS: DexMEDEtomidine 250 ML DRIP 250 ML IV SCH (09:12)
[2022-06-23 10:28] VITALS: BP 98/66
[2022-06-23] MEDS: ONDANSETRON 4 MG/2 ML (SDV) Z0FRAN IV PRN (10:58)
--- NOTE | 2022-06-23 12:09 | Tele-ICU Progress Note ---
Subjective Date Seen by a Provider: Jun 23, 2022 Time Seen by a Provider: 12:06 Subjective/Events-last exam (Tele-ICU Physician , Progress Note ) Service provided via interactive audio and video telecommunications E-CARE system to a patient admitted to ICU bed in [facility]. Patient is seen today due to persistent need of ICU care Available chart/ vitals / labs / Images reviewed Video assessment done using teleICU camera, rest of exam as per RN Discussed with RN Events overnight : AFEBRILE hemodynamically stable Respiratory - 80% + 8 I/O = neg 900 Drips: Pressors- REYNALDO OFF VENT SETTINGS and ABG reviewed CANDIDATE for SBTreviewed possible contraindications including Cardiovascular Stability /Sedation Score / FI02/PEEP / ABG / CXR/ secretions Sedation, discussed with RN, RASS -2 versed 10 , fent 150 precedex 1 , folow commands Consultants: Hospital course: (06/07) 32F Admitted with PNA. CT shows Mod size areas of consolidation involving bilateral upper and left lower lobe. There is complete consolidation of RLL. Also centrilobular emphysema. -On BIPAP 100% sats 86%-Plan to intubate. Intubated @ 1918 06/08 - AC 400 26 100% peep 5 , shock : levo 0.9 vaso , reynaldo 175 , Hb 6.5 - transfusion 06/08 1 UPRBC 06/10 - OFF nimbex 06/10-Fio2 60 % +10 06/11- Episodes of junctional robson or sinus robson with PAC. fibrinogen 213 06/12 - 50 % , s/p transfusion 06/08 1 u PRBC, PLT 73 06/13 - 65%, hb 6.7 - transfusion 1 pRBC 06/15- follows commands on SAT. 60% +7 . T38 06/16 - fentanyl gtt , decreasing dose , changing to precedex , starting fentanyl patch , fio2 40% , but secreating thicker - adding mucomist nebs 06/17- 55% +6 . transfusion 1 P rbc , - Iron low - starting IV iron 06/17 , follows commands can NOT TRY SBT TODAY with elevated RR 06/18- [id number]% peep 8, CT chest/abd/pelvis - no abscess, anasarca , plural effusions , ZOSYN started 06/19-80% + 8 , afebrile , LASIX with albumin x3 06/21 45% 06/22 80% , neg 2L , added Eraxis , KUB - no obstruction .- 95% =8 neg 2 L ,STOP mucomist nebs A/P Acute resp failure with PNA ( in additional to significant emphysema upper lovbes on CT - suspected due to inhalation of meth and possible other drugs ? ) - intubated 06/07 AC 400 22 95 % + 8 - secreting thick. LESS - STOP mucomist nebs , no wheezing if correct fio2 - WILL NEED TRACH, discussed with Dr Luna - as per her discussion with POA - will re-asses FEVER - infection vs not infectious ( less likely, low suspicious for thrombosis or dug fever - will do CT06/18/22 -NO abscess , cavitary lesion in lungs , empyema, intra- abd issues, + anasarca , plural effusions - mixon cx 06/18- pendin g -ZOSYN 06/18--> ID PNA - bilateral , most likely CAP ( neg covid , flu ) - sputum cx -Streptococcus pneumoniae and H flu 06/08 , sputum 06/14 - posible Staph Aur - PRESUMPTIVE MSSA, zosyn started 06/18 Bacteremia - sterp pneumo - repeat 06/08 blood cx - NEG so far WILL NEED CHANGE LINE IF FAMILY WILL WANT TO PROCEED WITH AGRESSIVE TX NOW Intolerance of TF 06/23 - n/V - TF stopped , follow - KUB 06/22 - no obstruction , minimal stool Anasarca , plural effusions on Ct 06/18 - LASIX Anemia s/p transfusion 1 u PRBC on 06/08 , 06/09 , 06/13, - no clear sigh of bleeding - suspect delutional? vs slow bleed - Iron low - starting IV iron 06/17 Encephalopaty - doing SAT -sedation awakening trials - follow command , on fentanyl patch 100 and minmal versed thrombocytopenia - DIC panel l neg on 06/09 , fibrinogen 213 on 06/11 - stable -RESOLVED Shock . septic - stress dose steroid 50 q 6 - decrease dose q8 06/12 - >25 q8 06/13- decrease dose to 25 q24 h - stopped 06/23 - pressors OFF Episodes of junctional robson or sinus robson with PAC. 06/11 - resolved history of methamphetamine use abuse - sedated, fentanyl gtt , decresing dose , changing to precedex , starting fentanyl patch - HIV neg Nutritions - NPO Lines : L scl 06/07 , a line 06/07 - removed 06/16 , (Central Line Necessity Reviewed) Figueroa: + OG: Nutrition: TF Analgesia: Anxiety/ delirium VTE Prophylaxis: lovenox 40 Stress Ulcer Prophylaxis: ppi Plans in collaboration with bedside consultants and IM MDs. Discussed with RN to reach out if any questions or concerns A total of 37 minutes of critical care time was devoted to this patient today, required to treat and/or prevent further deterioration of critical care condit ion ( as above ) . I am remotely monitoring this patient from another state. I am unable to do the bedside exam, and history/physical and pertinent information is taken from other notes in the computer and bedside staff. Sepsis Event Evaluation Height, Weight, BMI Height: 5'6" Weight: 120lbs. oz. 54.362404dq; 21.51 BMI Method:Stated Exam Exam Patient acknowledged, consented, and participated in this virtual visit which was conducted using real time audio/video Vital Signs Date Time Temp Pulse Resp B/P (MAP) Pulse Ox O2 Delivery O2 Flow Rate FiO2 06/23/22 11:38 Mechanical Ventilator 90.00 06/23/22 11:00 35.2 101 24 105/68 (80) 96 Mechanical Ventilator 95.00 06/23/22 10:28 96 24 95 95 06/23/22 10:01 Mechanical Ventilator 95.00 06/23/22 10:00 36.8 100 19 91/54 (66) 94 Mechanical Ventilator 100.00 06/23/22 09:12 99 92/53 06/23/22 09:12 96 92/53 06/23/22 09:00 36.7 96 22 92/53 (66) 93 Mechanical Ventilator 100.00 06/23/22 08:00 37.8 06/23/22 08:00 35.4 91 25 96/60 (72) 93 Mechanical Ventilator 80.00 06/23/22 07:34 93 Mechanical Ventilator 100 06/23/22 07:34 100 06/23/22 07:13 90 89/52 06/23/22 07:09 90 24 94 100 06/23/22 07:00 37.9 90 16 89/52 (64) 94 Mechanical Ventilator 80.00 06/23/22 07:00 90 06/23/22 06:04 37.9 06/23/22 06:00 37.9 93 24 91/54 (66) 95 Mechanical Ventilator 80.00 06/23/22 05:34 38.0 06/23/22 05:00 37.8 95 24 92/54 (67) 93 Mechanical Ventilator 80.00 06/23/22 04:05 37.8 93 24 90/52 (65) 91 Mechanical Ventilator 80.00 06/23/22 03:57 96 Mechanical Ventilator 90 06/23/22 03:57 90 06/23/22 03:24 37.9 105 24 106/66 (79) 93 Mechanical Ventilator 80.00 06/23/22 03:13 95 103/59 06/23/22 02:00 37.9 97 24 103/56 (72) 92 Mechanical Ventilator 80.00 06/23/22 01:52 95 24 92 100 06/23/22 01:00 95 06/23/22 01:00 38.1 95 24 105/65 (78) 92 Mechanical Ventilator 80.00 06/23/22 00:01 95 103/59 06/23/22 00:00 36.4 97 24 111/67 (82) 93 Mechanical Ventilator 80.00 06/22/22 23:44 82 24 107/66 06/22/22 23:28 90 06/22/22 23:27 96 Mechanical Ventilator 90 06/22/22 23:00 36.4 88 24 108/68 (81) 95 Mechanical Ventilator 80.00 06/22/22 22:32 82 24 94 100 06/22/22 22:00 36.4 86 24 101/63 (76) 93 Mechanical Ventilator 80.00 06/22/22 21:00 36.4 86 24 105/69 (81) 93 Mechanical Ventilator 80.00 06/22/22 20:26 92 109/72 06/22/22 20:01 89 106/68 06/22/22 20:00 36.4 86 24 106/68 (81) 93 Mechanical Ventilator 80.00 06/22/22 19:48 36.5 06/22/22 19:40 96 Mechanical Ventilator 90 06/22/22 19:40 90 06/22/22 19:00 86 06/22/22 19:00 36.4 86 24 105/64 (78) 94 Mechanical Ventilator 80.00 06/22/22 18:39 85 24 93 100 06/22/22 18:00 36.4 87 25 99/66 (77) 88 Mechanical Ventilator 80.00 06/22/22 17:00 36.1 87 25 108/68 (81) 91 Mechanical Ventilator 80.00 06/22/22 16:26 89 106/64 06/22/22 16:20 79 106/64 06/22/22 16:03 71 24 93 90 06/22/22 16:00 35.7 79 24 106/64 (78) 96 Mechanical Ventilator 80.00 06/22/22 16:00 36.0 06/22/22 16:00 96 Mechanical Ventilator 90 06/22/22 16:00 90 06/22/22 15:00 35.7 73 24 115/81 (92) 96 Mechanical Ventilator 80.00 06/22/22 14:00 35.9 79 24 114/79 (91) 95 Mechanical Ventilator 80.00 06/22/22 13:00 36.1 82 23 108/64 (79) 96 Mechanical Ventilator 80.00 06/22/22 13:00 84 06/22/22 12:15 86 06/22/22 12:15 87 24 115/67 06/22/22 12:13 83 115/67 I & O 06/23/22 07:00 Intake Total 3260 ml Output Total 4800 ml Balance -1540 ml Height & Weight Height: 5'6" Weight: 120lbs. oz. 54.337546jc; 21.51 BMI Method:Stated General Appearance: No Apparent Distress, Thin HEENT: PERRL/EOMI Neck: Full Range of Motion Respiratory: Lungs Clear, No Respiratory Distress, Other (intubated) Cardiovascular: Regular Rate, Rhythm, No Murmur Capillary Refill: Less Than 3 Seconds Gastrointestinal: normal bowel sounds, non tender, soft Extremity: Normal Inspection, Pedal Edema Neurologic/Psychiatric: Other (lethargic, sedated) Skin: Normal Color, Warm/Dry Lymphatic: No Adenopathy Results Lab Laboratory Tests 06/22/22 05:20 06/23/22 04:10 Assessment/Plan Assessment/Plan 1 EFREN VALENCIA MD Jun 23, 2022 12:09
[2022-06-23] MEDS: PHENYLEPHRINE DRIP 250 ML IV SCH (13:05)
[2022-06-23] MEDS: NOREPINEPHRINE 16 MG/250 ML DRIP IV SCH ×2 (13:05)
[2022-06-23] MEDS: MIDAZOLAM DRIP PRE-MIX 100 ML IV SCH (13:56)
[2022-06-23] MEDS ORDERED: FUROSEMIDE 40 MG/4 ML INJ (LASIX) IVP NR (14:00)
[2022-06-23 14:41] VITALS: BP 101/68
--- NOTE | 2022-06-23 15:56 | Progress Note - Hospitalist ---
Subjective HPI/CC On Admission Date Seen by Provider: Jun 23, 2022 Time Seen by Provider: 10:00 Pt is a 32yoCF with a PMH of methamphetamine abuse who presented to the ER due to weakness. History comes from both patient and her mom. Mom states she has a long history of meth use but has been trying to quit. She last used 7 days ago and then started to get very ill. Her mom wanted to take her in to be seen but the patient refused throoughout the week and finally decidied to come intoday due to her weakness. Reportedly her son has had to carry her from room to room because of how weak she is. On arrival to the emergency room her oxygen saturation was 40%. This was confirmed on an ABG with a PO2 of 39 and saturation of 64 on 15 L nonrebreather. We were able to get her oxygen up into the 90s with oxi mask. Imaging revealed extensive bilateral infiltrates. She was also found to have a profound lactic acidosis fo 13. When I saw her in the ICU she was mottled to her knees and elbows though her capillary refill was adequate. She apparently has vomited twice this morning too. Subjective/Events-last exam She is awake. Her sedation has been weaned. She is able to follow commands. She is able to squeeze fingers on both sides and lift her arms off the bed. She is also able to shake her head yes and no. She denied pain. She was able to confirm her name and nickname. She knows we are at a hospital. She is knows that it is May. She understands that had pneumonia and has been in the hospital for a c ouple weeks. I informed her that the only chance of her getting through this is to have a tracheostomy. I informed her that it wasn't guaranteed to help her and there might be complications. She agreed to proceed with tracheostomy. Her grandparents and mother showed up later in the day. We discussed her mental status and ability to express her wishes. They were in agreement to proceed with tracheostomy and PEG. We discussed the prognosis and possibility of meaningful recovery. We discussed that the tracheostomy would be temporary. The grandfather expressed that she would not want to live with it permanently. We discussed that there would be a need for therapy, including PT/OT/ST, in order to make the most of her recovery. The grandfather also said that they would only want her to go to [place] for LTAC. All questions and concerns were answered with nurse Ju. The family was all in agreement with the plan. Objective Exam Vital Signs Vital Signs Date Time Temp Pulse Resp B/P (MAP) Pulse Ox O2 Delivery O2 Flow Rate FiO2 06/23/22 15:00 96 19 101/64 (76) 96 Mechanical Ventilator 80.00 06/23/22 14:41 80 06/23/22 12:00 36.6 Capillary Refill : Less Than 3 Seconds General Appearance: No Apparent Distress, WD/WN Respiratory: Lungs Clear, No Respiratory Distress Cardiovascular: Regular Rate, Rhythm, No Murmur Gastrointestinal: Normal Bowel Sounds, Soft Extremity: Normal Inspection, Pedal Edema Neurologic/Psychiatric: Alert, Oriented x3 Skin: Normal Color, Warm/Dry Results/Procedures Lab Laboratory Tests 06/23/22 04:10 Patient resulted labs reviewed. Imaging: Reviewed Imaging Report Assessment/Plan Assessment and Plan Assess & Plan/Chief Complaint Acute respiratory failure with hypoxia Endotracheally intubated Pneumonia Fluid overload Anemia Severe protein calorie malnutrition Critical illness myopathy Goals of care discussion TeleICU following Remains on ventilator Eraxis Lasix Tube feeds Will need trach, PEG, and LTAC placement Septic shock, resolved Strep pneumoniae bacteremia, resolved ARDS, resolved ENOC, resolved Lactic acidosis, resolved Critical Care Critically Ill Patient Diagnosis/Problems Diagnosis/Problems (1) Septic shock Status: Resolved Resolution Date/Time: 06/22/22 @ 19:07 (2) Multifocal pneumonia Status: Acute (3) Bacteremia due to Streptococcus pneumoniae Status: Resolved Resolution Date/Time: 06/22/22 @ 19:07 (4) Endotracheally intubated Status: Acute (5) Acute respiratory failure Status: Acute Qualifiers: Respiratory failure complication: hypoxia and hypercapnia Qualified Codes: J96.01 - Acute respiratory failure with hypoxia; J96.02 - Acute respiratory failure with hypercapnia (6) ARDS (adult respiratory distress syndrome) Status: Resolved Resolution Date/Time: 06/22/22 @ 19:07 (7) ENOC (acute kidney injury) Status: Resolved Resolution Date/Time: 06/09/22 @ 15:48 (8) Lactic acidosis Status: Resolved Resolution Date/Time: 06/09/22 @ 15:48 (9) Anemia Status: Acute (10) Substance abuse Status: Acute (11) Severe protein-calorie malnutrition Status: Acute (12) Critical illness myopathy Status: Acute (13) Goals of care, counseling/discussion Status: Acute Clinical Quality Measures AMI/AHF: ASA po Prior to arrival: KENYA Groves MD Jun 23, 2022 15:56
[2022-06-23] MEDS: ENOXAPARIN 40 MG/0.4 ML (LOVENOX) SYR SC SCH (17:30)
[2022-06-23 22:31] VITALS: BP 91/60
[2022-06-24] VITALS (9 sets, daily range): BP systolic 79–107; BP diastolic 44–69
[2022-06-24] MEDS: inSUlin ASPART (NovoLOG) 1 UNIT/0.01 ML (CHARGE PER UNIT) SC SCH ×4 (00:15→18:13)
[2022-06-24] MEDS: PHENYLEPHRINE DRIP 250 ML IV SCH ×2 (00:15→16:46)
[2022-06-24] MEDS: RT-ALBUTEROL SULF 2.5 MG/3 ML PRE-MIX VIAL INH SCH ×5 (01:35→22:50)
[2022-06-24] MEDS: RT-IPRATROPIUM (ATROVENT) 0.5MG/2.5ML AMP IH SCH ×4 (01:35→22:50)
[2022-06-24 02:55] LABS: BASOPHILS % (AUTO) 0 % (0-10); EOSINOPHILS % (AUTO) 1 % (0-10); HEMATOCRIT 23 % (35-52); LYMPHOCYTES % (AUTO) 23 % (12-44); MEAN CORPUSCULAR HEMOGLOBIN 26 pg (25-34); MEAN CORPUSCULAR HGB CONC 30 g/dL (32-36); MEAN CORPUSCULAR VOLUME 85 fL (80-99); MEAN PLATELET VOLUME 8.9 fL (9.0-12.2); MONOCYTES # (AUTO) 0.5 10^3/uL (0.0-1.0); MONOCYTES % (AUTO) 11 % (0-12); NEUTROPHILS % (AUTO) 65 % (42-75); PLATELET COUNT 290 10^3/uL (130-400); WHITE BLOOD COUNT 4.6 10^3/uL (4.3-11.0)
[2022-06-24 03:10] LABS: HEMOGLOBIN 6.9 g/dL (11.5-16.0)
[2022-06-24 03:13] LABS: ALBUMIN 2.7 GM/DL (3.2-4.5); POTASSIUM 3.6 MMOL/L (3.6-5.0)
[2022-06-24 03:15] LABS: CALCIUM 8.4 MG/DL (8.5-10.1)
[2022-06-24 03:16] LABS: TOTAL PROTEIN 6.5 GM/DL (6.4-8.2)
[2022-06-24 03:17] LABS: BILIRUBIN,TOTAL 0.5 MG/DL (0.1-1.0)
[2022-06-24 03:19] LABS: CREATININE SERUM 0.47 MG/DL (0.60-1.30); PHOSPHORUS 3.6 MG/DL (2.3-4.7)
[2022-06-24 03:22] LABS: MAGNESIUM 1.8 MG/DL (1.6-2.4)
[2022-06-24] MEDS: POTASSIUM CL 10MEQ/50ML IVPB 50 ML IV SCH ×3 (04:09→05:01)
[2022-06-24] MEDS: KCL 20 MEQ TAB (K-DUR) PO SCH (05:01)
[2022-06-24] MEDS: MAGNESIUM 1 GM/100 ML IVPB 100 ML IV SCH (05:01)
[2022-06-24] MEDS: MIDAZOLAM DRIP PRE-MIX 100 ML IV SCH ×2 (05:06→18:57)
[2022-06-24] MEDS ORDERED: NS IV 500 ML 500 ML IV SCH ×2 (06:00)
[2022-06-24] MEDS: fentaNYL DRIP PRE-MIX 250 ML IV SCH ×4 (06:25→21:38)
[2022-06-24] MEDS: LORazepam INJ 2 MG/ML (ATIVAN) VIAL IVP PRN (07:21)
[2022-06-24] MEDS: LACTULOSE SYRUP 10GM/15ML (ENULOSE) 30ML UDC PO SCH ×2 (07:44→20:09)
[2022-06-24] MEDS: PANTOPRAZOLE 40 MG (PROTONIX) VIAL IV SCH (07:44)
[2022-06-24] MEDS: HYDROCORTISONE 100 MG/2 ML (Solu-CORTEF) VIAL IV SCH (07:44)
[2022-06-24] MEDS: MICONAZOLE 2% POWDER (DESENEX AF) 90 GM TOP SCH ×2 (07:44→21:23)
[2022-06-24] MEDS: APAP 325 MG/10.15 ML LIQ (TYLENOL) UDC PO PRN ×2 (07:45→20:09)
[2022-06-24] MEDS: DexMEDEtomidine 250 ML DRIP 250 ML IV SCH ×2 (07:46→23:35)
--- NOTE | 2022-06-24 09:24 | Diagnostic Imaging Report ---
INDICATION: Intubation, infiltrate. TECHNIQUE: Single view chest 8:51 AM. CORRELATION STUDY: 06/22/2022 FINDINGS: Endotracheal tube tip projects over the trachea, just below the clavicles approximately 4.4 cm above the dutch. Left subclavian central line tip over the SVC. Gastric tube tip extends below the left hemidiaphragm and edge of the film. Heart size and mediastinum are stable. What appears to be a rather severe bullous emphysematous lung disease. Superimposed areas of infiltrate at both lung bases do persist. Slightly improved. Probable right pleural effusion. Chain suture line right lung apex. IMPRESSION: 1. Stable support lines and tubes. 2. Rather pronounced bibasilar opacities likely residual infiltrate versus edema may be minimally improved along with small right pleural effusion. Dictated by: Dictated on workstation # [id number]
--- NOTE | 2022-06-24 09:47 | Anesthesia-Procedure Note ---
Procedures/Interventions Procedure Start/Stop/Diagnosis Date of Procedure: Jun 24, 2022 Start Time: 09:10 Stop Time: 09:25 Intubation Reason Intubation/Diagnosis: tube exchanged RSI: No 100% pre-Ox, [id number]: Yes Intubation Method: orotracheal Videoscope used: Yes Medications: Etomidate, Rocuronium Positive End Tide CO2: Yes Breath Sounds after Intubation: bilateral-equal ETT Securred @ (cm): 23 Intubated with ease: Yes LELA AVILA CRNA Jun 24, 2022 09:47
--- NOTE | 2022-06-24 09:57 | Diagnostic Imaging Report ---
INDICATION: Respiratory failure. COMPARISON: Earlier same day FINDINGS: Single frontal radiograph view the chest was obtained and demonstrates indwelling endotracheal tube with tip at the level of clavicular heads. Gastric tube extends inferiorly beyond the [id number]. Left subclavian central venous catheter is also seen with tip in the SVC. There is persistent dense consolidation within the right mid and lower lung field and patchy airspace opacities are also noted in the left midlung. Background diffuse coarse prominence interstitium is also present. Bilateral pleural effusions are noted. There is no pneumothorax. Cardiac silhouette is partially obscured, but appears stable. IMPRESSION: 1. Lines and tubes as above. 2. Bilateral pleural effusions, right greater than left. 3. Stable advanced diffuse mixed interstitial and alveolar opacities concerning for pneumonia and likely some component background pulmonary edema. Continued follow-up is advised. Dictated by: Dictated on workstation # [id number]
[2022-06-24] MEDS: ANIDULAFUNGIN INJECTION 100 MG in NS (IVPB) 100 ML IV SCH (10:14)
[2022-06-24] MEDS: NOREPINEPHRINE 16 MG/250 ML DRIP IV SCH ×2 (10:38)
[2022-06-24] MEDS: NS IV 500 ML 500 ML IV SCH (10:38)
[2022-06-24] MEDS ORDERED: FUROSEMIDE 40 MG/4 ML INJ (LASIX) IVP NR (11:00)
--- NOTE | 2022-06-24 11:09 | Tele-ICU Progress Note ---
Subjective Date Seen by a Provider: Jun 24, 2022 Time Seen by a Provider: 13:56 Subjective/Events-last exam (Tele-ICU Physician , consultation) Available chart/ vitals / labs / Images reviewed H&P is from ER notes Patient's information available about PMH, allergy reviewed in EMR. ROS as per chart and RN report Video assessment done using teleICU camera, rest of exam as per RN Discussed with RN. She is a 32-year-old female with past medical history of methamphetamine abuse admitted on June 07, 2022 with tachycardia plaint of severe weakness and found to have a severe hypoxia and she was initially placed on nonrebreather mask but she did not improve and she is intubated and put on mechanical venti lation. She is also found to have a lactic acidosis. Since then she has been on mechanical ventilation and unable to wean her off the ventilator. Her sputum grew Staphylococcus aureus haemophilus in October. Initial blood cultures grew Streptococcus pneumonia and she has been treated appropriately since then. Today she was having low tidal volumes hence a video visited and discussed with the RT and RN and advised to change the ET tube with a new tube as there seems to be a cuff leak. I have reviewed the chest x-ray. Post reintubation her chest x-ray showed ET tube tip in between the clavicle or head. Bilateral extensive infiltrates present. Previous CT of the chest reviewed and showed a bilateral small pleural effusion but they are not large enough to tap. RN tells me that patient has severe anasarca as well. Impression 1. Acute hypoxic respiratory failure due to pneumonia 2. Both gram-negative and gram-positive pneumonia 3. Pneumococcal sepsis 4. Methamphetamine abuse 5. Protein calorie malnutrition 6. Severe generalized weakness secondary to all the above problems Plan of treatment. 1. Patient currently on 90% FiO2 on mechanical ventilator and will continue to wean FiO2 as tolerated she is not a candidate for SBT yet. 2. Continue IV antibiotics 3. Generalized weakness most likely due to protein calorie malnutrition as well as a critical illness myopathy. 4. Suggested tracheostomy and PEG tube insertion 5. Acute and chronic anemia today required blood transfusion 6. DVT prophylaxis and ulcer prophylaxis Coordination of care with bedside consultants and primary care physician. Sepsis Event Evaluation Height, Weight, BMI Height: 5'6" Weight: 120lbs. oz. 54.909655ht; 21.51 BMI Method:Stated Exam Exam Patient acknowledged, consented, and participated in this virtual visit which was conducted using real time audio/video Vital Signs Date Time Temp Pulse Resp B/P (MAP) Pulse Ox O2 Delivery O2 Flow Rate FiO2 06/24/22 10:44 35.9 86 24 92/58 96 Mechanical Ventilator 90 06/24/22 10:25 86 92/58 06/24/22 10:12 92 24 90 100 06/24/22 10:00 92 24 107/66 (80) 90 Mechanical Ventilator 90.00 06/24/22 09:00 87 45 87/53 (64) 95 Mechanical Ventilator 90.00 06/24/22 08:49 37.0 82 24 79/47 94 Mechanical Ventilator 85.00 06/24/22 08:29 37.6 87 24 86/51 94 Mechanical Ventilator 90 06/24/22 08:15 37.6 06/24/22 08:00 92 24 93/54 (67) 92 Mechanical Ventilator 90.00 06/24/22 08:00 38.3 06/24/22 07:46 96 97/57 06/24/22 07:45 38.3 06/24/22 07:07 99 06/24/22 07:00 106 20 109/84 (92) 92 Mechanical Ventilator 90.00 06/24/22 06:40 95 24 95 90 06/24/22 06:25 88 92/55 06/24/22 06:00 88 24 92/55 (67) 95 Mechanical Ventilator 90.00 06/24/22 05:41 92 87/54 06/24/22 05:31 37.2 06/24/22 05:06 92 24 97/62 06/24/22 05:00 89 24 91/57 (68) 93 Mechanical Ventilator 90.00 06/24/22 04:21 91 24 90/51 (64) 92 Mechanical Ventilator 90.00 06/24/22 03:25 80 06/24/22 03:25 91 Mechanical Ventilator 90 06/24/22 03:13 92 97/62 06/24/22 03:00 98 24 100/63 (75) 95 Mechanical Ventilator 90.00 06/24/22 02:00 92 24 97/62 (72) 95 Mechanical Ventilator 90.00 06/24/22 01:35 93 24 92 90 06/24/22 01:00 87 24 89/58 (68) 94 Mechanical Ventilator 90.00 06/24/22 01:00 87 06/24/22 00:02 91 90.00 06/24/22 00:00 93 24 92/58 (70) 90 Mechanical Ventilator 80.00 06/23/22 23:43 80 06/23/22 23:41 91 Mechanical Ventilator 90 06/23/22 23:31 110 101/61 06/23/22 23:13 102 101/69 06/23/22 23:09 107 101/69 06/23/22 23:00 103 24 101/69 (78) 93 Mechanical Ventilator 80.00 06/23/22 22:31 93 24 92 80 06/23/22 22:18 37.8 06/23/22 22:00 97 24 94/62 (72) 94 Mechanical Ventilator 80.00 06/23/22 21:00 88 24 91/56 (66) 89 Mechanical Ventilator 80.00 06/23/22 20:05 37.2 06/23/22 20:00 87 24 90/55 (65) 92 Mechanical Ventilator 80.00 06/23/22 19:46 37.2 06/23/22 19:15 80 06/23/22 19:15 91 Mechanical Ventilator 90 06/23/22 19:00 98 06/23/22 19:00 98 24 91/60 (70) 93 Mechanical Ventilator 80.00 06/23/22 18:59 93 25 92 80 06/23/22 18:00 93 17 98/62 (74) 92 Mechanical Ventilator 80.00 06/23/22 17:00 92 23 100/64 (76) 91 Mechanical Ventilator 80.00 06/23/22 16:00 100 23 108/72 (84) 92 Mechanical Ventilator 80.00 06/23/22 16:00 91 Mechanical Ventilator 90 06/23/22 16:00 80 06/23/22 15:00 96 19 101/64 (76) 96 Mechanical Ventilator 80.00 06/23/22 14:41 87 24 95 80 06/23/22 14:00 97 23 107/73 (84) 96 Mechanical Ventilator 80.00 06/23/22 13:56 94 24 108/70 06/23/22 13:16 94 98/68 06/23/22 13:16 94 98/68 06/23/22 13:09 Mechanical Ventilator 80.00 06/23/22 13:00 86 24 100/61 (74) 98 Mechanical Ventilator 90.00 06/23/22 13:00 86 06/23/22 12:00 92 24 95/57 (70) 98 Mechanical Ventilator 90.00 06/23/22 12:00 90 06/23/22 12:00 36.6 06/23/22 12:00 96 Mechanical Ventilator 90 06/23/22 11:38 Mechanical Ventilator 90.00 I & O 06/24/22 07:00 Intake Total 2830 ml Output Total 4050 ml Balance -1220 ml Height & Weight Height: 5'6" Weight: 120lbs. oz. 54.823579gx; 21.51 BMI Method:Stated General Appearance: No Apparent Distress, WD/WN HEENT: PERRL/EOMI Neck: Full Range of Motion Respiratory: Lungs Clear, No Respiratory Distress Cardiovascular: Regular Rate, Rhythm, No Murmur Capillary Refill: Less Than 3 Seconds Gastrointestinal: normal bowel sounds, non tender, soft Extremity: Normal Inspection, Pedal Edema Neurologic/Psychiatric: Alert, Oriented x3 Skin: Normal Color, Warm/Dry Lymphatic: No Adenopathy Other comments PE PER RN Results Lab Laboratory Tests 06/23/22 04:10 06/24/22 02:50 Assessment/Plan Assessment/Plan ABOVE Critical Care: Ventilator Management Time spent with patient (mins): 36 MARSHA RESENDIZ MD Jun 24, 2022 11:09
[2022-06-24] MEDS: D5 NS 1000 ML IV SOLUTION 1,000 ML IV SCH (12:22)
--- NOTE | 2022-06-24 14:09 | Progress Note - Hospitalist ---
Subjective HPI/CC On Admission Date Seen by Provider: Jun 24, 2022 Time Seen by Provider: 10:20 Pt is a 32yoCF with a PMH of methamphetamine abuse who presented to the ER due to weakness. History comes from both patient and her mom. Mom states she has a long history of meth use but has been trying to quit. She last used 7 days ago a nd then started to get very ill. Her mom wanted to take her in to be seen but the patient refused throoughout the week and finally decidied to come intoday due to her weakness. Reportedly her son has had to carry her from room to room because of how weak she is. On arrival to the emergency room her oxygen saturation was 40%. This was confirmed on an ABG with a PO2 of 39 and saturation of 64 on 15 L nonrebreather. We were able to get her oxygen up into the 90s with oxi mask. Imaging revealed extensive bilateral infiltrates. She was also found to have a profound lactic acidosis fo 13. When I saw her in the ICU she was mottled to her knees and elbows though her capillary refill was adequate. She apparently has vomited twice this morning too. Subjective/Events-last exam She remains intubated and sedated. Her ET tube had to be replaced this morning. Objective Exam Vital Signs Vital Signs Date Time Temp Pulse Resp B/P (MAP) Pulse Ox O2 Delivery O2 Flow Rate FiO2 06/24/22 13:41 72 101/70 06/24/22 12:00 36.9 06/24/22 11:00 14 95 Mechanical Ventilator 90.00 06/24/22 10:44 90 Capillary Refill : Less Than 3 Seconds General Appearance: No Apparent Distress, Thin Respiratory: No Respiratory Distress, Crackles, Decreased Breath Sounds, Other (intubated and mechanically ventilated) Cardiovascular: Regular Rate, Rhythm, No Murmur Gastrointestinal: Soft, Abnormal Bowel Sounds (hypoactive) Extremity: Normal Inspection, Pedal Edema Neurologic/Psychiatric: Other (sedated) Skin: Normal Color, Warm/Dry Results/Procedures Lab Laboratory Tests 06/24/22 02:50 Patient resulted labs reviewed. Imaging: Reviewed Imaging Report Assessment/Plan Assessment and Plan Assess & Plan/Chief Complaint Acute respiratory failure with hypoxia Endotracheally intubated Pneumonia Fluid overload Anemia Severe protein calorie malnutrition Critical illness myopathy Goals of care discussion TeleICU following Remains on ventilator, weaning as able Eraxis Lasix Transfuse 1 unit PRBC today Tube feeds Will need trach, PEG, and LTAC placement Septic shock, resolved Strep pneumoniae bacteremia, resolved ARDS, resolved ENOC, resolved Lactic acidosis, resolved Critical Care Critically Ill Patient Diagnosis/Problems Diagnosis/Problems (1) Septic shock Status: Resolved Resolution Date/Time: 06/22/22 @ 19:07 (2) Multifocal pneumonia Status: Acute (3) Bacteremia due to Streptococcus pneumoniae Status: Resolved Resolution Date/Time: 06/22/22 @ 19:07 (4) Endotracheally intubated Status: Acute (5) Acute respiratory failure Status: Acute Qualifiers: Respiratory failure complication: hypoxia and hypercapnia Qualified Codes: J96.01 - Acute respiratory failure with hypoxia; J96.02 - Acute respiratory failure with hypercapnia (6) ARDS (adult respiratory distress syndrome) Status: Resolved Resolution Date/Time: 06/22/22 @ 19:07 (7) ENOC (acute kidney injury) Status: Resolved Resolution Date/Time: 06/09/22 @ 15:48 (8) Lactic acidosis Status: Resolved Resolution Date/Time: 06/09/22 @ 15:48 (9) Anemia Status: Acute (10) Substance abuse Status: Acute (11) Severe protein-calorie malnutrition Status: Acute (12) Critical illness myopathy Status: Acute (13) Goals of care, counseling/discussion Status: Acute Clinical Quality Measures AMI/AHF: ASA po Prior to arrival: KENYA Groves MD Jun 24, 2022 14:09
[2022-06-24] MEDS ORDERED: ETOMIDATE IV SOLN 20 MG/10 ML VIAL IV ONE (14:29)
[2022-06-24] MEDS ORDERED: ROCURONIUM 10 MG/ML 5 ML SYRINGE IV ONE (14:29)
[2022-06-24 14:56] LABS: HEMOGLOBIN 8.6 g/dL (11.5-16.0)
[2022-06-24] MEDS: METOCLOPRAMIDE INJ 10 MG/2 ML (REGLAN) IVP PRN (16:08)
[2022-06-24] MEDS: FUROSEMIDE 40 MG/4 ML INJ (LASIX) IVP SCH (18:11)
[2022-06-24] MEDS: ENOXAPARIN 40 MG/0.4 ML (LOVENOX) SYR SC SCH (18:11)
[2022-06-24] MEDS: ALBUMIN 25% 25 GM/100 ML 100 ML IV SCH (21:23)
[2022-06-24] MEDS ORDERED: NS IV 1000 ML 2,000 ML ONE (22:35)
[2022-06-24] MEDS: NS IV 1000 ML 1,000 ML IV SCH ×2 (22:45→23:50)
[2022-06-25] MEDS: inSUlin ASPART (NovoLOG) 1 UNIT/0.01 ML (CHARGE PER UNIT) SC SCH ×4 (01:03→18:01)
[2022-06-25] MEDS: RT-IPRATROPIUM (ATROVENT) 0.5MG/2.5ML AMP IH SCH ×7 (01:34→22:23)
[2022-06-25] MEDS: RT-ALBUTEROL SULF 2.5 MG/3 ML PRE-MIX VIAL INH SCH ×7 (01:34→22:23)
[2022-06-25 02:23] VITALS: BP 94/53
[2022-06-25] MEDS: NS IV 500 ML 500 ML IV SCH ×2 (03:19→20:04)
[2022-06-25] MEDS: PHENYLEPHRINE DRIP 250 ML IV SCH ×2 (03:20→16:09)
[2022-06-25] MEDS: D5 NS 1000 ML IV SOLUTION 1,000 ML IV SCH (03:53)
[2022-06-25] MEDS: fentaNYL DRIP PRE-MIX 250 ML IV SCH ×4 (03:53→22:14)
[2022-06-25] MEDS: LORazepam INJ 2 MG/ML (ATIVAN) VIAL IVP PRN ×2 (04:01→23:15)
[2022-06-25 04:51] LABS: BASOPHILS % (AUTO) 0 % (0-10); EOSINOPHILS # (AUTO) 0.1 10^3/uL (0.0-0.3); EOSINOPHILS % (AUTO) 1 % (0-10); HEMATOCRIT 26 % (35-52); LYMPHOCYTES % (AUTO) 22 % (12-44); MEAN CORPUSCULAR HEMOGLOBIN 26 pg (25-34); MEAN CORPUSCULAR HGB CONC 30 g/dL (32-36); MEAN CORPUSCULAR VOLUME 85 fL (80-99); MEAN PLATELET VOLUME 8.8 fL (9.0-12.2); MONOCYTES # (AUTO) 0.5 10^3/uL (0.0-1.0); MONOCYTES % (AUTO) 10 % (0-12); NEUTROPHILS % (AUTO) 67 % (42-75); PLATELET COUNT 258 10^3/uL (130-400); WHITE BLOOD COUNT 4.6 10^3/uL (4.3-11.0)
[2022-06-25 05:06] LABS: ALBUMIN 2.9 GM/DL (3.2-4.5); POTASSIUM 2.8 MMOL/L (3.6-5.0)
[2022-06-25 05:07] LABS: CALCIUM 8.3 MG/DL (8.5-10.1)
[2022-06-25 05:09] LABS: TOTAL PROTEIN 6.6 GM/DL (6.4-8.2)
[2022-06-25 05:10] LABS: BILIRUBIN,TOTAL 0.6 MG/DL (0.1-1.0)
[2022-06-25 05:12] LABS: CREATININE SERUM 0.48 MG/DL (0.60-1.30); PHOSPHORUS 3.8 MG/DL (2.3-4.7)
[2022-06-25 05:15] LABS: MAGNESIUM 1.6 MG/DL (1.6-2.4)
[2022-06-25] MEDS: ALBUMIN 25% 25 GM/100 ML 100 ML IV SCH ×3 (05:32→20:43)
[2022-06-25] MEDS ORDERED: POTASSIUM CL 10MEQ/50ML IVPB 250 ML IV ONE (05:42)
[2022-06-25] MEDS: POTASSIUM CL 10MEQ/50ML IVPB 50 ML IV SCH ×5 (05:44→08:57)
[2022-06-25] MEDS ORDERED: POTASSIUM CL 10MEQ/50ML IVPB 50 ML IV ONE (05:45)
[2022-06-25] MEDS: MAGNESIUM 1 GM/100 ML IVPB 100 ML IV SCH (06:06)
[2022-06-25] MEDS: KCL 20 MEQ TAB (K-DUR) PO SCH (06:06)
[2022-06-25 07:02] VITALS: BP 92/53
[2022-06-25] MEDS: MIDAZOLAM DRIP PRE-MIX 100 ML IV SCH ×2 (08:21→21:24)
[2022-06-25] MEDS: LACTULOSE SYRUP 10GM/15ML (ENULOSE) 30ML UDC PO SCH ×2 (08:27→20:42)
[2022-06-25] MEDS: PANTOPRAZOLE 40 MG (PROTONIX) VIAL IV SCH (08:28)
[2022-06-25] MEDS: ANIDULAFUNGIN INJECTION 100 MG in NS (IVPB) 100 ML IV SCH (08:28)
[2022-06-25] MEDS: APAP 325 MG/10.15 ML LIQ (TYLENOL) UDC PO PRN (08:28)
[2022-06-25] MEDS: HYDROCORTISONE 100 MG/2 ML (Solu-CORTEF) VIAL IV SCH (08:29)
[2022-06-25] MEDS: MICONAZOLE 2% POWDER (DESENEX AF) 90 GM TOP SCH ×2 (08:29→20:42)
[2022-06-25] MEDS ORDERED: FUROSEMIDE 40 MG/4 ML INJ (LASIX) IVP ONE (10:00)
[2022-06-25] MEDS: NOREPINEPHRINE 16 MG/250 ML DRIP IV SCH ×2 (10:15)
[2022-06-25] MEDS: FUROSEMIDE 40 MG/4 ML INJ (LASIX) IVP SCH ×2 (10:17→17:59)
--- NOTE | 2022-06-25 10:17 | Tele-ICU Progress Note ---
Subjective Date Seen by a Provider: Jun 25, 2022 Time Seen by a Provider: 10:14 Subjective/Events-last exam (Tele-ICU Physician , Progress Note ) Service provided via interactive audio and video telecommunications E-CARE system to a patient admitted to ICU bed in [facility]. Patient is seen today due to persistent need of ICU care Available chart/ vitals / labs / Images reviewed Video assessment done using teleICU camera, rest of exam as per RN Discussed with RN Events overnight : AFEBRILE hemodynamically stable Respiratory - 80% + 8 I/O = neg 900 Drips: Pressors- REYNALDO OFF VENT SETTINGS and ABG reviewed CANDIDATE for SBTreviewed possible contraindications including C ardiovascular Stability /Sedation Score / FI02/PEEP / ABG / CXR/ secretions Sedation, discussed with RN, RASS -2 versed 7 , fent 200 precedex 1 , folow commands Consultants: Hospital course: (06/07) 32F Admitted with PNA. CT shows Mod size areas of consolidation involving bilateral upper and left lower lobe. There is complete consolidation of RLL. Also centrilobular emphysema. -On BIPAP 100% sats 86%-Plan to intubate. Intubated @ 1918 06/08 - AC 400 26 100% peep 5 , shock : levo 0.9 vaso , reynaldo 175 , Hb 6.5 - transfusion 06/08 1 UPRBC 06/10 - OFF nimbex 06/10-Fio2 60 % +10 06/11- Episodes of junctional robson or sinus robson with PAC. fibrinogen 213 06/12 - 50 % , s/p transfusion 06/08 1 u PRBC, PLT 73 06/13 - 65%, hb 6.7 - transfusion 1 pRBC 06/15- follows commands on SAT. 60% +7 . T38 06/16 - fentanyl gtt , decreasing dose , changing to precedex , starting fentanyl patch , fio2 40% , but secreating thicker - adding mucomist nebs 06/17- 55% +6 . transfusion 1 P rbc , - Iron low - starting IV iron 06/17 , follows commands can NOT TRY SBT TODAY with elevated RR 06/18- [id number]% peep 8, CT chest/abd/pelvis - no abscess, anasarca , plural effusions , ZOSYN started 06/19-80% + 8 , afebrile , LASIX with albumin x3 06/21 45% 06/22 80% , neg 2L , added Eraxis , KUB - no obstruction .- 95% =8 neg 2 L ,STOP mucomist nebs 06/24- ETT replaced , possible aspiration with vomiting . transfusion 1 u PRBC 06/25- 80% +8 , hypotensive - lasix held A/P Acute resp failure with PNA ( in additional to significant emphysema upper lovbes on CT - suspected due to inhalation of meth and possible other drugs ? ) - intubated 06/07 AC 400 22 95 % + 8 - secreting thick. LESS - STOP mucomist nebs , no wheezing if correct fio2 - WILL NEED TRACH, discussed with Dr Luna - as per her discussion with POA - will re-asses FEVER- PERSISTENT - infection vs not infectious ( less likely, low suspicious for thrombosis or dug fever - will do CT06/18/22 -NO abscess , cavitary lesion in lungs , empyema, intra- abd issues, + anasarca , plural effusions -ZOSYN 06/18-->06/24 06/22 added Eraxis WILL NEED CHANGE LINE ID PNA - bilateral , most likely CAP ( neg covid , flu ) - sputum cx -Streptococcus pneumoniae and H flu 06/08 , sputum 06/14 - posible Staph Aur - PRESUMPTIVE MSSA, zosyn started 06/18 Bacteremia - sterp pneumo - repeat 06/08 blood cx - NEG so far Intolerance of TF 06/23 - n/V - TF stopped , follow - KUB 06/22 - no obstruction , minimal stool - TF 10 cc/h , reglan prn Anasarca , plural effusions on Ct 06/18 - LASIX on hold today with low BP Anemia s/p transfusion 1 u PRBC on 06/08 , 06/09 , 06/13, - no clear sigh of bleeding - suspect delutional? vs slow bleed - Iron low - starting IV iron 06/17 Encephalopaty - doing SAT -sedation awakening trials - follow command , on fentanyl patch 100 and minmal versed thrombocytopenia - DIC panel l neg on 06/09 , fibrinogen 213 on 06/11 - stable -RESOLVED Shock . septic - stress dose steroid 50 q 6 - decrease dose q8 06/12 - >25 q8 06/13- decrease dose to 25 q24 h - pressors OFF Episodes of junctional robson or sinus robson with PAC. 06/11 - resolved history of methamphetamine use abuse - sedated, fentanyl gtt , decresing dose , changing to precedex , starting fentanyl patch - HIV neg Lines : L scl 06/07 , a line 06/07 - removed 06/16 , (Central Line Necessity Reviewed) Figueroa: + OG: Nutrition: TF Analgesia: Anxiety/ delirium VTE Prophylaxis: lovenox 40 Stress Ulcer Prophylaxis: ppi Plans in collaboration with bedside consultants and IM MDs. Discussed with RN to reach out if any questions or concerns A total of 35 minutes of critical care time was devoted to this patient today, required to treat and/or prevent further deterioration of critical care condit ion ( as above ) . I am remotely monitoring this patient from another state. I am unable to do the bedside exam, and history/physical and pertinent information is taken from other notes in the computer and bedside staff. Sepsis Event Evaluation Height, Weight, BMI Height: 5'6" Weight: 120lbs. oz. 54.723393yx; 21.51 BMI Method:Stated Exam Exam Patient acknowledged, consented, and participated in this virtual visit which was conducted using real time audio/video Vital Signs Date Time Temp Pulse Resp B/P (MAP) Pulse Ox O2 Delivery O2 Flow Rate FiO2 06/25/22 09:12 89 Mechanical Ventilator 80.00 06/25/22 09:07 90 24 91/49 06/25/22 08:28 37.8 06/25/22 08:21 96 24 101/59 06/25/22 08:00 98 11 101/59 (73) 95 Mechanical Ventilator 70.00 06/25/22 07:59 37.8 06/25/22 07:55 96 101/59 06/25/22 07:53 97 Mechanical Ventilator 70 06/25/22 07:52 70 06/25/22 07:02 86 24 95 70 06/25/22 07:01 87 06/25/22 07:00 86 24 95/56 (69) 94 Mechanical Ventilator 70.00 06/25/22 06:00 89 23 105/63 (77) 96 Mechanical Ventilator 70.00 06/25/22 05:00 89 24 104/63 (77) 96 Mechanical Ventilator 70.00 06/25/22 04:00 70 06/25/22 04:00 93 Mechanical Ventilator 70 06/25/22 04:00 87 23 120/78 (92) 98 Mechanical Ventilator 70.00 06/25/22 03:53 87 94/53 06/25/22 03:00 89 24 113/74 (87) 96 Mechanical Ventilator 70.00 06/25/22 02:23 87 27 95 70 06/25/22 02:00 92 29 106/64 (78) 96 Mechanical Ventilator 70.00 06/25/22 01:00 100 06/25/22 01:00 92 28 111/76 (88) 98 Mechanical Ventilator 70.00 06/25/22 00:00 37.3 06/25/22 00:00 70 06/25/22 00:00 87 24 114/72 (86) 100 Mechanical Ventilator 70.00 06/24/22 23:59 93 Mechanical Ventilator 70 06/24/22 23:35 101 116/82 06/24/22 23:00 84 23 105/70 (82) 99 Mechanical Ventilator 70.00 06/24/22 22:50 82 24 94 80 06/24/22 22:00 92 23 74/37 (49) 93 Mechanical Ventilator 70.00 06/24/22 21:38 101 116/82 06/24/22 21:00 101 21 87/57 (67) 96 Mechanical Ventilator 70.00 06/24/22 20:01 38.5 06/24/22 20:00 93 Mechanical Ventilator 70 06/24/22 20:00 101 23 91/60 (70) 94 Mechanical Ventilator 70.00 06/24/22 20:00 70 06/24/22 19:55 102 24 93 80 06/24/22 19:00 103 06/24/22 19:00 103 27 101/67 (78) 92 Mechanical Ventilator 70.00 06/24/22 18:57 101 25 116/82 06/24/22 18:56 88 Mechanical Ventilator 70.00 06/24/22 18:00 95 135/90 (105) 98 Mechanical Ventilator 60.00 06/24/22 17:41 95 135/90 06/24/22 17:22 96 Mechanical Ventilator 60.00 06/24/22 17:00 79 24 111/75 (87) 95 Mechanical Ventilator 65.00 06/24/22 16:07 95 Mechanical Ventilator 65.00 06/24/22 16:00 85 24 97/62 (74) 95 Mechanical Ventilator 70.00 06/24/22 15:30 93 Mechanical Ventilator 80 06/24/22 15:30 98 Mechanical Ventilator 70.00 06/24/22 15:30 65 06/24/22 15:00 88 24 96/71 (79) 98 Mechanical Ventilator 80.00 06/24/22 14:24 Mechanical Ventilator 80.00 06/24/22 14:20 68 24 95 80 06/24/22 14:00 70 24 90/60 (70) 95 Mechanical Ventilator 90.00 06/24/22 13:41 72 101/70 06/24/22 13:12 76 06/24/22 13:00 83 11 101/68 (79) 99 Mechanical Ventilator 90.00 06/24/22 12:00 36.9 06/24/22 12:00 75 23 90/55 (67) 95 Mechanical Ventilator 90.00 06/24/22 11:46 85 97/62 06/24/22 11:30 93 Mechanical Ventilator 80 06/24/22 11:30 90 06/24/22 11:30 80 06/24/22 11:00 94 14 93/59 (70) 95 Mechanical Ventilator 90.00 06/24/22 10:44 35.9 86 24 92/58 96 Mechanical Ventilator 90 06/24/22 10:25 86 92/58 I & O 06/25/22 06:59 Intake Total 4065 ml Output Total 6625 ml Balance -2560 ml Height & Weight Height: 5'6" Weight: 120lbs. oz. 54.030159vm; 21.51 BMI Method:Stated General Appearance: No Apparent Distress, WD/WN HEENT: PERRL/EOMI Neck: Full Range of Motion Respiratory: Lungs Clear, No Respiratory Distress Cardiovascular: Regular Rate, Rhythm, No Murmur Capillary Refill: Less Than 3 Seconds Gastrointestinal: normal bowel sounds, non tender, soft Extremity: Normal Inspection, Pedal Edema Neurologic/Psychiatric: Alert, Oriented x3 Skin: Normal Color, Warm/Dry Lymphatic: No Adenopathy Results Lab Laboratory Tests 06/24/22 02:50 06/24/22 14:30 06/25/22 04:40 Assessment/Plan Assessment/Plan 1 EFREN VALENCIA MD Jun 25, 2022 10:17
[2022-06-25] MEDS: METOCLOPRAMIDE INJ 10 MG/2 ML (REGLAN) IVP PRN (10:34)
[2022-06-25] MEDS: MILK OF MAGNESIA 400 MG/5 ML 30 ML UDC PO PRN (10:34)
[2022-06-25 10:54] VITALS: BP 107/71
[2022-06-25] MEDS: fentaNYL PATCH 75 MCG (DURAGESIC) TD SCH (12:26)
[2022-06-25] MEDS: FENTANYL PATCH REMOVAL TP SCH (12:26)
--- NOTE | 2022-06-25 15:14 | Progress Note-Pre Operative ---
Pre-Operative Progress Note Date of Available H&P: Jun 25, 2022 Date H&P Reviewed: Jun 25, 2022 Time H&P Reviewed: 15:15 History & Physical: No changes noted Pre-Operative Diagnosis: persistent respiratory failure/ARDS HUBER STARK MD Jun 25, 2022 15:14
[2022-06-25 15:19] VITALS: BP 107/73
[2022-06-25] MEDS: DexMEDEtomidine 250 ML DRIP 250 ML IV SCH (16:08)
--- NOTE | 2022-06-25 16:17 | Progress Note - Hospitalist ---
Subjective HPI/CC On Admission Date Seen by Provider: Jun 25, 2022 Time Seen by Provider: 09:45 Pt is a 32yoCF with a PMH of methamphetamine abuse who presented to the ER due to weakness. History comes from both patient and her mom. Mom states she has a long history of meth use but has been trying to quit. She last used 7 days ago a nd then started to get very ill. Her mom wanted to take her in to be seen but the patient refused throoughout the week and finally decidied to come intoday due to her weakness. Reportedly her son has had to carry her from room to room because of how weak she is. On arrival to the emergency room her oxygen saturation was 40%. This was confirmed on an ABG with a PO2 of 39 and saturation of 64 on 15 L nonrebreather. We were able to get her oxygen up into the 90s with oxi mask. Imaging revealed extensive bilateral infiltrates. She was also found to have a profound lactic acidosis fo 13. When I saw her in the ICU she was mottled to her knees and elbows though her capillary refill was adequate. She apparently has vomited twice this morning too. Subjective/Events-last exam She remains intubated and sedated. Objective Exam Vital Signs Vital Signs Date Time Temp Pulse Resp B/P (MAP) Pulse Ox O2 Delivery O2 Flow Rate FiO2 06/25/22 16:09 73 120/78 06/25/22 16:00 36.0 22 96 Mechanical Ventilator 60.00 06/25/22 15:41 50 Capillary Refill : Less Than 3 Seconds General Appearance: No Apparent Distress, WD/WN Respiratory: No Respiratory Distress, Crackles, Other (intubated and sedated) Cardiovascular: Regular Rate, Rhythm, No Murmur Gastrointestinal: Normal Bowel Sounds, Soft Extremity: Normal Inspection, No Pedal Edema Neurologic/Psychiatric: Other (sedated) Skin: Normal Color, Warm/Dry Results/Procedures Lab Laboratory Tests 06/25/22 04:40 Patient resulted labs reviewed. Imaging: Reviewed Imaging Report Assessment/Plan Assessment and Plan Assess & Plan/Chief Complaint Acute respiratory failure with hypoxia Endotracheally intubated Pneumonia Fluid overload Anemia Severe protein calorie malnutrition Critical illness myopathy Goals of care discussion TeleICU following Remains on ventilator, weaning as able Eraxis Lasix, decreased dose Tube feeds, increasing rate Will need trach, PEG, and LTAC placement Surgery, Dr. Cabrera, following Septic shock, resolved Strep pneumoniae bacteremia, resolved ARDS, resolved ENOC, resolved Lactic acidosis, resolved Critical Care Critically Ill Patient Diagnosis/Problems Diagnosis/Problems (1) Septic shock Status: Resolved Resolution Date/Time: 06/22/22 @ 19:07 (2) Multifocal pneumonia Status: Acute (3) Bacteremia due to Streptococcus pneumoniae Status: Resolved Resolution Date/Time: 06/22/22 @ 19:07 (4) Endotracheally intubated Status: Acute (5) Acute respiratory failure Status: Acute Qualifiers: Respiratory failure complication: hypoxia and hypercapnia Qualified Codes: J96.01 - Acute respiratory failure with hypoxia; J96.02 - Acute respiratory failure with hypercapnia (6) ARDS (adult respiratory distress syndrome) Status: Resolved Resolution Date/Time: 06/22/22 @ 19:07 (7) ENOC (acute kidney injury) Status: Resolved Resolution Date/Time: 06/09/22 @ 15:48 (8) Lactic acidosis Status: Resolved Resolution Date/Time: 06/09/22 @ 15:48 (9) Anemia Status: Acute (10) Substance abuse Status: Acute (11) Severe protein-calorie malnutrition Status: Acute (12) Critical illness myopathy Status: Acute (13) Goals of care, counseling/discussion Status: Acute Clinical Quality Measures AMI/AHF: ASA po Prior to arrival: KENYA Groves MD Jun 25, 2022 16:17
--- NOTE | 2022-06-25 17:30 | Progress Note ---
Subjective Date Seen by a Provider: Jun 25, 2022 Time Seen by a Provider: 14:00 Subjective/Events-last exam continues to be vent dependent. ARDS/resp failure. family and patient ok with trach and PEG. Objective Exam Vital Signs Date Time Temp Pulse Resp B/P (MAP) Pulse Ox O2 Delivery O2 Flow Rate FiO2 06/25/22 17:00 78 24 93 Mechanical Ventilator 60.00 06/25/22 16:09 73 120/78 06/25/22 16:08 73 120/78 06/25/22 16:00 36.0 22 107/78 (88) 96 Mechanical Ventilator 60.00 06/25/22 15:42 69 111/70 06/25/22 15:41 98 Mechanical Ventilator 50 06/25/22 15:40 50 06/25/22 15:19 74 24 99 60 06/25/22 15:00 71 22 107/78 (88) 96 Mechanical Ventilator 60.00 06/25/22 15:00 78 111/70 06/25/22 14:33 95 Mechanical Ventilator 60.00 06/25/22 14:00 75 25 111/77 (88) 94 Mechanical Ventilator 80.00 06/25/22 13:41 75 06/25/22 13:00 77 52 99/66 (77) 93 Mechanical Ventilator 80.00 06/25/22 12:11 93 Mechanical Ventilator 70 06/25/22 12:00 70 06/25/22 12:00 89 48 92/58 (69) 95 Mechanical Ventilator 80.00 06/25/22 12:00 36.0 06/25/22 11:00 87 21 96/58 (71) 95 Mechanical Ventilator 80.00 06/25/22 10:54 89 25 98 70 06/25/22 10:37 Mechanical Ventilator 70.00 06/25/22 10:19 103 24 113/61 06/25/22 10:18 104 113/51 06/25/22 10:00 96 113/61 (78) 87 Mechanical Ventilator 80.00 06/25/22 09:12 89 Mechanical Ventilator 80.00 06/25/22 09:07 90 24 91/49 06/25/22 09:00 96 24 88/46 (60) 92 Mechanical Ventilator 70.00 06/25/22 09:00 37.1 06/25/22 08:28 37.8 06/25/22 08:21 96 24 101/59 06/25/22 08:00 98 11 101/59 (73) 95 Mechanical Ventilator 70.00 06/25/22 07:59 37.8 06/25/22 07:55 96 101/59 06/25/22 07:53 97 Mechanical Ventilator 70 06/25/22 07:52 70 06/25/22 07:02 86 24 95 70 06/25/22 07:01 87 06/25/22 07:00 86 24 95/56 (69) 94 Mechanical Ventilator 70.00 06/25/22 06:00 89 23 105/63 (77) 96 Mechanical Ventilator 70.00 06/25/22 05:00 89 24 104/63 (77) 96 Mechanical Ventilator 70.00 06/25/22 04:00 70 06/25/22 04:00 93 Mechanical Ventilator 70 06/25/22 04:00 87 23 120/78 (92) 98 Mechanical Ventilator 70.00 06/25/22 03:53 87 94/53 06/25/22 03:00 89 24 113/74 (87) 96 Mechanical Ventilator 70.00 06/25/22 02:23 87 27 95 70 06/25/22 02:00 92 29 106/64 (78) 96 Mechanical Ventilator 70.00 06/25/22 01:00 100 06/25/22 01:00 92 28 111/76 (88) 98 Mechanical Ventilator 70.00 06/25/22 00:00 37.3 06/25/22 00:00 70 06/25/22 00:00 87 24 114/72 (86) 100 Mechanical Ventilator 70.00 06/24/22 23:59 93 Mechanical Ventilator 70 06/24/22 23:35 101 116/82 06/24/22 23:00 84 23 105/70 (82) 99 Mechanical Ventilator 70.00 06/24/22 22:50 82 24 94 80 06/24/22 22:00 92 23 74/37 (49) 93 Mechanical Ventilator 70.00 06/24/22 21:38 101 116/82 06/24/22 21:00 101 21 87/57 (67) 96 Mechanical Ventilator 70.00 06/24/22 20:01 38.5 06/24/22 20:00 93 Mechanical Ventilator 70 06/24/22 20:00 101 23 91/60 (70) 94 Mechanical Ventilator 70.00 06/24/22 20:00 70 06/24/22 19:55 102 24 93 80 06/24/22 19:00 103 06/24/22 19:00 103 27 101/67 (78) 92 Mechanical Ventilator 70.00 06/24/22 18:57 101 25 116/82 06/24/22 18:56 88 Mechanical Ventilator 70.00 06/24/22 18:00 95 135/90 (105) 98 Mechanical Ventilator 60.00 06/24/22 17:41 95 135/90 I & O 06/25/22 07:00 Intake Total 4065 ml Output Total 6625 ml Balance -2560 ml Capillary Refill : Less Than 3 Seconds General Appearance: No Apparent Distress HEENT: PERRL/EOMI Neck: Full Range of Motion Respiratory: Decreased Breath Sounds, Rhonci, Wheezing Cardiovascular: Regular Rate, Rhythm Gastrointestinal: normal bowel sounds, non tender, soft Extremity: Normal Capillary Refill Neurologic/Psychiatric: Alert Skin: Normal Color Lymphatic: No Adenopathy Results Lab Laboratory Tests 06/25/22 01:12: Glucometer 71 06/25/22 04:40: White Blood Count 4.6, Red Blood Count 3.09L, Hemoglobin 8.0L, Hematocrit 26L, Mean Corpuscular Volume 85, Mean Corpuscular Hemoglobin 26, Mean Corpuscular Hemoglobin Concent 30L, Red Cell Distribution Width 25.4H, Platelet Count 258, Mean Platelet Volume 8.8L, Immature Granulocyte % (Auto) 0, Neutrophils (%) (Auto) 67, Lymphocytes (%) (Auto) 22, Monocytes (%) (Auto) 10, Eosinophils (%) (Auto) 1, Basophils (%) (Auto) 0, Neutrophils # (Auto) 3.0, Lymphocytes # (Auto) 1.0, Monocytes # (Auto) 0.5, Eosinophils # (Auto) 0.1, Basophils # (Auto) 0.0, Immature Granulocyte # (Auto) 0.0, Sodium Level 137, Potassium Level 2.8L, Chloride Level 103, Carbon Dioxide Level 24, Anion Gap 10, Blood Urea Nitrogen 6L, Creatinine 0.48L, Estimat Glomerular Filtration Rate 130, BUN/Creatinine Ra alena 13, Glucose Level 97, Calcium Level 8.3L, Corrected Calcium 9.2, Phosphorus Level 3.8, Magnesium Level 1.6, Total Bilirubin 0.6, Aspartate Amino Transf (AST/SGOT) 15, Alanine Aminotransferase (ALT/SGPT) 17, Alkaline Phosphatase 96, Total Protein 6.6, Albumin 2.9L 06/25/22 11:38: Glucometer 113H Microbiology 06/18/22 Gram Stain - Final, Complete 06/18/22 Sputum Culture - Final, Complete Staphylococcus aureus 06/18/22 Blood Culture - Final, Complete No growth 06/08/22 Urine Culture - Final, Complete NO GROWTH Assessment/Plan Assessment/Plan Assess & Plan/Chief Complaint Pneumonia/ARDS with prolonged resp failure. PEG and trach scheduled now for tomorrow around 12:30pm. Clinical Quality Measures AMI/AHF: ASA po Prior to arrival: HUBER Radford MD Jun 25, 2022 17:30
[2022-06-25] MEDS: ENOXAPARIN 40 MG/0.4 ML (LOVENOX) SYR SC SCH (17:58)
[2022-06-25 19:11] VITALS: BP 115/73
[2022-06-25 22:24] VITALS: BP 114/82
[2022-06-26] MEDS: inSUlin ASPART (NovoLOG) 1 UNIT/0.01 ML (CHARGE PER UNIT) SC SCH ×5 (01:11→23:56)
[2022-06-26] MEDS: RT-IPRATROPIUM (ATROVENT) 0.5MG/2.5ML AMP IH SCH ×6 (02:34→21:43)
[2022-06-26] MEDS: RT-ALBUTEROL SULF 2.5 MG/3 ML PRE-MIX VIAL INH SCH ×6 (02:34→21:43)
[2022-06-26 02:35] VITALS: BP 112/63
[2022-06-26] MEDS: fentaNYL DRIP PRE-MIX 250 ML IV SCH ×3 (04:57→20:03)
[2022-06-26 05:17] LABS: BASOPHILS % (AUTO) 0 % (0-10); EOSINOPHILS % (AUTO) 1 % (0-10); HEMATOCRIT 25 % (35-52); HEMOGLOBIN 7.7 g/dL (11.5-16.0); LYMPHOCYTES # (AUTO) 0.9 10^3/uL (1.0-4.0); LYMPHOCYTES % (AUTO) 31 % (12-44); MEAN CORPUSCULAR HEMOGLOBIN 27 pg (25-34); MEAN CORPUSCULAR HGB CONC 31 g/dL (32-36); MEAN CORPUSCULAR VOLUME 87 fL (80-99); MEAN PLATELET VOLUME 8.5 fL (9.0-12.2); MONOCYTES # (AUTO) 0.3 10^3/uL (0.0-1.0); MONOCYTES % (AUTO) 11 % (0-12); NEUTROPHILS # (AUTO) 1.6 10^3/uL (1.8-7.8); NEUTROPHILS % (AUTO) 56 % (42-75); PLATELET COUNT 196 10^3/uL (130-400); WHITE BLOOD COUNT 2.9 10^3/uL (4.3-11.0)
[2022-06-26] MEDS: DexMEDEtomidine 250 ML DRIP 250 ML IV SCH ×2 (05:35→19:30)
[2022-06-26] MEDS: LORazepam INJ 2 MG/ML (ATIVAN) VIAL IVP PRN ×2 (05:35→23:14)
[2022-06-26] MEDS: ALBUMIN 25% 25 GM/100 ML 100 ML IV SCH ×3 (05:36→23:02)
[2022-06-26 05:38] LABS: ALBUMIN 3.3 GM/DL (3.2-4.5); BILIRUBIN,TOTAL 0.5 MG/DL (0.1-1.0); CALCIUM 8.4 MG/DL (8.5-10.1); CREATININE SERUM 0.46 MG/DL (0.60-1.30); MAGNESIUM 1.6 MG/DL (1.6-2.4); PHOSPHORUS 3.9 MG/DL (2.3-4.7); POTASSIUM 2.9 MMOL/L (3.6-5.0); TOTAL PROTEIN 6.6 GM/DL (6.4-8.2)
[2022-06-26] MEDS ORDERED: POTASSIUM CL 10MEQ/50ML IVPB 50 ML IV ONE ×2 (06:00→19:00)
[2022-06-26] MEDS ORDERED: POTASSIUM CL 10MEQ/50ML IVPB 250 ML IV ONE (06:01)
[2022-06-26] MEDS ORDERED: MAGNESIUM 1 GM/100 ML IVPB 200 ML IV ONE (06:02)
[2022-06-26] MEDS: POTASSIUM CL 10MEQ/50ML IVPB 50 ML IV SCH ×9 (06:04→18:19)
[2022-06-26] MEDS: KCL 20 MEQ TAB (K-DUR) PO SCH (06:04)
[2022-06-26] MEDS: MAGNESIUM 1 GM/100 ML IVPB 100 ML IV SCH ×2 (06:04→06:05)
[2022-06-26] MEDS: FUROSEMIDE 40 MG/4 ML INJ (LASIX) IVP SCH ×2 (06:16→17:22)
[2022-06-26] MEDS: PHENYLEPHRINE DRIP 250 ML IV SCH ×2 (06:16→19:29)
[2022-06-26 07:14] VITALS: BP 91/51
[2022-06-26] MEDS: HYDROCORTISONE 100 MG/2 ML (Solu-CORTEF) VIAL IV SCH (08:33)
[2022-06-26] MEDS: PANTOPRAZOLE 40 MG (PROTONIX) VIAL IV SCH (08:34)
[2022-06-26] MEDS: LACTULOSE SYRUP 10GM/15ML (ENULOSE) 30ML UDC PO SCH ×2 (08:34→19:46)
[2022-06-26] MEDS: MICONAZOLE 2% POWDER (DESENEX AF) 90 GM TOP SCH ×2 (08:41→20:06)
[2022-06-26] MEDS: ANIDULAFUNGIN INJECTION 100 MG in NS (IVPB) 100 ML IV SCH (09:10)
[2022-06-26] MEDS: MIDAZOLAM DRIP PRE-MIX 100 ML IV SCH ×2 (10:31→22:19)
[2022-06-26] MEDS: NOREPINEPHRINE 16 MG/250 ML DRIP IV SCH ×2 (10:49)
[2022-06-26 10:52] VITALS: BP 115/71
[2022-06-26] MEDS ORDERED: POTASSIUM CL 10MEQ/50ML IVPB 50 ML IV NR (12:15)
[2022-06-26] MEDS: NS IV 500 ML 500 ML IV SCH (12:17)
[2022-06-26] MEDS ORDERED: SEVOFLURANE (ULTANE) 15 ML INHAL SOLN ONE ×2 (13:00→14:22)
[2022-06-26] MEDS ORDERED: MIDAZOLAM 2 MG/2 ML (VERSED) VIAL ONE ×2 (13:00→14:22)
[2022-06-26] MEDS ORDERED: fentaNYL INJ 100 MCG/2 ML AMP ONE (13:00)
[2022-06-26] MEDS ORDERED: ROCURONIUM 50 MG/5 ML (ZEMURON) VIAL IV ONE ×2 (13:00→14:11)
[2022-06-26] MEDS ORDERED: BUP/EPI 0.5% 1:200,000 (SENSORCAINE) 30 ML VIAL ONE (13:21)
[2022-06-26] MEDS ORDERED: ceFAZolin INJECTION 1,000 MG ONE (13:52)
[2022-06-26] MEDS ORDERED: BUP/EPI 0.5% 1:200,000 (SENSORCAINE) 30 ML VIAL INJ ONE (14:00)
[2022-06-26] MEDS ORDERED: ceFAZolin INJECTION 1,000 MG VIAL IV ONE (14:00)
[2022-06-26] MEDS ORDERED: PHENYLEPHRINE 100 MCG/ML 10 ML (ANESTHESIA) SYR ONE (14:11)
--- NOTE | 2022-06-26 14:38 | Progress Note-Post Operative ---
Post-Operative Progess Note Surgeon (s)/Carton Packaging Machine Operator (s) Surgeon HUBER STARK MD Carton Packaging Machine Operator: malissa campbell COST CONTROL SUPERVISOR Pre-Operative Diagnosis persistent respiratory failure/ARDS Post-Operative Diagnosis same Procedure & Operative Findings Date of Procedure 06/26/22 Procedure Performed/Findings open tracheostomy, percutaneous endoscopic gastrostomy tube. Anesthesia Type get Estimated Blood Loss Estimated blood loss (mL): minimal Specimens/Packing Specimens Removed ge jxn, antrum HUBER STARK MD Jun 26, 2022 14:38
[2022-06-26] MEDS: ENOXAPARIN 40 MG/0.4 ML (LOVENOX) SYR SC SCH (17:22)
[2022-06-26 18:56] VITALS: BP 106/76
--- NOTE | 2022-06-26 19:42 | Progress Note - Hospitalist ---
Subjective HPI/CC On Admission Date Seen by Provider: Jun 26, 2022 Time Seen by Provider: 13:00 Pt is a 32yoCF with a PMH of methamphetamine abuse who presented to the ER due to weakness. History comes from both patient and her mom. Mom states she has a long history of meth use but has been trying to quit. She last used 7 days ago a nd then started to get very ill. Her mom wanted to take her in to be seen but the patient refused throoughout the week and finally decidied to come intoday due to her weakness. Reportedly her son has had to carry her from room to room because of how weak she is. On arrival to the emergency room her oxygen saturation was 40%. This was confirmed on an ABG with a PO2 of 39 and saturation of 64 on 15 L nonrebreather. We were able to get her oxygen up into the 90s with oxi mask. Imaging revealed extensive bilateral infiltrates. She was also found to have a profound lactic acidosis fo 13. When I saw her in the ICU she was mottled to her knees and elbows though her capillary refill was adequate. She apparently has vomited twice this morning too. Subjective/Events-last exam She remains intubated and sedated. Her family is at the bedside. They were updated. All questions and concerns were answered and addressed. Objective Exam Vital Signs Vital Signs Date Time Temp Pulse Resp B/P (MAP) Pulse Ox O2 Delivery O2 Flow Rate FiO2 06/26/22 19:30 72 106/76 06/26/22 18:56 24 100 45 06/26/22 18:20 Mechanical Ventilator 45.00 06/26/22 16:00 36.6 Capillary Refill : Less Than 3 Seconds General Appearance: No Apparent Distress, Thin, Other (intubated and sedated) Respiratory: No Respiratory Distress, Crackles, Other (intubated and sedated) Cardiovascular: Regular Rate, Rhythm, No Murmur Gastrointestinal: Normal Bowel Sounds, Soft Extremity: Normal Inspection, No Pedal Edema Neurologic/Psychiatric: Other (sedated) Skin: Normal Color, Warm/Dry Results/Procedures Lab Laboratory Tests 06/26/22 05:05 Patient resulted labs reviewed. Imaging: Reviewed Imaging Report Assessment/Plan Assessment and Plan Assess & Plan/Chief Complaint Acute respiratory failure with hypoxia Endotracheally intubated Pneumonia Fluid overload Anemia Severe protein calorie malnutrition Critical illness myopathy Goals of care discussion TeleICU following Remains on ventilator, weaning as able Eraxis Lasix Tube feeds Trach and PEG today with Dr. Cabrera Referral sent to LTAC in [place], [facility] work assistance appreciated Septic shock, resolved Strep pneumoniae bacteremia, resolved ARDS, resolved ENOC, resolved Lactic acidosis, resolved Critical Care Critically Ill Patient Diagnosis/Problems Diagnosis/Problems (1) Septic shock Status: Resolved Resolution Date/Time: 06/22/22 @ 19:07 (2) Multifocal pneumonia Status: Acute (3) Bacteremia due to Streptococcus pneumoniae Status: Resolved Resolution Date/Time: 06/22/22 @ 19:07 (4) Endotracheally intubated Status: Acute (5) Acute respiratory failure Status: Acute Qualifiers: Respiratory failure complication: hypoxia and hypercapnia Qualified Codes: J96.01 - Acute respiratory failure with hypoxia; J96.02 - Acute respiratory failure with hypercapnia (6) ARDS (adult respiratory distress syndrome) Status: Resolved Resolution Date/Time: 06/22/22 @ 19:07 (7) ENOC (acute kidney injury) Status: Resolved Resolution Date/Time: 06/09/22 @ 15:48 (8) Lactic acidosis Status: Resolved Resolution Date/Time: 06/09/22 @ 15:48 (9) Anemia Status: Acute (10) Substance abuse Status: Acute (11) Severe protein-calorie malnutrition Status: Acute (12) Critical illness myopathy Status: Acute (13) Goals of care, counseling/discussion Status: Acute Clinical Quality Measures AMI/AHF: ASA po Prior to arrival: KENYA Groves MD Jun 26, 2022 19:42
[2022-06-26 21:38] VITALS: BP 141/84
[2022-06-26] MEDS ORDERED: DEXTROSE 50% 50 ML (IMS) SYR ONE (23:53)
[2022-06-27] MEDS ORDERED: DEXTROSE 50% 50 ML (IMS) SYR IV ONE
--- NOTE | 2022-06-27 00:06 | OPERATIVE REPORT ---
ADMITTING PHYSICIAN: Dr. Gordon PREOPERATIVE DIAGNOSIS: Persistent respiratory failure and ARDS. POSTOPERATIVE DIAGNOSIS: Persistent respiratory failure and ARDS. PROCEDURE: Open cutdown tracheostomy tube placement, EGD with biopsy and percutaneous endoscopic gastrostomy tube placement. SURGEON: Huber Stark MD IRRIGATION TAX ASSESSOR COLLECTOR: Terrence Deshpande APRN. ANESTHESIA: General endotracheal. ESTIMATED BLOOD LOSS: Minimal. FINDINGS: A reflux esophagitis, [place] between grade B and C, no hiatal hernia. Moderate gastritis. No distal obstructions. DISPOSITION: The patient tolerated the procedure well. INDICATIONS: The patient is a 32-year-old female who presented to the emergency department on 06/07/2022 with generalized weakness, chest pain, shortness of breath. She also had stated a cough that was nonproductive. She also had reported diffuse body aches. The patient had an x-ray, which showed significant bilateral lung consolidation consistent with pneumonia, the patient became hypotensive and required endotracheal intubation and admission to the ICU. The patient is also a chronic methamphetamine user. Medical management in the intensive care unit was continued and multiple attempts at weaning to extubate were made; however, the patient did not progress. She is approximately 2 weeks and 5 days from endotracheal intubation. She will require a tracheostomy as well as a percutaneous gastrostomy tube placement. DESCRIPTION OF PROCEDURE: The patient was brought to the operating room, laid supine on the table. After adequate IV pain and sedative medications and general anesthesia, the face, neck, and chest were prepped and draped in standard surgical fashion. The patient's head was then elevated and the neck hyperextended. We then measured approximately 2 cm from the cricoid cartilage and marked this with a marking pen. The area was then anesthetized in a crescent-shaped using 0.5% Marcaine with epinephrine. A crescent-shaped skin incision was then made using a #15 blade. The subcutaneous tissue and platysma were then opened using electrocautery. The median raphe was then identified and opened vertically. The trachea was identified and we proceeded to dissect around the trachea using blunt dissection as well as electrocautery with visualization of good hemostasis. A 0 silk stay suture was then placed onto the trachea. A square segment was then created using an 11 blade. The endotracheal tube was then desufflated and pulled slowly as a #7 Shiley tracheostomy tube was then placed and the balloon insufflated. Good hemostasis was observed. The skin edges were then reapproximated bilaterally using 0 silk suture. The collar to the tracheostomy tube was then sutured to the skin using 0 silk suture in four corners. Drain sponges were also placed. The stay suture that was placed was then left intact for an emergent situation of tracheostomy dislodgement for proper retraction. The clock tie was also placed around the tracheostomy. The endoscope was then placed in the mouth, visualizing the pharynx and hypopharyngeal region. Vocal cords, epiglottis and vallecula identified and appeared to be normal. The endoscope was then gently intubated, esophageal opening and esophagus insufflated. Endoscope was then advanced into the first, second, third portions of esophagus. At the level of the GE junction, reflux esophagitis, [place] grade 2 and grade B and C identified. There was a small area of irritation or ulceration, likely secondary to the nasogastric tube. A biopsy was taken of the GE junction with forceps with visualization of good hemostasis. The endoscope was then advanced into the stomach and endoscope retroflexed visualizing no hiatal hernia. There was a moderate gastritis. No formal ulcerations, polyps or any neoplasms as well as no active bleeding sites. A biopsy was taken of the antrum to rule out H. pylori with visualization of good hemostasis. The endoscope was then advanced through the pylorus and the first and second portions of the duodenum with no bleeding sources as well as no distal obstructions. The abdomen was then prepped and draped in standard surgical fashion. Under direct visualization, an area along the body of the stomach was palpated and visualized through the endoscope and the skin, subcutaneous tissue and the stomach wall layers were anesthetized using 1% lidocaine. A transverse skin incision was then made using an #11 blade. The needle and sheath were then introduced and the guidewire placed and looped through the scope and pulled out the mouth. The gastrostomy tube was then placed onto the wire and pulled through under direct visualization until the end rubber bolster was firmly opposing the abdominal wall layers and the external rubber bolster was placed after iodine ointment was placed and a drain sponge was placed as well. The clamp was then placed. The catheter cut down to size and the rubber bolster placed under the end of the catheter. The patient tolerated the procedure well. We will recommend continued care of the tracheostomy with drain sponges on a daily basis as well as p.r.n. We will also instruct staff to place a gastrostomy tube to gravity drainage bag for the next 24 hours and then after that, the gastrostomy tube may be accessed and used at any time. Job ID: [id number] DocumentID: [id number] Dictated Date: 06/26/2022 14:49:51 Farm Implement Engine Mechanic Date: 06/27/2022 00:04:00 Dictated By: HUBER STARK MD MTDD
[2022-06-27 00:54] LABS: POTASSIUM 3.7 MMOL/L (3.6-5.0)
[2022-06-27 00:55] LABS: CALCIUM 9.4 MG/DL (8.5-10.1)
[2022-06-27 00:59] LABS: CREATININE SERUM 0.58 MG/DL (0.60-1.30)
[2022-06-27] MEDS: fentaNYL DRIP PRE-MIX 250 ML IV SCH ×5 (01:01→22:00)
[2022-06-27] MEDS: D5 LR IV SOLUTION 1,000 ML IV SCH ×2 (01:54→08:18)
[2022-06-27] MEDS: RT-IPRATROPIUM (ATROVENT) 0.5MG/2.5ML AMP IH SCH ×6 (02:58→22:05)
[2022-06-27] MEDS: RT-ALBUTEROL SULF 2.5 MG/3 ML PRE-MIX VIAL INH SCH ×6 (02:58→22:06)
[2022-06-27 03:59] LABS: ABG BASE EXCESS 4.9 MMOL/L (-2.5-2.5); ABG OXYGEN SATURATION 89 % (94-100); ABG PCO2 43 MMHG (35-45); ABG PH 7.45 (7.37-7.43); ABG PO2 61 MMHG (79-93); ABG TCO2 29.9 MMOL/L (21.0-31.0)
[2022-06-27 04:01] LABS: ALLENS TEST YES-POS; INSPIRED O2 50%; PATIENT TEMP 38; VENTILATOR YES
[2022-06-27] MEDS: NS IV 500 ML 500 ML IV SCH ×2 (04:43→20:49)
[2022-06-27] MEDS: POTASSIUM CL 10MEQ/50ML IVPB 50 ML IV SCH ×3 (04:43→06:44)
[2022-06-27] MEDS: KCL 20 MEQ TAB (K-DUR) PO SCH (04:44)
[2022-06-27] MEDS: MAGNESIUM 1 GM/100 ML IVPB 100 ML IV SCH (04:44)
[2022-06-27 04:46] LABS: BASOPHILS % (AUTO) 0 % (0-10); EOSINOPHILS % (AUTO) 1 % (0-10); HEMATOCRIT 26 % (35-52); LYMPHOCYTES % (AUTO) 27 % (12-44); MEAN CORPUSCULAR HEMOGLOBIN 26 pg (25-34); MEAN CORPUSCULAR HGB CONC 30 g/dL (32-36); MEAN CORPUSCULAR VOLUME 86 fL (80-99); MEAN PLATELET VOLUME 8.8 fL (9.0-12.2); MONOCYTES # (AUTO) 0.4 10^3/uL (0.0-1.0); MONOCYTES % (AUTO) 11 % (0-12); NEUTROPHILS # (AUTO) 2.3 10^3/uL (1.8-7.8); NEUTROPHILS % (AUTO) 62 % (42-75); PLATELET COUNT 177 10^3/uL (130-400); WHITE BLOOD COUNT 3.7 10^3/uL (4.3-11.0)
[2022-06-27 04:58] LABS: ALBUMIN 4.1 GM/DL (3.2-4.5); POTASSIUM 3.5 MMOL/L (3.6-5.0)
[2022-06-27 04:59] LABS: CALCIUM 9.2 MG/DL (8.5-10.1)
[2022-06-27 05:00] LABS: TOTAL PROTEIN 7.5 GM/DL (6.4-8.2)
[2022-06-27 05:02] LABS: BILIRUBIN,TOTAL 0.6 MG/DL (0.1-1.0)
[2022-06-27 05:04] LABS: CREATININE SERUM 0.53 MG/DL (0.60-1.30); PHOSPHORUS 3.5 MG/DL (2.3-4.7)
[2022-06-27 05:07] LABS: MAGNESIUM 1.8 MG/DL (1.6-2.4)
[2022-06-27] MEDS: DexMEDEtomidine 250 ML DRIP 250 ML IV SCH ×2 (06:00→18:40)
[2022-06-27] MEDS: ALBUMIN 25% 25 GM/100 ML 100 ML IV SCH ×2 (06:00→15:47)
[2022-06-27] MEDS: inSUlin ASPART (NovoLOG) 1 UNIT/0.01 ML (CHARGE PER UNIT) SC SCH ×4 (06:10→23:38)
[2022-06-27] MEDS: FUROSEMIDE 40 MG/4 ML INJ (LASIX) IVP SCH ×2 (08:17→15:47)
[2022-06-27] MEDS: MICONAZOLE 2% POWDER (DESENEX AF) 90 GM TOP SCH ×2 (08:17→20:49)
[2022-06-27] MEDS: HYDROCORTISONE 100 MG/2 ML (Solu-CORTEF) VIAL IV SCH (08:17)
[2022-06-27] MEDS: PANTOPRAZOLE 40 MG (PROTONIX) VIAL IV SCH (08:17)
[2022-06-27] MEDS: PHENYLEPHRINE DRIP 250 ML IV SCH ×2 (08:18→22:42)
[2022-06-27] MEDS: MIDAZOLAM DRIP PRE-MIX 100 ML IV SCH ×2 (08:18→18:41)
--- NOTE | 2022-06-27 09:42 | Tele-ICU Progress Note ---
Subjective Date Seen by a Provider: Jun 27, 2022 Subjective/Events-last exam This virtual visit was conducted using real time audio/video. Thank you for asking us to see this patient for respiratory insufficiency due to dense B pna, sepsis with AMS. Also B uper lobe emphysema noted. Trach/PEG 2/3 due to ongoing vent dependence/high O2 needs. PE: sedated on vent. VSS. O2 sat 93% on AC 24/400/55%/+8. HEENT: No obvious masses, adenopathy or JVD. Chest: clear to auscultation. CV: RRR S1 S2 No murmur or added sounds. Abd: Non-tender. Bowel sounds Y. : Unremarkable. Figueroa Y. ELECTRICAL ENGINEERING PROFESSOR/psychiatric: Grossly intact. No obvious focal findings. Extremities:Anasarca. Capillary refill < 3 seconds. Skin: unremarkable. Results: Decreased Hb 8.0, WCC 3.7. AB.45/43/61 on 50%. CXR: B dense infilts, unchanged, hyperinflated. Available chart/ vitals / labs / images reviewed. Video assessment done using teleICU camera, rest of exam as per RN. A/P: Respiratory insufficiency: Continue present management with vent., duonebs, Fent., Prec. No SBT with high FiO2, possible LTAC referral. Critical Care: critically ill patient. Cont. Jalil., PPI, hydrocort., SSI, antifungal, lasix, fent. Replace K. Discussed with RN Randa. Asked RN to reach out to eICU if any questions or concerns later. Time spent with patient/coordination of care with other health professionals (mins): 24 Sepsis Event Evaluation Height, Weight, BMI Height: 5'6" Weight: 120lbs. oz. 54.129109bp; 21.51 BMI Method:Stated Exam Exam Patient acknowledged, consented, and participated in this virtual visit which was conducted using real time audio/video Vital Signs Date Time Temp Pulse Resp B/P (MAP) Pulse Ox O2 Delivery O2 Flow Rate FiO2 06/27/22 09:00 86 24 105/61 (76) 90 Mechanical Ventilator 50.00 06/27/22 08:18 86 24 115/74 06/27/22 08:06 50 06/27/22 08:00 95 Mechanical Ventilator 50 06/27/22 08:00 82 24 110/70 (83) 97 Mechanical Ventilator 50.00 06/27/22 08:00 36.7 06/27/22 07:34 90 24 96 50 06/27/22 07:00 84 25 114/73 (88) 99 Mechanical Ventilator 50.00 06/27/22 07:00 85 06/27/22 06:00 81 22 109/69 (82) 99 Mechanical Ventilator 50.00 06/27/22 06:00 94 107/69 06/27/22 06:00 94 107/69 06/27/22 05:01 94 107/69 06/27/22 05:00 95 26 110/69 (83) 93 Mechanical Ventilator 50.00 06/27/22 04:00 50 06/27/22 04:00 37.1 06/27/22 04:00 105 27 113/71 (85) 97 Mechanical Ventilator 50.00 06/27/22 04:00 Mechanical Ventilator 50 06/27/22 03:00 94 15 107/69 (82) 97 Mechanical Ventilator 50.00 06/27/22 02:46 90 24 96 50 06/27/22 02:00 96 23 117/75 (89) 97 Mechanical Ventilator 50.00 06/27/22 01:56 37.6 Mechanical Ventilator 50.00 06/27/22 01:01 113 126/81 06/27/22 01:00 98 24 119/75 (90) 98 Mechanical Ventilator 55.00 06/27/22 01:00 106 06/27/22 00:05 38.6 06/27/22 00:03 113 126/81 06/27/22 00:00 109 25 127/83 (98) 97 Mechanical Ventilator 55.00 06/27/22 00:00 55 06/26/22 23:59 Mechanical Ventilator 55 06/26/22 23:30 113 126/81 06/26/22 23:00 105 25 124/77 (93) 95 Mechanical Ventilator 55.00 06/26/22 22:19 113 26 126/81 06/26/22 22:15 39.0 113 26 126/81 (96) 94 Mechanical Ventilator 55.00 06/26/22 22:00 109 28 122/83 (96) 93 Mechanical Ventilator 55.00 06/26/22 21:42 Mechanical Ventilator 55.00 06/26/22 21:38 104 24 96 55 06/26/22 21:00 97 19 131/85 (100) 91 Mechanical Ventilator 45.00 06/26/22 20:03 72 106/76 06/26/22 20:00 Mechanical Ventilator 45 06/26/22 20:00 45 06/26/22 20:00 95 13 134/89 (104) 93 Mechanical Ventilator 45.00 06/26/22 20:00 36.6 06/26/22 19:30 72 106/76 06/26/22 19:00 74 16 120/81 (94) 98 Mechanical Ventilator 45.00 06/26/22 19:00 80 06/26/22 18:56 72 24 100 45 06/26/22 18:20 98 Mechanical Ventilator 45.00 06/26/22 18:00 73 8 118/85 (96) 98 Mechanical Ventilator 50.00 06/26/22 17:47 97 Mechanical Ventilator 50.00 06/26/22 17:22 140/92 06/26/22 17:00 73 10 132/89 (107) 98 Mechanical Ventilator 55.00 06/26/22 16:17 Mechanical Ventilator 55 06/26/22 16:00 90 20 98/70 (79) 93 Mechanical Ventilator 55.00 06/26/22 16:00 36.6 06/26/22 15:45 81 23 117/83 (94) 93 Mechanical Ventilator 55.00 06/26/22 15:40 55 06/26/22 15:30 82 19 119/80 (94) 93 Mechanical Ventilator 55.00 06/26/22 15:15 90 8 121/85 (97) Mechanical Ventilator 55.00 06/26/22 15:12 93 Mechanical Ventilator 55.00 06/26/22 15:00 105 120/78 (90) 06/26/22 13:10 Mechanical Ventilator 60.00 06/26/22 13:00 85 26 106/60 (76) 95 Mechanical Ventilator 65.00 06/26/22 12:59 98 06/26/22 12:54 117/67 06/26/22 12:00 36.8 06/26/22 12:00 98 25 108/65 (83) 93 Mechanical Ventilator 65.00 06/26/22 11:40 65 06/26/22 11:40 Mechanical Ventilator 65 06/26/22 11:00 91 26 105/67 (80) 93 Mechanical Ventilator 65.00 06/26/22 10:52 90 24 95 60 06/26/22 10:31 102/60 06/26/22 10:00 89 24 99/58 (72) 93 Mechanical Ventilator 65.00 I & O 06/27/22 07:00 Intake Total 2645 ml Output Total 5210 ml Balance -2565 ml Height & Weight Height: 5'6" Weight: 120lbs. oz. 54.290922jz; 21.51 BMI Method:Stated General Appearance: No Apparent Distress, Thin, Other (intubated and sedated) HEENT: PERRL/EOMI Neck: Full Range of Motion Respiratory: No Respiratory Distress, Crackles, Other (intubated and sedated) Cardiovascular: Regular Rate, Rhythm, No Murmur Capillary Refill: Less Than 3 Seconds Gastrointestinal: normal bowel sounds, non tender, soft Extremity: Normal Inspection, No Pedal Edema Neurologic/Psychiatric: Other (sedated) Skin: Normal Color, Warm/Dry Lymphatic: No Adenopathy Results Lab Laboratory Tests 06/26/22 05:05 06/27/22 00:35 06/27/22 04:35 Assessment/Plan Assessment/Plan See free text. Critical Care: Ventilator Management DONTE PACHECO MD Jun 27, 2022 09:42
[2022-06-27] MEDS: ANIDULAFUNGIN INJECTION 100 MG in NS (IVPB) 100 ML IV SCH (09:57)
[2022-06-27] MEDS: NOREPINEPHRINE 16 MG/250 ML DRIP IV SCH ×2 (10:03)
[2022-06-27] MEDS ORDERED: METHYLNALTREXONE 12 MG/0.6 ML (RELISTOR) VIAL SQ ONE (11:00)
[2022-06-27] MEDS: LACTULOSE SYRUP 10GM/15ML (ENULOSE) 30ML UDC PO SCH ×2 (11:17→20:49)
--- NOTE | 2022-06-27 12:04 | Anesthesia-General Post-Op ---
General Patient Condition Mental Status/LOC: Same as Preop Cardiovascular: Satisfactory Nausea/Vomiting: Absent Respiratory: Satisfactory Pain: Controlled Complications: Absent Post Op Complications Complications None Follow Up Care/Instructions Patient Instructions None needed. Anesthesia/Patient Condition Patient Condition Patient is doing well, no complaints, stable vital signs, no apparent adverse anesthesia problems. No complications reported per nursing. DARIUS RAGLAND CRNA Jun 27, 2022 12:04
--- NOTE | 2022-06-27 14:17 | Progress Note - Hospitalist ---
Subjective HPI/CC On Admission Date Seen by Provider: Jun 27, 2022 Time Seen by Provider: 10:55 Pt is a 32yoCF with a PMH of methamphetamine abuse who presented to the ER due to weakness. History comes from both patient and her mom. Mom states she has a long history of meth use but has been trying to quit. She last used 7 days ago a nd then started to get very ill. Her mom wanted to take her in to be seen but the patient refused throoughout the week and finally decidied to come intoday due to her weakness. Reportedly her son has had to carry her from room to room because of how weak she is. On arrival to the emergency room her oxygen saturation was 40%. This was confirmed on an ABG with a PO2 of 39 and saturation of 64 on 15 L nonrebreather. We were able to get her oxygen up into the 90s with oxi mask. Imaging revealed extensive bilateral infiltrates. She was also found to have a profound lactic acidosis fo 13. When I saw her in the ICU she was mottled to her knees and elbows though her capillary refill was adequate. She apparently has vomited twice this morning too. Subjective/Events-last exam She is sedated and mechanically ventilated. There is no family at the bedside this morning. Objective Exam Vital Signs Vital Signs Date Time Temp Pulse Resp B/P (MAP) Pulse Ox O2 Delivery O2 Flow Rate FiO2 06/27/22 13:00 84 06/27/22 12:59 96 Mechanical Ventilator 50.00 06/27/22 12:00 36.5 06/27/22 12:00 60 06/27/22 11:18 104/71 06/27/22 11:00 24 Capillary Refill : Less Than 3 Seconds General Appearance: No Apparent Distress, Chronically ill, Thin Respiratory: Lungs Clear, No Respiratory Distress Cardiovascular: Regular Rate, Rhythm, No Murmur Gastrointestinal: Soft, Abnormal Bowel Sounds (hypoactive), Distended Extremity: Normal Inspection, Pedal Edema Neurologic/Psychiatric: Other (sedated) Skin: Normal Color, Warm/Dry Results/Procedures Lab Laboratory Tests 06/27/22 00:35 06/27/22 04:35 Patient resulted labs reviewed. Imaging: Reviewed Imaging Report Assessment/Plan Assessment and Plan Assess & Plan/Chief Complaint Acute respiratory failure with hypoxia Endotracheally intubated Pneumonia Fluid overload Anemia Severe protein calorie malnutrition Critical illness myopathy Goals of care discussion TeleICU following Remains on ventilator, weaning as able Eraxis Lasix Tube feeds Trach and PEG today with Dr. Cabrera Referral sent to LTAC in [place], social work assistance appreciated Fever SIRS+ HR improved, BP stable, stop fluids Catheter tip culture with no growth If fever (>38.5) returns, obtain stat blood cultures No antibiotics at this time Eraxis for anti-fungal coverage Septic shock, resolved Strep pneumoniae bacteremia, resolved ARDS, resolved ENOC, resolved Lactic acidosis, resolved Critical Care Critically Ill Patient Diagnosis/Problems Diagnosis/Problems (1) SIRS (systemic inflammatory response syndrome) Status: Acute (2) Fever Status: Acute (3) Septic shock Status: Resolved Resolution Date/Time: 06/22/22 @ 19:07 (4) Multifocal pneumonia Status: Acute (5) Bacteremia due to Streptococcus pneumoniae Status: Resolved Resolution Date/Time: 06/22/22 @ 19:07 (6) Endotracheally intubated Status: Acute (7) Acute respiratory failure Status: Acute Qualifiers: Respiratory failure complication: hypoxia and hypercapnia Qualified Codes: J96.01 - Acute respiratory failure with hypoxia; J96.02 - Acute respiratory failure with hypercapnia (8) ARDS (adult respiratory distress syndrome) Status: Resolved Resolution Date/Time: 06/22/22 @ 19:07 (9) ENOC (acute kidney injury) Status: Resolved Resolution Date/Time: 06/09/22 @ 15:48 (10) Lactic acidosis Status: Resolved Resolution Date/Time: 06/09/22 @ 15:48 (11) Anemia Status: Acute (12) Substance abuse Status: Acute (13) Severe protein-calorie malnutrition Status: Acute (14) Critical illness myopathy Status: Acute (15) Goals of care, counseling/discussion Status: Acute Clinical Quality Measures AMI/AHF: ASA po Prior to arrival: KENYA Groves MD Jun 27, 2022 14:17
[2022-06-27 15:26] VITALS: BP 108/78
[2022-06-27] MEDS: ENOXAPARIN 40 MG/0.4 ML (LOVENOX) SYR SC SCH (15:47)
[2022-06-27 18:24] VITALS: BP 104/74
[2022-06-27 22:06] VITALS: BP 133/86
[2022-06-28] MEDS: D5 LR IV SOLUTION 1,000 ML IV SCH ×2 (00:33→10:30)
[2022-06-28] MEDS: fentaNYL DRIP PRE-MIX 250 ML IV SCH ×4 (03:02→19:36)
[2022-06-28] MEDS: RT-ALBUTEROL SULF 2.5 MG/3 ML PRE-MIX VIAL INH SCH ×6 (03:19→22:48)
[2022-06-28] MEDS: RT-IPRATROPIUM (ATROVENT) 0.5MG/2.5ML AMP IH SCH ×6 (03:19→22:48)
[2022-06-28 03:24] LABS: ABG BASE EXCESS 7.2 MMOL/L (-2.5-2.5); ABG OXYGEN SATURATION 90 % (94-100); ABG PCO2 45 MMHG (35-45); ABG PH 7.46 (7.37-7.43); ABG PO2 60 MMHG (79-93); ABG TCO2 32.8 MMOL/L (21.0-31.0)
[2022-06-28 03:26] LABS: ALLENS TEST YES-POS; INSPIRED O2 50%; PATIENT TEMP 36.6; VENTILATOR YES
[2022-06-28 04:58] LABS: BASOPHILS % (AUTO) 1 % (0-10); EOSINOPHILS # (AUTO) 0.1 10^3/uL (0.0-0.3); EOSINOPHILS % (AUTO) 2 % (0-10); HEMATOCRIT 27 % (35-52); HEMOGLOBIN 8.1 g/dL (11.5-16.0); LYMPHOCYTES # (AUTO) 0.9 10^3/uL (1.0-4.0); LYMPHOCYTES % (AUTO) 29 % (12-44); MEAN CORPUSCULAR HEMOGLOBIN 26 pg (25-34); MEAN CORPUSCULAR HGB CONC 30 g/dL (32-36); MEAN CORPUSCULAR VOLUME 86 fL (80-99); MEAN PLATELET VOLUME 8.6 fL (9.0-12.2); MONOCYTES # (AUTO) 0.4 10^3/uL (0.0-1.0); MONOCYTES % (AUTO) 11 % (0-12); NEUTROPHILS # (AUTO) 1.8 10^3/uL (1.8-7.8); NEUTROPHILS % (AUTO) 57 % (42-75); PLATELET COUNT 170 10^3/uL (130-400); WHITE BLOOD COUNT 3.2 10^3/uL (4.3-11.0)
[2022-06-28 05:05] LABS: ALBUMIN 4.2 GM/DL (3.2-4.5); POTASSIUM 3.2 MMOL/L (3.6-5.0)
[2022-06-28 05:07] LABS: CALCIUM 9.4 MG/DL (8.5-10.1)
[2022-06-28 05:08] LABS: TOTAL PROTEIN 7.6 GM/DL (6.4-8.2)
[2022-06-28 05:09] LABS: BILIRUBIN,TOTAL 0.6 MG/DL (0.1-1.0)
[2022-06-28 05:11] LABS: PHOSPHORUS 4.3 MG/DL (2.3-4.7)
[2022-06-28 05:12] LABS: CREATININE SERUM 0.52 MG/DL (0.60-1.30)
[2022-06-28 05:14] LABS: MAGNESIUM 1.8 MG/DL (1.6-2.4)
[2022-06-28] MEDS: KCL 20 MEQ TAB (K-DUR) PO SCH (05:29)
[2022-06-28] MEDS: inSUlin ASPART (NovoLOG) 1 UNIT/0.01 ML (CHARGE PER UNIT) SC SCH ×4 (05:29→23:51)
[2022-06-28] MEDS: MAGNESIUM 1 GM/100 ML IVPB 100 ML IV SCH (05:29)
[2022-06-28] MEDS: POTASSIUM CL 10MEQ/50ML IVPB 50 ML IV SCH ×5 (05:29→08:04)
[2022-06-28] MEDS: MIDAZOLAM DRIP PRE-MIX 100 ML IV SCH ×2 (06:25→19:36)
[2022-06-28] MEDS: DexMEDEtomidine 250 ML DRIP 250 ML IV SCH ×2 (06:25→19:36)
[2022-06-28] MEDS: LACTULOSE SYRUP 10GM/15ML (ENULOSE) 30ML UDC PO SCH ×4 (07:48→21:03)
[2022-06-28] MEDS: MILK OF MAGNESIA 400 MG/5 ML 30 ML UDC PO PRN (07:48)
[2022-06-28] MEDS: FUROSEMIDE 40 MG/4 ML INJ (LASIX) IVP SCH ×2 (07:48→17:48)
[2022-06-28] MEDS: METOCLOPRAMIDE INJ 10 MG/2 ML (REGLAN) IVP PRN (07:48)
[2022-06-28] MEDS: PANTOPRAZOLE 40 MG (PROTONIX) VIAL IV SCH (07:48)
[2022-06-28] MEDS: MICONAZOLE 2% POWDER (DESENEX AF) 90 GM TOP SCH ×2 (07:49→21:03)
[2022-06-28] MEDS: HYDROCORTISONE 100 MG/2 ML (Solu-CORTEF) VIAL IV SCH (07:49)
--- NOTE | 2022-06-28 09:19 | Tele-ICU Progress Note ---
Subjective Date Seen by a Provider: Jun 28, 2022 Subjective/Events-last exam This virtual visit was conducted using real time audio/video. Thank you for asking us to see this patient for respiratory insufficiency due to dense B pna, sepsis with AMS. Also B upper lobe emphysema noted. Trach/PEG 2/3 due to ongoing vent dependence/high O2 needs. Higher O2 needs overnight. Now on 65%. PE: sedated on vent. VSS. O2 sat 93% on AC 24/400/55%/+8. HEENT: No obvious masses, adenopathy or JVD. Chest: clear to auscultation. CV: RRR S1 S2 No murmur or added sounds. Abd: Non-tender. Bowel sounds Y. : Unremarkable. Figueroa Y. DOCUMENTATION CONSULTANT/psychiatric: Grossly intact. No obvious focal findings. Extremities:Anasarca gone with diuresis. Capillary refill < 3 seconds. Skin: unremarkable. Results: Decreased Hb 8.1, WCC 3.2. AB.46/45/60 on 50%. CXR: B dense infilts, unchanged, hyperinflated. Available chart/ vitals / labs / images reviewed. Video assessment done using teleICU camera, rest of exam as per RN. A/P: Respiratory insufficiency: Continue present management with vent., duonebs, Fent., Prec. No SBT with high FiO2, possible LTAC referral. Critical Care: critically ill patient. Cont. Jalil., PPI, hydrocort., SSI, antifungal, lasix, fent. Replace K. Discussed with KATHERINE Shine. Asked RN to reach out to eICU if any questions or concerns later. Time spent with patient/coordination of care with other health professionals (mins): 24 Sepsis Event Evaluation Height, Weight, BMI Height: 5'6" Weight: 120lbs. oz. 54.382971ha; 21.40 BMI Method:Stated Exam Exam Patient acknowledged, consented, and participated in this virtual visit which wa s conducted using real time audio/video Vital Signs Date Time Temp Pulse Resp B/P (MAP) Pulse Ox O2 Delivery O2 Flow Rate FiO2 06/28/22 09:00 93 28 120/88 (98) 97 Mechanical Ventilator 65.00 06/28/22 08:04 87 101/64 06/28/22 08:00 86 11 101/64 (77) 95 Mechanical Ventilator 65.00 06/28/22 07:55 94 Mechanical Ventilator 65 06/28/22 07:54 65 06/28/22 07:54 36.4 06/28/22 07:02 99 110/65 06/28/22 07:00 87 13 102/68 (79) Mechanical Ventilator 65.00 06/28/22 07:00 85 06/28/22 06:25 99 110/65 06/28/22 06:25 99 26 110/65 06/28/22 06:00 90 15 112/72 (85) 91 Mechanical Ventilator 60.00 06/28/22 05:00 86 23 115/74 (88) 92 Mechanical Ventilator 60.00 06/28/22 04:52 Mechanical Ventilator 60.00 06/28/22 04:00 99 26 110/65 (80) 91 Mechanical Ventilator 50.00 06/28/22 04:00 50 06/28/22 04:00 93 Mechanical Ventilator 50 06/28/22 03:40 37.0 06/28/22 03:19 87 24 92 50 06/28/22 03:02 87 133/86 06/28/22 03:00 89 24 107/68 (81) 92 Mechanical Ventilator 50.00 06/28/22 02:00 87 133/86 06/28/22 02:00 98 24 105/68 (80) 91 Mechanical Ventilator 50.00 06/28/22 01:00 89 24 128/76 (93) 96 Mechanical Ventilator 50.00 06/28/22 01:00 87 06/28/22 00:00 86 24 137/93 (108) 96 Mechanical Ventilator 50.00 06/28/22 00:00 50 06/27/22 23:59 95 Mechanical Ventilator 50 06/27/22 23:43 36.8 06/27/22 23:00 86 24 137/89 (105) 96 Mechanical Ventilator 50.00 06/27/22 22:40 85 133/86 06/27/22 22:06 85 24 97 50 06/27/22 22:00 86 23 133/86 (102) 97 Mechanical Ventilator 50.00 06/27/22 22:00 93 128/88 06/27/22 21:02 93 128/88 06/27/22 21:00 87 16 121/80 (94) 96 Mechanical Ventilator 50.00 06/27/22 20:00 50 06/27/22 20:00 93 23 128/88 (101) 93 Mechanical Ventilator 50.00 06/27/22 20:00 94 Mechanical Ventilator 50 06/27/22 19:23 36.8 94 24 126/87 (100) 97 Mechanical Ventilator 50.00 06/27/22 19:00 92 06/27/22 18:42 Mechanical Ventilator 45.00 06/27/22 18:41 902 24 107/82 06/27/22 18:40 90 107/82 06/27/22 18:24 87 24 92 50 06/27/22 18:00 92 24 100/68 (78) 92 Mechanical Ventilator 50.00 06/27/22 17:03 97 Mechanical Ventilator 50.00 06/27/22 17:02 96 107/73 06/27/22 17:00 95 24 107/73 (85) 96 Mechanical Ventilator 60.00 06/27/22 16:00 96 23 108/76 (85) 92 Mechanical Ventilator 60.00 06/27/22 16:00 36.3 06/27/22 15:57 Mechanical Ventilator 60.00 06/27/22 15:56 89 Mechanical Ventilator 50 06/27/22 15:55 50 06/27/22 15:30 95 111/80 06/27/22 15:26 75 24 91 50 06/27/22 15:00 73 23 114/80 (94) 93 Mechanical Ventilator 50.00 06/27/22 14:00 73 24 115/82 (96) 97 Mechanical Ventilator 50.00 06/27/22 13:00 86 23 98/58 (71) 96 Mechanical Ventilator 50.00 06/27/22 13:00 84 06/27/22 12:59 96 Mechanical Ventilator 50.00 06/27/22 12:00 36.5 06/27/22 12:00 98 Mechanical Ventilator 60 06/27/22 12:00 60 06/27/22 11:18 98 104/71 06/27/22 11:00 89 24 117/78 (92) 93 Mechanical Ventilator 60.00 06/27/22 10:26 90 24 96 60 06/27/22 10:03 101 131/84 06/27/22 10:03 101 131/84 06/27/22 10:00 95 24 131/84 (102) 90 Mechanical Ventilator 60.00 06/27/22 09:58 Mechanical Ventilator 60.00 I & O 06/28/22 07:00 Intake Total 2860 ml Output Total 4700 ml Balance -1840 ml Height & Weight Height: 5'6" Weight: 120lbs. oz. 54.017345ep; 21.40 BMI Method:Stated General Appearance: No Apparent Distress, Chronically ill, Thin HEENT: PERRL/EOMI Neck: Full Range of Motion Respiratory: Lungs Clear, No Respiratory Distress Cardiovascular: Regular Rate, Rhythm, No Murmur Capillary Refill: Less Than 3 Seconds Gastrointestinal: normal bowel sounds, non tender, soft Extremity: Normal Inspection, Pedal Edema Neurologic/Psychiatric: Other (sedated) Skin: Normal Color, Warm/Dry Lymphatic: No Adenopathy Results Lab Laboratory Tests 06/27/22 00:35 06/27/22 04:35 06/28/22 04:51 Assessment/Plan Assessment/Plan See free text. Critical Care: Ventilator Management DONTE PACHECO MD Jun 28, 2022 09:19
--- NOTE | 2022-06-28 09:59 | Progress Note - Hospitalist ---
Subjective HPI/CC On Admission Date Seen by Provider: Jun 28, 2022 Time Seen by Provider: 09:45 Pt is a 32yoCF with a PMH of methamphetamine abuse who presented to the ER due to weakness. History comes from both patient and her mom. Mom states she has a long history of meth use but has been trying to quit. She last used 7 days ago a nd then started to get very ill. Her mom wanted to take her in to be seen but the patient refused throoughout the week and finally decidied to come intoday due to her weakness. Reportedly her son has had to carry her from room to room because of how weak she is. On arrival to the emergency room her oxygen saturation was 40%. This was confirmed on an ABG with a PO2 of 39 and saturation of 64 on 15 L nonrebreather. We were able to get her oxygen up into the 90s with oxi mask. Imaging revealed extensive bilateral infiltrates. She was also found to have a profound lactic acidosis fo 13. When I saw her in the ICU she was mottled to her knees and elbows though her capillary refill was adequate. She apparently has vomited twice this morning too. Subjective/Events-last exam She is awake. She is having some abdominal discomfort. She just had a bath. Objective Exam Vital Signs Vital Signs Date Time Temp Pulse Resp B/P (MAP) Pulse Ox O2 Delivery O2 Flow Rate FiO2 06/28/22 09:00 93 28 120/88 (98) 97 Mechanical Ventilator 65.00 06/28/22 07:55 65 06/28/22 07:54 36.4 Capillary Refill : Less Than 3 Seconds General Appearance: No Apparent Distress, WD/WN Respiratory: No Respiratory Distress, Crackles Cardiovascular: Regular Rate, Rhythm, No Murmur Gastrointestinal: Soft, Abnormal Bowel Sounds (hypoactive), Distended, Tenderness Extremity: Normal Inspection, No Pedal Edema Neurologic/Psychiatric: Alert, Motor Weakness Skin: Warm/Dry, Pallor Results/Procedures Lab Laboratory Tests 06/28/22 04:51 Patient resulted labs reviewed. Imaging: Reviewed Imaging Report Assessment/Plan Assessment and Plan Assess & Plan/Chief Complaint Acute respiratory failure with hypoxia Tracheostomy on mechanical ventilation Pneumonia Fluid overload Anemia Severe protein calorie malnutrition Critical illness myopathy TeleICU following Remains on ventilator, weaning as able Eraxis Lasix Stop fluids Tube feeds Trach and PEG today with Dr. Kido Referral sent to LTAC in [place], social work assistance appreciated Opioid induced constipation Ileus Relistor Increase Lactulose Suppository Enema if no BM with suppository Fever SIRS+ Resolved If fever (>38.5) returns, obtain stat blood cultures No antibiotics at this time Eraxis for anti-fungal coverage Septic shock, resolved Strep pneumoniae bacteremia, resolved ARDS, resolved ENOC, resolved Lactic acidosis, resolved Goals of care discussion, resolved Critical Care Ventilator Management Diagnosis/Problems Diagnosis/Problems (1) SIRS (systemic inflammatory response syndrome) Status: Resolved Resolution Date/Time: 06/28/22 @ 09:57 (2) Fever Status: Resolved Resolution Date/Time: 06/28/22 @ 09:57 (3) Septic shock Status: Resolved Resolution Date/Time: 06/22/22 @ 19:07 (4) Multifocal pneumonia Status: Acute (5) Bacteremia due to Streptococcus pneumoniae Status: Resolved Resolution Date/Time: 06/22/22 @ 19:07 (6) Endotracheally intubated Status: Resolved Resolution Date/Time: 06/28/22 @ 09:57 (7) Acute respiratory failure Status: Acute Qualifiers: Respiratory failure complication: hypoxia and hypercapnia Qualified Codes: J96.01 - Acute respiratory failure with hypoxia; J96.02 - Acute respiratory failure with hypercapnia (8) ARDS (adult respiratory distress syndrome) Status: Resolved Resolution Date/Time: 06/22/22 @ 19:07 (9) ENOC (acute kidney injury) Status: Resolved Resolution Date/Time: 06/09/22 @ 15:48 (10) Lactic acidosis Status: Resolved Resolution Date/Time: 06/09/22 @ 15:48 (11) Anemia Status: Acute (12) Substance abuse Status: Acute (13) Severe protein-calorie malnutrition Status: Acute (14) Critical illness myopathy Status: Acute (15) Goals of care, counseling/discussion Status: Acute (16) Tracheostomy in place Status: Acute (17) On mechanically assisted ventilation Clinical Quality Measures AMI/AHF: ASA po Prior to arrival: KENYA Groves MD Jun 28, 2022 09:59
[2022-06-28 10:00] VITALS: BP 115/74
[2022-06-28] MEDS ORDERED: BISACODYL 10 MG SUPP (DULCOLAX) PR ONE (10:00)
[2022-06-28] MEDS ORDERED: BISACODYL 10 MG SUPP (DULCOLAX) PR PRN (10:00)
[2022-06-28] MEDS: ANIDULAFUNGIN INJECTION 100 MG in NS (IVPB) 100 ML IV SCH (10:14)
[2022-06-28] MEDS: NOREPINEPHRINE 16 MG/250 ML DRIP IV SCH ×2 (10:15)
[2022-06-28] MEDS: PHENYLEPHRINE DRIP 250 ML IV SCH (11:40)
[2022-06-28] MEDS: fentaNYL PATCH 75 MCG (DURAGESIC) TD SCH (13:41)
[2022-06-28] MEDS: FENTANYL PATCH REMOVAL TP SCH (13:42)
[2022-06-28] MEDS ORDERED: MINERAL OIL ENEMA 133 ML BTL PR ONE (14:00)
[2022-06-28 15:23] VITALS: BP 115/74
[2022-06-28] MEDS: ENOXAPARIN 40 MG/0.4 ML (LOVENOX) SYR SC SCH (17:48)
[2022-06-28 17:57] VITALS: BP 101/66
[2022-06-28 19:25] VITALS: BP 102/72
[2022-06-28 22:49] VITALS: BP 139/88
[2022-06-28] MEDS: LORazepam INJ 2 MG/ML (ATIVAN) VIAL IVP PRN (23:43)
[2022-06-29] MEDS: PHENYLEPHRINE DRIP 250 ML IV SCH ×2 (00:58→14:36)
[2022-06-29] MEDS: fentaNYL DRIP PRE-MIX 250 ML IV SCH ×4 (02:05→23:09)
[2022-06-29 02:39] VITALS: BP 106/69
[2022-06-29] MEDS: RT-IPRATROPIUM (ATROVENT) 0.5MG/2.5ML AMP IH SCH ×6 (02:39→22:57)
[2022-06-29] MEDS: RT-ALBUTEROL SULF 2.5 MG/3 ML PRE-MIX VIAL INH SCH ×6 (02:39→22:57)
[2022-06-29 04:41] LABS: BASOPHILS % (AUTO) 0 % (0-10); EOSINOPHILS # (AUTO) 0.1 10^3/uL (0.0-0.3); EOSINOPHILS % (AUTO) 1 % (0-10); HEMATOCRIT 30 % (35-52); HEMOGLOBIN 9.1 g/dL (11.5-16.0); LYMPHOCYTES # (AUTO) 1.2 10^3/uL (1.0-4.0); LYMPHOCYTES % (AUTO) 25 % (12-44); MEAN CORPUSCULAR HEMOGLOBIN 27 pg (25-34); MEAN CORPUSCULAR HGB CONC 31 g/dL (32-36); MEAN CORPUSCULAR VOLUME 87 fL (80-99); MEAN PLATELET VOLUME 8.5 fL (9.0-12.2); MONOCYTES # (AUTO) 0.5 10^3/uL (0.0-1.0); MONOCYTES % (AUTO) 12 % (0-12); NEUTROPHILS # (AUTO) 2.9 10^3/uL (1.8-7.8); NEUTROPHILS % (AUTO) 62 % (42-75); PLATELET COUNT 163 10^3/uL (130-400); WHITE BLOOD COUNT 4.7 10^3/uL (4.3-11.0)
[2022-06-29] MEDS: LORazepam INJ 2 MG/ML (ATIVAN) VIAL IVP PRN (04:48)
[2022-06-29 05:03] LABS: ALBUMIN 3.8 GM/DL (3.2-4.5); BILIRUBIN,TOTAL 0.7 MG/DL (0.1-1.0); CALCIUM 8.7 MG/DL (8.5-10.1); CREATININE SERUM 0.5 MG/DL (0.60-1.30); MAGNESIUM 1.8 MG/DL (1.6-2.4); PHOSPHORUS 3.9 MG/DL (2.3-4.7); TOTAL PROTEIN 7.6 GM/DL (6.4-8.2)
[2022-06-29] MEDS: POTASSIUM CL 10MEQ/50ML IVPB 50 ML IV SCH ×6 (05:11→10:16)
[2022-06-29] MEDS: MAGNESIUM 1 GM/100 ML IVPB 100 ML IV SCH (05:12)
[2022-06-29] MEDS: inSUlin ASPART (NovoLOG) 1 UNIT/0.01 ML (CHARGE PER UNIT) SC SCH ×3 (05:12→18:56)
[2022-06-29] MEDS: KCL 20 MEQ TAB (K-DUR) PO SCH (05:12)
[2022-06-29] MEDS ORDERED: POTASSIUM CL 10MEQ/50ML IVPB 50 ML IV ONE (05:15)
[2022-06-29] MEDS ORDERED: POTASSIUM CL 10MEQ/50ML IVPB 200 ML IV ONE (05:29)
[2022-06-29] MEDS: FUROSEMIDE 40 MG/4 ML INJ (LASIX) IVP SCH ×2 (05:42→17:41)
[2022-06-29] MEDS: METHYLNALTREXONE 12 MG/0.6 ML (RELISTOR) VIAL SQ SCH (08:05)
[2022-06-29] MEDS: LACTULOSE SYRUP 10GM/15ML (ENULOSE) 30ML UDC PO SCH ×4 (08:05→20:30)
[2022-06-29] MEDS: PANTOPRAZOLE 40 MG (PROTONIX) VIAL IV SCH (08:05)
[2022-06-29] MEDS: HYDROCORTISONE 100 MG/2 ML (Solu-CORTEF) VIAL IV SCH (08:05)
[2022-06-29] MEDS: MICONAZOLE 2% POWDER (DESENEX AF) 90 GM TOP SCH ×2 (08:05→20:30)
--- NOTE | 2022-06-29 08:33 | Progress Note - Hospitalist ---
Subjective HPI/CC On Admission Date Seen by Provider: Jun 29, 2022 Pt is a 32yoCF with a PMH of methamphetamine abuse who presented to the ER due to weakness. History comes from both patient and her mom. Mom states she has a long history of meth use but has been trying to quit. She last used 7 days ago and then started to get very ill. Her mom wanted to take her in to be seen but the patient refused throoughout the week and finally decidied to come intoday due to her weakness. Reportedly her son has had to carry her from room to room because of how weak she is. On arrival to the emergency room her oxygen saturation was 40%. This was confirmed on an ABG with a PO2 of 39 and saturation of 64 on 15 L nonrebreather. We were able to get her oxygen up into the 90s with oxi mask. Imaging revealed extensive bilateral infiltrates. She was also found to have a profound lactic acidosis fo 13. When I saw her in the ICU she was mottled to her knees and elbows though her capillary refill was adequate. She apparently has vomited twice this morning too. Subjective/Events-last exam Pt remains on vent with sedation running but alert. Denied pain. Did not answer other questions. RN at bedside. Objective Exam Vital Signs Vital Signs Date Time Temp Pulse Resp B/P (MAP) Pulse Ox O2 Delivery O2 Flow Rate FiO2 06/29/22 07:50 97 Mechanical Ventilator 60.00 06/29/22 07:00 90 23 103/85 (91) 06/29/22 04:00 70 06/29/22 04:00 36.6 Capillary Refill : Less Than 3 Seconds General Appearance: No Apparent Distress, Thin Respiratory: Lungs Clear, Other (on vent) Cardiovascular: Regular Rate, Rhythm, No Murmur Gastrointestinal: Abnormal Bowel Sounds (present but quiet), Distended (though improved from my exam last week) Genital/Rectal: Other (cameron) Extremity: No Pedal Edema Neurologic/Psychiatric: Alert Results/Procedures Lab Laboratory Tests 06/29/22 04:30 Patient resulted labs reviewed. Imaging: Reviewed Imaging Report Assessment/Plan Assessment and Plan Assess & Plan/Chief Complaint Acute respiratory failure with hypoxia Tracheostomy on mechanical ventilation Pneumonia Fluid overload Anemia Severe protein calorie malnutrition Critical illness myopathy TeleICU following Remains on ventilator and sedation, weaning both as able Eraxis Lasix, negative 2280mL yesterday Tube feeds Trach and PEG on 06/27 Referral sent to LTAC in [place], social work assistance appreciated PT/OT ordered today Opioid induced constipation Ileus Relistor Q48 Lactulose Suppository BM yesterday SIRS, resolved If fever (>38.5) returns, obtain stat blood cultures No antibiotics at this time Eraxis for anti-fungal coverage Septic shock, resolved Strep pneumoniae bacteremia, resolved ARDS, resolved ENOC, resolved Lactic acidosis, resolved Goals of care discussion, resolved Critical Care Ventilator Management Diagnosis/Problems Diagnosis/Problems (1) Transaminitis (2) Microcytic anemia (3) Bilateral pneumonia (4) Lactic acidosis Status: Resolved Resolution Date/Time: 06/09/22 @ 15:48 (5) Tobacco abuse (6) Methamphetamine abuse (7) Cachexia (8) Protein-energy malnutrition (9) Acute respiratory failure Status: Acute Qualifiers: Respiratory failure complication: hypoxia and hypercapnia Qualified Codes: J96.01 - Acute respiratory failure with hypoxia; J96.02 - Acute respiratory failure with hypercapnia (10) Septic shock Status: Resolved Resolution Date/Time: 06/22/22 @ 19:07 (11) ENOC (acute kidney injury) Status: Resolved Resolution Date/Time: 06/09/22 @ 15:48 Clinical Quality Measures AMI/AHF: ASA po Prior to arrival: ANDI Hernandez MD Jun 29, 2022 08:33
[2022-06-29] MEDS: ANIDULAFUNGIN INJECTION 100 MG in NS (IVPB) 100 ML IV SCH (08:49)
--- NOTE | 2022-06-29 09:17 | Diagnostic Imaging Report ---
INDICATION: Pneumonia followup. EXAMINATION: Portable chest at 9:05 AM. FINDINGS: The patient has a tracheostomy tube. The left upper extremity PICC line tip projects over the SVC. There is a right pleural effusion. There are bilateral perihilar infiltrates. IMPRESSION: Bilateral perihilar infiltrates with a right pleural effusion. The chest appears similar to the comparison exam dated 06/24/2022. Dictated by: Dictated on workstation # [id number]
[2022-06-29] MEDS: DexMEDEtomidine 250 ML DRIP 250 ML IV SCH ×2 (10:17→22:23)
[2022-06-29] MEDS: NOREPINEPHRINE 16 MG/250 ML DRIP IV SCH ×2 (10:19)
[2022-06-29 10:54] VITALS: BP 93/63
--- NOTE | 2022-06-29 11:24 | Physical Therapy Evaluation ---
PT Evaluation-General Medical Diagnosis Admission Date Jun 07, 2022 at 12:44 Medical Diagnosis: respiratory failure Onset Date: Jun 07, 2022 Therapy Diagnosis Therapy Diagnosis: severe weakness/debility Height/Weight Height (Feet): 5 Height (Inches): 6 Weight (Pounds): 120 Precautions Precautions/Isolations: Aspiration, Fall Prevention, Standard Precautions, Pressure Ulcer Referral Physician: Lindsey Reason for Referral: Evaluation/Treatment Medical History Additional Medical History polysubstance use Current History EMS secondary to respiratory failure with hypoxia Reviewed History: Yes Prior Prior Level of Function SCALE: Activities may be completed with or without assistive devices. 2-[id number]-[id number] completes the activity by him/herself with no assistance from a helper. 5-Set-up or Clean-up Assistance-helper sets up or cleans up; patient completes activity. [place] assists only prior to or following the activity. 4-Supervision or Touching Assistance-helper provides verbal cues and/or touching/steadying and/or contact guard assistance as patient completes activity. Assistance may be provided throughout the activity or intermittently. 3-Partial/Moderate Assistance-helper does LESS THAN HALF the effort. [place] lifts, holds or supports trunk or limbs, but provides less than half the effort. 2-Substantial/Maximal Assistance-helper does MORE THAN HALF the effort. [place] lifts or holds trunk or limbs and provides more than half the effort. 8-Qmawfnyyq-zyucib does ALL the effort. Patient does none of the effort to complete the activity. Or, the assistance of 2 or more helpers is required for the patient to complete the activity. If activity was not attempted, code reason: 7-Patient Refused. 9-Not Applicable-not attempted and the patient did not perform the activity before the current illness, exacerbation or injury. 10-Not Attempted due to Environmental Limitations-(lack of equipment, weather restraints, etc.). 88-Not Attempted due to Medical Conditions or Safety Concerns. Bed Mobility: 6 Transfers (B,C,W/C): 6 Gait: 6 Indoor Mobility (Ambulation): Independent Stairs: Independent Prior Devices Use: None PT Evaluation-Current Subjective Patient is alert. Agrees to PT. Objective Attachments: Central Line, Ventilator (trach), Figueroa Catheter ROM/Strength ROM Lower Extremities bilateral LE WFL Strength Lower Extremities 1/5 grossly bilateral LE all planes Integumentary/Posture Bowel Incontinence: Yes Bladder Incontinence: Figueroa Cath Neuromuscular (Tone, Coordination, Reflexes) severely diminished with all Sensory Vision: Functional Hearing: Functional Transfers Roll Left to Right (QC): 1 (x 2) Sit to Lying (QC): 88 Lying to Sitting/Side of Bed(Q: 88 Gait Does the Patient Walk?: No and Walking Goal IS indicated Assessment/Needs Bilateral LE AAROM performed in supine. Patient will benefit from skilled PT to address functional strength and mobility to improve current LOF. Patient is currently not safe for OOB activity. Rehab Potential: Guarded PT Short Term Goals Short Term Goals Time Frame: Jul 18, 2022 Roll Left & Right: 2 Sit to lyin Lying to sitting on side of be: 2 Sit to stand: 2 Chair/[id number] transfer: 2 PT Mcfp Goals Product Marketing Manager Goals PT Product Marketing Manager Goals Time Frame: Aug 15, 2022 Roll Left & Right (QC): 4 Sit to Lying (QC): 4 Lying-Sitting on Side/Bed(QC): 4 Sit to Stand (QC): 4 Chair/Yzx-ay-Ghmsp Xfer(QC): 4 Toilet Transfer (QC): 4 Walk 10 feet (QC): 3 Walk 50ft with 2 Turns (QC): 3 PT Plan Problem List Problem List: Activity Tolerance, Functional Strength, Safety, Balance, Gait, Transfer, Bed Mobility Treatment/Plan Treatment Plan: Continue Plan of Care Treatment Plan: Bed Mobility, Education, Functional Activity [place], Functional Strength, Gait, Safety, Therapeutic Exercise, Transfers Treatment Duration: Aug 15, 2022 Frequency: 6 times per week Estimated Hrs Per Day: .25 hour per day Patient and/or Family Agrees t: Yes Time Time In: 1032 Time Out: 1042 DATE: Jun 29, 2022 Total Billed Treatment Time: 10 Total Billed Treatment 1 visit EVMod 10 min DIMITRIOS GUERRERO PT Jun 29, 2022 11:23
--- NOTE | 2022-06-29 12:54 | Tele-ICU Progress Note ---
Subjective Date Seen by a Provider: Jun 29, 2022 Time Seen by a Provider: 11:20 Subjective/Events-last exam (Tele-ICU Physician , PROGRESS NOTE) Available chart/ vitals / labs / Images reviewed H&P is from ER notes Patient's information available about PMH, allergy reviewed in EMR. ROS as per chart and RN report Video assessment done using teleICU camera, rest of exam as per RN Discussed with RN. She is a 32-year-old female with past medical history of methamphetamine abuse admitted on June 07, 2022 with tachycardia plaint of severe weakness and found to have a severe hypoxia and she was initially placed on nonrebreather mask but she did not improve and she is intubated and put on mechanical vent ilation. She is also found to have a lactic acidosis. Since then she has been on mechanical ventilation and unable to wean her off the ventilator. Her sputum grew Staphylococcus aureus haemophilus in October. Initial blood cultures grew Streptococcus pneumonia and she has been treated appropriately since then. Today she was having low tidal volumes hence a video visited and discussed with the RT and RN and advised to change the ET tube with a new tube as there seems to be a cuff leak. I have reviewed the chest x-ray. Post reintubation her chest x-ray showed ET tube tip in between the clavicle or head. Bilateral extensive infiltrates present. Previous CT of the chest reviewed and showed a bilateral small pleural effusion but they are not large enough to tap. RN tells me that patient has severe anasarca as well. 06/29/2022. SHE HAD TRACH AND PEG. ABUSABLE AND FOLLOWING COMMANDS PER RN. BP BOARDERLINE BUT SHE IS DIURESSING. HOWEVER SHE IS REQUIRING MORE OXYGEN TODAY. CXR REVIEWED AND SHOWING BILA EXTENSIVE INFILTRATES AND SMALL PLEURAL EFFUSIONS. Impression 1. Acute hypoxic respiratory failure due to pneumonia NOT WEANABLE TODAY. 2. Both gram-negative and gram-positive pneumonia 3. Pneumococcal sepsis 4. Methamphetamine abuse 5. Protein calorie malnutrition 6. Severe generalized weakness secondary to all the above problems 7. Critical illness myopathy Plan of treatment. 1. Patient currently on 85% FiO2 on mechanical ventilator and will continue to wean FiO2 as tolerated, but will increase ppep to 12. she is not a candidate for SBT yet. 2. Continue IV antibiotics 3. Generalized weakness most likely due to protein calorie malnutrition as well as a critical illness myopathy. 4. LTACH referal made 5. continue nutrional support and bedside physical therapy. 6. DVT prophylaxis and ulcer prophylaxis Coordination of care with bedside consultants and primary care physician. Review of Systems ros per rn Sepsis Event Evaluation Height, Weight, BMI Height: 5'6" Weight: 120lbs. oz. 54.969100df; 21.40 BMI Method:Stated Exam Exam Patient acknowledged, consented, and participated in this virtual visit which was conducted using real time audio/video Vital Signs Date Time Temp Pulse Resp B/P (MAP) Pulse Ox O2 Delivery O2 Flow Rate FiO2 06/29/22 12:29 92 06/29/22 12:25 Mechanical Ventilator 80 06/29/22 12:14 80 06/29/22 12:00 36.3 06/29/22 11:00 94 91/57 (68) 94 Mechanical Ventilator 80.00 06/29/22 10:54 97 26 93 80 06/29/22 10:17 101 90/58 06/29/22 10:00 104 12 96/64 (75) 91 Mechanical Ventilator 80.00 06/29/22 09:36 Mechanical Ventilator 80.00 06/29/22 09:00 107 10 97/60 (72) 90 Mechanical Ventilator 65.00 06/29/22 08:55 98 119/84 06/29/22 08:54 91 Mechanical Ventilator 65.00 06/29/22 08:00 70 06/29/22 08:00 97 14 119/84 (96) 94 Mechanical Ventilator 60.00 06/29/22 08:00 Mechanical Ventilator 70 06/29/22 08:00 36.8 06/29/22 07:50 97 Mechanical Ventilator 60.00 06/29/22 07:21 94 24 93 80 06/29/22 07:00 90 23 103/85 (91) 99 Mechanical Ventilator 70.00 06/29/22 06:58 90 06/29/22 06:00 96 24 97/59 (74) 90 Mechanical Ventilator 70.00 06/29/22 05:00 96 24 120/82 (92) 91 Mechanical Ventilator 70.00 06/29/22 04:00 95 Mechanical Ventilator 70 06/29/22 04:00 36.6 06/29/22 04:00 70 06/29/22 04:00 99 24 126/81 (97) 99 Mechanical Ventilator 70.00 06/29/22 03:00 90 24 113/72 (82) 96 Mechanical Ventilator 70.00 06/29/22 02:39 85 24 96 70 06/29/22 02:05 87 139/88 06/29/22 02:00 86 24 113/74 (88) 98 Mechanical Ventilator 70.00 06/29/22 01:00 92 24 112/75 (83) 97 Mechanical Ventilator 70.00 06/29/22 01:00 92 06/29/22 00:00 88 24 131/82 (104) 97 Mechanical Ventilator 70.00 06/29/22 00:00 70 06/28/22 23:59 95 Mechanical Ventilator 70 06/28/22 23:03 37.1 06/28/22 23:00 79 24 141/87 (110) 98 Mechanical Ventilator 70.00 06/28/22 23:00 86 24 141/87 (110) 97 Mechanical Ventilator 70.00 06/28/22 22:49 87 25 98 70 06/28/22 21:00 90 24 120/77 (92) 94 Mechanical Ventilator 70.00 06/28/22 20:00 88 24 127/89 (104) 100 Mechanical Ventilator 70.00 06/28/22 20:00 94 Mechanical Ventilator 70 06/28/22 20:00 65 06/28/22 19:46 36.6 06/28/22 19:36 74 123/78 06/28/22 19:36 74 123/78 06/28/22 19:36 74 13 123/78 06/28/22 19:25 84 24 90 70 06/28/22 19:15 85 24 102/72 (80) 89 Mechanical Ventilator 70.00 06/28/22 19:00 76 06/28/22 19:00 76 24 104/73 (81) 92 Mechanical Ventilator 65.00 06/28/22 18:00 74 13 123/78 (94) 91 Mechanical Ventilator 65.00 06/28/22 17:57 85 24 92 65 06/28/22 17:48 79 131/86 06/28/22 17:00 85 24 125/85 (99) 92 Mechanical Ventilator 65.00 06/28/22 16:55 Mechanical Ventilator 65.00 06/28/22 16:00 82 32 118/82 (91) 100 Mechanical Ventilator 55.00 06/28/22 16:00 94 Mechanical Ventilator 55 06/28/22 16:00 65 06/28/22 15:23 75 24 93 55 06/28/22 15:18 36.3 06/28/22 15:00 74 24 117/77 (92) 92 Mechanical Ventilator 65.00 06/28/22 14:23 76 114/74 06/28/22 14:00 77 24 109/73 (84) 94 Mechanical Ventilator 65.00 06/28/22 13:42 85 116/75 06/28/22 13:00 83 8 106/70 (82) 96 Mechanical Ventilator 65.00 06/28/22 12:52 87 I & O 06/29/22 06:59 Intake Total 1620 ml Output Total 3775 ml Balance -2155 ml Height & Weight Height: 5'6" Weight: 120lbs. oz. 54.822696ef; 21.40 BMI Method:Stated General Appearance: No Apparent Distress, Thin HEENT: PERRL/EOMI Neck: Full Range of Motion Respiratory: Lungs Clear, Other (on vent) Cardiovascular: Regular Rate, Rhythm, No Murmur Capillary Refill: Less Than 3 Seconds Gastrointestinal: normal bowel sounds, non tender, soft Extremity: No Pedal Edema Neurologic/Psychiatric: Alert Skin: Warm/Dry, Pallor Lymphatic: No Adenopathy Other comments PE PER RN Results Lab Laboratory Tests 06/28/22 04:51 06/29/22 04:30 Assessment/Plan Assessment/Plan ABOVE Critical Care: Ventilator Management Time spent with patient (mins): 33 MARSHA RESENDIZ MD Jun 29, 2022 12:54
--- NOTE | 2022-06-29 13:04 | Occupational Therapy Eval ---
OT Evaluation-General/PLF Medical Diagnosis Admission Date Jun 07, 2022 at 12:44 Medical Diagnosis: respiratory failure Onset Date: Jun 07, 2022 Therapy Diagnosis Therapy Diagnosis: weakness Height/Weight Height (Feet): 5 Height (Inches): 6 Weight (Pounds): 120 Precautions Precautions/Isolations: Aspiration, Fall Prevention, Standard Precautions, Pressure Ulcer Comments B wrist restraint Weight Bear Status Weight Bearing Restriction: Weight Bearing/Tolerated Referral Physician: Lindsey Referral Reason: Activity Tolerance, Self Care, Evaluation/Treatment, Strengthening/ROM Medical History Additional Medical History Acute respiratory failure with hypoxia Endotracheally intubated Pneumonia Fluid overload Anemia Severe protein calorie malnutrition Critical illness myopathy, methamphetamine use Current History Pt is a 32yoCF with a PMH of methamphetamine abuse who presented to the ER due to weakness. Mom states she has a long history of meth use but has been trying to quit. She started using again.. Her mom wanted to take her in to be seen but the patient refused throughout the week and finally decided to come due to her weakness. Reportedly her son has had to carry her from room to room because of how weak she is. On arrival to the emergency room her oxygen saturation was 40%, Intubated and sedated, distal extremities were molting. Trach/peg placed 06/27/22 Reviewed History: Yes Social History Home: Current Living Status: Has 3 children living her mother, oldest is approximately 14. Grandparents are with patient at time of OT evaluation ADL-Prior Level of Function SCALE: Activities may be completed with or without assistive devices. 0-Ghastsntbp-luwvrjr completes the activity by him/herself with no assistance from a helper. 5-Set-up or Clean-up Assistance-helper sets up or cleans up; patient completes activity. [place] assists only prior to or following the activity. 4-Supervision or Touching Assistance-helper provides verbal cues and/or touching/steadying and/or contact guard assistance as patient completes activity. Assistance may be provided throughout the activity or intermittently. 3-Partial/Moderate Assistance-helper does LESS THAN HALF the effort. [place] lifts, holds or supports trunk or limbs, but provides less than half the effort. 2-Substantial/Maximal Assistance-helper does MORE THAN HALF the effort. [place] lifts or holds trunk or limbs and provides more than half the effort. 6-Jtikturew-qlvjpz does ALL the effort. Patient does none of the effort to complete the activity. Or, the assistance of 2 or more helpers is required for the patient to complete the activity. If activity was not attempted, code reason: 7-Patient Refused. 9-Not Applicable-not attempted and the patient did not perform the activity before the current illness, exacerbation or injury. 10-Not Attempted due to Environmental Limitations-(lack of equipment, weather restraints, etc.). 88-Not Attempted due to Medical Conditions or Safety Concerns. Self Care: Independent Functional Cognition: Independent OT Current Status Subjective B wrist restrains, grandparents at bedside, OT provided blanket Pain Numeric Pain Scale: 0-No Pain Comment: denies pain w/ nods Mental Status/Objective Patient Orientation: Person, Situation tearful, uses gestures to communicate YES/NO Attachments: Central Line, PEG Tube, Other-See Comments (trach) Current Upper Extremity ROM restraint, AROM all digits/wrist, elbow on command restraint applied following evaluation Upper Extremity Coordination impaired Upper Extremity Strength 3/5 ADL-Treatment Eating (QC): 88 (NPO) Oral Hygiene (QC): 88 (NPO, restraint) Shower/Bathe Self (QC): 88 Upper Body Dressing (QC): 88 Lower Body Dressing (QC): 88 On/Off Footwear (QC): 88 Toileting Hygiene (QC): 88 Other Treatments Performs ROM, instructed family while holding patient hand to facilitated grasp and release, thumb war, ROCK PAPER SCISSORS, offloading of B ELBOWS d/t APUs Education OT Patient Education: Correct positioning, Exercise program, Progress toward Goal/Update tx plan, Purpose of tx/functional activities, Reviewed precautions, Rehab process, Safety issues, Use of adapted equipment Teaching Recipient: Patient, Family Teaching Methods: Demonstration, Discussion Response to Teaching: Verbalize Understanding, Reinforcement Needed OT Longterm Goals Gang Knife Fish Chopper Goals Eating (QC): 3 Oral Hygiene (QC): 3 Toileting Hygiene (QC): 2 Shower/Bathe Self (QC): 2 Upper Body Dressing (QC): 3 Lower Body Dressing (QC): 2 On/Off Footwear (QC): 3 1=Demonstrate adherence to instructed precautions during ADL tasks. 2=Patient will verbalize/demonstrate understanding of assistive devices/modifications for ADL. 3=Patient will improve strength/tolerance for activity to enable patient to perform ADL's. OT Education/Plan Problem List/Assessment Assessment: Decreased Activ Tolerance, Decreased Safety Aware, Decreased UE Strength, Dependent Transfers, Impaired Bed Mobility, Impaired Cognition, Impaired Coordination, Impaired Funct Balance, Impaired Self-Care Skills, Restricted Funct UE ROM Discharge Recommendations Plan/Recommendations: Continue POC Therapy Discharge Recommendati: Post Acute OT Treatment Plan/Plan of Care Treatment,Training & Education: Yes Patient would benefit from OT for education, treatment and training to promote independence in ADL's, mobility, safety and/or upper extremity function for ADL's. Plan of Care: ADL Retraining, Caregiver Training, Cognitive Retraining, Functional Mobility, Group Exercise/Act as Ind, UE Funct Exercise/Act, UE Neuromus Re-Ed/Coord Treatment Duration: Jul 11, 2022 Frequency: 3 times per week (3-5 times per week) Estimated Hrs Per Day: .25 hour per day Rehab Potential: Guarded PT remain in bed w/ family bedside all needs met Time Start Time: 11:30 Stop Time: 12:00 DATE: Jun 29, 2022 Total Time Billed (hr/min): 30 Billed Treatment Time 1 visit EVH 1, EX 1 30 minutes STEFANO AZEVEDO OT Jun 29, 2022 13:04
[2022-06-29] MEDS: MIDAZOLAM DRIP PRE-MIX 100 ML IV SCH (13:28)
[2022-06-29 14:39] VITALS: BP 99/66
[2022-06-29] MEDS: ENOXAPARIN 40 MG/0.4 ML (LOVENOX) SYR SC SCH (17:42)
[2022-06-29 19:06] VITALS: BP 99/66
[2022-06-29 21:23] VITALS: BP 122/83
[2022-06-29 22:58] VITALS: BP 107/66
[2022-06-30] MEDS: inSUlin ASPART (NovoLOG) 1 UNIT/0.01 ML (CHARGE PER UNIT) SC SCH ×4 (00:06→18:01)
[2022-06-30 02:55] VITALS: BP 118/76
[2022-06-30] MEDS: RT-ALBUTEROL SULF 2.5 MG/3 ML PRE-MIX VIAL INH SCH ×6 (02:55→22:01)
[2022-06-30] MEDS: RT-IPRATROPIUM (ATROVENT) 0.5MG/2.5ML AMP IH SCH ×6 (02:55→22:01)
[2022-06-30 04:04] LABS: BASOPHILS % (AUTO) 0 % (0-10); EOSINOPHILS # (AUTO) 0.1 10^3/uL (0.0-0.3); EOSINOPHILS % (AUTO) 1 % (0-10); HEMATOCRIT 28 % (35-52); HEMOGLOBIN 8.2 g/dL (11.5-16.0); LYMPHOCYTES # (AUTO) 1.1 10^3/uL (1.0-4.0); LYMPHOCYTES % (AUTO) 25 % (12-44); MEAN CORPUSCULAR HEMOGLOBIN 26 pg (25-34); MEAN CORPUSCULAR HGB CONC 30 g/dL (32-36); MEAN CORPUSCULAR VOLUME 88 fL (80-99); MEAN PLATELET VOLUME 9.1 fL (9.0-12.2); MONOCYTES # (AUTO) 0.4 10^3/uL (0.0-1.0); MONOCYTES % (AUTO) 9 % (0-12); NEUTROPHILS # (AUTO) 2.8 10^3/uL (1.8-7.8); NEUTROPHILS % (AUTO) 65 % (42-75); PLATELET COUNT 168 10^3/uL (130-400); WHITE BLOOD COUNT 4.3 10^3/uL (4.3-11.0)
[2022-06-30 04:15] LABS: CALCIUM 8.8 MG/DL (8.5-10.1)
[2022-06-30 04:20] LABS: CREATININE SERUM 0.49 MG/DL (0.60-1.30); PHOSPHORUS 3.9 MG/DL (2.3-4.7)
[2022-06-30 04:22] LABS: MAGNESIUM 1.9 MG/DL (1.6-2.4)
[2022-06-30] MEDS: MIDAZOLAM DRIP PRE-MIX 100 ML IV SCH ×2 (04:36→22:44)
[2022-06-30 04:51] LABS: ABG BASE EXCESS 6.9 MMOL/L (-2.5-2.5); ABG OXYGEN SATURATION 93 % (94-100); ABG PCO2 46 MMHG (35-45); ABG PH 7.44 (7.37-7.43); ABG PO2 73 MMHG (79-93); ABG TCO2 32.6 MMOL/L (21.0-31.0); ALLENS TEST YES-POS; INSPIRED O2 70%; PATIENT TEMP 36.9; VENTILATOR YES
[2022-06-30] MEDS: fentaNYL DRIP PRE-MIX 250 ML IV SCH ×3 (05:16→17:35)
[2022-06-30] MEDS: PHENYLEPHRINE DRIP 250 ML IV SCH ×2 (05:17→16:55)
[2022-06-30] MEDS ORDERED: POTASSIUM CL 10MEQ/50ML IVPB 50 ML IV ONE (05:30)
[2022-06-30] MEDS: POTASSIUM CL 10MEQ/50ML IVPB 50 ML IV SCH ×6 (06:00→09:45)
[2022-06-30] MEDS: FUROSEMIDE 40 MG/4 ML INJ (LASIX) IVP SCH (06:01)
[2022-06-30] MEDS: KCL 20 MEQ TAB (K-DUR) PO SCH (06:19)
[2022-06-30] MEDS: MAGNESIUM 1 GM/100 ML IVPB 100 ML IV SCH (06:19)
[2022-06-30 06:44] VITALS: BP 94/64
[2022-06-30] MEDS: DexMEDEtomidine 250 ML DRIP 250 ML IV SCH (08:42)
--- NOTE | 2022-06-30 08:46 | Physical Therapy Daily Note ---
PT Daily Note-Current Subjective Patient agrees to PT. RN present to assist Pain Section J - Health Conditions 1. Rarely or not at all 2. Occasionally 3. Frequently 4. Almost constantly 8. Unable to answer Pain Effect on Sleep: 1 Pain Interference with Therapy: 1 Pain Interference w/Day-to-Day: 1 Mental Status Patient Orientation: Normal For Age Attachments: Central Line, Oxygen (vent/trach), [place] Catheter Transfers SCALE: Activities may be completed with or without assistive devices. 4-Zhxpbtqkmj-nflmoxz completes the activity by him/herself with no assistance from a helper. 5-Set-up or Clean-up Assistance-helper sets up or cleans up; patient completes activity. [place] assists only prior to or following the activity. 4-Supervision or Touching Assistance-helper provides verbal cues and/or touch ing/steadying and/or contact guard assistance as patient completes activity. Assistance may be provided throughout the activity or intermittently. 3-Partial/Moderate Assistance-helper does LESS THAN HALF the effort. [place] lifts, holds or supports trunk or limbs, but provides less than half the effort. 2-Substantial/Maximal Assistance-helper does MORE THAN HALF the effort. [place] lifts or holds trunk or limbs and provides more than half the effort. 4-Wqqbcybcd-onwnbl does ALL the effort. Patient does none of the effort to complete the activity. Or, the assistance of 2 or more helpers is required for the patient to complete the activity. If activity was not attempted, code reason: 7-Patient Refused. 9-Not Applicable-not attempted and the patient did not perform the activity before the current illness, exacerbation or injury. 10-Not Attempted due to Environmental Limitations-(lack of equipment, weather restraints, etc.). 88-Not Attempted due to Medical Conditions or Safety Concerns. Roll Left & Right (QC): 1 (x 2) Sit to Lying (QC): 1 (x 2) Lying to Sitting/Side of Bed(Q: 1 (x 2) Exercises Supine Ex: Ankle pumps, Heel Slides, Straight leg raise, Hip abd/add Supine Reps: 12 (AAROM) Seated Therapy Exercises: Long arc quads Seated Reps: 10 (AROM) Assessment Patient able to maintain sitting EOB with minimal assist for several minutes. RN present to suction and assist during session. Patient improving with treatment plan. Continue to increase activity as tolerated by patient. PT Short Term Goals Short Term Goals Time Frame: Jul 18, 2022 Roll Left & Right: 2 Sit to lyin Lying to sitting on side of be: 2 Sit to stand: 2 Chair/opx-dg-khymm transfer: 2 PT Shelter Goals Shelter Goals PT Marketing Production Coordinator Goals Time Frame: Aug 15, 2022 Roll Left & Right (QC): 4 Sit to Lying (QC): 4 Lying-Sitting on Side/Bed(QC): 4 Sit to Stand (QC): 4 Chair/Lxm-zs-Ffhiz Xfer(QC): 4 Toilet Transfer (QC): 4 Walk 10 feet (QC): 3 Walk 50ft with 2 Turns (QC): 3 PT Plan Treatment/Plan Treatment Plan: Continue Plan of Care Treatment Plan: Bed Mobility, Education, Functional Activity [place], Functional Strength, Gait, Safety, Therapeutic Exercise, Transfers Treatment Duration: Aug 15, 2022 Frequency: 6 times per week Estimated Hrs Per Day: .25 hour per day Patient and/or Family Agrees t: Yes Time Time In: 759 Time Out: 822 DATE: Jun 30, 2022 Total Billed Treatment Time: 23 Total Billed Treatment 1 visit FA x 2 23 min DIMITRIOS GUERRERO PT Jun 30, 2022 08:46
[2022-06-30 10:08] VITALS: BP 100/68
[2022-06-30] MEDS ORDERED: KCL 20 MEQ TAB (K-DUR) PO NR (10:30)
[2022-06-30] MEDS: PANTOPRAZOLE 40 MG (PROTONIX) VIAL IV SCH (10:34)
[2022-06-30] MEDS: LORazepam 1 MG (ATIVAN) TAB PO PRN ×2 (10:35→17:26)
[2022-06-30] MEDS: LACTULOSE SYRUP 10GM/15ML (ENULOSE) 30ML UDC PO SCH ×4 (10:35→22:41)
[2022-06-30] MEDS: MICONAZOLE 2% POWDER (DESENEX AF) 90 GM TOP SCH ×2 (10:35→22:41)
[2022-06-30] MEDS: ANIDULAFUNGIN INJECTION 100 MG in NS (IVPB) 100 ML IV SCH (10:35)
[2022-06-30] MEDS: NOREPINEPHRINE 16 MG/250 ML DRIP IV SCH ×2 (10:35)
--- NOTE | 2022-06-30 10:44 | Tele-ICU Progress Note ---
Subjective Date Seen by a Provider: Jun 30, 2022 Time Seen by a Provider: 10:44 Subjective/Events-last exam (Tele-ICU Physician , Progress Note ) Service provided via interactive audio and video telecommunications E-CARE system to a patient admitted to ICU bed in [facility]. Patient is seen today due to persistent need of ICU care Available chart/ vitals / labs / Images reviewed Video assessment done using teleICU camera, rest of exam as per RN Discussed with RN Events overnight : AFEBRILE hemodynamically stable Respiratory - 80% + 8 I/O = neg 900 Drips: Pressors- REYNALDO OFF VENT SETTINGS and ABG reviewed CANDIDATE for SBTreviewed possible contraindications including Car diovascular Stability /Sedation Score / FI02/PEEP / ABG / CXR/ secretions Sedation, discussed with RN, RASS -2 versed 7 , fent 200 precedex 1 , folow commands Consultants: Hospital course: (06/07) 32F Admitted with PNA. CT shows Mod size areas of consolidation involving bilateral upper and left lower lobe. There is complete consolidation of RLL. Also centrilobular emphysema. -On BIPAP 100% sats 86%-Plan to intubate. Intubated @ 1918 06/08 - AC 400 26 100% peep 5 , shock : levo 0.9 vaso , reynaldo 175 , Hb 6.5 - transfusion 06/08 1 UPRBC 06/10 - OFF nimbex 06/10-Fio2 60 % +10 06/11- Episodes of junctional robson or sinus robson with PAC. fibrinogen 213 06/12 - 50 % , s/p transfusion 06/08 1 u PRBC, PLT 73 06/13 - 65%, hb 6.7 - transfusion 1 pRBC 06/15- follows commands on SAT. 60% +7 . T38 06/16 - fentanyl gtt , decreasing dose , changing to precedex , starting fentanyl patch , fio2 40% , but secreating thicker - adding mucomist nebs 06/17- 55% +6 . transfusion 1 P rbc , - Iron low - starting IV iron 06/17 , follows commands can NOT TRY SBT TODAY with elevated RR 06/18- [id number]% peep 8, CT chest/abd/pelvis - no abscess, anasarca , plural effusions , ZOSYN started 06/19-80% + 8 , afebrile , LASIX with albumin x3 06/21 45% 06/22 80% , neg 2L , added Eraxis , KUB - no obstruction .- 95% =8 neg 2 L ,STOP mucomist nebs 06/24- ETT replaced , possible aspiration with vomiting . transfusion 1 u PRBC 06/25- 80% +8 , hypotensive - lasix held (06/26) Trach and PEG 06/30 - 60% + 10 AFEBRILE A/P Acute resp failure with PNA ( in additional to significant emphysema upper lovbes on CT - suspected due to inhalation of meth and possible other drugs ? ) - intubated 06/07 AC 400 22 95 % + 8 - (2/3) Trach - on 60 % + 10 - will cont diuresis today , try change meds to PEG FEVER- RESOLVED - infection vs not infectious ( less likely, low suspicious for thrombosis or dug fever - will do CT06/18/22 -NO abscess , cavitary lesion in lungs , empyema, intra- abd issues, + anasarca , plural effusions -ZOSYN 06/18-->06/24 06/22 added Eraxis ID PNA - bilateral , most likely CAP ( neg covid , flu ) - sputum cx -Streptococcus pneumoniae and H flu 06/08 , sputum 06/14 - posible Staph Aur - PRESUMPTIVE MSSA, zosyn started 06/18 Bacteremia - sterp pneumo - repeat 06/08 blood cx - NEG so far - line tip cx - 06/26 - pending Intolerance of TF 06/23 - n/V - TF stopped , follow - KUB 06/22 - no obstruction , minimal stool - TF 30 cc/h , reglan prn - repeat KUB today Anasarca , plural effusions on Ct 06/18 - LASIX bid Anemia s/p transfusion 1 u PRBC on 06/08 , 06/09 , 06/13, - no clear sigh of bleeding - suspect delutional? vs slow bleed - Iron low - starting IV iron 06/17 Encephalopaty - follow command , on fentanyl patch 100 and precedex 1.0 versed 6 thrombocytopenia - DIC panel l neg on 06/09 , fibrinogen 213 on 06/11 - stable -RESOLVED Shock . septic - stress dose steroid 50 q 6 - decrease dose q8 06/12 - >25 q8 06/13- stop 06/30/22 - pressors OFF Episodes of junctional robson or sinus robson with PAC. 06/11 - resolved history of methamphetamine use abuse - sedated, fentanyl gtt , decresing dose , changing to precedex , starting fentanyl patch - HIV neg Lines : L scl 06/07 - removed 06/25, new placed 06/25 LEFT PICC , a line 06/07 - removed 06/16 , (Central Line Necessity Reviewed) Figueroa: + OG: Nutrition: TF Analgesia: Anxiety/ delirium VTE Prophylaxis: lovenox 40 Stress Ulcer Prophylaxis: ppi Plans in collaboration with bedside consultants and IM MDs. Discussed with RN to reach out if any questions or concerns A total of 35 minutes of critical care time was devoted to this patient today, required to treat and/or prevent further deterioration of critical care condition ( as above ) . I am remotely monitoring this patient from another state. I am unable to do the bedside exam, and history/physical and pertinent information is taken from other notes in the computer and bedside staff. Sepsis Event Evaluation Height, Weight, BMI Height: 5'6" Weight: 120lbs. oz. 54.677740ic; 21.40 BMI Method:Stated Exam Exam Patient acknowledged, consented, and participated in this virtual visit which was conducted using real time audio/video Vital Signs Date Time Temp Pulse Resp B/P (MAP) Pulse Ox O2 Delivery O2 Flow Rate FiO2 06/30/22 10:35 96 111/71 06/30/22 10:08 89 24 100 65 06/30/22 10:00 92 100/68 (79) 100 Mechanical Ventilator 70.00 06/30/22 09:00 105 98/65 (76) 92 Mechanical Ventilator 70.00 06/30/22 08:00 60 06/30/22 08:00 96 23 111/81 (91) 97 Mechanical Ventilator 70.00 06/30/22 08:00 94 Mechanical Ventilator 60 06/30/22 08:00 36.6 06/30/22 07:03 Mechanical Ventilator 60.00 06/30/22 07:00 94 25 103/63 (76) 94 Mechanical Ventilator 70.00 06/30/22 07:00 94 06/30/22 06:44 85 24 100 70 06/30/22 06:00 91 24 108/61 (77) 93 Mechanical Ventilator 70.00 06/30/22 05:16 85 122/80 06/30/22 05:00 99 24 119/70 (81) 92 Mechanical Ventilator 70.00 06/30/22 04:36 85 24 122/80 06/30/22 04:00 105 24 116/73 (82) 94 Mechanical Ventilator 70.00 06/30/22 04:00 70 06/30/22 04:00 91 Mechanical Ventilator 70 06/30/22 04:00 36.8 06/30/22 03:00 78 24 127/83 (104) 96 Mechanical Ventilator 70.00 06/30/22 02:55 85 24 95 70 06/30/22 02:00 91 24 110/69 (78) 93 Mechanical Ventilator 70.00 06/30/22 01:00 91 24 124/83 (95) 95 Mechanical Ventilator 70.00 06/30/22 01:00 91 06/30/22 00:15 92 24 120/88 (99) 100 Mechanical Ventilator 70.00 06/30/22 00:00 91 24 140/94 (109) 100 Mechanical Ventilator 70.00 06/30/22 00:00 70 06/29/22 23:59 91 Mechanical Ventilator 70 06/29/22 23:09 86 107/66 06/29/22 23:00 82 24 111/76 (85) 93 Mechanical Ventilator 70.00 06/29/22 22:58 86 24 92 70 06/29/22 22:37 36.7 06/29/22 22:23 87 122/83 06/29/22 22:00 87 24 121/80 (91) 91 Mechanical Ventilator 70.00 06/29/22 21:23 87 24 93 70 06/29/22 21:00 87 24 122/84 (97) 93 Mechanical Ventilator 70.00 06/29/22 20:23 36.4 06/29/22 20:00 91 Mechanical Ventilator 70 06/29/22 20:00 94 24 120/86 (96) 100 Mechanical Ventilator 70.00 06/29/22 20:00 70 06/29/22 19:06 83 24 93 70 06/29/22 19:00 84 24 99/66 (75) 92 Mechanical Ventilator 70.00 06/29/22 19:00 84 06/29/22 18:12 Mechanical Ventilator 70.00 06/29/22 18:00 87 106/72 (83) 99 Mechanical Ventilator 60.00 06/29/22 17:54 100 Mechanical Ventilator 60.00 06/29/22 17:00 90 20 114/71 (85) 93 Mechanical Ventilator 70.00 06/29/22 16:58 36.1 06/29/22 16:14 100 Mechanical Ventilator 70 06/29/22 16:13 100 Mechanical Ventilator 70.00 06/29/22 16:13 70 06/29/22 16:00 98 98/59 (72) 90 Mechanical Ventilator 80.00 06/29/22 15:55 98 94/57 06/29/22 15:00 96 98/56 (70) 94 Mechanical Ventilator 80.00 06/29/22 14:39 86 26 95 80 06/29/22 14:37 87 99/66 06/29/22 14:00 89 99/66 (77) 97 Mechanical Ventilator 80.00 06/29/22 13:28 94/60 06/29/22 13:28 92 94/60 06/29/22 13:00 95 94/59 (71) 91 Mechanical Ventilator 80.00 06/29/22 12:29 92 06/29/22 12:25 Mechanical Ventilator 80 06/29/22 12:14 80 06/29/22 12:00 95 88/53 (65) 95 Mechanical Ventilator 80.00 06/29/22 12:00 36.3 06/29/22 11:00 94 91/57 (68) 94 Mechanical Ventilator 80.00 06/29/22 10:54 97 26 93 80 I & O 06/30/22 06:59 Intake Total 2400 ml Output Total 2125 ml Balance 275 ml Height & Weight Height: 5'6" Weight: 120lbs. oz. 54.369112zq; 21.40 BMI Method:Stated General Appearance: No Apparent Distress, Thin HEENT: PERRL/EOMI Neck: Full Range of Motion Respiratory: Lungs Clear, Other (on vent) Cardiovascular: Regular Rate, Rhythm, No Murmur Capillary Refill: Less Than 3 Seconds Gastrointestinal: normal bowel sounds, non tender, soft Extremity: No Pedal Edema Neurologic/Psychiatric: Alert Skin: Warm/Dry, Pallor Lymphatic: No Adenopathy Results Lab Laboratory Tests 06/29/22 04:30 06/30/22 03:55 Assessment/Plan Assessment/Plan 1 EFREN VALENCIA MD Jun 30, 2022 10:44
--- NOTE | 2022-06-30 10:50 | Diagnostic Imaging Report ---
INDICATION: Abdominal distention. Single view of the abdomen is obtained with comparison made to study of 06/22/2022. FINDINGS: There is apparent gastrostomy tube projecting over the left upper quadrant. There is gaseous distention of colon, diffusely. No definite free intraperitoneal gas is identified. There is basilar atelectasis. IMPRESSION: Diffuse colonic gaseous distention without definite free intraperitoneal gas seen on the supine image. Balloon tipped catheter projects over the left upper quadrant likely representing gastrostomy. Dictated by: Dictated on workstation # [id number]
--- NOTE | 2022-06-30 11:57 | Progress Note - Hospitalist ---
Subjective HPI/CC On Admission Date Seen by Provider: Jun 30, 2022 Pt is a 32yoCF with a PMH of methamphetamine abuse who presented to the ER due to weakness. History comes from both patient and her mom. Mom states she has a long history of meth use but has been trying to quit. She last used 7 days ago and then started to get very ill. Her mom wanted to take her in to be seen but the patient refused throoughout the week and finally decidied to come intoday due to her weakness. Reportedly her son has had to carry her from room to room because of how weak she is. On arrival to the emergency room her oxygen saturation was 40%. This was confirmed on an ABG with a PO2 of 39 and saturation of 64 on 15 L nonrebreather. We were able to get her oxygen up into the 90s with oxi mask. Imaging revealed extensive bilateral infiltrates. She was also found to have a profound lactic acidosis fo 13. When I saw her in the ICU she was mottled to her knees and elbows though her capillary refill was adequate. She apparently has vomited twice this morning too. Subjective/Events-last exam Pt remains sedated on vent but more alert. Cooperative with exam. Lifting arms to facilitate auscultation of lungs. Mother at bedside. We discussed plan for process to for transfer to [facility] in [place] and she is in agreement. Objective Exam Vital Signs Vital Signs Date Time Temp Pulse Resp B/P (MAP) Pulse Ox O2 Delivery O2 Flow Rate FiO2 06/30/22 10:35 96 111/71 06/30/22 10:08 24 100 65 06/30/22 10:00 Mechanical Ventilator 70.00 06/30/22 08:00 36.6 Capillary Refill : Less Than 3 Seconds General Appearance: Thin Neck: Other (trach) Respiratory: Decreased Breath Sounds, Other (on vent) Cardiovascular: Regular Rate, Rhythm, No Murmur Gastrointestinal: Normal Bowel Sounds, Soft, Distended Neurologic/Psychiatric: Alert Results/Procedures Lab Laboratory Tests 06/30/22 03:55 Patient resulted labs reviewed. Imaging: Reviewed Imaging Report Assessment/Plan Assessment and Plan Assess & Plan/Chief Complaint Acute respiratory failure with hypoxia Tracheostomy on mechanical ventilation Pneumonia Fluid overload Anemia Severe protein calorie malnutrition Critical illness myopathy TeleICU following Remains on ventilator and sedation, weaning both as able Eraxis to DC 2/8 Tube feeds Trach and PEG on 06/27 Referral sent to LT[facility] in [place], social work assistance appreciated PT/OT - patient to edge of bed this AM with them Opioid induced constipation Ileus Relistor Q48 Lactulose Suppository BM 06/28 per nurse report SIRS, resolved If fever (>38.5) returns, obtain stat blood cultures No antibiotics at this time Eraxis for anti-fungal coverage to DC 07/01 Septic shock, resolved Strep pneumoniae bacteremia, resolved ARDS, resolved ENOC, resolved Lactic acidosis, resolved Goals of care discussion, resolved Critical Care Ventilator Management Diagnosis/Problems Diagnosis/Problems (1) Transaminitis (2) Microcytic anemia (3) Bilateral pneumonia (4) Lactic acidosis Status: Resolved Resolution Date/Time: 06/09/22 @ 3:48 pm (5) Tobacco abuse (6) Methamphetamine abuse (7) Cachexia (8) Protein-energy malnutrition (9) Acute respiratory failure Status: Acute Qualifiers: Respiratory failure complication: hypoxia and hypercapnia Qualified Codes: J96.01 - Acute respiratory failure with hypoxia; J96.02 - Acute respiratory failure with hypercapnia (10) Septic shock Status: Resolved Resolution Date/Time: 06/22/22 @ 7:07 pm (11) ENOC (acute kidney injury) Status: Resolved Resolution Date/Time: 06/09/22 @ 3:48 pm Clinical Quality Measures AMI/AHF: ASA po Prior to arrival: ANDI Hernandez MD Jun 30, 2022 11:57 am
[2022-06-30 14:14] VITALS: BP 126/74
--- NOTE | 2022-06-30 15:16 | Occupational Ther Daily Note ---
OT Current Status-Daily Note Subjective Resting in bed eyes open and alert Mental Status/Objective Patient Orientation: Person, Place, Time, Situation Attachments: IV, Other-See Comments (BUE restraints) ADL-Treatment Therapy Code Descriptions/Definitions Functional [place] Measure: 0=Not Assessed/NA 4=Minimal Assistance 1=Total Assistance 5=Supervision or Setup 2=Maximal Assistance 6=Modified [place] 3=Moderate Assistance 7=Complete IndependenceSCALE: Activities may be completed with or without assistive devices. 8-Kcphzbxtko-xolbiev completes the activity by him/herself with no assistance from a helper. 5-Set-up or Clean-up Assistance-helper sets up or cleans up; patient completes activity. [place] assists only prior to or following the activity. 4-Supervision or Touching Assistance-helper provides verbal cues and/or touching/steadying and/or contact guard assistance as patient completes activity. Assistance may be provided throughout the activity or intermittently. 3-Partial/Moderate Assistance-helper does LESS THAN HALF the effort. [place] lifts, holds or supports trunk or limbs, but provides less than half the effort. 2-Substantial/Maximal Assistance-helper does MORE THAN HALF the effort. [place] lifts or holds trunk or limbs and provides more than half the effort. 7-Czexblcth-vmgpvr does ALL the effort. Patient does none of the effort to complete the activity. Or, the assistance of 2 or more helpers is required for the patient to complete the activity. If activity was not attempted, code reason: 7-Patient Refused. 9-Not Applicable-not attempted and the patient did not perform the activity before the current illness, exacerbation or injury. 10-Not Attempted due to Environmental Limitations-(lack of equipment, weather restraints, etc.). 88-Not Attempted due to Medical Conditions or Safety Concerns. Eating (QC): 88 Oral Hygiene (QC): 7 (performed by nurse staff) Shower/Bathe Self (QC): 88 Upper Body Dressing (QC): 7 Lower Body Dressing (QC): 7 On/Off Footwear: 88 Toileting Hygiene (QC): 88 Toilet Transfer (QC): 88 BUE AROM and isometric exercises to promote bed mobility and ADLs Education OT Patient Education: Disease process, Exercise program, Progress toward Goal/Update tx plan, Purpose of tx/functional activities, Reviewed precautions, Rehab process, Safety issues, Use of adapted equipment Teaching Recipient: Patient Teaching Methods: Demonstration, Discussion Response to Teaching: Verbalize Understanding (gave a "Thumbs up") OT Director Advertising Goals Group Home Goals Eating (QC): 3 Oral Hygiene (QC): 3 Toileting Hygiene (QC): 2 Shower/Bathe Self (QC): 2 Upper Body Dressing (QC): 3 Lower Body Dressing (QC): 2 On/Off Footwear (QC): 3 1=Demonstrate adherence to instructed precautions during ADL tasks. 2=Patient will verbalize/demonstrate understanding of assistive devices/modifications for ADL. 3=Patient will improve strength/tolerance for activity to enable patient to perform ADL's. OT Education/Plan Problem List/Assessment Assessment: Decreased Activ Tolerance, Decreased Safety Aware, Decreased UE Strength, Dependent Transfers, Impaired Bed Mobility, Impaired Cognition, Impaired Coordination, Impaired Funct Balance, Impaired Self-Care Skills, Restricted Funct UE ROM Discharge Recommendations Plan/Recommendations: Continue POC Therapy Discharge Recommendati: Post Acute OT Treatment Plan/Plan of Care Treatment,Training & Education: Yes Patient would benefit from OT for education, treatment and training to promote independence in ADL's, mobility, safety and/or upper extremity function for ADL's. Plan of Care: ADL Retraining, Caregiver Training, Cognitive Retraining, Functional Mobility, Group Exercise/Act as Ind, UE Funct Exercise/Act, UE Neuromus Re-Ed/Coord Treatment Duration: Jul 11, 2022 Frequency: 3 times per week (3-5 times per week) Estimated Hrs Per Day: .25 hour per day Rehab Potential: Guarded remain in bed w/ RT in room Time Start Time: 14:00 Stop Time: 14:15 DATE: Jun 30, 2022 Total Time Billed (hr/min): 15 Billed Treatment Time 1 visit EX 1 15 min STEFANO AZEVEDO OT Jun 30, 2022 15:16
[2022-06-30] MEDS ORDERED: ONDANSETRON 4 MG (ZOFRAN) ORAL DISSOLVE TAB PO PRN (16:00)
[2022-06-30] MEDS: FUROSEMIDE 40 MG (LASIX) TAB PO SCH (17:03)
[2022-06-30] MEDS: METOCLOPRAMIDE INJ 10 MG/2 ML (REGLAN) IVP SCH (17:04)
[2022-06-30] MEDS: ENOXAPARIN 40 MG/0.4 ML (LOVENOX) SYR SC SCH (17:06)
[2022-06-30] MEDS: ONDANSETRON 4 MG/2 ML (SDV) Z0FRAN IV PRN (18:41)
[2022-06-30 19:04] VITALS: BP 111/70
[2022-06-30] MEDS: LORazepam INJ 2 MG/ML (ATIVAN) VIAL IVP PRN (19:57)
--- NOTE | 2022-06-30 19:58 | Progress Note ---
Subjective Date Seen by a Provider: Jun 30, 2022 Time Seen by a Provider: 13:00 Subjective/Events-last exam continue to be on vent with mild sedation with precedex. abd distention with axr showing colonic distention. abd slightly distended with no peritoneal signs. Objective Exam Vital Signs Date Time Temp Pulse Resp B/P (MAP) Pulse Ox O2 Delivery O2 Flow Rate FiO2 06/30/22 19:04 106 24 96 60 06/30/22 18:00 101 127/82 (97) 97 Mechanical Ventilator 70.00 06/30/22 17:00 107 123/96 (105) 91 Mechanical Ventilator 70.00 06/30/22 16:55 100 114/71 06/30/22 16:00 36.8 06/30/22 16:00 105 111/69 (83) 98 Mechanical Ventilator 70.00 06/30/22 16:00 97 Mechanical Ventilator 60 06/30/22 16:00 60 06/30/22 15:00 112 121/89 (100) 97 Mechanical Ventilator 70.00 06/30/22 14:14 108 30 95 60 06/30/22 14:00 109 22 134/85 (101) 98 Mechanical Ventilator 70.00 06/30/22 13:00 100 128/75 (92) 95 Mechanical Ventilator 70.00 06/30/22 12:45 105 06/30/22 12:00 96 103/74 (84) 100 Mechanical Ventilator 70.00 06/30/22 12:00 97 Mechanical Ventilator 60 06/30/22 12:00 36.5 06/30/22 12:00 60 06/30/22 11:00 96 97/58 (71) 91 Mechanical Ventilator 70.00 06/30/22 10:35 96 111/71 06/30/22 10:08 89 24 100 65 06/30/22 10:00 92 100/68 (79) 100 Mechanical Ventilator 70.00 06/30/22 09:00 105 98/65 (76) 92 Mechanical Ventilator 70.00 06/30/22 08:00 60 06/30/22 08:00 96 23 111/81 (91) 97 Mechanical Ventilator 70.00 06/30/22 08:00 94 Mechanical Ventilator 60 06/30/22 08:00 36.6 06/30/22 07:03 Mechanical Ventilator 60.00 06/30/22 07:00 94 25 103/63 (76) 94 Mechanical Ventilator 70.00 06/30/22 07:00 94 06/30/22 06:44 85 24 100 70 06/30/22 06:00 91 24 108/61 (77) 93 Mechanical Ventilator 70.00 06/30/22 05:16 85 122/80 06/30/22 05:00 99 24 119/70 (81) 92 Mechanical Ventilator 70.00 06/30/22 04:36 85 24 122/80 06/30/22 04:00 105 24 116/73 (82) 94 Mechanical Ventilator 70.00 06/30/22 04:00 70 06/30/22 04:00 91 Mechanical Ventilator 70 06/30/22 04:00 36.8 06/30/22 03:00 78 24 127/83 (104) 96 Mechanical Ventilator 70.00 06/30/22 02:55 85 24 95 70 06/30/22 02:00 91 24 110/69 (78) 93 Mechanical Ventilator 70.00 06/30/22 01:00 91 24 124/83 (95) 95 Mechanical Ventilator 70.00 06/30/22 01:00 91 06/30/22 00:15 92 24 120/88 (99) 100 Mechanical Ventilator 70.00 06/30/22 00:00 91 24 140/94 (109) 100 Mechanical Ventilator 70.00 06/30/22 00:00 70 06/29/22 23:59 91 Mechanical Ventilator 70 06/29/22 23:09 86 107/66 06/29/22 23:00 82 24 111/76 (85) 93 Mechanical Ventilator 70.00 06/29/22 22:58 86 24 92 70 06/29/22 22:37 36.7 06/29/22 22:23 87 122/83 06/29/22 22:00 87 24 121/80 (91) 91 Mechanical Ventilator 70.00 06/29/22 21:23 87 24 93 70 06/29/22 21:00 87 24 122/84 (97) 93 Mechanical Ventilator 70.00 06/29/22 20:23 36.4 06/29/22 20:00 91 Mechanical Ventilator 70 06/29/22 20:00 94 24 120/86 (96) 100 Mechanical Ventilator 70.00 06/29/22 20:00 70 I & O 06/30/22 07:00 Intake Total 2400 ml Output Total 2125 ml Balance 275 ml Capillary Refill : Less Than 3 Seconds General Appearance: No Apparent Distress Neck: Full Range of Motion Respiratory: Decreased Breath Sounds, Rhonci Cardiovascular: Regular Rate, Rhythm Gastrointestinal: normal bowel sounds, soft, distended Extremity: Normal Capillary Refill Neurologic/Psychiatric: Alert Skin: Normal Color Lymphatic: No Adenopathy Results Lab Laboratory Tests 06/30/22 00:00: Glucometer 88 06/30/22 03:55: White Blood Count 4.3, Red Blood Count 3.16L, Hemoglobin 8.2L, Hematocrit 28L, Mean Corpuscular Volume 88, Mean Corpuscular Hemoglobin 26, Mean Corpuscular Hemoglobin Concent 30L, Red Cell Distribution Width 23.9H, Platelet Count 168, Mean Platelet Volume 9.1, Immature Granulocyte % (Auto) 0, Neutrophils (%) (Auto) 65, Lymphocytes (%) (Auto) 25, Monocytes (%) (Auto) 9, Eosinophils (%) (Auto) 1, Basophils (%) (Auto) 0, Neutrophils # (Auto) 2.8, Lymphocytes # (Auto) 1.1, Monocytes # (Auto) 0.4, Eosinophils # (Auto) 0.1, Basophils # (Auto) 0.0, Immature Granulocyte # (Auto) 0.0, Sodium Level 139, Potassium Level 3.0L, Chloride Level 102, Carbon Dioxide Level 26, Anion Gap 11, Blood Urea Nitrogen 12, Creatinine 0.49L, Estimat Glomerular Filtration Rate 129, BUN/Creatinine Ratio 24, Glucose Level 112H, Calcium Level 8.8, Phosphorus Level 3.9, Magnesium Level 1.9 06/30/22 04:30: Blood Gas Puncture Site R BRACH, Blood Gas Patient Temperature 36.9, Arterial Blood pH 7.44H, Arterial Blood Partial Pressure CO2 46H, Arterial Blood Partial Pressure O2 73L, Arterial Blood HCO3 31H, Arterial Blood Total CO2 32.6H, Arterial Blood Oxygen Saturation 93L, Arterial Blood Base Excess 6.9H, Yong Test YES-POS, Blood Gas Ventilator Setting YES, Blood Gas Inspired Oxygen 70% 06/30/22 11:54: Glucometer 92 06/30/22 17:57: Glucometer 89 Microbiology 06/25/22 Catheter Tip Culture - Final, Complete Culture In Progress 06/18/22 Gram Stain - Final, Complete 06/18/22 Sputum Culture - Final, Complete Staphylococcus aureus 06/08/22 Urine Culture - Final, Complete NO GROWTH Assessment/Plan Assessment/Plan Assess & Plan/Chief Complaint Pneumonia/ARDS with prolonged resp failure s/p trach and PEG and ileus vs. narcotic bowel vs. colonic pseudo-obstruction. tolerating tube feeds. continue suppositories. add reglan. colonoscopic decompression only if distention worsens or persists. Clinical Quality Measures AMI/AHF: ASA po Prior to arrival: HUBER Radford MD Jun 30, 2022 19:58
[2022-06-30 22:01] VITALS: BP 105/67
[2022-07-01 01:54] VITALS: BP 121/85
[2022-07-01] MEDS: RT-ALBUTEROL SULF 2.5 MG/3 ML PRE-MIX VIAL INH SCH ×6 (01:54→22:09)
[2022-07-01] MEDS: RT-IPRATROPIUM (ATROVENT) 0.5MG/2.5ML AMP IH SCH ×6 (01:54→22:09)
[2022-07-01] MEDS: fentaNYL DRIP PRE-MIX 250 ML IV SCH ×3 (01:58→18:37)
[2022-07-01 04:46] LABS: BASOPHILS % (AUTO) 1 % (0-10); EOSINOPHILS # (AUTO) 0.1 10^3/uL (0.0-0.3); EOSINOPHILS % (AUTO) 1 % (0-10); HEMATOCRIT 30 % (35-52); HEMOGLOBIN 9.3 g/dL (11.5-16.0); LYMPHOCYTES # (AUTO) 1.1 10^3/uL (1.0-4.0); LYMPHOCYTES % (AUTO) 18 % (12-44); MEAN CORPUSCULAR HEMOGLOBIN 27 pg (25-34); MEAN CORPUSCULAR HGB CONC 31 g/dL (32-36); MEAN CORPUSCULAR VOLUME 87 fL (80-99); MONOCYTES # (AUTO) 0.6 10^3/uL (0.0-1.0); MONOCYTES % (AUTO) 11 % (0-12); NEUTROPHILS # (AUTO) 4.2 10^3/uL (1.8-7.8); NEUTROPHILS % (AUTO) 70 % (42-75); PLATELET COUNT 191 10^3/uL (130-400)
[2022-07-01 04:57] LABS: POTASSIUM 3.7 MMOL/L (3.6-5.0)
[2022-07-01 04:58] LABS: CALCIUM 8.9 MG/DL (8.5-10.1)
[2022-07-01 05:02] LABS: PHOSPHORUS 4.2 MG/DL (2.3-4.7)
[2022-07-01 05:03] LABS: CREATININE SERUM 0.53 MG/DL (0.60-1.30)
[2022-07-01 05:05] LABS: MAGNESIUM 2.1 MG/DL (1.6-2.4)
[2022-07-01] MEDS: MAGNESIUM 1 GM/100 ML IVPB 100 ML IV SCH (05:06)
[2022-07-01] MEDS: POTASSIUM CL 10MEQ/50ML IVPB 50 ML IV SCH (05:06)
[2022-07-01] MEDS: inSUlin ASPART (NovoLOG) 1 UNIT/0.01 ML (CHARGE PER UNIT) SC SCH ×4 (05:07→18:12)
[2022-07-01] MEDS: KCL 20 MEQ TAB (K-DUR) PO SCH (05:07)
[2022-07-01] MEDS: METOCLOPRAMIDE INJ 10 MG/2 ML (REGLAN) IVP SCH ×5 (05:55→23:47)
[2022-07-01] MEDS: FUROSEMIDE 40 MG (LASIX) TAB PO SCH ×2 (05:55→16:15)
[2022-07-01] MEDS: PHENYLEPHRINE DRIP 250 ML IV SCH (06:53)
[2022-07-01 07:10] VITALS: BP 111/70
--- NOTE | 2022-07-01 08:17 | Tele-ICU Progress Note ---
Subjective Date Seen by a Provider: Jul 01, 2022 Time Seen by a Provider: 08:16 Subjective/Events-last exam (Tele-ICU Physician , Progress Note ) Service provided via interactive audio and video telecommunications E-CARE system to a patient admitted to ICU bed in [facility]. Patient is seen today due to persistent need of ICU care Available chart/ vitals / labs / Images reviewed Video assessment done using teleICU camera, rest of exam as per RN Discussed with RN Events overnight : Consultants: Hospital course: (06/07) 32F Admitted with PNA. CT shows Mod size areas of consolidation involving bilateral upper and left lower lobe. There is complete consolidation of RLL. Also centrilobular emphysema. -On BIPAP 100% sats 86%-Plan [place]ubate. [place] [address]/08 - AC 400 26 100% peep 5 , shock : levo 0.9 vaso , brant 175 , Hb 6.5 - transfusion 06/08 1 UPRBC 06/10 - OFF nimbex 06/10-Fio2 60 % +10 06/11- Episodes of junctional robson or sinus robson with PAC. fibrinogen 213 06/12 - 50 % , s/p transfusion 06/08 1 u PRBC, PLT 73 06/13 - 65%, hb 6.7 - transfusion 1 pRBC 06/15- follows commands on SAT. 60% +7 . T38 06/16 - fentanyl gtt , decreasing dose , changing to precedex , starting fentanyl patch , fio2 40% , but secreating thicker - adding mucomist nebs 06/17- 55% +6 . transfusion 1 P rbc , - Iron low - starting IV iron 06/17 , follows commands can NOT TRY SBT TODAY with elevated RR 06/18- [id number]% peep 8, CT chest/abd/pelvis - no abscess, anasarca , plural effusions , ZOSYN started 06/19-80% + 8 , afebrile , LASIX with albumin x3 06/21 45% 06/22 80% , neg 2L , added Eraxis , KUB - no obstruction .31- 95% =8 neg 2 L ,STOP mucomist nebs 06/24- ETT replaced , possible aspiration with vomiting . transfusion 1 u PRBC 06/25- 80% +8 , hypotensive - lasix held (2/3) Trach and PEG 2/7 - 60% + 10 AFEBRILE Continue on vent AC 24, Vt 400 FiO2 50%, SpO2 90% had trach/PEG 2/3-Plan is to transfer to [facility] if insurance approves KUB done yesterday shows diffuse colonic distension but no free air, still has distended but passing gas and had BM and bowel sounds are active Being treated for PNA, also on anti-fungal, had yeast in sputum Now off IV levo and vaso Pt is DNR Had central line, now has PICC in [facility], site looks ok Suction needs are minimal, does have cough reflex, will follow commands Sepsis Event Evaluation Height, Weight, BMI Height: 5'6" Weight: 120lbs. oz. 54.131828hj; 21.40 BMI Method:Stated Exam Exam Patient acknowledged, consented, and participated in this virtual visit which was conducted using real time audio/video Vital Signs Date Time Temp Pulse Resp B/P (MAP) Pulse Ox O2 Delivery O2 Flow Rate FiO2 07/01/22 07:10 101 24 99 60 07/01/22 06:00 106 24 112/72 (85) 97 Mechanical Ventilator 60.00 07/01/22 05:00 108 24 124/84 (97) 95 Mechanical Ventilator 60.00 07/01/22 04:00 106 24 120/79 (91) 97 Mechanical Ventilator 60.00 07/01/22 04:00 93 Mechanical Ventilator 60 07/01/22 04:00 37.2 07/01/22 04:00 60 07/01/22 03:00 111 24 114/74 (84) 93 Mechanical Ventilator 60.00 07/01/22 02:00 112 24 125/88 (96) 98 Mechanical Ventilator 60.00 07/01/22 01:58 111 121/85 07/01/22 01:54 111 24 98 60 07/01/22 01:00 120 07/01/22 01:00 120 24 126/78 (91) 98 Mechanical Ventilator 60.00 07/01/22 00:01 37.7 07/01/22 00:00 60 07/01/22 00:00 123 24 134/84 (99) 93 Mechanical Ventilator 60.00 06/30/22 23:59 91 Mechanical Ventilator 60 06/30/22 23:00 124 24 132/80 (95) 94 Mechanical Ventilator 60.00 2/7/23 22:44 112 24 105/67 06/30/22 22:01 112 24 94 60 06/30/22 22:00 112 24 105/67 (78) 94 Mechanical Ventilator 60.00 06/30/22 21:00 120 24 105/61 (76) 91 Mechanical Ventilator 60.00 06/30/22 20:00 112 24 129/83 (96) 93 Mechanical Ventilator 60.00 06/30/22 20:00 60 06/30/22 20:00 91 Mechanical Ventilator 60 06/30/22 20:00 38.1 06/30/22 19:04 106 24 96 60 06/30/22 19:00 Mechanical Ventilator 60.00 06/30/22 19:00 104 24 111/70 (80) 93 Mechanical Ventilator 60.00 06/30/22 19:00 104 06/30/22 18:00 101 127/82 (97) 97 Mechanical Ventilator 70.00 06/30/22 17:00 107 123/96 (105) 91 Mechanical Ventilator 70.00 06/30/22 16:55 100 114/71 06/30/22 16:00 36.8 06/30/22 16:00 105 111/69 (83) 98 Mechanical Ventilator 70.00 06/30/22 16:00 97 Mechanical Ventilator 60 06/30/22 16:00 60 06/30/22 15:00 112 121/89 (100) 97 Mechanical Ventilator 70.00 06/30/22 14:14 108 30 95 60 06/30/22 14:00 109 22 134/85 (101) 98 Mechanical Ventilator 70.00 06/30/22 13:00 100 128/75 (92) 95 Mechanical Ventilator 70.00 06/30/22 12:45 105 06/30/22 12:00 96 103/74 (84) 100 Mechanical Ventilator 70.00 06/30/22 12:00 97 Mechanical Ventilator 60 06/30/22 12:00 36.5 06/30/22 12:00 60 06/30/22 11:00 96 97/58 (71) 91 Mechanical Ventilator 70.00 06/30/22 10:35 96 111/71 06/30/22 10:08 89 24 100 65 06/30/22 10:00 92 100/68 (79) 100 Mechanical Ventilator 70.00 06/30/22 09:00 105 98/65 (76) 92 Mechanical Ventilator 70.00 I & O 07/01/22 07:00 Intake Total 2280 ml Output Total 3600 ml Balance -1320 ml Height & Weight Height: 5'6" Weight: 120lbs. oz. 54.238883vf; 21.40 BMI Method:Stated General Appearance: No Apparent Distress HEENT: PERRL/EOMI Neck: Full Range of Motion Respiratory: Decreased Breath Sounds, Rhonci Cardiovascular: Regular Rate, Rhythm, Tachycardia Capillary Refill: Less Than 3 Seconds Gastrointestinal: normal bowel sounds, soft, distended Extremity: Normal Capillary Refill, No Pedal Edema Neurologic/Psychiatric: Alert Skin: Normal Color Lymphatic: No Adenopathy Results Lab Laboratory Tests 06/30/22 03:55 07/01/22 04:40 Assessment/Plan Assessment/Plan Septic shock, PNA, chronic resp failure on vent will continue on vent, Plan is to go to LTAC if approved Pt is DNR, Hb is stable at 9 off pressors continue lovenox and PPI for DVT and GI bleed prophylaxis Critical Care: Ventilator Management Time spent with patient (mins): 25 NIKO LAMAS MD Jul 01, 2022 08:16
[2022-07-01] MEDS: PANTOPRAZOLE 40 MG (PROTONIX) TAB PO SCH (08:53)
[2022-07-01] MEDS: LACTULOSE SYRUP 10GM/15ML (ENULOSE) 30ML UDC PO SCH ×4 (08:53→20:49)
[2022-07-01] MEDS: METHYLNALTREXONE 12 MG/0.6 ML (RELISTOR) VIAL SQ SCH (08:54)
[2022-07-01] MEDS: ANIDULAFUNGIN INJECTION 100 MG in NS (IVPB) 100 ML IV SCH (08:55)
[2022-07-01] MEDS: MICONAZOLE 2% POWDER (DESENEX AF) 90 GM TOP SCH ×2 (09:09→20:49)
[2022-07-01] MEDS ORDERED: fentaNYL PATCH 100 MCG (DURAGESIC) TD SCH (09:15)
--- NOTE | 2022-07-01 10:08 | Physical Therapy Progress Note ---
Therapy Progress Note Patient on hold today per nursing, will check back tomorrow. THEO ARNETT PT Jul 01, 2022 10:08
[2022-07-01 10:35] VITALS: BP 145/94
--- NOTE | 2022-07-01 13:25 | Occupational Ther Daily Note ---
OT Current Status-Daily Note Subjective in bed, eyes open, alert Mental Status/Objective Patient Orientation: Situation Attachments: IV trach, peg ADL-Treatment focus on AROM, strength and communication board Therapy Code Descriptions/Definitions Functional Major Measure: 0=Not Assessed/NA 4=Minimal Assistance 1=Total Assistance 5=Supervision or Setup 2=Maximal Assistance 6=Modified Major 3=Moderate Assistance 7=Complete IndependenceSCALE: Activities may be completed with or without assistive devices. 8-Hjojckqkpo-pjdselk completes the activity by him/herself with no assistance from a helper. 5-Set-up or Clean-up Assistance-helper sets up or cleans up; patient completes activity. [place] assists only prior to or following the activity. 4-Supervision or Touching Assistance-helper provides verbal cues and/or touching/steadying and/or contact guard assistance as patient completes activity. Assistance may be provided throughout the activity or intermittently. 3-Partial/Moderate Assistance-helper does LESS THAN HALF the effort. [place] lifts, holds or supports trunk or limbs, but provides less than half the effort. 2-Substantial/Maximal Assistance-helper does MORE THAN HALF the effort. [place] lifts or holds trunk or limbs and provides more than half the effort. 6-Ofhpugbsk-qyghzk does ALL the effort. Patient does none of the effort to complete the activity. Or, the assistance of 2 or more helpers is required for the patient to complete the activity. If activity was not attempted, code reason: 7-Patient Refused. 9-Not Applicable-not attempted and the patient did not perform the activity before the current illness, exacerbation or injury. 10-Not Attempted due to Environmental Limitations-(lack of equipment, weather restraints, etc.). 88-Not Attempted due to Medical Conditions or Safety Concerns. Other Treatment AROM and isometric exercise BUE flexion, abduction, elbow flex/ex, composite and pincher offal separator to facilitate communication board and writing Education OT Patient Education: Disease process, Exercise program, Progress toward Goal/Update tx plan, Purpose of tx/functional activities, Reviewed precautions, Rehab process, Safety issues Teaching Recipient: Patient Teaching Methods: Demonstration, Discussion Response to Teaching: Reinforcement Needed OT Mcfp Goals Mcfp Goals Eating (QC): 3 Oral Hygiene (QC): 3 Toileting Hygiene (QC): 2 Shower/Bathe Self (QC): 2 Upper Body Dressing (QC): 3 Lower Body Dressing (QC): 2 On/Off Footwear (QC): 3 1=Demonstrate adherence to instructed precautions during ADL tasks. 2=Patient will verbalize/demonstrate understanding of assistive devices/modifications for ADL. 3=Patient will improve strength/tolerance for activity to enable patient to perform ADL's. OT Education/Plan Problem List/Assessment Assessment: Decreased Activ Tolerance, Decreased Safety Aware, Decreased UE Strength, Dependent Transfers, Impaired Bed Mobility, Impaired Cognition, Impaired Coordination, Impaired Funct Balance, Impaired Self-Care Skills Discharge Recommendations Plan/Recommendations: Continue POC Therapy Discharge Recommendati: Post Acute OT Treatment Plan/Plan of Care Treatment,Training & Education: Yes Patient would benefit from OT for education, treatment and training to promote independence in ADL's, mobility, safety and/or upper extremity function for ADL's. Plan of Care: ADL Retraining, Caregiver Training, Cognitive Retraining, Functional Mobility, Group Exercise/Act as Ind, UE Funct Exercise/Act, UE Neuromus Re-Ed/Coord Comment patient request phone call with mom, remains in bed resting w/ additional blanket, call light in reach , needs met Treatment Duration: Jul 11, 2022 Frequency: 3 times per week (3-5 times per week) Estimated Hrs Per Day: .25 hour per day Rehab Potential: Guarded Time Start Time: 11:17 Stop Time: 11:46 DATE: Jul 01, 2022 Total Time Billed (hr/min): 29 Billed Treatment Time 1 visit EX 2 29 minutes STEFANO AZEVEDO OT Jul 01, 2022 13:25
--- NOTE | 2022-07-01 13:57 | Progress Note - Hospitalist ---
Subjective HPI/CC On Admission Date Seen by Provider: Jul 01, 2022 Pt is a 32yoCF with a PMH of methamphetamine abuse who presented to the ER due to weakness. History comes from both patient and her mom. Mom states she has a long history of meth use but has been trying to quit. She last used 7 days ago and then started to get very ill. Her mom wanted to take her in to be seen but the patient refused throoughout the week and finally decidied to come intoday due to her weakness. Reportedly her son has had to carry her from room to room because of how weak she is. On arrival to the emergency room her oxygen saturation was 40%. This was confirmed on an ABG with a PO2 of 39 and saturation of 64 on 15 L nonrebreather. We were able to get her oxygen up into the 90s with oxi mask. Imaging revealed extensive bilateral infiltrates. She was also found to have a profound lactic acidosis fo 13. When I saw her in the ICU she was mottled to her knees and elbows though her capillary refill was adequate. She apparently has vomited twice this morning too. Subjective/Events-last exam Pt resting in bed. Opens eyes when spoken to and nods head when I ask if I can listen to her heart and lungs. No family at bedside and I've attempted to round 3 times to meet with them today. Objective Exam Vital Signs Vital Signs Date Time Temp Pulse Resp B/P (MAP) Pulse Ox O2 Delivery O2 Flow Rate FiO2 07/01/22 13:00 123 23 113/80 (91) 96 Mechanical Ventilator 50.00 07/01/22 12:00 36.4 07/01/22 12:00 60 Capillary Refill : Less Than 3 Seconds General Appearance: Chronically ill Respiratory: Lungs Clear, No Respiratory Distress Cardiovascular: Regular Rate, Rhythm, No Murmur Gastrointestinal: Distended Neurologic/Psychiatric: Alert Results/Procedures Lab Laboratory Tests 07/01/22 04:40 Patient resulted labs reviewed. Imaging: Reviewed Imaging Report Assessment/Plan Assessment and Plan Assess & Plan/Chief Complaint Acute respiratory failure with hypoxia Tracheostomy on mechanical ventilation Pneumonia Fluid overload Anemia Severe protein calorie malnutrition Critical illness myopathy TeleICU following Remains on ventilator and sedation, weaning both as able- off precedex today Eraxis to DC 07/01 Tube feeds Trach and PEG on 06/27 Referral sent to LTAC in [place], social work assistance appreciated, submitted for insurance approval today PT/OT - patient to edge of bed this AM with them Opioid induced constipation Ileus Relistor Q48 Lactulose Suppository BM 2/5 per nurse report SIRS, resolved If fever (>38.5) returns, obtain stat blood cultures No antibiotics at this time Eraxis DC-ed Septic shock, resolved Strep pneumoniae bacteremia, resolved ARDS, resolved ENOC, resolved Lactic acidosis, resolved Goals of care discussion, resolved Critical Care Ventilator Management Diagnosis/Problems Diagnosis/Problems (1) Transaminitis (2) Microcytic anemia (3) Bilateral pneumonia (4) Lactic acidosis Status: Resolved Resolution Date/Time: 06/09/22 @ 15:48 (5) Tobacco abuse (6) Methamphetamine abuse (7) Cachexia (8) Protein-energy malnutrition (9) Acute respiratory failure Status: Acute Qualifiers: Respiratory failure complication: hypoxia and hypercapnia Qualified Codes: J96.01 - Acute respiratory failure with hypoxia; J96.02 - Acute respiratory failure with hypercapnia (10) Septic shock Status: Resolved Resolution Date/Time: 06/22/22 @ 19:07 (11) ENOC (acute kidney injury) Status: Resolved Resolution Date/Time: 06/09/22 @ 15:48 Clinical Quality Measures AMI/AHF: ASA po Prior to arrival: ANDI Hernandez MD Jul 01, 2022 13:57
[2022-07-01 15:02] VITALS: BP 124/76
[2022-07-01] MEDS: oxyCODONE/APAP 5/325MG (PERCOCET 5) TABLET PEG SCH ×2 (15:12→20:48)
[2022-07-01] MEDS: ENOXAPARIN 40 MG/0.4 ML (LOVENOX) SYR SC SCH (16:15)
[2022-07-01] MEDS: MIDAZOLAM DRIP PRE-MIX 100 ML IV SCH (16:46)
[2022-07-01] MEDS ORDERED: meTOprolol TARTRATE 25 MG (LOPRESSOR) TABLET PO NR (18:45)
[2022-07-01 18:58] VITALS: BP 119/75
[2022-07-01 22:09] VITALS: BP 110/80
[2022-07-01] MEDS: LORazepam INJ 2 MG/ML (ATIVAN) VIAL IVP PRN (23:47)
[2022-07-02] MEDS: inSUlin ASPART (NovoLOG) 1 UNIT/0.01 ML (CHARGE PER UNIT) SC SCH ×5 (00:13→23:08)
[2022-07-02 01:32] VITALS: BP 113/78
[2022-07-02] MEDS: RT-ALBUTEROL SULF 2.5 MG/3 ML PRE-MIX VIAL INH SCH ×6 (01:32→22:46)
[2022-07-02] MEDS: RT-IPRATROPIUM (ATROVENT) 0.5MG/2.5ML AMP IH SCH ×6 (01:32→22:46)
[2022-07-02] MEDS: fentaNYL DRIP PRE-MIX 250 ML IV SCH ×3 (02:26→19:33)
[2022-07-02] MEDS: oxyCODONE/APAP 5/325MG (PERCOCET 5) TABLET PEG SCH ×4 (02:33→20:34)
[2022-07-02] MEDS: MIDAZOLAM DRIP PRE-MIX 100 ML IV SCH ×2 (04:39→19:29)
[2022-07-02 04:49] LABS: BASOPHILS % (AUTO) 0 % (0-10); EOSINOPHILS # (AUTO) 0.1 10^3/uL (0.0-0.3); EOSINOPHILS % (AUTO) 2 % (0-10); HEMATOCRIT 32 % (35-52); HEMOGLOBIN 9.6 g/dL (11.5-16.0); LYMPHOCYTES # (AUTO) 0.9 10^3/uL (1.0-4.0); LYMPHOCYTES % (AUTO) 18 % (12-44); MEAN CORPUSCULAR HEMOGLOBIN 26 pg (25-34); MEAN CORPUSCULAR HGB CONC 30 g/dL (32-36); MEAN CORPUSCULAR VOLUME 87 fL (80-99); MEAN PLATELET VOLUME 9.2 fL (9.0-12.2); MONOCYTES # (AUTO) 0.7 10^3/uL (0.0-1.0); MONOCYTES % (AUTO) 13 % (0-12); NEUTROPHILS # (AUTO) 3.3 10^3/uL (1.8-7.8); NEUTROPHILS % (AUTO) 66 % (42-75); PLATELET COUNT 223 10^3/uL (130-400)
[2022-07-02 05:07] LABS: POTASSIUM 3.8 MMOL/L (3.6-5.0)
[2022-07-02 05:08] LABS: CALCIUM 9.4 MG/DL (8.5-10.1)
[2022-07-02 05:12] LABS: CREATININE SERUM 0.56 MG/DL (0.60-1.30); PHOSPHORUS 4.6 MG/DL (2.3-4.7)
[2022-07-02 05:15] LABS: MAGNESIUM 2.1 MG/DL (1.6-2.4)
[2022-07-02 05:31] LABS: ABG BASE EXCESS 6.9 MMOL/L (-2.5-2.5); ABG OXYGEN SATURATION 89 % (94-100); ABG PCO2 51 MMHG (35-45); ABG PO2 58 MMHG (79-93); ABG TCO2 33.4 MMOL/L (21.0-31.0)
[2022-07-02 05:33] LABS: ALLENS TEST YES-POS; INSPIRED O2 50%; VENTILATOR YES
[2022-07-02] MEDS: MAGNESIUM 1 GM/100 ML IVPB 100 ML IV SCH (05:33)
[2022-07-02] MEDS: KCL 20 MEQ TAB (K-DUR) PO SCH (05:33)
[2022-07-02] MEDS: POTASSIUM CL 10MEQ/50ML IVPB 50 ML IV SCH (05:33)
[2022-07-02] MEDS: METOCLOPRAMIDE INJ 10 MG/2 ML (REGLAN) IVP SCH ×4 (06:52→23:43)
[2022-07-02 06:58] VITALS: BP 111/70
[2022-07-02] MEDS: LACTULOSE SYRUP 10GM/15ML (ENULOSE) 30ML UDC PO SCH ×4 (08:33→20:34)
[2022-07-02] MEDS: PANTOPRAZOLE 40 MG (PROTONIX) TAB PO SCH (08:33)
[2022-07-02] MEDS: MICONAZOLE 2% POWDER (DESENEX AF) 90 GM TOP SCH ×2 (08:33→20:34)
[2022-07-02] MEDS: FUROSEMIDE 40 MG (LASIX) TAB PO SCH ×2 (08:33→17:20)
--- NOTE | 2022-07-02 10:05 | Physical Therapy Daily Note ---
PT Daily Note-Current Subjective Patient agrees to PT. Pain Section J - Health Conditions 1. Rarely or not at all 2. Occasionally 3. Frequently 4. Almost constantly 8. Unable to answer Pain Effect on Sleep: 1 Pain Interference with Therapy: 1 Pain Interference w/Day-to-Day: 1 Mental Status Attachments: Central Line, SCD's, Ventilator (trach), Figueroa Catheter Transfers SCALE: Activities may be completed with or without assistive devices. 4-Vvdqpmxwut-ngmvxba completes the activity by him/herself with no assistance from a helper. 5-Set-up or Clean-up Assistance-helper sets up or cleans up; patient completes activity. [place] assists only prior to or following the activity. 4-Supervision or Touching Assistance-helper provides verbal cues and/or touching/steadying and/or contact guard assistance as patient completes activit y. Assistance may be provided throughout the activity or intermittently. 3-Partial/Moderate Assistance-helper does LESS THAN HALF the effort. [place] lifts, holds or supports trunk or limbs, but provides less than half the effort. 2-Substantial/Maximal Assistance-helper does MORE THAN HALF the effort. [place] lifts or holds trunk or limbs and provides more than half the effort. 2-Ngovranbv-akxfqw does ALL the effort. Patient does none of the effort to complete the activity. Or, the assistance of 2 or more helpers is required for the patient to complete the activity. If activity was not attempted, code reason: 7-Patient Refused. 9-Not Applicable-not attempted and the patient did not perform the activity before the current illness, exacerbation or injury. 10-Not Attempted due to Environmental Limitations-(lack of equipment, weather restraints, etc.). 88-Not Attempted due to Medical Conditions or Safety Concerns. Roll Left & Right (QC): 1 (x 2) Sit to Lying (QC): 1 (x 2) Lying to Sitting/Side of Bed(Q: 1 (x 2) Exercises Supine Ex: Ankle pumps, Heel Slides, Straight leg raise Supine Reps: 15 (AAROM) Seated Therapy Exercises: Long arc quads Seated Reps: 10 Assessment Patient sat EOB for several minutes with PT assist (max) to maintain. Patient required RN to suction x 2. Patient improving with treatment plan and returned to supine with RN present. HOB at 30 degrees. PT Short Term Goals Short Term Goals Time Frame: Jul 18, 2022 Roll Left & Right: 2 Sit to lyin Lying to sitting on side of be: 2 Sit to stand: 2 Chair/nel-wz-doreh transfer: 2 PT Half-Way Goals Ecological Technical Officer Goals PT Half-Way Goals Time Frame: Aug 15, 2022 Roll Left & Right (QC): 4 Sit to Lying (QC): 4 Lying-Sitting on Side/Bed(QC): 4 Sit to Stand (QC): 4 Chair/Ndj-xh-Nfajc Xfer(QC): 4 Toilet Transfer (QC): 4 Walk 10 feet (QC): 3 Walk 50ft with 2 Turns (QC): 3 PT Plan Treatment/Plan Treatment Plan: Continue Plan of Care Treatment Plan: Bed Mobility, Education, Functional Activity [place], Functional Strength, Gait, Safety, Therapeutic Exercise, Transfers Treatment Duration: Aug 15, 2022 Frequency: 6 times per week Estimated Hrs Per Day: .25 hour per day Patient and/or Family Agrees t: Yes Time Time In: 920 Time Out: 943 DATE: Jul 02, 2022 Total Billed Treatment Time: 23 Total Billed Treatment 1 visit EX x 2 23 min DIMITRIOS GUERRERO PT Jul 02, 2022 10:05
[2022-07-02 10:28] VITALS: BP 124/78
--- NOTE | 2022-07-02 10:47 | Tele-ICU Progress Note ---
Subjective Date Seen by a Provider: Jul 02, 2022 Time Seen by a Provider: 10:46 Subjective/Events-last exam (Tele-ICU Physician , Progress Note ) Service provided via interactive audio and video telecommunications E-CARE system to a patient admitted to ICU bed in [facility]. Patient is seen today due to persistent need of ICU care Available chart/ vitals / labs / Images reviewed Video assessment done using teleICU camera, rest of exam as per RN Discussed with RN Events overnight : AFEBRILE hemodynamically stable Respiratory - 80% + 8 I/O = neg 900 Drips: Pressors- REYNALDO OFF VENT SETTINGS and ABG reviewed CANDIDATE for SBTreviewed possible contraindications including Car diovascular Stability /Sedation Score / FI02/PEEP / ABG / CXR/ secretions Sedation, discussed with RN, RASS -2 versed 7 , fent 200 precedex 1 , folow commands Consultants: Hospital course: (06/07) 32F Admitted with PNA. CT shows Mod size areas of consolidation involving bilateral upper and left lower lobe. There is complete consolidation of RLL. Also centrilobular emphysema. -On BIPAP 100% sats 86%-Plan to intubate. Intubated @ 1918 06/08 - AC 400 26 100% peep 5 , shock : levo 0.9 vaso , reynaldo 175 , Hb 6.5 - transfusion 06/08 1 UPRBC 06/10 - OFF nimbex 06/10-Fio2 60 % +10 06/11- Episodes of junctional robson or sinus robson with PAC. fibrinogen 213 06/12 - 50 % , s/p transfusion 06/08 1 u PRBC, PLT 73 06/13 - 65%, hb 6.7 - transfusion 1 pRBC 06/15- follows commands on SAT. 60% +7 . T38 06/16 - fentanyl gtt , decreasing dose , changing to precedex , starting fentanyl patch , fio2 40% , but secreating thicker - adding mucomist nebs 06/17- 55% +6 . transfusion 1 P rbc , - Iron low - starting IV iron 06/17 , follows commands can NOT TRY SBT TODAY with elevated RR 06/18- [id number]% peep 8, CT chest/abd/pelvis - no abscess, anasarca , plural effusions , ZOSYN started 06/19-80% + 8 , afebrile , LASIX with albumin x3 06/21 45% 06/22 80% , neg 2L , added Eraxis , KUB - no obstruction .- 95% =8 neg 2 L ,STOP mucomist nebs 06/24- ETT replaced , possible aspiration with vomiting . transfusion 1 u PRBC 06/25- 80% +8 , hypotensive - lasix held (06/26) Trach and PEG 06/30 - 60% + 10 AFEBRILE 07/02 - OFF prcedex, fentalyl 75 , versed gtt 6 A/P Acute resp failure with PNA ( in additional to significant emphysema upper lovbes on CT - suspected due to inhalation of meth and possible other drugs ? ) - intubated 06/07 AC 400 22 95 % + 8 - (06/26) Trach - on 45 % + 10 - will cont diuresis today , change meds to PEG FEVER- RESOLVED - infection vs not infectious ( less likely, low suspicious for thrombosis or dug fever - will do CT06/18/22 -NO abscess , cavitary lesion in lungs , empyema, intra- abd issues, + anasarca , plural effusions -ZOSYN 06/18-->06/24 06/22 added Eraxis -07/01 finished ID PNA - bilateral , most likely CAP ( neg covid , flu ) - sputum cx -Streptococcus pneumoniae and H flu 06/08 , sputum 06/14 - posible Staph Aur - PRESUMPTIVE MSSA, zosyn started 06/18 Bacteremia - sterp pneumo - repeat 06/08 blood cx - NEG so far - line tip cx - 06/26 - pending Intolerance of TF 06/23 - n/V - TF stopped , follow - KUB 06/22 - no obstruction , minimal stool , 06/30 - KUB - ilius , started on reglap scheduled - TF 45 cc/h at goal Anasarca , plural effusions on Ct 06/18 - LASIX bid Anemia s/p transfusion 1 u PRBC on 06/08 , 06/09 , 06/13, - no clear sigh of bleeding - suspect delutional? vs slow bleed - Iron low - starting IV iron 06/17 Encephalopaty - follow command , on fentanyl patch 100 and precedex 1.0 versed 6 thrombocytopenia - DIC panel l neg on 06/09 , fibrinogen 213 on 06/11 - stable -RESOLVED Shock . septic - stress dose steroid 50 q 6 - decrease dose q8 06/12 - >25 q8 06/13- stop 06/30/22 - pressors OFF Episodes of junctional robson or sinus robson with PAC. 06/11 - resolved history of methamphetamine use abuse - sedated, fentanyl gtt , decresing dose , changing to precedex , starting fentanyl patch - HIV neg Lines : L scl 06/07 - removed 06/25, new placed 06/25 LEFT PICC , a line 06/07 - removed 06/16 , (Central Line Necessity Reviewed) Figueroa: + OG: Nutrition: TF Analgesia: Anxiety/ delirium VTE Prophylaxis: lovenox 40 Stress Ulcer Prophylaxis: ppi Plans in collaboration with bedside consultants and IM MDs. Discussed with RN to reach out if any questions or concerns A total of 30 minutes of critical care time was devoted to this patient today, required to treat and/or prevent further deterioration of critical care condition ( as above ) . I am remotely monitoring this patient from another state. I am unable to do the bedside exam, and history/physical and pertinent information is taken from other notes in the computer and bedside staff. Sepsis Event Evaluation Height, Weight, BMI Height: 5'6" Weight: 120lbs. oz. 54.889490qd; 21.40 BMI Method:Stated Exam Exam Patient acknowledged, consented, and participated in this virtual visit which was conducted using real time audio/video Vital Signs Date Time Temp Pulse Resp B/P (MAP) Pulse Ox O2 Delivery O2 Flow Rate FiO2 07/02/22 10:28 110 24 91 45 07/02/22 10:00 109 8 125/78 (94) 94 Mechanical Ventilator 45.00 07/02/22 09:00 116 90 120/64 (82) 94 Mechanical Ventilator 45.00 07/02/22 08:29 37.0 95 Mechanical Ventilator 45.00 07/02/22 08:00 114 23 111/66 (81) 94 Mechanical Ventilator 45.00 07/02/22 07:45 95 Mechanical Ventilator 50 07/02/22 07:45 50 07/02/22 07:00 114 07/02/22 07:00 114 8 117/66 (83) 94 Mechanical Ventilator 45.00 07/02/22 06:58 113 24 94 45 07/02/22 06:26 112 112/63 07/02/22 06:00 117 16 116/63 (80) 96 Mechanical Ventilator 50.00 07/02/22 05:00 112 16 112/63 (79) 96 Mechanical Ventilator 50.00 07/02/22 04:39 120 23 117/75 07/02/22 04:00 50 07/02/22 04:00 97 Mechanical Ventilator 50 07/02/22 04:00 122 24 121/71 (88) 96 Mechanical Ventilator 50.00 07/02/22 03:00 120 23 117/75 (89) 96 Mechanical Ventilator 50.00 07/02/22 02:26 121 113/78 07/02/22 02:00 120 13 113/77 (89) 97 Mechanical Ventilator 50.00 07/02/22 01:32 121 24 96 50 07/02/22 01:00 120 07/02/22 01:00 118 18 117/79 (92) 94 Mechanical Ventilator 50.00 07/02/22 00:00 121 16 128/79 (95) 93 Mechanical Ventilator 50.00 07/02/22 00:00 50 07/01/22 23:59 96 Mechanical Ventilator 50 07/01/22 23:55 36.0 07/01/22 23:00 105 19 131/82 (98) 95 Mechanical Ventilator 50.00 07/01/22 22:37 105 131/82 07/01/22 22:09 110 24 96 50 07/01/22 22:00 110 23 110/80 (90) 95 Mechanical Ventilator 50.00 07/01/22 21:00 108 16 114/76 (89) 94 Mechanical Ventilator 50.00 07/01/22 20:00 96 Mechanical Ventilator 50 07/01/22 20:00 50 07/01/22 20:00 105 18 119/79 (92) 95 Mechanical Ventilator 50.00 07/01/22 19:45 36.1 07/01/22 19:25 36.9 118 24 122/74 (90) Mechanical Ventilator 50.00 07/01/22 19:00 118 07/01/22 18:58 117 24 96 50 07/01/22 18:37 121 118/69 07/01/22 18:00 121 9 118/69 (85) 95 Mechanical Ventilator 50.00 07/01/22 17:00 118 15 109/72 (84) 98 Mechanical Ventilator 50.00 07/01/22 16:58 37.1 07/01/22 16:46 120 24 110/73 07/01/22 16:01 60 07/01/22 16:01 93 Mechanical Ventilator 60 07/01/22 16:00 120 8 117/78 (91) 97 Mechanical Ventilator 50.00 07/01/22 15:13 124/76 07/01/22 15:02 118 24 98 50 07/01/22 15:00 118 8 124/76 (92) 98 Mechanical Ventilator 50.00 07/01/22 14:00 123 23 123/77 (92) 96 Mechanical Ventilator 50.00 07/01/22 13:00 123 23 113/80 (91) 96 Mechanical Ventilator 50.00 07/01/22 12:35 120 07/01/22 12:00 115 10 117/79 (92) 95 Mechanical Ventilator 50.00 07/01/22 12:00 36.4 07/01/22 12:00 93 Mechanical Ventilator 60 07/01/22 12:00 60 I & O 07/02/22 07:00 Intake Total 2470 ml Output Total 1550 ml Balance 920 ml Height & Weight Height: 5'6" Weight: 120lbs. oz. 54.916448az; 21.40 BMI Method:Stated General Appearance: Chronically ill HEENT: PERRL/EOMI Neck: Full Range of Motion Respiratory: Lungs Clear, No Respiratory Distress Cardiovascular: Regular Rate, Rhythm, No Murmur Capillary Refill: Less Than 3 Seconds Gastrointestinal: normal bowel sounds, soft, distended Extremity: Normal Capillary Refill, No Pedal Edema Neurologic/Psychiatric: Alert Skin: Normal Color Lymphatic: No Adenopathy Results Lab Laboratory Tests 07/01/22 04:40 07/02/22 04:45 Assessment/Plan Assessment/Plan 1 EFREN VALENCIA MD Jul 02, 2022 10:47
[2022-07-02] MEDS: LORazepam 1 MG (ATIVAN) TAB PO PRN (11:46)
[2022-07-02] MEDS: ONDANSETRON 4 MG/2 ML (SDV) Z0FRAN IV PRN (11:56)
--- NOTE | 2022-07-02 12:58 | Progress Note - Hospitalist ---
Subjective HPI/CC On Admission Date Seen by Provider: Jul 02, 2022 Pt is a 32yoCF with a PMH of methamphetamine abuse who presented to the ER due to weakness. History comes from both patient and her mom. Mom states she has a long history of meth use but has been trying to quit. She last used 7 days ago and then started to get very ill. Her mom wanted to take her in to be seen but the patient refused throoughout the week and finally decidied to come intoday due to her weakness. Reportedly her son has had to carry her from room to room because of how weak she is. On arrival to the emergency room her oxygen saturation was 40%. This was confirmed on an ABG with a PO2 of 39 and saturation of 64 on 15 L nonrebreather. We were able to get her oxygen up into the 90s with oxi mask. Imaging revealed extensive bilateral infiltrates. She was also found to have a profound lactic acidosis fo 13. When I saw her in the ICU she was mottled to her knees and elbows though her capillary refill was adequate. She apparently has vomited twice this morning too. Subjective/Events-last exam Pt remains sedated on vent. Weaned down to 45% FiO2. Still off precedex. Objective Exam Vital Signs Vital Signs Date Time Temp Pulse Resp B/P (MAP) Pulse Ox O2 Delivery O2 Flow Rate FiO2 07/02/22 12:41 122 07/02/22 12:00 22 117/72 (87) 93 Mechanical Ventilator 45.00 07/02/22 11:47 37.2 07/02/22 10:28 45 Capillary Refill : Less Than 3 Seconds General Appearance: No Apparent Distress Respiratory: No Accessory Muscle Use, Decreased Breath Sounds, Other (on vent) Cardiovascular: Regular Rate, Rhythm, No Murmur Gastrointestinal: Soft, Other (abd less distended) Neurologic/Psychiatric: Alert, Other (answers questions appropriately) Results/Procedures Lab Laboratory Tests 07/02/22 04:45 Patient resulted labs reviewed. Imaging: Reviewed Imaging Report Assessment/Plan Assessment and Plan Assess & Plan/Chief Complaint Acute respiratory failure with hypoxia Tracheostomy on mechanical ventilation Pneumonia Fluid overload Anemia Severe protein calorie malnutrition Critical illness myopathy TeleICU following Remains on ventilator and sedation, weaning both as able- off precedex still and down to FiO2 45% Tube feeds Trach and PEG on 06/27 Accepted at [facility] and approved by insurance, I updated pt's mom and will plan for transfer there tomorrow PT/OT Opioid induced constipation Ileus Relistor Q48 Lactulose Suppository BM 2/5 per nurse report still Mom reports at baseline she has roughly weekly BMs SIRS, resolved If fever (>38.5) returns, obtain stat blood cultures Off antibiotics at this time Septic shock, resolved Strep pneumoniae bacteremia, resolved ARDS, resolved ENOC, resolved Lactic acidosis, resolved Goals of care discussion, resolved Critical Care Ventilator Management Diagnosis/Problems Diagnosis/Problems (1) Transaminitis (2) Microcytic anemia (3) Bilateral pneumonia (4) Lactic acidosis Status: Resolved Resolution Date/Time: 06/09/22 @ 15:48 (5) Tobacco abuse (6) Methamphetamine abuse (7) Cachexia (8) Protein-energy malnutrition (9) Acute respiratory failure Status: Acute Qualifiers: Respiratory failure complication: hypoxia and hypercapnia Qualified Codes: J96.01 - Acute respiratory failure with hypoxia; J96.02 - Acute respiratory failure with hypercapnia (10) Septic shock Status: Resolved Resolution Date/Time: 06/22/22 @ 19:07 (11) ENOC (acute kidney injury) Status: Resolved Resolution Date/Time: 06/09/22 @ 15:48 Clinical Quality Measures AMI/AHF: ASA po Prior to arrival: ANDI Hernandez MD Jul 02, 2022 12:58
[2022-07-02 14:35] VITALS: BP 119/82
--- NOTE | 2022-07-02 14:36 | Occupational Ther Daily Note ---
OT Current Status-Daily Note Subjective Supine in bed, sleepy Mental Status/Objective Patient Orientation: Situation Central Line, SCD's, Ventilator (trach), Figueroa Catheter, B wrist restraints, PEG ADL-Treatment Therapy Code Descriptions/Definitions Functional [place] Measure: 0=Not Assessed/NA 4=Minimal Assistance 1=Total Assistance 5=Supervision or Setup 2=Maximal Assistance 6=Modified [place] 3=Moderate Assistance 7=Complete IndependenceSCALE: Activities may be completed with or without assistive devices. 6-Tfygxkoxep-mulqjly completes the activity by him/herself with no assistance from a helper. 5-Set-up or Clean-up Assistance-helper sets up or cleans up; patient completes activity. [place] assists only prior to or following the activity. 4-Supervision or Touching Assistance-helper provides verbal cues and/or touch ing/steadying and/or contact guard assistance as patient completes activity. Assistance may be provided throughout the activity or intermittently. 3-Partial/Moderate Assistance-helper does LESS THAN HALF the effort. [place] lifts, holds or supports trunk or limbs, but provides less than half the effort. 2-Substantial/Maximal Assistance-helper does MORE THAN HALF the effort. [place] lifts or holds trunk or limbs and provides more than half the effort. 9-Mnhrdfhdr-qhstpx does ALL the effort. Patient does none of the effort to complete the activity. Or, the assistance of 2 or more helpers is required for the patient to complete the activity. If activity was not attempted, code reason: 7-Patient Refused. 9-Not Applicable-not attempted and the patient did not perform the activity before the current illness, exacerbation or injury. 10-Not Attempted due to Environmental Limitations-(lack of equipment, weather restraints, etc.). 88-Not Attempted due to Medical Conditions or Safety Concerns. Eating (QC): 88 (NPO) Oral Hygiene (QC): 1 (sponge swabs) Shower/Bathe Self (QC): 1 (Bed Bath) Upper Body Dressing (QC): 2 (follows commands to insert extremities into sleeves, perform limited head contorl ROM ) Lower Body Dressing (QC): 1 On/Off Footwear: 9 Toileting Hygiene (QC): 1 Toilet Transfer (QC): 10 Other Treatment Use of communication board for expression of needs and wants, [facility] for finger isolation and use of text keyboards Education OT Patient Education: Exercise program, Instructions to caregiver (family present at end of session), Modified ADL techniques, Progress toward Goal/Update tx plan, Purpose of tx/functional activities, Rehab process, Safety issues, Use of adapted equipment Teaching Recipient: Patient, Family Teaching Methods: Demonstration, Handout, Discussion Response to Teaching: Verbalize Understanding, Return Demonstration, Reinfo rcement Needed OT Mcfp Goals Mcfp Goals Eating (QC): 3 Oral Hygiene (QC): 3 Toileting Hygiene (QC): 2 Shower/Bathe Self (QC): 2 Upper Body Dressing (QC): 3 Lower Body Dressing (QC): 2 On/Off Footwear (QC): 3 1=Demonstrate adherence to instructed precautions during ADL tasks. 2=Patient will verbalize/demonstrate understanding of assistive devices/modifications for ADL. 3=Patient will improve strength/tolerance for activity to enable patient to perform ADL's. OT Education/Plan Problem List/Assessment Assessment: Decreased Activ Tolerance, Decreased Safety Aware, Decreased UE Strength, Dependent Transfers, Impaired Bed Mobility, Impaired Cognition, Impaired Coordination, Impaired Funct Balance, Impaired Self-Care Skills, Restricted Funct UE ROM Discharge Recommendations Plan/Recommendations: Continue POC Therapy Discharge Recommendati: Post Acute OT Treatment Plan/Plan of Care Treatment,Training & Education: Yes Patient would benefit from OT for education, treatment and training to promote independence in ADL's, mobility, safety and/or upper extremity function for ADL's. Plan of Care: ADL Retraining, Caregiver Training, Cognitive Retraining, Functional Mobility, Group Exercise/Act as Ind, UE Funct Exercise/Act, UE Neuromus Re-Ed/Coord Comment Patient closed eyes and resting w/ family present and holding hands, needs met Treatment Duration: Jul 11, 2022 Frequency: 3 times per week (3-5 times per week) Estimated Hrs Per Day: .25 hour per day Rehab Potential: Guarded Time Start Time: 14:00 Stop Time: 14:25 DATE: Jul 02, 2022 Total Time Billed (hr/min): 25 Billed Treatment Time 1 visit FA 2 25 minutes STEFANO AZEVEDO OT Jul 02, 2022 14:36
[2022-07-02] MEDS: ENOXAPARIN 40 MG/0.4 ML (LOVENOX) SYR SC SCH (17:19)
[2022-07-02] MEDS: LORazepam 1 MG (ATIVAN) TAB PO SCH ×3 (17:20→23:43)
[2022-07-02 19:20] VITALS: BP 113/77
[2022-07-02 22:46] VITALS: BP 110/64
[2022-07-03] MEDS: oxyCODONE/APAP 5/325MG (PERCOCET 5) TABLET PEG SCH ×2 (01:29→08:58)
[2022-07-03 02:39] VITALS: BP 120/97
[2022-07-03] MEDS: RT-ALBUTEROL SULF 2.5 MG/3 ML PRE-MIX VIAL INH SCH ×3 (02:39→10:43)
[2022-07-03] MEDS: RT-IPRATROPIUM (ATROVENT) 0.5MG/2.5ML AMP IH SCH ×3 (02:39→10:43)
[2022-07-03] MEDS: LORazepam 1 MG (ATIVAN) TAB PO SCH ×2 (03:17→08:59)
[2022-07-03 03:40] LABS: BASOPHILS % (AUTO) 0 % (0-10); EOSINOPHILS # (AUTO) 0.1 10^3/uL (0.0-0.3); EOSINOPHILS % (AUTO) 2 % (0-10); HEMATOCRIT 29 % (35-52); HEMOGLOBIN 8.9 g/dL (11.5-16.0); LYMPHOCYTES # (AUTO) 1.1 10^3/uL (1.0-4.0); LYMPHOCYTES % (AUTO) 25 % (12-44); MEAN CORPUSCULAR HEMOGLOBIN 27 pg (25-34); MEAN CORPUSCULAR HGB CONC 31 g/dL (32-36); MEAN CORPUSCULAR VOLUME 87 fL (80-99); MEAN PLATELET VOLUME 9.3 fL (9.0-12.2); MONOCYTES # (AUTO) 0.6 10^3/uL (0.0-1.0); MONOCYTES % (AUTO) 12 % (0-12); NEUTROPHILS # (AUTO) 2.7 10^3/uL (1.8-7.8); NEUTROPHILS % (AUTO) 60 % (42-75); PLATELET COUNT 225 10^3/uL (130-400); WHITE BLOOD COUNT 4.5 10^3/uL (4.3-11.0)
[2022-07-03 03:52] LABS: POTASSIUM 3.1 MMOL/L (3.6-5.0)
[2022-07-03 03:53] LABS: CALCIUM 8.2 MG/DL (8.5-10.1)
[2022-07-03 03:57] LABS: CREATININE SERUM 0.52 MG/DL (0.60-1.30); PHOSPHORUS 3.4 MG/DL (2.3-4.7)
[2022-07-03 04:00] LABS: MAGNESIUM 1.8 MG/DL (1.6-2.4)
[2022-07-03] MEDS: fentaNYL DRIP PRE-MIX 250 ML IV SCH (04:42)
[2022-07-03] MEDS: METOCLOPRAMIDE INJ 10 MG/2 ML (REGLAN) IVP SCH (05:26)
[2022-07-03] MEDS: KCL 20 MEQ TAB (K-DUR) PO SCH (05:27)
[2022-07-03] MEDS: MAGNESIUM 1 GM/100 ML IVPB 100 ML IV SCH (05:27)
[2022-07-03] MEDS: POTASSIUM CL 10MEQ/50ML IVPB 50 ML IV SCH ×4 (05:27→08:58)
[2022-07-03] MEDS: inSUlin ASPART (NovoLOG) 1 UNIT/0.01 ML (CHARGE PER UNIT) SC SCH (05:28)
[2022-07-03] MEDS: FUROSEMIDE 40 MG (LASIX) TAB PO SCH (06:16)
[2022-07-03 07:26] VITALS: BP 143/87
[2022-07-03] MEDS: MIDAZOLAM DRIP PRE-MIX 100 ML IV SCH (08:07)
[2022-07-03] MEDS: METHYLNALTREXONE 12 MG/0.6 ML (RELISTOR) VIAL SQ SCH (08:58)
[2022-07-03] MEDS: PANTOPRAZOLE 40 MG (PROTONIX) TAB PO SCH (08:58)
[2022-07-03] MEDS: MICONAZOLE 2% POWDER (DESENEX AF) 90 GM TOP SCH (08:59)
[2022-07-03] MEDS: LACTULOSE SYRUP 10GM/15ML (ENULOSE) 30ML UDC PO SCH (08:59)
--- NOTE | 2022-07-03 08:59 | Discharge Summary ---
Diagnosis/Chief Complaint Date of Admission Jun 07, 2022 at 12:44 Date of Discharge Discharge Date: Jul 02, 2022 Admission Diagnosis septic shock Primary Care No,Local Physician Discharge Diagnosis (1) Transaminitis (2) Microcytic anemia (3) Bilateral pneumonia (4) Lactic acidosis Status: Resolved (5) Tobacco abuse (6) Methamphetamine abuse (7) Cachexia (8) Protein-energy malnutrition (9) Acute respiratory failure Status: Acute (10) Septic shock Status: Resolved (11) ENOC (acute kidney injury) Status: Resolved Discharge Summary Discharge Physical Exam Allergies: Coded Allergies: Sulfa (Sulfonamide Antibiotics) (Unverified Allergy, Intermediate, RASH, 10/13/11) Vitals & I&Os Vital Signs Date Time Temp Pulse Resp B/P (MAP) Pulse Ox O2 Delivery O2 Flow Rate FiO2 07/03/22 11:00 115 24 113/68 (82) 100 Mechanical Ventilator 45.00 07/03/22 10:44 45 07/03/22 07:30 36.8 General Appearance: Chronically ill HEENT: Other (trach) Respiratory: Lungs Clear Cardiovascular: Regular Rate, Rhythm Neurologic/Psychiatric: Alert, Other (answered most yes or no questions appropriately) Hospital Course Patient was admitted to the hospital secondary to septic shock due to strep pneumonia and bacteremia with strep pneumoniae. She developed acute respiratory failure and then subsequently ARDS and required intubation and paralyzation. She also required multiple pressors. She fortunately started to respond to IV antibiotic therapy and improved and was slowly able to be titrated off of paralyzation and sedation along with vasopressors. Despite this she was unable to be liberated from the ventilator and required tracheostomy and PEG tube placement. [facility] [place] [facility] vent weaning and physical therapy for strengthening. She was accepted by Dr Hanson. Labs (last 24 hrs) Microbiology 06/25/22 Catheter Tip Culture - Final, Complete Culture In Progress 06/18/22 Gram Stain - Final, Complete 06/18/22 Sputum Culture - Final, Complete Staphylococcus aureus 06/08/22 Urine Culture - Final, Complete NO GROWTH Patient resulted labs reviewed. Pending Labs Imaging: Reviewed Imaging Report Discussion & Recommendations Discharge Planning: >30 minutes discharge planning Discharge Home Medications: Active Scripts Active No Active Prescriptions or Reported Medications Instructions to patient/family Please see electronic discharge instructions given to patient. Clinical Quality Measures AMI/AHF: ASA po Prior to arrival: No Problem Qualifiers (1) Acute respiratory failure: Respiratory failure complication: hypoxia and hypercapnia Qualified Codes: J96.01 - Acute respiratory failure with hypoxia; J96.02 - Acute respiratory f ailure with hypercapnia ANDI CASANOVA MD Jul 03, 2022 08:59
[2022-07-03] MEDS ORDERED: meTOprolol TARTRATE 25 MG (LOPRESSOR) TABLET PO NR (09:43)
[2022-07-03 10:44] VITALS: BP 111/69
[2022-07-04] MEDS ORDERED: FENTANYL PATCH REMOVAL TP SCH (08:59)
== END 2022-07-03 12:00 | DRG 4 ==
LOC: EDUNIT# 10:49 → ER 10:50 → EEVIPCON 12:44 → ICU 12:44
PROVIDERS: ADMIT Family Medicine; ATTEND Internal Medicine
PROC: 0BH17EZ Insertion of Endotracheal Airway into Trachea, Via Natural or Artificial Opening (ICD-10-PCS; 2022-06-07)
PROC: 5A09357 Assistance with Respiratory Ventilation, Less than 24 Consecutive Hours, Continuous Positive Airway Pressure (ICD-10-PCS; 2022-06-07)
PROC: 5A0935A Assistance with Respiratory Ventilation, Less than 24 Consecutive Hours, High Flow/Velocity Cannula (ICD-10-PCS; 2022-06-07)
PROC: 5A1955Z Respiratory Ventilation, Greater than 96 Consecutive Hours (ICD-10-PCS; 2022-06-07)
PROC: 03HY32Z Insertion of Monitoring Device into Upper Artery, Percutaneous Approach (ICD-10-PCS; 2022-06-07)
PROC: 02HV33Z Insertion of Infusion Device into Superior Vena Cava, Percutaneous Approach (ICD-10-PCS; 2022-06-07)
PROC: 5A09357 Assistance with Respiratory Ventilation, Less than 24 Consecutive Hours, Continuous Positive Airway Pressure (ICD-10-PCS; 2022-06-07)
PROC: 0DH64UZ Insertion of Feeding Device into Stomach, Percutaneous Endoscopic Approach (ICD-10-PCS; 2022-06-26)
PROC: 0DB48ZX Excision of Esophagogastric Junction, Via Natural or Artificial Opening Endoscopic, Diagnostic (ICD-10-PCS; 2022-06-26)
PROC: 0DB68ZX Excision of Stomach, Via Natural or Artificial Opening Endoscopic, Diagnostic (ICD-10-PCS; 2022-06-26)
PROC: 0B110Z4 Bypass Trachea to Cutaneous, Open Approach (ICD-10-PCS; principal; 2022-06-26 13:39)
DX: A41.9 Sepsis, unspecified organism (principal); E43 Unspecified severe protein-calorie malnutrition; J18.9 Pneumonia, unspecified organism; R65.21 Severe sepsis with septic shock; J80 Acute respiratory distress syndrome; Z68.1 Body mass index [BMI] 19.9 or less, adult; N17.9 Acute kidney failure, unspecified; E87.20 Acidosis, unspecified; R64 Cachexia; G72.81 Critical illness myopathy; K56.7 Ileus, unspecified; G93.40 Encephalopathy, unspecified; F15.10 Other stimulant abuse, uncomplicated; Z20.822 Contact with and (suspected) exposure to COVID-19; D64.9 Anemia, unspecified; F17.210 Nicotine dependence, cigarettes, uncomplicated; D69.6 Thrombocytopenia, unspecified; K59.03 Drug induced constipation; T40.2X5A Adverse effect of other opioids, initial encounter; Z66 Do not resuscitate
CPT/HCPCS: 36415; 36569; 36600; 71045; 71260; 74018; 74178; 76937; 80048; 80053; 81000; 82728; 82805; 82947; 83540; 83550; 83605; 83690; 83735; 84100; 84132; 84145; 84478; 84484; 84703; 85007; 85014; 85018; 85025; 85027; 85379; 85384; 85610; 85730; 86850; 86900; 86901; 86920; 87040; 87070; 87077; 87081; 87088; 87185; 87186; 87205; 87389; 87636; 88305; 88312; 93005; 94002; 94003; 94640; 94660; 94799; 96361; 96365; 96367; 96375

== ENCOUNTER 2022-07-21 13:30 | Inpatient (IN) | payer MEDICAID ==
[~2022-07-21] VITALS: Ht 167.7 cm; Wt 45.0 kg
[~2022-07-21 13:30] MED LIST changes: +ACETAMINOPHEN 325 MG TABLET PO PRN; +ALPRAZolam 0.25 MG (XANAX) TAB PO PRN; +BISACODYL 10 MG SUPP (DULCOLAX) PR PRN; +BUPR1TAB45 SL; +CALCIUM CARBONATE 500 MG (TUMS) TAB.CHEW PO PRN; +CLON0.5T4 PO; +CLON1TAB13 PO; +DOCUSATE SODIUM 100 MG (COLACE) CAP PO PRN; -ETOMIDATE IV SOLN 20 MG/10 ML VIAL IV ONE; +FLEET ENEMA ADULT 1 EA BTL PR PRN; +FURO40TA4 PO; +LACTULOSE SYRUP 10GM/15ML (ENULOSE) 30ML UDC PO PRN; +LOPERAMIDE 2 MG (IMODIUM) TABLET PO PRN; +MELATONIN 3 MG TABLET PO PRN; -MIDAZOLAM 5 MG/5 ML (VERSED) VIAL IJ ONE; +ONDANSETRON 4 MG (ZOFRAN) ORAL DISSOLVE TAB PO PRN; +OXYC1TAB11 PO; +PANT40TA52 PO; -SUCCINYLCHOLINE INJ 20 MG/1 ML 10 ML VIAL INJ ONE; +diphenhydrAMINE 25 MG TAB (BENADRYL) PO PRN; +guaiFENesin/CODEINE (ROBITUSSIN AC) 10ML UDC PO PRN
[2022-07-21 14:20] VITALS: BP 109/74
--- NOTE | 2022-07-21 14:26 | PM&R Post Admission Assessment ---
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 She arrived today via wheel-chair van. She says she is doing well. She is tired and feels weak but says she is better than she was. She only has occasional SOB. She says she is eating/drinking well and having daily BMs and voiding without issue. She had her tracheostomy tube removed while in [place] and it is currently bandaged. At times she needs to brace it to help her talk. She has not used her G-tube for any feeds recently but says she was told in [place] that it could not be removed until August. She reports she has been needing minimal pain medications. She reports she has not smoked in around 9 weeks and is feeling like she does not need any tobacco or assistance in maintaining sobriety. Upon intake vitals she was found to have a low O2 sat of 81% though she does not appear to be in distress during exam. With 4 L of NC she is saturating at 91%. She reports no changes to her medical history leading upto her original admission to [facility] in May. Patient was originally admitted on 06/07/2022 [facility] for septic shock due to strep pneumonia and bacteremia with strep pneumoniae. She deve loped acute respiratory failure and then subsequently ARDS and required prolonged intubation/sedation and pressors. She was aggressively treated with antibiotics and did respond but was unable to be weaned from the ventilator and required tracheostomy and PEG tube placement on 06/28/22. [facility] [place] [facility] for continued vent weaning and physical therapy for strengthening. Allergies: Sulfas PMH: - Spontaneous pneumothorax (right) 8 years ago - Tobacco use - Anemia - MRSA PSH - Right chest tube surgery (2013) - Chest tube (06/2022) - G-tube and tracheostomy placement (06/28/2022) Past social hx: heavy tobacco use (smoker, last use was ~9 weeks ago), methamphetamine use, denies alcohol Family hx Mother - Hypertension Current Medications: Buprenorphine/Naloxone 8mg-2mg SL BID Clonazepam 1mg PO BID Oxycodone/APAP 5mg-325mg PO PRN q4h for pain 5-7/10 Furosemide 40 mg PO BID Pantoprazole 40mg qDaily ROS: General: Denies DINERO, fevers, chills. Endorses fatigue/weakness. HEENT: Denies congestion, drainage, sore throat CV: Denies chest pain, palpitations, orthopnea Respiratory: Denies PERKINS, pleurodynia. Endorses occasional SOB. GI: Denies heartburn, N/V/D, constipation, change in bowel habits : Denies polyuria, polydipsia, dysuria Reproductive: Denies change in menses (LMP ~two weeks ago, normal), heavy menstrual bleeding, vaginal discharge Skin: Denies rash or other concerning lesions on skin, denies wound breakdown Psych: Denies depression, SI, HI Vitals: T: 37.9, P: 137, RR: 24, BP: 109/74, O2: 91% on 4L NC Physical Exam: General: Pleasant, cooperative, no acute distress, malnourished, appears fatigued HEENT: atraumatic, EOMI, no drainage, tracheostomy wound bandaged. CV: Regular rate, tachycardic, S1/S2, no murmurs, peripheral pulses 2+/4. Pulmonary: Lungs CTAB, no audible wheezes/crackles. Abdomen: Soft, nontender, g-tube in place without wound breakdown. Extremities: Moves all extremities spontaneously, strength 4/4 Skin: warm, pink, and dry Mental: Appropriate affect. Labs: Admission CBC pending. Radiology: Admission CXR read pending; appears to have a Rt sided pleural effusion. Assessment and Plan 32 y/o female admitted to inpatient rehabilitation s/p prolonged (>1 month) of hospitalization for severe illness for deconditioning/myopathy Inpatient Rehabilitation for critical illness myopathy - PT/OT and speech therapy orders placed - Admission labs pending - Weekly weights - Vital signs per unit protocol Hypoxia - 91% on 4L N.C. s/p initial admission assessment - Likely 2/2 to extreme deconditioning - Vital signs stable - CXR read pending; Possible rt-sided pleural effusion from previous pneumonia FEN/GI - Replace electrolytes as needed - Regular diet - Senna/Docusate/PEG BID, pantoprazole daily, Zofran PRN. Lactulose PRN. DVT PPx: Lovenox 40 mg daily SQ, SCDs Past Rmfweqg-Zkvsrm-Xwxpcj Hx Past Med/Social Hx: Reviewed Nursing Past Med/Soc Hx, Reviewed and Corrections made Patient Social History Marrital Status: single Employed/Student: unemployed Alcohol Use: Denies Use Smoking Status: Current Everyday Smoker Seasonal Allergies Seasonal Allergies: No Past Medical History peg trach Respiratory: Pneumonia Reproductive: No Sexually Transmitted Disease: No Female Reproductive Disorders: Denies Family History Patient reports no known family medical history. No Pertinent Family Hx PM&R Allergy/Meds/Data Review Allergies Coded Allergies: Sulfa (Sulfonamide Antibiotics) (Unverified Allergy, Intermediate, RASH, 10/13/11) Home Medications Scheduled Buprenorphine HCl/Naloxone HCl (Buprenorphin-Naloxon 8-2 mg Sl), 1 EACH SL BID, (Reported) Clonazepam (Clonazepam), 0.5 MG PO 1400, (Reported) Clonazepam (Clonazepam), 1 MG PO 0600,2200, (Reported) Furosemide (Furosemide), 40 MG PO BID, (Reported) Pantoprazole Sodium (Pantoprazole Sodium), 40 MG PO DAILY, (Reported) Scheduled PRN Oxycodone HCl/Acetaminophen (Oxycodone-Acetaminophen 5-325), 1 EACH PO Q4H PRN for PAIN-MODERATE (5-7), (Reported) Current Medications Current Medications Reviewed Review of Systems Constitutional: see HPI, malaise, weakness EENTM: no symptoms reported Respiratory: dyspnea on exertion Cardiovascular: no symptoms reported Gastrointestinal: no symptoms reported Genitourinary: no symptoms reported Musculoskeletal: no symptoms reported Skin: no symptoms reported Psychiatric/Neurological: No Symptoms Reported All Other Systems Reviewed Negative Unless Noted: Yes Physical Exam Physical Exam Vital Signs Vital Signs - First Documented 07/21/22 07/21/22 14:20 14:22 Temp 37.9 Pulse 137 Resp 24 B/P (MAP) 109/74 (86) Pulse Ox 81 O2 Delivery Room Air O2 Flow Rate 4.00 Capillary Refill : Height, Weight, BMI Height: 5'6" Weight: 120lbs. oz. [id number]; 21.40 BMI Method:Stated General Appearance: WD/WN, Anxious, Chronically ill, Mild Distress, Thin Eyes: Bilateral Eye Normal Inspection, Bilateral Eye PERRL HEENT: PERRL/EOMI, Normal ENT Inspection, Pharynx Normal, Other (trach capped) Neck: Full Range of Motion, Normal Inspection, Non Tender, Supple, Carotid Bruit Respiratory: Chest Non Tender, Lungs Clear, Normal Breath Sounds, No Accessory Muscle Use, No Respiratory Distress Cardiovascular: No Edema, No Gallop, No JVD, No Murmur, Normal Peripheral Pulses, Tachycardia Gastrointestinal: Normal Bowel Sounds, No Organomegaly, No Pulsatile Mass, Non Tender, Soft, Other (peg in place) Back: Normal Inspection, No CVA Tenderness, No Vertebral Tenderness Extremity: Normal Capillary Refill, Normal Inspection, Normal Range of Motion, Non Tender, No Calf Tenderness, No Pedal Edema Neurologic/Psychiatric: Alert, Oriented x3, Normal 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, 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 Norm as Tested, Abnormal Gait, Motor Weakness (generalized 3/5) Skin: Normal Color, Warm/Dry Lymphatic: No Adenopathy PM&R Medical Assessment & Plan REHAB/MEDICAL ASSESSMENT AND PLAN: REHAB IMPAIRMENT GROUP: Critical illness myopathy ETIOLOGIC DIAGNOSIS: Respiratory failure The comorbidities that impact the patients function and/or functional outcome by: meth use, frail status, peg and trach, anxiety REHAB PLAN: The patient is being admitted to our comprehensive inpatient rehabilitation facility and can tolerate the intensity of service consisting of at least: 180 minutes of therapy a day, 5 out of 7 days a week Rehab treatment will consist of: PT OT will focus on regaining strength with use of AD in order to improve overall functioning in order to return home The patient/family has a good understanding of our discharge process and will benefit from an interdisciplinary inpatient rehabilitation program. The patient has potential to make improvement and is in need of at least two of the following multidisciplinary therapies including but not limited to physical, occupational, speech, and prosthetics and orthotics. Additionally the patient will need services from respiratory, nutritional services, wound care, psychology, etc. (Customize this to each patient). Given the patients complex condition and risk of further medical complications, rehabilitation services cannot be safely or effectively provided at a lower level of care such as a shelter facility. BARRIERS TO DISCHARGE: Severe weakness and h/o meth use ESTIMATED LOS: 7 days DISPOSITION: Home RELEVANT CHANGES SINCE PREADMISSION SCREENING: I have compared the patients medical and functional status at the time of the preadmission screening and there are: no changes PROGNOSIS: Fair REHABILITATION GOALS: 1. PT OT will focus on regaining strength with use of AD in order to improve ove rall functioning in order to return home All the above goals were reviewed with the patient and he/she is in agreement. By signing this document, I acknowledge that I have personally performed a full physical examination on this patient within 24 hours of admission to this inpatient rehabilitation facility and have determined the patient to be able to tolerate the above course of treatment at an intensive level for a reasonable period of time. I will be completing a detailed individualized Plan of Care for this patient by day #4 of the patients stay based upon the Preadmission Screen, the Post-Admission Evaluation, and the therapy evaluations. Admission Dx/Comorbidities: (1) Critical illness myopathy Status: Acute ICD Codes: G72.81 - Critical illness myopathy (2) Tracheostomy in place Status: Acute ICD Codes: Z93.0 - Tracheostomy status (3) Substance abuse Status: Acute ICD Codes: F19.10 - Other psychoactive substance abuse, uncomplicated (4) PEG (percutaneous endoscopic gastrostomy) status ICD Codes: Z93.1 - Gastrostomy status EASTON PINTO DO Jul 21, 2022 14:26
[2022-07-21] MEDS ORDERED: LORazepam 0.5 MG (ATIVAN) TABLET PO PRN (14:30)
--- NOTE | 2022-07-21 14:36 | Progress Note ---
SUKHDEV AGARWAL 07/21/22 1436: Progress Note HPI: This is a 32 y/o F transferring from [facility] in [place] after a prolonged stay for ventilator weaning and aggressive PT/OT. She arrived today via wheel-chair van. She says she is doing well. She is tired and feels weak but says she is better than she was. She only has occasional SOB. She says she is eating/drinking well and having daily BMs and voiding without issue. She had her tracheostomy tube removed while in [place] and it is currently bandaged. At times she needs to brace it to help her talk. She has not used her G-tube for any feeds recently but says she was told in [place] that it could not be removed until August. She reports she has been needing minimal pain medications. She reports she has not smoked in around 9 weeks and is feeling like she does not need any tobacco or assistance in maintaining sobriety. Upon intake vitals she was found to have a low O2 sat of 81% though she does not appear to be in distress during exam. With 4 L of NC she is saturating at 91%. She reports no changes to her medical history leading upto her original admission to [facility] in May. Patient was originally admitted on 06/07/2022 [facility] for septic shock due to strep pneumonia and bacteremia with strep pneumoniae. She developed acute respiratory failure and then subsequently ARDS and required prolonged intubation/sedation and pressors. She was aggressively treated with antibiotics and did respond but was unable to be weaned from the ventilator and required tracheostomy and PEG tube placement on 06/28/22. [facility] [place] [facility] for continued vent weaning and physical therapy for strengthening. Allergies: Sulfas PMH: - Spontaneous pneumothorax (right) 8 years ago - Tobacco use - Anemia - MRSA PSH - Right chest tube surgery (2013) - Chest tube (06/2022) - G-tube and tracheostomy placement (06/28/2022) Past social hx: heavy tobacco use (smoker, last use was ~9 weeks ago), methamphetamine use, denies alcohol Family hx Mother - Hypertension Current Medications: Buprenorphine/Naloxone 8mg-2mg SL BID Clonazepam 1mg PO BID Oxycodone/APAP 5mg-325mg PO PRN q4h for pain 5-7/10 Furosemide 40 mg PO BID Pantoprazole 40mg qDaily ROS: General: Denies DINERO, fevers, chills. Endorses fatigue/weakness. HEENT: Denies congestion, drainage, sore throat CV: Denies chest pain, palpitations, orthopnea Respiratory: Denies PERKINS, pleurodynia. Endorses occasional SOB. GI: Denies heartburn, N/V/D, constipation, change in bowel habits : Denies polyuria, polydipsia, dysuria Reproductive: Denies change in menses (LMP ~two weeks ago, normal), heavy menstrual bleeding, vaginal discharge Skin: Denies rash or other concerning lesions on skin, denies wound breakdown Psych: Denies depression, SI, HI Vitals: T: 37.9, P: 137, RR: 24, BP: 109/74, O2: 91% on 4L NC Physical Exam: General: Pleasant, cooperative, no acute distress, malnourished, appears fatigued HEENT: atraumatic, EOMI, no drainage, tracheostomy wound bandaged. CV: Regular rate, tachycardic, S1/S2, no murmurs, peripheral pulses 2+/4. Pulmonary: Lungs CTAB, no audible wheezes/crackles. Abdomen: Soft, nontender, g-tube in place without wound breakdown. Extremities: Moves all extremities spontaneously, strength 4/4 Skin: warm, pink, and dry Mental: Appropriate affect. Labs: Admission CBC pending. Radiology: Admission CXR read pending; appears to have a Rt sided pleural effusion. Assessment and Plan 32 y/o female admitted to inpatient rehabilitation s/p prolonged (>1 month) of hospitalization for severe illness for deconditioning/myopathy Inpatient Rehabilitation for critical illness myopathy - PT/OT and speech therapy orders placed - Admission labs pending - Weekly weights - Vital signs per unit protocol Hypoxia - 91% on 4L N.C. s/p initial admission assessment - Likely 2/2 to extreme deconditioning - Vital signs stable - CXR read pending; Possible rt-sided pleural effusion from previous pneumonia FEN/GI - Replace electrolytes as needed - Regular diet - Senna/Docusate/PEG BID, pantoprazole daily, Zofran PRN. Lactulose PRN. DVT PPx: Lovenox 40 mg daily SQ, SCDs ALYSA PINTO DO 07/22/22 0442: Supervisory-Addendum Brief Verification & Attestation Participated in pt care: history, MDM, physical Personally performed: exam, history, MDM, supervision of care Care discussed with: Medical Student Procedures: n/a Results interpretation: Verified all documentation Verification and Attestation of Medical Student E/M Service A medical student performed and documented this service in my presence. I reviewed and verified all information documented by the medical student and made modifications to such information, when appropriate. I personally performed the physical exam and medical decision making. Alysa Pinto, Jul 22, 2022,04:41 SUKHDEV AGARWAL Jul 21, 2022 14:36 ALYSA PINTO DO Jul 22, 2022 04:42
--- NOTE | 2022-07-21 14:36 | Occupational Therapy Eval ---
OT Evaluation-General/PLF Medical Diagnosis Admission Date Jul 21, 2022 at 13:30 Medical Diagnosis: critical illness myopathy Onset Date: Jun 07, 2022 Therapy Diagnosis Therapy Diagnosis: decreased ADL Status Height/Weight Height (Feet): 5 Height (Inches): 6 Weight (Pounds): 120 Precautions Precautions/Isolations: Fall Prevention, Standard Precautions Referral Physician: Armando Humphries Reason: Self Care Medical History Additional Medical History spontaneous pneumothorax 8 years ago, anemia, MRSA, R chest tube surgery 2013, Chest tube (06/2022), G tube and tracheostomy placement 06/28/2022, heavy tobacco use, methamphetamine use, Current History ED 06/07/22 due to weakness, transferred to [facility] 07/03. Pt admitted to ARU 07/21/22. Social History Home: Single Level Current Living Status: Other Family (Mother and 3 children) Entry Into Home: Stairs With Railing Steps Into Home: 3 ADL-Prior Level of Function SCALE: Activities may be completed with or without assistive devices. 0-Esvcvvlhfn-morugvl completes the activity by him/herself with no assistance from a helper. 5-Set-up or Clean-up Assistance-helper sets up or cleans up; patient completes activity. [place] assists only prior to or following the activity. 4-Supervision or Touching Assistance-helper provides verbal cues and/or touchi ng/steadying and/or contact guard assistance as patient completes activity. Assistance may be provided throughout the activity or intermittently. 3-Partial/Moderate Assistance-helper does LESS THAN HALF the effort. [place] lifts, holds or supports trunk or limbs, but provides less than half the effort. 2-Substantial/Maximal Assistance-helper does MORE THAN HALF the effort. [place] lifts or holds trunk or limbs and provides more than half the effort. 2-Rwgmpftzr-xzobce does ALL the effort. Patient does none of the effort to complete the activity. Or, the assistance of 2 or more helpers is required for the patient to complete the activity. If activity was not attempted, code reason: 7-Patient Refused. 9-Not Applicable-not attempted and the patient did not perform the activity before the current illness, exacerbation or injury. 10-Not Attempted due to Environmental Limitations-(lack of equipment, weather restraints, etc.). 88-Not Attempted due to Medical Conditions or Safety Concerns. ADL PLOF Comments Pt reports IND with ADLs and functional mobility without AD. She has a tub/shower and walk in shower with a SC that can be placed in either. Self Care: Independent Functional Cognition: Independent OT Current Status Subjective Pt agreeable to OT evaluation and Cotreatment. Pt reports very fatigued during tx from long transport ride from [place], [place]. Mental Status/Objective Patient Orientation: Person, Place, Time, Situation Current Hand Dominance: Left Upper Extremity ROM WFL, BUE shoulder flexion to approx 180 degrees Upper Extremity Coordination WFL Upper Extremity Sensation WFL Upper Extremity Strength grossly 3-/5 BUEs. ADL-Treatment Eating (QC): 5 Oral Hygiene (QC): 4 (SBA-Supervision) Shower/Bathe Self (QC): 4 (CGA sponge bath) Upper Body Dressing (QC): 5 Lower Body Dressing (QC): 4 (CGA) On/Off Footwear (QC): 4 (Supervision) Toileting Hygiene (QC): 4 (CGA) Other Treatments OT evaluation complete. OT/PT cotreat due to skill of 2 clinicians required which a rehabilitation services manager could not perform in order to coordinate UE/LEs, decrease fall risk, focus on higher level balance tasks, and due to pt's limitations in strength, activity tolerance, mobility/transfers and fatigue. OT focused on UE placement, ADLs, and cues for sequencing and safety, PT focused on LE placement, gross overall movement and transfers/mobility. Pt's O2 saturation 87% at rest RA. Pt performed functional mobility/transfers using FWW including 1 step, functional mobility on even and uneven surface, bed mobility. Pt transferred to SC in room, requiring extensive rest break. Pt requests to lay down due to fatigue, instead of full shower pt agreeable to sponge bath and dressing at sink. Pt transferred to chair with arms, completing sponge bath, dressing and grooming tasks as outlined above, then used FWW to transfer to recliner. O2 saturation 82% on RA. RN present and placed on 4L O2 NC, O2 saturation increased to 91%. Post tx, pt in recliner, call light in reach and all needs met. IND rolling, SBA supine to/from sit, CGA sit to/from stand, CGA car transfer, occasional cues for positioning and safety. Education OT Patient Education: Correct positioning, Energy conservation, Modified ADL techniques, Progress toward Goal/Update tx plan, Purpose of tx/functional activities, Rehab process Teaching Recipient: Patient Teaching Methods: Discussion Response to Teaching: Verbalize Understanding BIMS CAM BIMS Expression of Ideas and Wants: Without Difficulty Understanding Verbal Content: Understands Brief Interview/Mental Status: Yes IRF CARYN BIMS: IRF CARYN BIMS Response (Comments) Value Repitition of Three Words Three 3 Recalls Socks Yes, No Cue Required 2 Recalls Blue Yes, No Cue Required 2 Recalls Bed Yes, No Cue Required 2 Year Correct 3 Month Accurate Within 5 Days 2 Day Correct 1 Total [address] Mental [address] No CAM Mental Status Change/Baseline: 0 Inattention: 0 Disorganized thinkin Altered level of consciousness: 0 OT Short Term Goals Short Term Goals Time Frame: Jul 29, 2022 Shower/bathe self: 5 Upper body dressin Lower body dressin Putting on/taking off footwear: 5 OT Longterm Goals Longterm Goals Time Frame: Aug 14, 2022 Eating (QC): 6 Oral Hygiene (QC): 6 Toileting Hygiene (QC): 6 Shower/Bathe Self (QC): 6 Upper Body Dressing (QC): 6 Lower Body Dressing (QC): 6 On/Off Footwear (QC): 6 Additional Goals: 1-Demonstrate ADL Tasks, 2-Verbalize Understanding, 3- ImproveStrength/[place] 1=Demonstrate adherence to instructed precautions during ADL tasks. 2=Patient will verbalize/demonstrate understanding of assistive rogelio allie/modifications for ADL. 3=Patient will improve strength/tolerance for activity to enable patient to perform ADL's. OT Education/Plan Problem List/Assessment Assessment: Decreased Activ Tolerance, Decreased UE Strength, Impaired Funct Balance, Impaired I ADL's, Impaired Self-Care Skills Discharge Recommendations Plan/Recommendations: Continue POC Treatment Plan/Plan of Care Patient would benefit from OT for education, treatment and training to promote independence in ADL's, mobility, safety and/or upper extremity function for ADL' s. Plan of Care: ADL Retraining, Functional Mobility, Group Exercise/Act as Ind, UE Funct Exercise/Act Treatment Duration: Aug 14, 2022 Frequency: Modified Program (IRF) (05/12) Estimated Hrs Per Day: 1.5 hours per day Agreement: Yes Rehab Potential: Fair Time Start Time: 13:30 Stop Time: 14:20 DATE: Jul 21, 2022 Total Time Billed (hr/min): 40 Billed Treatment Time OT eval [id number] (10'), Cotreat [id number] (30') 1, EVM (10'), ADL 2 (30') VERONIKA SALEH OT Jul 21, 2022 14:36
--- NOTE | 2022-07-21 14:54 | Physical Therapy Evaluation ---
PT Evaluation-General Medical Diagnosis Admission Date Jul 21, 2022 at 13:30 Medical Diagnosis: CRITICAL ILLNESS MYOPATHY Onset Date: Jun 07, 2022 Therapy Diagnosis Therapy Diagnosis: impaired mobility, strength, endurance Height/Weight Height (Feet): 5 Height (Inches): 6 Weight (Pounds): 120 Precautions Precautions/Isolations: Fall Prevention, Standard Precautions Referral Physician: Alysa Roberts DO Reason for Referral: Evaluation/Treatment Medical History Additional Medical History PMH: - Spontaneous pneumothorax (right) 8 years ago - Tobacco use - Anemia - MRSA PSH - Right chest tube surgery (2013) - Chest tube (06/2022) - G-tube and tracheostomy placement (06/28/2022) Past social hx: heavy tobacco use (smoker, last use was ~9 weeks ago), methamphetamine use, denies alcohol Reviewed History: Yes Social History Home: Single Level Current Living Status: Other Family (mother) Entry Into Home: Stairs With Railing PT Steps Into Home: 3 Prior Prior Level of Function SCALE: Activities may be completed with or without assistive devices. 4-Lsjvqedump-itzxpzo completes the activity by him/herself with no assistance from a helper. 5-Set-up or Clean-up Assistance-helper sets up or cleans up; patient completes activity. [place] assists only prior to or following the activity. 4-Supervision or Touching Assistance-helper provides verbal cues and/or t ouching/steadying and/or contact guard assistance as patient completes activity. Assistance may be provided throughout the activity or intermittently. 3-Partial/Moderate Assistance-helper does LESS THAN HALF the effort. [place] lifts, holds or supports trunk or limbs, but provides less than half the effort. 2-Substantial/Maximal Assistance-helper does MORE THAN HALF the effort. [place] lifts or holds trunk or limbs and provides more than half the effort. 4-Ctkeuswjp-nyduie does ALL the effort. Patient does none of the effort to complete the activity. Or, the assistance of 2 or more helpers is required for the patient to complete the activity. If activity was not attempted, code reason: 7-Patient Refused. 9-Not Applicable-not attempted and the patient did not perform the activity before the current illness, exacerbation or injury. 10-Not Attempted due to Environmental Limitations-(lack of equipment, weather restraints, etc.). 88-Not Attempted due to Medical Conditions or Safety Concerns. Bed Mobility: 6 Transfers (B,C,W/C): 6 Gait: 6 Stairs: 6 Indoor Mobility (Ambulation): Independent Stairs: Independent PT Evaluation-Current Subjective Patient in WC pre tx, agrees to PT, has no complaints of pain but states she is very tired. Will be co-treating with OT for part of tx due to poor patient mobility, strength, endurance, severe debility, coordinate UE and LE during activity, safety and reduce risk of falls. Pain Section J - Health Conditions 1. Rarely or not at all 2. Occasionally 3. Frequently 4. Almost constantly 8. Unable to answer Pain Effect on Sleep: 1 Pain Interference with Therapy: 1 Pain Interference w/Day-to-Day: 1 Pt/Family Goals to be independent at home Objective Patient Orientation: Person, Place, Situation ROM/Strength ROM Lower Extremities WNL Strength Lower Extremities LLE (hip flexion 3/5, knee flexion 3+/5, knee extension 4/5, dorsiflexion 3/5), RLE (hip flexion 3/5, knee flexion 3+/5, knee extension 4/5, dorsiflexion 3/5) Sensory Vision: Functional Hearing: Functional Sensation Right Lower Extremit: Intact Sensation Left Lower Extremity: Intact Transfers Roll Left & Right (QC): 6 Sit to Lying (QC): 4 Lying to Sitting/Side of Bed(Q: 4 Sit to Stand (QC): 4 Chair/Hqj-sb-Msuwq Xfer(QC): 4 Toilet Transfer (QC): 4 Car Transfer (QC): 4 Patient performs rolling with independence, supine <-> sit SBA, sit <-> stand and transfers CGA, car transfer CGA. Occasional cues for positioning and safety. Patient also performed bathing and dressing (bathing from chair level due to fatigue). Gait Does the Patient Walk?: Yes Mode of Locomotion: Walk Anticipated Mode of Locomotion: Walk Walk 10 feet (QC): 4 Walk 50 ft with 2 Turns(QC): 4 Walk 150 ft (QC): 88 Walking 10ft/uneven surface-QC: 4 Distance: 120' Gait Assistive Device: FWW Comments/Gait Description Patient can ambulate 120' with a rolling walker with CGA (including 50' with at least 2 turns of 90 degrees and 10' over an uneven surface), she ambulates slowly, is slightly unsteady but no assist needed to maintain balance, fatigues easily Wheelchair Training Wheel 50 ft with 2 turns (QC): 9 Wheel 150 ft (QC): 9 Stairs #of Steps: 1 1 Step (curb) (QC): 4 4 Steps (QC): 88 12 Steps (QC): 88 Walking Assistive Device: Walker Patient can go up and down 1 step using a rolling walker with CGA, cues for safety, knees almost buckled going up the stair Balance Sitting Static: Normal Sitting Dynamic: Normal Standing Static: Fair Standing Dynamic: Fair Picking up an Object (QC): 4 (CGA using a clinical research manager) Treatment PT performed bed mobility and transfers, ambulation, stair training, standing and positioning and transfers during bathing and dressing, OT performed bathing, dressing, UE positioning and safety during activity. Assessment/Needs Patient in recliner post tx with nurse call, phone, tray, all needs met. Patient has O2 of 87% initially with HR of 136 bpm, after a little activity her O2 was 81%, nurse notified and she got on O2. Rehab Potential: Fair PT Care Home Goals Education Counselor Goals PT Education Counselor Goals Time Frame: Aug 04, 2022 Roll Left to Right (QC): 6 Sit to Lying (QC): 6 Lying-Sitting on Side/Bed(QC): 6 Sit to Stand (QC): 6 Chair/Fca-jv-Bgoyt Xfer(QC): 6 Toilet/Commode Transfer (QC): 6 Car Transfer (QC): 6 Walk 10 feet (QC): 6 Walk 10ft-Uneven Surface(QC): 6 Walk 50ft with 2 Turns (QC): 6 Walk 150 ft (QC): 6 Wheel 50 feet with 2 turns (QC: 9 Wheel 150 feet: 9 1 Step (curb) (QC): 6 4 Steps (QC): 6 12 Steps (QC): 6 Picking up an Object (QC): 6 PT Plan Problem List Problem List: Activity Tolerance, Functional Strength, Safety, Balance, Gait, Transfer, Bed Mobility, ROM Treatment/Plan Treatment Plan: Continue Plan of Care Treatment Plan: Bed Mobility, Education, Functional Activity [place], Functional Strength, Group Therapy, Gait, Safety, Therapeutic Exercise, Transfers Treatment Duration: Aug 04, 2022 Frequency: At least 5 of 7 days/Wk (IRF) Estimated Hrs Per Day: 1.5 hours per day Patient and/or Family Agrees t: Yes Safety Risks/Education Patient Education: Gait Training, Transfer Techniques, Steps, Correct Positioning, Safety Issues Teaching Recipient: Patient Teaching Methods: Demonstration, Discussion Response to Teaching: Reinforcement Needed Discharge Recommendations Plan Patient will perform bed mobility and transfer training, balance and endurance training, functional strengthening, stair training, gait training, and education, to improve functional mobility and independence at home. Therapy Discharge Recommendati: Home & Family, Post Acute PT Time Time In: 1340 Time Out: 1420 DATE: Jul 21, 2022 Total Billed Treatment Time: 40 Total Billed Treatment 1 visit EVM 10' FA 30' PT eval from [id number], co-treat from [id number] THEO ARNETT PT Jul 21, 2022 14:54
[2022-07-21 14:59] LABS: BASOPHILS % (AUTO) 0 % (0-10); EOSINOPHILS # (AUTO) 0.1 10^3/uL (0.0-0.3); EOSINOPHILS % (AUTO) 1 % (0-10); HEMATOCRIT 35 % (35-52); HEMOGLOBIN 10.8 g/dL (11.5-16.0); LYMPHOCYTES # (AUTO) 1.1 X 10^3 (1.0-4.0); LYMPHOCYTES % (AUTO) 14 % (12-44); MEAN CORPUSCULAR HEMOGLOBIN 26 pg (25-34); MEAN CORPUSCULAR HGB CONC 31 g/dL (32-36); MEAN CORPUSCULAR VOLUME 85 fL (80-99); MEAN PLATELET VOLUME 9.1 fL (9.0-12.2); MONOCYTES # (AUTO) 0.5 X 10^3 (0.0-1.0); MONOCYTES % (AUTO) 7 % (0-12); NEUTROPHILS % (AUTO) 78 % (42-75); PLATELET COUNT 334 10^3/uL (130-400); WHITE BLOOD COUNT 7.7 10^3/uL (4.3-11.0)
[2022-07-21] MEDS: NS IV 1000 ML 1,000 ML IV SCH (15:03)
--- NOTE | 2022-07-21 15:05 | Diagnostic Imaging Report ---
INDICATION: Hypoxia. TECHNIQUE: Frontal chest obtained at 02:25 p.m. and compared to 06/29/2022. FINDINGS: Compared to the prior study, tracheostomy tube has been removed and left-sided PICC line has been removed. Infiltrates in the lung bases on both sides appear improved but not resolved. There is no pneumothorax. There is a small amount pleural fluid on the right side, decreasing from the prior study. IMPRESSION: Compared to the previous study, the bibasilar infiltrates are improved but not resolved. There is decreased right pleural fluid compared to the prior study with small residual. No pneumothorax. Surgical sutures over the right apex are noted. Dictated by: Dictated on workstation # [id number]
[2022-07-21 15:06] VITALS: BP 101/62
--- NOTE | 2022-07-21 15:10 | ST Cognitive Linguistic Eval ---
Speech Evaluation-General Medical Diagnosis Critical Illness Myopathy Onset Date: Jun 07, 2022 Therapy Diagnosis Therapy Diagnosis: Intact Cognitive Linguistic Skills Precautions Precautions: Fall, Pressure Ulcer Precautions/Isolations: Fall Prevention, Standard Precautions, Pressure Ulcer Referral Referring Physician: Dr. Roberts Reason for Referral: Evaluation/Treatment Medical History Reviewed History: Yes Social History Current Living Status: Other Family (mother) Speech PLF-Current Status Prior Level of Function The patient denied prior or current difficulties or concerns with her speech, language, cognition, or swallowing. Subjective The patient was seated upright in her recliner, awake and alert, upon entrance to her room by the clinician. The patient greeted the clinician appropriately and was agreeable to participation in the cognitive linguistic evaluation. Language Eval: Auditory Comprehends Simple Yes/No Ques: Functional Follows 1-Step Commands: Functional Follows General Conversations: Functional Language Eval: Verbal Language Completes Spontaneous Greeting: Functional Produces Auto, Serial Info: Functional Word Finding: Functional Requests Basic Needs: Functional States Basic Personal Info: Functional Expresses Complex Ideas: Functional Cognitive Patient Orientation The patient was independently oriented to self, location, month, day of the week, date and year. Objective Cognitive Domain Attention: Mild (Intermittent verbal re-direction to task was required.) Composite Severity Rating: WNL (Baseline.) Objective Oral Motor/Speech Production The patient does not display dysarthria or apraxia of speech. The patient was 100% intelligible in known and unknown contexts. Impression The patient demonstrated intact and baseline cognitive linguistic skills. Skilled speech pathology is not warranted at this time. To note, the patient previously had a tracheostomy tube in place and is currently removed. The patient should continue to digitally occlude the trach eostomy site while phonating to aid in healing. Additionally, the patient has a PEG tube in place. The PEG tube is not being utilized for nutrition. Per patient, she is receiving total nutrition, hydration, and medication by mouth. Speech-Plan Treatment Plan Speech Therapy Treatment Plan: Discontinue ST Treatment Duration: Jul 21, 2022 Frequency: 1 time per week Estimated Hrs Per Day: .5 hour per day Rehab Potential: Fair Pt/Family Agrees to Plan: Yes Safety Risks/Education Teaching Recipient: Patient Teaching Methods: Discussion Response to Teaching: Verbalize Understanding Education Topics Provided: Results, Recommendations, Plan of Care Time Speech Therapy Time In: 14:20 Speech Therapy Time Out: 14:50 DATE: Jul 21, 2022 Total Billed Time: 30 Billed Treatment Time 1, SPSNDYANNA, DOMI KANG Jul 21, 2022 15:10
[2022-07-21 15:19] LABS: ALBUMIN 3.8 GM/DL (3.2-4.5); BILIRUBIN,TOTAL 0.6 MG/DL (0.1-1.0); CALCIUM 10.5 MG/DL (8.5-10.1); CREATININE SERUM 0.63 MG/DL (0.60-1.30); POTASSIUM 3.4 MMOL/L (3.6-5.0); TOTAL PROTEIN 8.7 GM/DL (6.4-8.2)
--- NOTE | 2022-07-21 15:36 | Physical Therapy Daily Note ---
PT Daily Note-Current Subjective Patient in recliner pre tx, agrees to PT, has no complaints of pain. Will be co-treating with OT due to poor patient mobility, strength, endurance, severe debility, coordinate UE and LE during activity, safety and reduce risk of falls. Pain Section J - Health Conditions 1. Rarely or not at all 2. Occasionally 3. Frequently 4. Almost constantly 8. Unable to answer Pain Effect on Sleep: 1 Pain Interference with Therapy: 1 Pain Interference w/Day-to-Day: 1 Appearance Patient in recliner post tx with nurse call, phone, tray, all needs met. Mental Status Patient Orientation: Person, Place, Situation Attachments: Oxygen, IV Transfers SCALE: Activities may be completed with or without assistive devices. 3-Gnbdrkethb-umruhyq completes the activity by him/herself with no assistance from a helper. 5-Set-up or Clean-up Assistance-helper sets up or cleans up; patient completes activity. [place] assists only prior to or following the activity. 4-Supervision or Touching Assistance-helper provides verbal cues and/or touching/steadying and/or contact guard assistance as patient completes activity. Assistance may be provided throughout the activity or intermittently. 3-Partial/Moderate Assistance-helper does LESS THAN HALF the effort. [place] lifts, holds or supports trunk or limbs, but provides less than half the effort. 2-Substantial/Maximal Assistance-helper does MORE THAN HALF the effort. [place] lifts or holds trunk or limbs and provides more than half the effort. 3-Agombidwl-gfmbwm does ALL the effort. Patient does none of the effort to complete the activity. Or, the assistance of 2 or more helpers is required for the patient to complete the activity. If activity was not attempted, code reason: 7-Patient Refused. 9-Not Applicable-not attempted and the patient did not perform the activity before the current illness, exacerbation or injury. 10-Not Attempted due to Environmental Limitations-(lack of equipment, weather restraints, etc.). 88-Not Attempted due to Medical Conditions or Safety Concerns. Sit to Stand (QC): 4 Chair/Xbn-ug-Ljwmk Xfer(QC): 4 Gait Training Distance: 120'x2 Walk 10 feet (QC): 4 Walk 50 ft with 2 Turns(QC): 4 Gait Assistive Device: FWW slow ambulation, unsteady but no assist needed to maintain balance Exercises Performed standing activity in the parallel bars working on LE strength and endurance while performing an UE peg activity. Treatments PT performed transfers, ambulation, standing and safety during UE activity, OT p erformed peg activity, UE positioning and safety during activity. Assessment Current Status: Fair Progress patient needed many rest breaks due to fatigue. Patient was on O2 this afternoon, her O2 was 94% and HR 119 bpm PT Mortar Worker Goals Mortar Worker Goals PT Mortar Worker Goals Time Frame: Aug 04, 2022 Roll Left & Right (QC): 6 Sit to Lying (QC): 6 Lying-Sitting on Side/Bed(QC): 6 Sit to Stand (QC): 6 Chair/Shr-fa-Mdtbp Xfer(QC): 6 Toilet Transfer (QC): 6 Car Transfer (QC): 6 Does the Patient Walk: Yes Walk 10 feet (QC): 6 Walk 50ft with 2 Turns (QC): 6 Walk 150 ft (QC): 6 Walking 10ft on Uneven Surface: 6 1 Step (curb) (QC): 6 4 Steps (QC): 6 12 Steps (QC): 6 Picking up an Object (QC): 6 Wheel 50 feet with 2 turns (QC: 9 Wheel 150 feet: 9 PT Plan Problem List Problem List: Activity Tolerance, Functional Strength, Safety, Balance, Gait, Transfer, Bed Mobility, ROM Treatment/Plan Treatment Plan: Continue Plan of Care Treatment Plan: Bed Mobility, Education, Functional Activity [place], Functional Strength, Group Therapy, Gait, Safety, Therapeutic Exercise, Transfers Treatment Duration: Aug 04, 2022 Frequency: At least 5 of 7 days/Wk (IRF) Estimated Hrs Per Day: 1.5 hours per day Patient and/or Family Agrees t: Yes Safety Risks/Education Patient Education: Gait Training, Transfer Techniques, Correct Positioning, Safety Issues Teaching Recipient: Patient Teaching Methods: Demonstration, Discussion Response to Teaching: Reinforcement Needed Time Time In: 1500 Time Out: 1535 DATE: Jul 21, 2022 Total Billed Treatment Time: 35 Total Billed Treatment 1 visit FA 35' THEO ARNETT PT Jul 21, 2022 15:36
--- NOTE | 2022-07-21 15:54 | Occupational Ther Daily Note ---
OT Current Status-Daily Note Subjective Pt in recliner, agreeable to OT Tx. Rates pain 3/10 headache. Mental Status/Objective Attachments: IV, Oxygen (4L) ADL-Treatment Therapy Code Descriptions/Definitions Functional [place] Measure: 0=Not Assessed/NA 4=Minimal Assistance 1=Total Assistance 5=Supervision or Setup 2=Maximal Assistance 6=Modified [place] 3=Moderate Assistance 7=Complete IndependenceSCALE: Activities may be completed with or without assistive devices. 2-Spdbjxvvow-wbmmwjw completes the activity by him/herself with no assistance from a helper. 5-Set-up or Clean-up Assistance-helper sets up or cleans up; patient completes activity. [place] assists only prior to or following the activity. 4-Supervision or Touching Assistance-helper provides verbal cues and/or touching/steadying and/or contact guard assistance as patient completes activity. Assistance may be provided throughout the activity or intermittently. 3-Partial/Moderate Assistance-helper does LESS THAN HALF the effort. [place] lifts, holds or supports trunk or limbs, but provides less than half the effort. 2-Substantial/Maximal Assistance-helper does MORE THAN HALF the effort. [place] lifts or holds trunk or limbs and provides more than half the effort. 3-Hhchwbypo-occmth does ALL the effort. Patient does none of the effort to complete the activity. Or, the assistance of 2 or more helpers is required for the patient to complete the activity. If activity was not attempted, code reason: 7-Patient Refused. 9-Not Applicable-not attempted and the patient did not perform the activity before the current illness, exacerbation or injury. 10-Not Attempted due to Environmental Limitations-(lack of equipment, weather restraints, etc.). 88-Not Attempted due to Medical Conditions or Safety Concerns. Other Treatment OT/PT cotreat due to skill of 2 clinicians required which a rehabilitation center manager could not perform in order to coordinate UE/LEs, decrease fall risk, focus on higher level balance tasks, and due to pt's limitations in strength, activity tolerance, mobility/transfers and fatigue. OT focused on UE placement, ADLs, and cues for sequencing and safety, PT focused on LE placement, gross overall movement and transfers/mobility. Pt in recliner, agreeable to OT Tx. Pt used FWW to perform functional mobility to therapy gym, [facility]. Pt performed dynamic standing and UE reaching task in order to focus on standing tolerance and balance. Pt placed 1" pegs into foam pegboard, holding onto parallel bar with 1 hand for support, pt required many rest breaks due to fatigue. Pt returned to room using FWW, CGA, transferring to recliner. Post tx, pt in recliner, call light in reach and all needs met OT Short Term Goals Short Term Goals Time Frame: Jul 29, 2022 Shower/bathe self: 5 Upper body dressin Lower body dressin Putting on/taking off footwear: 5 OT [facility] Goals [facility] Goals Time Frame: Aug 14, 2022 Acute change in mental status: 0 Inattention: 0 Disorganized thinkin Altered level of consciousness: 0 Eating (QC): 6 Oral Hygiene (QC): 6 Toileting Hygiene (QC): 6 Shower/Bathe Self (QC): 6 Upper Body Dressing (QC): 6 Lower Body Dressing (QC): 6 On/Off Footwear (QC): 6 Additional Goals: 1-Demonstrate ADL Tasks, 2-Verbalize Understanding, 3- ImproveStrength/[place] 1=Demonstrate adherence to instructed precautions during ADL tasks. 2=Patient will verbalize/demonstrate understanding of assistive devices/modifications for ADL. 3=Patient will improve strength/tolerance for activity to enable patient to perform ADL's. OT Education/Plan Problem List/Assessment Assessment: Decreased Activ Tolerance, Decreased UE Strength, Impaired Funct Balance, Impaired I ADL's, Impaired Self-Care Skills Discharge Recommendations Plan/Recommendations: Continue POC Treatment Plan/Plan of Care Patient would benefit from OT for education, treatment and training to promote independence in ADL's, mobility, safety and/or upper extremity function for ADL's. Plan of Care: ADL Retraining, Functional Mobility, Group Exercise/Act as Ind, UE Funct Exercise/Act Treatment Duration: Aug 14, 2022 Frequency: At least 5 of 7 days/Wk (IRF) Estimated Hrs Per Day: 1.5 hours per day Agreement: Yes Rehab Potential: Fair Time Start Time: 15:00 Stop Time: 15:35 DATE: Jul 21, 2022 Total Time Billed (hr/min): 35 Billed Treatment Time cotreat x35' 1, FA 2 VERONIKA SALEH OT Jul 21, 2022 15:54
[2022-07-21] MEDS ORDERED: MAGNESIUM 1 GM/100 ML IVPB 100 ML IV ONE (16:00)
[2022-07-21 16:21] VITALS: BP 108/63
[2022-07-21] MEDS: meTOprolol TARTRATE 25 MG (LOPRESSOR) TABLET PO SCH ×2 (16:25→20:57)
[2022-07-21] MEDS ORDERED: ENOXAPARIN 40 MG/0.4 ML (LOVENOX) SYR SC SCH (16:30)
[2022-07-21 17:18] VITALS: BP 101/65
[2022-07-21] MEDS: POTASSIUM CL 10MEQ/50ML IVPB 50 ML IV SCH ×4 (18:00→23:01)
[2022-07-21 18:20] VITALS: BP 103/70
[2022-07-21 19:22] VITALS: BP 100/67
[2022-07-21] MEDS: clonazePAM 1 MG (KlonoPIN) TAB PO SCH (20:56)
[2022-07-21] MEDS: DOCUSATE SODIUM 100 MG (COLACE) CAP PO SCH (21:03)
[2022-07-21] MEDS: FUROSEMIDE 40 MG (LASIX) TAB PO SCH (21:03)
[2022-07-21] MEDS: polyethylene glycoL POWDER 17 GM (MIRALAX) PACK PO SCH (21:03)
[2022-07-21] MEDS: SENNA W/DOCUSATE (SENOKOT S) TABLET PO SCH (21:04)
[2022-07-21] MEDS ORDERED: POTASSIUM CL 10MEQ/50ML IVPB 50 ML IV ONE (22:58)
[2022-07-22] MEDS: NS IV 1000 ML 1,000 ML IV SCH (02:13)
[2022-07-22 05:19] LABS: BASOPHILS % (AUTO) 0 % (0-10); EOSINOPHILS # (AUTO) 0.2 10^3/uL (0.0-0.3); EOSINOPHILS % (AUTO) 5 % (0-10); HEMATOCRIT 28 % (35-52); HEMOGLOBIN 8.9 g/dL (11.5-16.0); LYMPHOCYTES # (AUTO) 1.1 10^3/uL (1.0-4.0); LYMPHOCYTES % (AUTO) 28 % (12-44); MEAN CORPUSCULAR HEMOGLOBIN 27 pg (25-34); MEAN CORPUSCULAR HGB CONC 31 g/dL (32-36); MEAN CORPUSCULAR VOLUME 86 fL (80-99); MEAN PLATELET VOLUME 9.3 fL (9.0-12.2); MONOCYTES # (AUTO) 0.4 10^3/uL (0.0-1.0); MONOCYTES % (AUTO) 11 % (0-12); NEUTROPHILS % (AUTO) 55 % (42-75); PLATELET COUNT 262 10^3/uL (130-400); WHITE BLOOD COUNT 3.7 10^3/uL (4.3-11.0)
[2022-07-22 05:43] LABS: BILIRUBIN,TOTAL 0.4 MG/DL (0.1-1.0); CALCIUM 9.1 MG/DL (8.5-10.1); CREATININE SERUM 0.49 MG/DL (0.60-1.30); POTASSIUM 2.9 MMOL/L (3.6-5.0); TOTAL PROTEIN 6.8 GM/DL (6.4-8.2)
[2022-07-22] MEDS: clonazePAM 1 MG (KlonoPIN) TAB PO SCH ×2 (06:21→21:21)
[2022-07-22] MEDS: oxyCODONE/APAP 5/325MG (PERCOCET 5) TABLET PO PRN (08:15)
[2022-07-22] MEDS: PANTOPRAZOLE 40 MG (PROTONIX) TAB PO SCH (08:15)
[2022-07-22] MEDS: FUROSEMIDE 40 MG (LASIX) TAB PO SCH ×2 (08:15→21:20)
[2022-07-22] MEDS: polyethylene glycoL POWDER 17 GM (MIRALAX) PACK PO SCH ×2 (08:16→21:23)
[2022-07-22] MEDS: DOCUSATE SODIUM 100 MG (COLACE) CAP PO SCH ×2 (08:16→21:22)
[2022-07-22] MEDS: SENNA W/DOCUSATE (SENOKOT S) TABLET PO SCH ×2 (08:16→21:22)
--- NOTE | 2022-07-22 08:18 | Individualized Plan of Care ---
Individualized Plan of Care Rehab Nursing IPOC Order Admission Date Jul 21, 2022 at 13:30 Current Orders Orders Admission Order(Inpt,Obs,Sdc) (07/21/22 09:09) Vital Signs: Per Unit Policy ( 08,16,00 (07/21/22 09:09) Reji Avery ,21 (07/21/22 09:09) Sequential Compression Device (07/21/22 09:09) Helpdesk Technician-Inpt Rehab Con (07/21/22 09:09) Rehab Nursing Orders-Ipoc (07/21/22 09:09) Physical Therapy Rehab Orders (07/21/22 09:09) Occupational Therapy Rehab Ord (07/21/22 09:09) Speech Therapy Rehab Orders (07/21/22 09:09) Cbc With Automated Diff (07/22/22 06:00) Comprehensive Metabolic Panel (07/22/22 06:00) Precautions (Aru) (07/21/22 09:09) Weekly Weight WEEK (07/21/22 09:09) Rehab-Intensity Of Therapy (07/21/22 09:09) Initiate Admission Nursing Pro .admission (07/21/22 09:09) Alprazolam Tablet (Xanax Tablet) (07/21/22 09:15) Calcium Carbonate Chew Tablet (Antacid C (07/21/22 09:15) Diphenhydramine Tablet (Benadryl Tablet) (07/21/22 09:15) Docusate Sodium Capsule (Colace Capsule) (07/21/22 21:00) Docusate Sodium Capsule (Colace Capsule) (07/21/22 09:15) Bisacodyl Suppository (Dulcolax Supposit (07/21/22 09:15) Lactulose Oral Solution (Enulose Oral So (07/21/22 09:15) Na Phos/Na Biphos Enema (Fleet Enema Aleksandar (07/21/22 09:15) Guaifenesin/Codeine Syrup (Robitussin Ac (07/21/22 09:15) Loperamide Tablet (Imodium Tablet) (07/21/22 09:15) Enoxaparin Injection (Lovenox Injection) (07/21/22 16:30) Melatonin Tablet (Melatonin Tablet) (07/21/22 09:15) Polyethylene Glycol Powder Pkt (Miralax (07/21/22 21:00) Ondansetron Oral Dissolve Tab (Zofran (07/21/22 09:15) Senna S Tablet (Senokot S Tablet) (07/21/22 21:00) Acetaminophen Tablet/Caplet (Tylenol T (07/21/22 09:15) Initiate Admission Nursing Pro .admission (07/21/22 09:09) Admission Arrival Bed Request (07/21/22 13:35) General/Regular (07/21/22 Lunch) Code/Resuscitation (07/21/22 14:01) Clonazepam Tablet (Klonopin Tablet) (07/22/22 14:00) Clonazepam Tablet (Klonopin Tablet) (07/21/22 22:00) Furosemide Tablet (Lasix Tablet) (07/21/22 21:00) Oxycodone/Apap 5/325mg Tablet (Percocet (07/21/22 14:30) Pantoprazole Tablet (Protonix Tablet) (07/22/22 09:00) Cbc With Automated Diff (07/21/22 14:27) Comprehensive Metabolic Panel (07/21/22 14:27) Lactic Acid Analyzer (07/21/22 14:27) Chest 1 View, Ap/Pa Only (07/21/22 14:27) Blood Culture (07/21/22 14:27) Ns Iv 1000 Ml (Sodium Chloride 0.9%) (07/21/22 14:30) Lorazepam Tablet (Ativan Tablet) (07/21/22 14:30) Patient Visit (07/21/22 ) Speech Sound Lang Comp (07/21/22 ) Treat. Speech/Lang/Voice (07/21/22 ) Potassium Cl 10meq/50ml Ivpb (Kcl 10 Meq (07/21/22 16:00) Magnesium 1 Gm/100 Ml Ivpb (Magnesium Benitez (07/21/22 16:00) Magnesium (07/21/22 16:00) Metoprolol Tartrate (Ir) Tab (Lopressor (07/21/22 16:15) Incentive Spirometry Initial (07/21/22 16:01) Incentive Spirometry (Nursing) Q2H (07/21/22 16:01) Potassium Cl 10meq/50ml Ivpb (Kcl 10 Meq (07/21/22 22:58) Potassium Chloride (Tablet) (K Dur Table (07/22/22 09:00) Patient Visit (07/21/22 ) Pt Eval Moderate Complexity (07/21/22 ) Functional Activities, Ea 15 (07/21/22 ) Patient Visit (07/21/22 ) Functional Activities, Ea 15 (07/21/22 ) Enoxaparin Injection (Lovenox Injection) (07/22/22 17:00) Sputum Culture (07/22/22 14:30) Nursing Communication (Order) (07/22/22 14:36) Patient Visit (07/22/22 ) Exercise Therap, Ea 15 Min (07/22/22 ) Functional Activities, Ea 15 (07/22/22 ) Ensure Plus Variety (07/22/22 16:32) Follow-Up Appointment D/C (07/22/22 18:05) Rehab Nursing Orders: Ongoing Assess. of Cognitive Status, Ongoing Assess. of Function Status, Bladder Management, Bladder Scan, Bladder Training, Bowel Management, Bowel Training, Disease Management & Educaiton, DVT Prophylaxis, Fall Prevention, Fluid/Electrolyte/Nutrition Mgmt, Infection Prevention, Medication Management & Education, Management of Risks & Complications, Management of Skin Intergrity, Nutrition Management, Pain Management, Patient/Family Support, Safety Management, Swallow Precautions Intensity of Therapy to be met Patient to be seen: Min.3h per day/5 of 7d PT IPOC Problem List: Activity Tolerance, Functional Strength, Safety, Balance, Gait, Transfer, Bed Mobility, ROM Treatment Plan: Continue Plan of Care Bed Mobility, Education, Functional Activity [place], Functional Strength, Group Therapy, Gait, Safety, Therapeutic Exercise, Transfers Treatment Duration: Aug 04, 2022 Frequency: At least 5 of 7 days/Wk (IRF) Estimated Hrs Per Day: 1.5 hours per day OT IPOC Problems: Decreased Activ Tolerance, Decreased UE Strength, Impaired Funct Balance, Impaired I ADL's, Impaired Self-Care Skills OT Treatment, Training and Edu: Yes Plan of Care: ADL Retraining, Functional Mobility, Group Exercise/Act as Ind, UE Funct Exercise/Act Treatment Duration: Aug 14, 2022 Frequency: Modified Program (IRF) (05/12) Estimated Hrs Per Day: 1.[address] IPOC Speech Therapy Treatment Plan: Discontinue ST Treatment Duration: Jul 21, 2022 Frequency: 1 time per week Estimated Hrs Per Day: .5 hour per day Helpdesk Technician/Case Mgmt Helpdesk Technician/Case Managemen: Discharge Planning Dietitian/Associate Director Regulatory Affairs Dietitian/Associate Director Regulatory Affairs to monitor nutritional status and make changes and/or recommendations as needed and work with speech pathology on dietary upgrades as the occur. Physician IPOC Medical Issues being managed closely and that require the 24 hour availability of a physician: Recent intubation requiring PEG and trach and h/o meth use and profound weight loss will require close monitoring to prevent any respiratory compromise Medical Issues: Bowel/Bladder Function, DVT Prophylaxis, Falls Precautions, Fluid/Electrolyte/Nutrition Balance, Infection Protection, Pain Management Brief Synthesis of Preadmission Screen, Post-Admission Evaluation, and Therapy Evaluations: PT OT will focus on regaining strength and ambulatory stamina in order to regain ADL's and be successful at home Medical Prognosis: Fair Anticipated Length of Stay: 7 days EASTON PINTO DO Jul 22, 2022 08:18
--- NOTE | 2022-07-22 08:18 | PM&R Progress Note ---
Subjective HPI/CC On Admission Date Seen by Provider: Jul 22, 2022 Time Seen by Provider: 13:30 Subjective/Events-last exam 07/22/2022: No major issues Eating well Labs reviewed Supplementing potassium No pain reported Review of Systems General: Fatigue, Malaise Focused Exam Lactate Level 07/21/22 14:48: Lactic Acid Level 1.22 Objective Exam Vital Signs Vital Signs Date Time Temp Pulse Resp B/P (MAP) Pulse Ox O2 Delivery O2 Flow Rate FiO2 07/22/22 21:31 Nasal Cannula 2.00 07/22/22 20:00 37.5 98 20 101/56 (71) 96 Capillary Refill : General Appearance: WD/WN, Anxious, Chronically ill, Mild Distress, Thin HEENT: PERRL/EOMI, Normal ENT Inspection, Pharynx Normal, Other (trach capped) Neck: Full Range of Motion, Normal Inspection, Non Tender, Supple, Carotid Bruit Respiratory: Chest Non Tender, Lungs Clear, Normal Breath Sounds, No Accessory Muscle Use, No Respiratory Distress Cardiovascular: No Edema, No Gallop, No JVD, No Murmur, Normal Peripheral Puls es, Tachycardia Gastrointestinal: Normal Bowel Sounds, No Organomegaly, No Pulsatile Mass, Non Tender, Soft, Other (peg in place) Back: Normal Inspection, No CVA Tenderness, No Vertebral Tenderness Extremity: Normal Capillary Refill, Normal Inspection, Normal Range of Motion, Non Tender, No Calf Tenderness, No Pedal Edema Neurologic/Psychiatric: Alert, Oriented x3, Normal Mood/Affect, tower observer II-XII Norm as Tested, Abnormal Gait, Motor Weakness (generalized 3/5) Skin: Normal Color, Warm/Dry Lymphatic: No Adenopathy Results/Procedures Lab Laboratory Tests 07/22/22 05:05 Patient resulted labs reviewed. FIM Transfers Therapy Code Descriptions/Definitions Functional [place] Measure: 0=Not Assessed/NA 4=Minimal Assistance 1=Total Assistance 5=Supervision or Setup 2=Maximal Assistance 6=Modified [place] 3=Moderate Assistance 7=Complete IndependenceSCALE: Activities may be completed with or without assistive devices. 9-Mqcxnemvty-lwmltps completes the activity by him/herself with no assistance from a helper. 5-Set-up or Clean-up Assistance-helper sets up or cleans up; patient completes activity. [place] assists only prior to or following the activity. 4-Supervision or Touching Assistance-helper provides verbal cues and/or touching/steadying and/or contact guard assistance as patient completes activity. Assistance may be provided throughout the activity or intermittently. 3-Partial/Moderate Assistance-helper does LESS THAN HALF the effort. [place] lifts, holds or supports trunk or limbs, but provides less than half the effort. 2-Substantial/Maximal Assistance-helper does MORE THAN HALF the effort. [place] lifts or holds trunk or limbs and provides more than half the effort. 2-Dpanfhpks-fifypp does ALL the effort. Patient does none of the effort to complete the activity. Or, the assistance of 2 or more helpers is required for the patient to complete the activity. If activity was not attempted, code reason: 7-Patient Refused. 9-Not Applicable-not attempted and the patient did not perform the activity before the current illness, exacerbation or injury. 10-Not Attempted due to Environmental Limitations-(lack of equipment, weather restraints, etc.). 88-Not Attempted due to Medical Conditions or Safety Concerns. Roll Left to Right (QC): 6 Sit to Lying (QC): 4 Sit to Stand (QC): 4 Chair/Eee-tk-Mtgeu Xfer(QC): 4 Car Transfer (QC): 4 Gait Training Does the Patient Walk?: Yes Distance: 120'x2 Walk 10 feet (QC): 4 Walk 50 ft with 2 Turns(QC): 4 Walk 150 ft (QC): 88 Walking 10ft/uneven surface-QC: 4 Gait Assistive Device: FWW Wheelchair Training Wheel 50 ft with 2 turns (QC): 9 Wheel 150 ft (QC): 9 Stair Training #of Steps: 1 1 Step (curb) (QC): 4 4 Steps (QC): 88 12 Steps (QC): 88 Balance Picking up an Object (QC): 4 (CGA using a soda fountain operator) ADL-Treatment Eating (QC): 5 Oral Hygiene (QC): 4 (SBA-Supervision) Shower/Bathe Self (QC): 4 (CGA sponge bath) Upper Body Dressing (QC): 5 Lower Body Dressing (QC): 4 (CGA) On/Off Footwear (QC): 4 (Supervision) Toileting Hygiene (QC): 4 (CGA) Assessment/Plan Assessment and Plan Assess & Plan/Chief Complaint Assessment: Critical illness myopathy Recent intubation requiring PEG and trach Meth use Anxiety Hypokalemia Plan: Monitor closely Fall risk PT OT 07/22/2022: Monitor closely Fall risk Pain control Supplement potassium (1) Critical illness myopathy Status: Acute (2) Tracheostomy in place Status: Acute (3) Substance abuse Status: Acute (4) PEG (percutaneous endoscopic gastrostomy) status EASTON PINTO DO Jul 22, 2022 08:17
[2022-07-22 08:27] VITALS: BP 99/61
[2022-07-22] MEDS: KCL 20 MEQ TAB (K-DUR) PO SCH ×3 (08:51→21:21)
[2022-07-22 08:52] VITALS: BP 90/51
[2022-07-22] MEDS: meTOprolol TARTRATE 25 MG (LOPRESSOR) TABLET PO SCH ×2 (09:00→21:21)
--- NOTE | 2022-07-22 09:56 | Physical Therapy Daily Note ---
PT Daily Note-Current Subjective Patient in recliner pre tx, agrees to PT, has no complaints of pain. Pain Section J - Health Conditions 1. Rarely or not at all 2. Occasionally 3. Frequently 4. Almost constantly 8. Unable to answer Pain Effect on Sleep: 1 Pain Interference with Therapy: 1 Pain Interference w/Day-to-Day: 1 Appearance Patient in recliner post tx with nurse call, phone, tray, all needs met. Mental Status Patient Orientation: Person, Place, Situation Attachments: Oxygen, IV Transfers SCALE: Activities may be completed with or without assistive devices. 6-Cbtvgdrdit-qxbrxwx completes the activity by him/herself with no assistance from a helper. 5-Set-up or Clean-up Assistance-helper sets up or cleans up; patient completes activity. [place] assists only prior to or following the activity. 4-Supervision or Touching Assistance-helper provides verbal cues and/or touching/steadying and/or contact guard assistance as patient completes activity. Assistance may be provided throughout the activity or intermittently. 3-Partial/Moderate Assistance-helper does LESS THAN HALF the effort. [place] lifts, holds or supports trunk or limbs, but provides less than half the effort. 2-Substantial/Maximal Assistance-helper does MORE THAN HALF the effort. [place] lifts or holds trunk or limbs and provides more than half the effort. 1-Njnvlwlnr-ckhghv does ALL the effort. Patient does none of the effort to com plete the activity. Or, the assistance of 2 or more helpers is required for the patient to complete the activity. If activity was not attempted, code reason: 7-Patient Refused. 9-Not Applicable-not attempted and the patient did not perform the activity before the current illness, exacerbation or injury. 10-Not Attempted due to Environmental Limitations-(lack of equipment, weather restraints, etc.). 88-Not Attempted due to Medical Conditions or Safety Concerns. Sit to Stand (QC): 4 Chair/Zkw-ei-Juvnc Xfer(QC): 4 SBA Gait Training Distance: 150', 300' Walk 10 feet (QC): 4 Walk 50 ft with 2 Turns(QC): 4 Walk 150 ft (QC): 4 Gait Persons Needed: 1 Gait Assistive Device: FWW SBA, slow but steady ambulation Exercises Seated Therapy Exercises: Ankle pumps, Hip flexion, Hip abd/add (with ball and RTB) Standing: Heel/toe raises, Marching, Mini squats Standing Reps: 15 LAQ alternating for 5 min NuStep Minutes: 15 NuStep Workload: 4 Treatments transfers, ambulation, strengthening Assessment Current Status: Fair Progress improved ambulation and endurance PT Clay Grinder Goals Clay Grinder Goals PT Mcc Goals Time Frame: Aug 04, 2022 Roll Left & Right (QC): 6 Sit to Lying (QC): 6 Lying-Sitting on Side/Bed(QC): 6 Sit to Stand (QC): 6 Chair/Eja-gj-Rqorg Xfer(QC): 6 Toilet Transfer (QC): 6 Car Transfer (QC): 6 Does the Patient Walk: Yes Walk 10 feet (QC): 6 Walk 50ft with 2 Turns (QC): 6 Walk 150 ft (QC): 6 Walking 10ft on Uneven Surface: 6 1 Step (curb) (QC): 6 4 Steps (QC): 6 12 Steps (QC): 6 Picking up an Object (QC): 6 Wheel 50 feet with 2 turns (QC: 9 Wheel 150 feet: 9 PT Plan Problem List Problem List: Activity Tolerance, Functional Strength, Safety, Balance, Gait, Transfer, Bed Mobility, ROM Treatment/Plan Treatment Plan: Continue Plan of Care Treatment Plan: Bed Mobility, Education, Functional Activity [place], Functional Strength, Group Therapy, Gait, Safety, Therapeutic Exercise, Transfers Treatment Duration: Aug 04, 2022 Frequency: At least 5 of 7 days/Wk (IRF) Estimated Hrs Per Day: 1.5 hours per day Patient and/or Family Agrees t: Yes Safety Risks/Education Patient Education: Gait Training, Transfer Techniques, Correct Positioning, Safety Issues Teaching Recipient: Patient Teaching Methods: Demonstration, Discussion Response to Teaching: Reinforcement Needed Time Time In: 0900 Time Out: 1000 DATE: Jul 22, 2022 Total Billed Treatment Time: 60 Total Billed Treatment 1 visit EX 30' FA 30' THEO ARNETT PT Jul 22, 2022 09:55
--- NOTE | 2022-07-22 10:46 | Occupational Ther Daily Note ---
OT Current Status-Daily Note Subjective Pt up in recliner, agreeable to OT tx. Mental Status/Objective Patient Orientation: Normal For Age Attachments: Oxygen (2L NC) ADL-Treatment Therapy Code Descriptions/Definitions Functional [place] Measure: 0=Not Assessed/NA 4=Minimal Assistance 1=Total Assistance 5=Supervision or Setup 2=Maximal Assistance 6=Modified [place] 3=Moderate Assistance 7=Complete IndependenceSCALE: Activities may be completed with or without assistive devices. 0-Dcgjkwzpxr-vopijqj completes the activity by him/herself with no assistance from a helper. 5-Set-up or Clean-up Assistance-helper sets up or cleans up; patient completes activity. [place] assists only prior to or following the activity. 4-Supervision or Touching Assistance-helper provides verbal cues and/or touching/steadying and/or contact guard assistance as patient completes activity. Assistance may be provided throughout the activity or intermittently. 3-Partial/Moderate Assistance-helper does LESS THAN HALF the effort. [place] lifts, holds or supports trunk or limbs, but provides less than half the effort. 2-Substantial/Maximal Assistance-helper does MORE THAN HALF the effort. [place] lifts or holds trunk or limbs and provides more than half the effort. 9-Gbrpxbetv-cujxgl does ALL the effort. Patient does none of the effort to complete the activity. Or, the assistance of 2 or more helpers is required for the patient to complete the activity. If activity was not attempted, code reason: 7-Patient Refused. 9-Not Applicable-not attempted and the patient did not perform the activity before the current illness, exacerbation or injury. 10-Not Attempted due to Environmental Limitations-(lack of equipment, weather restraints, etc.). 88-Not Attempted due to Medical Conditions or Safety Concerns. Eating (QC): 6 Shower/Bathe Self (QC): 5 Upper Body Dressing (QC): 3 (Min A doffing shirt, pt able to don with set up.) Lower Body Dressing (QC): 5 On/Off Footwear: 5 Other Treatment Pt agreeable to OT tx. Pt used FWW to transfer into bathroom and onto SC, SBA. Pt doffed clothes, completed shower and donned clothes as outlined above. Pt returned to recliner using FWW, SBA. Post tx, pt in recliner, call light in reach and all needs met. Education OT Patient Education: Correct positioning, Energy conservation, Modified ADL techniques, Progress toward Goal/Update tx plan, Purpose of tx/functional activities, Rehab process Teaching Recipient: Patient Teaching Methods: Discussion Response to Teaching: Verbalize Understanding OT Short Term Goals Short Term Goals Time Frame: Jul 29, 2022 Shower/bathe self: 5 Upper body dressin Lower body dressin Putting on/taking off footwear: 5 OT Supervisor Final Goals Supervisor Final Goals Time Frame: Aug 14, 2022 Acute change in mental status: 0 Inattention: 0 Disorganized thinkin Altered level of consciousness: 0 Eating (QC): 6 Oral Hygiene (QC): 6 Toileting Hygiene (QC): 6 Shower/Bathe Self (QC): 6 Upper Body Dressing (QC): 6 Lower Body Dressing (QC): 6 On/Off Footwear (QC): 6 Additional Goals: 1-Demonstrate ADL Tasks, 2-Verbalize Understanding, 3- ImproveStrength/[place] 1=Demonstrate adherence to instructed precautions during ADL tasks. 2=Patient will verbalize/demonstrate understanding of assistive devices/modifications for ADL. 3=Patient will improve strength/tolerance for activity to enable patient to perform ADL's. OT Education/Plan Problem List/Assessment Assessment: Decreased Activ Tolerance, Decreased UE Strength, Impaired Funct Balance, Impaired I ADL's, Impaired Self-Care Skills Discharge Recommendations Plan/Recommendations: Continue POC Treatment Plan/Plan of Care Patient would benefit from OT for education, treatment and training to promote independence in ADL's, mobility, safety and/or upper extremity function for ADL's. Plan of Care: ADL Retraining, Functional Mobility, Group Exercise/Act as Ind, UE Funct Exercise/Act Treatment Duration: Aug 14, 2022 Frequency: Modified Program (IRF) (05/12) Estimated Hrs Per Day: 1.5 hours per day Agreement: Yes Rehab Potential: Fair Time Start Time: 10:00 Stop Time: 11:00 DATE: Jul 22, 2022 Total Time Billed (hr/min): 60 Billed Treatment Time 1, ADL 4 VERONIKA SALEH OT Jul 22, 2022 10:46
--- NOTE | 2022-07-22 13:44 | Occupational Ther Daily Note ---
OT Current Status-Daily Note Subjective Pt agreeable to OT Tx. ADL-Treatment Therapy Code Descriptions/Definitions Functional [place] Measure: 0=Not Assessed/NA 4=Minimal Assistance 1=Total Assistance 5=Supervision or Setup 2=Maximal Assistance 6=Modified [place] 3=Moderate Assistance 7=Complete IndependenceSCALE: Activities may be completed with or without assistive devices. 1-Zcncyrujxk-piiqiyz completes the activity by him/herself with no assistance from a helper. 5-Set-up or Clean-up Assistance-helper sets up or cleans up; patient completes activity. [place] assists only prior to or following the activity. 4-Supervision or Touching Assistance-helper provides verbal cues and/or touching/steadying and/or contact guard assistance as patient completes activity. Assistance may be provided throughout the activity or intermittently. 3-Partial/Moderate Assistance-helper does LESS THAN HALF the effort. [place] lifts, holds or supports trunk or limbs, but provides less than half the effort. 2-Substantial/Maximal Assistance-helper does MORE THAN HALF the effort. [place] lifts or holds trunk or limbs and provides more than half the effort. 1-Rbhivercu-duzynb does ALL the effort. Patient does none of the effort to complete the activity. Or, the assistance of 2 or more helpers is required for the patient to complete the activity. If activity was not attempted, code reason: 7-Patient Refused. 9-Not Applicable-not attempted and the patient did not perform the activity before the current illness, exacerbation or injury. 10-Not Attempted due to Environmental Limitations-(lack of equipment, weather restraints, etc.). 88-Not Attempted due to Medical Conditions or Safety Concerns. Other Treatment Pt in recliner, agreeable to OT Tx. Pt used FWW to perform functional mobility to therapy gym, SBA. O2 saturation at 92%. OT tx focused on increasing BUE Strength and activity. Pt completed arm bike, x15 mins, 20 Watt resistance, rest breaks as needed. Pt used FWW to return to her room, SBA, transferring to recliner. Pt positioned to comfort. Post tx, pt in recliner, call light in reach and all needs met. OT Short Term Goals Short Term Goals Time Frame: Jul 29, 2022 Shower/bathe self: 5 Upper body dressin Lower body dressin Putting on/taking off footwear: 5 OT Jointer Machine Operator Goals Mcc Goals Time Frame: Aug 14, 2022 Acute change in mental status: 0 Inattention: 0 Disorganized thinkin Altered level of consciousness: 0 Eating (QC): 6 Oral Hygiene (QC): 6 Toileting Hygiene (QC): 6 Shower/Bathe Self (QC): 6 Upper Body Dressing (QC): 6 Lower Body Dressing (QC): 6 On/Off Footwear (QC): 6 Additional Goals: 1-Demonstrate ADL Tasks, 2-Verbalize Understanding, 3-Impr oveStrength/[place] 1=Demonstrate adherence to instructed precautions during ADL tasks. 2=Patient will verbalize/demonstrate understanding of assistive devices/modifications for ADL. 3=Patient will improve strength/tolerance for activity to enable patient to perform ADL's. OT Education/Plan Problem List/Assessment Assessment: Decreased Activ Tolerance, Decreased UE Strength, Impaired Funct Balance, Impaired I ADL's, Impaired Self-Care Skills Discharge Recommendations Plan/Recommendations: Continue POC Treatment Plan/Plan of Care Patient would benefit from OT for education, treatment and training to promote independence in ADL's, mobility, safety and/or upper extremity function for ADL's. Plan of Care: ADL Retraining, Functional Mobility, Group Exercise/Act as Ind, UE Funct Exercise/Act Treatment Duration: Aug 14, 2022 Frequency: Modified Program (IRF) (05/12) Estimated Hrs Per Day: 1.5 hours per day Agreement: Yes Rehab Potential: Fair Time Start Time: 13:25 Stop Time: 13:55 DATE: Jul 22, 2022 Total Time Billed (hr/min): 30 Billed Treatment Time 1, EX 2 VERONIKA SALEH OT Jul 22, 2022 13:44
--- NOTE | 2022-07-22 13:57 | Physical Therapy Daily Note ---
PT Daily Note-Current Subjective Patient in recliner pre tx, agrees to PT, has no complaints of pain. Pain Section J - Health Conditions 1. Rarely or not at all 2. Occasionally 3. Frequently 4. Almost constantly 8. Unable to answer Pain Effect on Sleep: 1 Pain Interference with Therapy: 1 Pain Interference w/Day-to-Day: 1 Appearance Patient in recliner post tx with nurse call, phone, tray, all needs met. Mental Status Patient Orientation: Person, Place, Situation Attachments: Oxygen Transfers SCALE: Activities may be completed with or without assistive devices. 3-Ovrwyccxmn-lqieqmd completes the activity by him/herself with no assistance from a helper. 5-Set-up or Clean-up Assistance-helper sets up or cleans up; patient completes activity. [place] assists only prior to or following the activity. 4-Supervision or Touching Assistance-helper provides verbal cues and/or touching/steadying and/or contact guard assistance as patient completes activity. Assistance may be provided throughout the activity or intermittently. 3-Partial/Moderate Assistance-helper does LESS THAN HALF the effort. [place] lifts, holds or supports trunk or limbs, but provides less than half the effort. 2-Substantial/Maximal Assistance-helper does MORE THAN HALF the effort. [place] lifts or holds trunk or limbs and provides more than half the effort. 3-[place] does ALL the effort. Patient does none of the effort to complete the activity. Or, the assistance of 2 or more helpers is required for the patient to complete the activity. If activity was not attempted, code reason: 7-Patient Refused. 9-Not Applicable-not attempted and the patient did not perform the activity b efore the current illness, exacerbation or injury. 10-Not Attempted due to Environmental Limitations-(lack of equipment, weather restraints, etc.). 88-Not Attempted due to Medical Conditions or Safety Concerns. Sit to Stand (QC): 4 Chair/Ifg-cn-Lyyrd Xfer(QC): 4 SBA Gait Training Distance: 300'x2 Walk 10 feet (QC): 4 Walk 50 ft with 2 Turns(QC): 4 Walk 150 ft (QC): 4 Gait Persons Needed: 1 Gait Assistive Device: FWW SBA, slow but steady ambulation, O2 stayed in low 90's during activity Exercises NuStep Minutes: 10 NuStep Workload: 4 Treatments transfers, ambulation, strengthening Assessment Current Status: Fair Progress good progress with functional mobility PT [facility] Goals Swatch Maker Goals PT [facility] Goals Time Frame: Aug 04, 2022 Roll Left & Right (QC): 6 Sit to Lying (QC): 6 Lying-Sitting on Side/Bed(QC): 6 Sit to Stand (QC): 6 Chair/Dex-kh-Dzbes Xfer(QC): 6 Toilet Transfer (QC): 6 Car Transfer (QC): 6 Does the Patient Walk: Yes Walk 10 feet (QC): 6 Walk 50ft with 2 Turns (QC): 6 Walk 150 ft (QC): 6 Walking 10ft on Uneven Surface: 6 1 Step (curb) (QC): 6 4 Steps (QC): 6 12 Steps (QC): 6 Picking up an Object (QC): 6 Wheel 50 feet with 2 turns (QC: 9 Wheel 150 feet: 9 PT Plan Problem List Problem List: Activity Tolerance, Functional Strength, Safety, Balance, Gait, Transfer, Bed Mobility, ROM Treatment/Plan Treatment Plan: Continue Plan of Care Treatment Plan: Bed Mobility, Education, Functional Activity [place], Functional Strength, Group Therapy, Gait, Safety, Therapeutic Exercise, Transfers Treatment Duration: Aug 04, 2022 Frequency: At least 5 of 7 days/Wk (IRF) Estimated Hrs Per Day: 1.5 hours per day Patient and/or Family Agrees t: Yes Safety Risks/Education Patient Education: Gait Training, Transfer Techniques, Correct Positioning, Safety Issues Teaching Recipient: Patient Teaching Methods: Demonstration, Discussion Response to Teaching: Reinforcement Needed Time Time In: 1130 Time Out: 1200 DATE: Jul 22, 2022 Total Billed Treatment Time: 30 Total Billed Treatment 1 visit EX 10' FA 20' THEO ARNETT PT Jul 22, 2022 13:57
[2022-07-22] MEDS: clonazePAM 0.5 MG (KlonoPIN) TAB PO SCH (13:59)
[2022-07-22] MEDS: ENOXAPARIN INJECTION 30 MG/0.3 ML SYR SC SCH (18:24)
[2022-07-22 20:00] VITALS: BP 101/56
--- NOTE | 2022-07-23 05:00 | PM&R Progress Note ---
Subjective HPI/CC On Admission Date Seen by Provider: Jul 23, 2022 Time Seen by Provider: 10:00 Subjective/Events-last exam 07/23/2022: Doing much better Set for DC Sat Weaning O2 Monitoring closely 07/22/2022: No major issues Eating well Labs reviewed Supplementing potassium No pain reported Review of Systems General: Fatigue, Malaise Focused Exam Lactate Level 07/21/22 14:48: Lactic Acid Level 1.22 Objective Exam Vital Signs Vital Signs Date Time Temp Pulse Resp B/P (MAP) Pulse Ox O2 Delivery O2 Flow Rate FiO2 07/23/22 20:15 37.2 99 18 101/59 (73) 95 Nasal Cannula 2.00 Capillary Refill : General Appearance: WD/WN, Anxious, Chronically ill, Mild Distress, Thin HEENT: PERRL/EOMI, Normal ENT Inspection, Pharynx Normal, Other (trach capped) Neck: Full Range of Motion, Normal Inspection, Non Tender, Supple, Carotid Bruit Respiratory: Chest Non Tender, Lungs Clear, Normal Breath Sounds, No Accessory Muscle Use, No Respiratory Distress Cardiovascular: No Edema, No Gallop, No JVD, No Murmur, Normal Peripheral Pulses, Tachycardia Gastrointestinal: Normal Bowel Sounds, No Organomegaly, No Pulsatile Mass, Non Tender, Soft, Other (peg in place) Back: Normal Inspection, No CVA Tenderness, No Vertebral Tenderness Extremity: Normal Capillary Refill, Normal Inspection, Normal Range of Motion, Non Tender, No Calf Tenderness, No Pedal Edema Neurologic/Psychiatric: Alert, Oriented x3, Normal 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 FIM Transfers Therapy Code Descriptions/Definitions Functional [place] Measure: 0=Not Assessed/NA 4=Minimal Assistance 1=Total Assistance 5=Supervision or Setup 2=Maximal Assistance 6=Modified [place] 3=Moderate Assistance 7=Complete IndependenceSCALE: Activities may be completed with or without assistive devices. 1-Xqpewdfrsx-yesjnfs completes the activity by him/herself with no assistance from a helper. 5-Set-up or Clean-up Assistance-helper sets up or cleans up; patient completes activity. [place] assists only prior to or following the activity. 4-Supervision or Touching Assistance-helper provides verbal cues and/or touching/steadying and/or contact guard assistance as patient completes activity. Assistance may be provided throughout the activity or intermittently. 3-Partial/Moderate Assistance-helper does LESS THAN HALF the effort. [place] lifts, holds or supports trunk or limbs, but provides less than half the effort. 2-Substantial/Maximal Assistance-helper does MORE THAN HALF the effort. [place] lifts or holds trunk or limbs and provides more than half the effort. 4-Kxxifobcw-xtzjyl does ALL the effort. Patient does none of the effort to complete the activity. Or, the assistance of 2 or more helpers is required for the patient to complete the activity. If activity was not attempted, code reason: 7-Patient Refused. 9-Not Applicable-not attempted and the patient did not perform the activity before the current illness, exacerbation or injury. 10-Not Attempted due to Environmental Limitations-(lack of equipment, weather restraints, etc.). 88-Not Attempted due to Medical Conditions or Safety Concerns. Roll Left to Right (QC): 6 Sit to Lying (QC): 4 Sit to Stand (QC): 4 Chair/Wnp-ky-Ddpeh Xfer(QC): 4 Car Transfer (QC): 4 Gait Training Does the Patient Walk?: Yes Distance: 300'x2 Walk 10 feet (QC): 4 Walk 50 ft with 2 Turns(QC): 4 Walk 150 ft (QC): 4 Walking 10ft/uneven surface-QC: 4 Gait Persons Needed: 1 Gait Assistive Device: FWW Wheelchair Training Does the Pt Use a Wheelchair?: No Wheel 50 ft with 2 turns (QC): 9 Wheel 150 ft (QC): 9 Type of Wheelchair: N/A Stair Training #of Steps: 1 1 Step (curb) (QC): 4 4 Steps (QC): 88 12 Steps (QC): 88 Balance Picking up an Object (QC): 4 (CGA using a automobile damage field appraiser) ADL-Treatment Eating (QC): 6 Oral Hygiene (QC): 4 (SBA-Supervision) Shower/Bathe Self (QC): 5 Upper Body Dressing (QC): 3 (Min A doffing shirt, pt able to don with set up.) Lower Body Dressing (QC): 5 On/Off Footwear (QC): 5 Toileting Hygiene (QC): 4 (CGA) Assessment/Plan Assessment and Plan Assess & Plan/Chief Complaint Assessment: Critical illness myopathy Recent intubation requiring PEG and trach Meth use Anxiety Hypokalemia Plan: Monitor closely Fall risk PT OT 07/22/2022: Monitor closely Fall risk Pain control Supplement potassium 07/23/2022: DC Sat (1) Critical illness myopathy Status: Acute (2) Tracheostomy in place Status: Acute (3) Substance abuse Status: Acute (4) PEG (percutaneous endoscopic gastrostomy) status EASTON PINTO DO Jul 23, 2022 05:00
[2022-07-23] MEDS: clonazePAM 1 MG (KlonoPIN) TAB PO SCH ×2 (06:09→22:19)
[2022-07-23 08:46] VITALS: BP 99/66
--- NOTE | 2022-07-23 08:52 | Physical Therapy Daily Note ---
PT Daily Note-Current Subjective Patient in recliner pre tx, agrees to PT, has unrated pain in legs, states it is soreness from exercising yesterday. Pain Section J - Health Conditions 1. Rarely or not at all 2. Occasionally 3. Frequently 4. Almost constantly 8. Unable to answer Pain Effect on Sleep: 1 Pain Interference with Therapy: 1 Pain Interference w/Day-to-Day: 1 Appearance Patient in recliner post tx with nurse call, phone, tray, all needs met. Mental Status Patient Orientation: Person, Place, Situation Transfers SCALE: Activities may be completed with or without assistive devices. 6-Fibjzlrnug-luhpdfn completes the activity by him/herself with no assistance from a helper. 5-Set-up or Clean-up Assistance-helper sets up or cleans up; patient completes activity. [place] assists only prior to or following the activity. 4-Supervision or Touching Assistance-helper provides verbal cues and/or touching/steadying and/or contact guard assistance as patient completes activity. Assistance may be provided throughout the activity or intermittently. 3-Partial/Moderate Assistance-helper does LESS THAN HALF the effort. [place] lifts, holds or supports trunk or limbs, but provides less than half the effort. 2-Substantial/Maximal Assistance-helper does MORE THAN HALF the effort. [place] lifts or holds trunk or limbs and provides more than half the effort. 7-Lirstwgpz-pprueq does ALL the effort. Patient does none of the effort to c omplete the activity. Or, the assistance of 2 or more helpers is required for the patient to complete the activity. If activity was not attempted, code reason: 7-Patient Refused. 9-Not Applicable-not attempted and the patient did not perform the activity before the current illness, exacerbation or injury. 10-Not Attempted due to Environmental Limitations-(lack of equipment, weather restraints, etc.). 88-Not Attempted due to Medical Conditions or Safety Concerns. Sit to Stand (QC): 4 Chair/Fdy-ij-Pmpje Xfer(QC): 4 CGA Gait Training Distance: 300', 120' Walk 10 feet (QC): 4 Walk 50 ft with 2 Turns(QC): 4 Walk 150 ft (QC): 4 Gait Persons Needed: 1 Gait Assistive Device: FWW CGA, slow ambulation, patient had one instance of LOB and needed steadying assist Exercises Seated Therapy Exercises: Ankle pumps, Long arc quads, Hip flexion, Hip abd/add Seated Reps: 20 NuStep Minutes: 15 NuStep Workload: 4 Treatments Patient also needed to use the restroom during tx, had a BM, was able to manage everything (pants, cleaning, etc.) on her own. Assessment Current Status: Fair Progress more unsteady with ambulation today PT Half-Way Goals Half-Way Goals PT Lap Machine Operator Goals Time Frame: Aug 04, 2022 Roll Left & Right (QC): 6 Sit to Lying (QC): 6 Lying-Sitting on Side/Bed(QC): 6 Sit to Stand (QC): 6 Chair/Njw-qy-Pnijw Xfer(QC): 6 Toilet Transfer (QC): 6 Car Transfer (QC): 6 Does the Patient Walk: Yes Walk 10 feet (QC): 6 Walk 50ft with 2 Turns (QC): 6 Walk 150 ft (QC): 6 Walking 10ft on Uneven Surface: 6 1 Step (curb) (QC): 6 4 Steps (QC): 6 12 Steps (QC): 6 Picking up an Object (QC): 6 Wheel 50 feet with 2 turns (QC: 9 Wheel 150 feet: 9 PT Plan Problem List Problem List: Activity Tolerance, Functional Strength, Safety, Balance, Gait, Transfer, Bed Mobility, ROM Treatment/Plan Treatment Plan: Continue Plan of Care Treatment Plan: Bed Mobility, Education, Functional Activity [place], Functional Strength, Group Therapy, Gait, Safety, Therapeutic Exercise, Transfers Treatment Duration: Aug 04, 2022 Frequency: At least 5 of 7 days/Wk (IRF) Estimated Hrs Per Day: 1.5 hours per day Patient and/or Family Agrees t: Yes Safety Risks/Education Patient Education: Gait Training, Transfer Techniques, Correct Positioning, Safety Issues Teaching Recipient: Patient Teaching Methods: Demonstration, Discussion Response to Teaching: Reinforcement Needed Time Time In: 0800 Time Out: 0900 DATE: Jul 23, 2022 Total Billed Treatment Time: 60 Total Billed Treatment 1 visit EX 20' FA 40' THEO ARNETT PT Jul 23, 2022 08:52
--- NOTE | 2022-07-23 09:57 | Occupational Ther Daily Note ---
OT Current Status-Daily Note Subjective Pt in recliner, agreeable to OT Tx. Mental Status/Objective Attachments: Oxygen (2L) ADL-Treatment Therapy Code Descriptions/Definitions Functional [place] Measure: 0=Not Assessed/NA 4=Minimal Assistance 1=Total Assistance 5=Supervision or Setup 2=Maximal Assistance 6=Modified [place] 3=Moderate Assistance 7=Complete IndependenceSCALE: Activities may be completed with or without assistive devices. 1-Gtszdttafa-gqavekr completes the activity by him/herself with no assistance from a helper. 5-Set-up or Clean-up Assistance-helper sets up or cleans up; patient completes activity. [place] assists only prior to or following the activity. 4-Supervision or Touching Assistance-helper provides verbal cues and/or touching/steadying and/or contact guard assistance as patient completes activi ty. Assistance may be provided throughout the activity or intermittently. 3-Partial/Moderate Assistance-helper does LESS THAN HALF the effort. [place] lifts, holds or supports trunk or limbs, but provides less than half the effort. 2-Substantial/Maximal Assistance-helper does MORE THAN HALF the effort. [place] lifts or holds trunk or limbs and provides more than half the effort. 2-Ztdgfcziq-aeixhd does ALL the effort. Patient does none of the effort to complete the activity. Or, the assistance of 2 or more helpers is required for the patient to complete the activity. If activity was not attempted, code reason: 7-Patient Refused. 9-Not Applicable-not attempted and the patient did not perform the activity before the current illness, exacerbation or injury. 10-Not Attempted due to Environmental Limitations-(lack of equipment, weather restraints, etc.). 88-Not Attempted due to Medical Conditions or Safety Concerns. Toileting Hygiene (QC): 4 (supervision) Toilet Transfer (QC): 4 (supervision) Other Treatment Pt in recliner, agreeable to OT tx. Pt used FWW to perform functional mobility to therapy gym, SBA. OT Tx focused on increasing BUE strength and activity tolerance. Pt completed x15 mins on arm bike, x20 Watt resistance, no rest breaks. Pt then completed pipe tree configuration, placing/manipulating pipe pieces together following printed diagram. pt able to complete x5 diagrams. Pt requests to use bathroom, returned to [facility], SBA-CGA using FWW. Pt completed toileting and hand hygiene, then returned to the therapy gym. Pt completed UE reaching task, placing/removing 1" pegs from foam pegboard, pt completed x100. Pt then completed UE reaching task, placing rubber bands on pegboard following printed diagram, completing x5 total diagrams, min VCs for correct placement. Pt states she is very fatigued throughout tx, requesting to return to her room. Pt returned to room, SBA-CGA using FWW, transferring to recliner. Post tx, pt in recliner, call light in reach and all needs met, chair alarm activated. Education OT Patient Education: Correct positioning, Energy conservation, Modified ADL techniques, Progress toward Goal/Update tx plan, Purpose of tx/functional activ ities, Rehab process Teaching Recipient: Patient Teaching Methods: Discussion Response to Teaching: Verbalize Understanding OT Short Term Goals Short Term Goals Time Frame: Jul 29, 2022 Shower/bathe self: 5 Upper body dressin Lower body dressin Putting on/taking off footwear: 5 OT Care Home Goals Care Home Goals Time Frame: Aug 14, 2022 Acute change in mental status: 0 Inattention: 0 Disorganized thinkin Altered level of consciousness: 0 Eating (QC): 6 Oral Hygiene (QC): 6 Toileting Hygiene (QC): 6 Shower/Bathe Self (QC): 6 Upper Body Dressing (QC): 6 Lower Body Dressing (QC): 6 On/Off Footwear (QC): 6 Additional Goals: 1-Demonstrate ADL Tasks, 2-Verbalize Understanding, 3- ImproveStrength/[place] 1=Demonstrate adherence to instructed precautions during ADL tasks. 2=Patient will verbalize/demonstrate understanding of assistive devices/modifications for ADL. 3=Patient will improve strength/tolerance for activity to enable patient to perform ADL's. OT Education/Plan Problem List/Assessment Assessment: Decreased Activ Tolerance, Decreased UE Strength, Impaired Funct Balance, Impaired I ADL's, Impaired Self-Care Skills Discharge Recommendations Plan/Recommendations: Continue POC Treatment Plan/Plan of Care Patient would benefit from OT for education, treatment and training to promote independence in ADL's, mobility, safety and/or upper extremity function for ADL's. Plan of Care: ADL Retraining, Functional Mobility, Group Exercise/Act as Ind, UE Funct Exercise/Act Treatment Duration: Aug 14, 2022 Frequency: Modified Program (IRF) (05/12) Estimated Hrs Per Day: 1.5 hours per day Agreement: Yes Rehab Potential: Fair Time Start Time: 09:30 Stop Time: 11:00 DATE: Jul 23, 2022 Total Time Billed (hr/min): 90 Billed Treatment Time 1, ADL (15'), EX (15'), FA 4 (60') VERONIKA SALEH OT Jul 23, 2022 09:57
[2022-07-23] MEDS: polyethylene glycoL POWDER 17 GM (MIRALAX) PACK PO SCH ×2 (10:12→22:00)
[2022-07-23] MEDS: oxyCODONE/APAP 5/325MG (PERCOCET 5) TABLET PO PRN (10:40)
[2022-07-23] MEDS: KCL 20 MEQ TAB (K-DUR) PO SCH ×3 (10:41→22:19)
[2022-07-23] MEDS: PANTOPRAZOLE 40 MG (PROTONIX) TAB PO SCH (10:41)
[2022-07-23 10:46] VITALS: BP 110/65
[2022-07-23] MEDS: FUROSEMIDE 40 MG (LASIX) TAB PO SCH ×2 (10:49→22:00)
[2022-07-23] MEDS: meTOprolol TARTRATE 25 MG (LOPRESSOR) TABLET PO SCH ×2 (10:50→22:19)
[2022-07-23] MEDS: SENNA W/DOCUSATE (SENOKOT S) TABLET PO SCH ×2 (11:13→22:00)
[2022-07-23] MEDS: DOCUSATE SODIUM 100 MG (COLACE) CAP PO SCH ×2 (11:13→22:00)
--- NOTE | 2022-07-23 13:41 | Physical Therapy Daily Note ---
PT Daily Note-Current Subjective Patient in recliner pre tx, agrees to PT, has no complaints of pain. Pain Section J - Health Conditions 1. Rarely or not at all 2. Occasionally 3. Frequently 4. Almost constantly 8. Unable to answer Pain Effect on Sleep: 1 Pain Interference with Therapy: 1 Pain Interference w/Day-to-Day: 1 Appearance Patient in recliner post tx with nurse call, phone, tray, all needs met, chair alarm on. Mental Status Patient Orientation: Person, Place, Situation Attachments: Oxygen Transfers SCALE: Activities may be completed with or without assistive devices. 2-Oyrjefznwn-umhzufc completes the activity by him/herself with no assistance f rom a helper. 5-Set-up or Clean-up Assistance-helper sets up or cleans up; patient completes activity. [place] assists only prior to or following the activity. 4-Supervision or Touching Assistance-helper provides verbal cues and/or touching/steadying and/or contact guard assistance as patient completes activity. Assistance may be provided throughout the activity or intermittently. 3-Partial/Moderate Assistance-helper does LESS THAN HALF the effort. [place] lifts, holds or supports trunk or limbs, but provides less than half the effort. 2-Substantial/Maximal Assistance-helper does MORE THAN HALF the effort. [place] lifts or holds trunk or limbs and provides more than half the effort. 5-Whtotejyu-znthjb does ALL the effort. Patient does none of the effort to complete the activity. Or, the assistance of 2 or more helpers is required for the patient to complete the activity. If activity was not attempted, code reason: 7-Patient Refused. 9-Not Applicable-not attempted and the patient did not perform the activity before the current illness, exacerbation or injury. 10-Not Attempted due to Environmental Limitations-(lack of equipment, weather restraints, etc.). 88-Not Attempted due to Medical Conditions or Safety Concerns. Sit to Stand (QC): 4 Chair/Cks-fg-[place] Xfer(QC): 4 Gait Training Distance: 300', 120' Walk 10 feet (QC): 4 Walk 50 ft with 2 Turns(QC): 4 Walk 150 ft (QC): 4 Gait Persons Needed: 1 Gait Assistive Device: FWW Patient ambulated 300' using a rolling walker with SBA, patient was more steady this afternoon, patient also ambulated 120' without an assistive device with CGA, patient needed some steadying assist Exercises Standing: Hamstring curls, Heel/toe raises, 3 way Ex=Flex, Abd, Ext (not flexion), Marching, Mini squats Standing Reps: 15 Treatments transfers, ambulation, LE strengthening Assessment Current Status: Fair Progress steady progress with functional mobility PT Fdc Goals Warehouse Pricing And Inventory Clerk Goals PT [facility]dc Goals Time Frame: Aug 04, 2022 Roll Left & Right (QC): 6 Sit to Lying (QC): 6 Lying-Sitting on Side/Bed(QC): 6 Sit to Stand (QC): 6 Chair/Aeb-qh-Aacyu Xfer(QC): 6 Toilet Transfer (QC): 6 Car Transfer (QC): 6 Does the Patient Walk: Yes Walk 10 feet (QC): 6 Walk 50ft with 2 Turns (QC): 6 Walk 150 ft (QC): 6 Walking 10ft on Uneven Surface: 6 1 Step (curb) (QC): 6 4 Steps (QC): 6 12 Steps (QC): 6 Picking up an Object (QC): 6 Wheel 50 feet with 2 turns (QC: 9 Wheel 150 feet: 9 PT Plan Problem List Problem List: Activity Tolerance, Functional Strength, Safety, Balance, Gait, Transfer, Bed Mobility, ROM Treatment/Plan Treatment Plan: Continue Plan of Care Treatment Plan: Bed Mobility, Education, Functional Activity [place], Functional Strength, Group Therapy, Gait, Safety, Therapeutic Exercise, Transfers Treatment Duration: Aug 04, 2022 Frequency: At least 5 of 7 days/Wk (IRF) Estimated Hrs Per Day: 1.5 hours per day Patient and/or Family Agrees t: Yes Safety Risks/Education Patient Education: Gait Training, Transfer Techniques, Correct Positioning, Safety Issues Teaching Recipient: Patient Teaching Methods: Demonstration, Discussion Response to Teaching: Reinforcement Needed Time Time In: 1230 Time Out: 1300 DATE: Jul 23, 2022 Total Billed Treatment Time: 30 Total Billed Treatment 1 visit EX 10' FA 20' THEO ARNETT PT Jul 23, 2022 13:41
--- NOTE | 2022-07-23 15:01 | IRF PAI BIMS ---
BIMS CAM BIMS Expression of Ideas and Wants: Without Difficulty Understanding Verbal Content: Understands IRF CARYN BIMS: IRF CARYN BIMS Response (Comments) Value Repitition of Three Words Three 3 Recalls Socks Yes, No Cue Required 2 Recalls Blue Yes, No Cue Required 2 Recalls Bed Yes, No Cue Required 2 Year Correct 3 Month Accurate Within 5 Days 2 Day Correct 1 Total 15 Should Staff Asses. Mental [address] No CAM Mental Status Change/Baseline: 0 Inattention: 0 Disorganized thinkin Altered level of consciousness: 0 VERONIKA SALEH OT Jul 23, 2022 15:01
[2022-07-23] MEDS: clonazePAM 0.5 MG (KlonoPIN) TAB PO SCH (15:22)
[2022-07-23] MEDS: ENOXAPARIN INJECTION 30 MG/0.3 ML SYR SC SCH (18:06)
[2022-07-23 19:46] VITALS: BP 92/54
[2022-07-23 20:15] VITALS: BP 101/59
[2022-07-24] MEDS: clonazePAM 1 MG (KlonoPIN) TAB PO SCH ×2 (06:40→21:36)
[2022-07-24] MEDS: oxyCODONE/APAP 5/325MG (PERCOCET 5) TABLET PO PRN ×3 (06:40→21:37)
[2022-07-24 08:00] VITALS: BP 100/57
--- NOTE | 2022-07-24 08:51 | Physical Therapy Daily Note ---
PT Daily Note-Current Subjective Patient in recliner pre tx, agrees to PT, has no complaints of pain. Pain Section J - Health Conditions 1. Rarely or not at all 2. Occasionally 3. Frequently 4. Almost constantly 8. Unable to answer Pain Effect on Sleep: 1 Pain Interference with Therapy: 1 Pain Interference w/Day-to-Day: 1 Appearance Patient in recliner post tx with nurse call, phone, tray, all needs met, chair alarm on. Mental Status Patient Orientation: Normal For Age Transfers SCALE: Activities may be completed with or without assistive devices. 5-Cwznizqnmt-evahdov completes the activity by him/herself with no assistance from a helper. 5-Set-up or Clean-up Assistance-helper sets up or cleans up; patient completes activity. [place] assists only prior to or following the activity. 4-Supervision or Touching Assistance-helper provides verbal cues and/or touching/steadying and/or contact guard assistance as patient completes activity. Assistance may be provided throughout the activity or intermittently. 3-Partial/Moderate Assistance-helper does LESS THAN HALF the effort. [place] lifts, holds or supports trunk or limbs, but provides less than half the effort. 2-Substantial/Maximal Assistance-helper does MORE THAN HALF the effort. [place] lifts or holds trunk or limbs and provides more than half the effort. 6-Ifjnznpss-oyramu does ALL the effort. Patient does none of the effort to complete the activity. Or, the assistance of 2 or more helpers is required for the patient to complete the activity. If activity was not attempted, code reason: 7-Patient Refused. 9-Not Applicable-not attempted and the patient did not perform the activity before the current illness, exacerbation or injury. 10-Not Attempted due to Environmental Limitations-(lack of equipment, weather restraints, etc.). 88-Not Attempted due to Medical Conditions or Safety Concerns. Roll Left & Right (QC): 6 Sit to Lying (QC): 6 Lying to Sitting/Side of Bed(Q: 6 Sit to Stand (QC): 4 Chair/Ozl-tr-Sjpvb Xfer(QC): 4 Toilet Transfer (QC): 4 Car Transfer (QC): 4 Patient performs rolling and supine <-> sit with independence, sit <-> stand and transfers SBA, car transfer SBA. Patient needs occasional cues for direction or safety. She has occasional unsteady moments, needs occasional steadying assist. Gait Training Distance: 300', 120' Walk 10 feet (QC): 4 Walk 50 ft with 2 Turns(QC): 4 Walk 150 ft (QC): 4 Walking 10ft/uneven surface-QC: 4 Gait Persons Needed: 1 Gait Assistive Device: FWW Patient can ambulate 300' with a rolling walker with SBA (including 50' with at least 2 turns of 90 degrees but needs CGA for ambulating 10' over an uneven surface). Patient also ambulated 120' without a walker, she is unsteady and needs occasional steadying assist. Wheelchair Training Wheel 50 ft with 2 turns (QC): 9 Wheel 150 ft (QC): 9 Stair Training Stair Training: Handrails/: 2 handrails #of Steps: 4 1 Step (curb) (QC): 4 4 Steps (QC): 4 12 Steps (QC): 88 Stairs: Pattern: Reciprocal Patient can go up and down 4 steps using 2 handrails with CGA Balance Picking up an Object (QC): 4 (SBA without using a correctional agency director) Exercises Supine Ex: Bridging, Lower trunk rotation (using ball), Heel Slides, Straight leg raise, Hip abd/add Supine Reps: 20 NuStep Minutes: 15 NuStep Workload: 4 Treatments strengthening, bed mobility and transfers, ambulation, stair training Assessment Current Status: Fair Progress progressing with mobility but still unsteady during ambulation PT Elevator Constructor Electric Goals Fpc Goals PT Fpc Goals Time Frame: Aug 04, 2022 Roll Left & Right (QC): 6 Sit to Lying (QC): 6 Lying-Sitting on Side/Bed(QC): 6 Sit to Stand (QC): 6 Chair/Kcp-yn-Uihan Xfer(QC): 6 Toilet Transfer (QC): 6 Car Transfer (QC): 6 Does the Patient Walk: Yes Walk 10 feet (QC): 6 Walk 50ft with 2 Turns (QC): 6 Walk 150 ft (QC): 6 Walking 10ft on Uneven Surface: 6 1 Step (curb) (QC): 6 4 Steps (QC): 6 12 Steps (QC): 6 Picking up an Object (QC): 6 Wheel 50 feet with 2 turns (QC: 9 Wheel 150 feet: 9 PT Plan Problem List Problem List: Activity Tolerance, Functional Strength, Safety, Balance, Gait, Transfer, Bed Mobility, ROM Treatment/Plan Treatment Plan: Continue Plan of Care Treatment Plan: Bed Mobility, Education, Functional Activity [place], Functional Strength, Group Therapy, Gait, Safety, Therapeutic Exercise, Transfers Treatment Duration: Aug 04, 2022 Frequency: At least 5 of 7 days/Wk (IRF) Estimated Hrs Per Day: 1.5 hours per day Patient and/or Family Agrees t: Yes Safety Risks/Education Patient Education: Gait Training, Transfer Techniques, Steps, Correct Positioning, Safety Issues Teaching Recipient: Patient Teaching Methods: Demonstration, Discussion Response to Teaching: Reinforcement Needed Time Time In: 0800 Time Out: 0900 DATE: Jul 24, 2022 Total Billed Treatment Time: 60 Total Billed Treatment 1 visit EX 30' FA 30' THEO ARNETT PT Jul 24, 2022 08:51
--- NOTE | 2022-07-24 09:08 | PM&R Progress Note ---
Subjective HPI/CC On Admission Date Seen by Provider: Jul 24, 2022 Time Seen by Provider: 10:00 Subjective/Events-last exam 07/24/2022: Doing well Off O2 now Monitoring closely DC tomorrow 07/23/2022: Doing much better Set for DC Sat Weaning O2 Monitoring closely 07/22/2022: No major issues Eating well Labs reviewed Supplementing potassium No pain reported Review of Systems General: Fatigue, Malaise Focused Exam Lactate Level Objective Exam Vital Signs Vital Signs Date Time Temp Pulse Resp B/P (MAP) Pulse Ox O2 Delivery O2 Flow Rate FiO2 07/24/22 20:55 Room Air 07/24/22 20:37 37.2 103 18 113/60 (77) 95 07/24/22 08:00 2.00 Capillary Refill : General Appearance: WD/WN, Anxious, Chronically ill, Mild Distress, Thin HEENT: PERRL/EOMI, Normal ENT Inspection, Pharynx Normal, Other (trach capped) Neck: Full Range of Motion, Normal Inspection, Non Tender, Supple, Carotid Bruit Respiratory: Chest Non Tender, Lungs Clear, Normal Breath Sounds, No Accessory Muscle Use, No Respiratory Distress Cardiovascular: No Edema, No Gallop, No JVD, No Murmur, Normal Peripheral Pulses, Tachycardia Gastrointestinal: Normal Bowel Sounds, No Organomegaly, No Pulsatile Mass, Non Tender, Soft, Other (peg in place) Back: Normal Inspection, No CVA Tenderness, No Vertebral Tenderness Extremity: Normal Capillary Refill, Normal Inspection, Normal Range of Motion, Non Tender, No Calf Tenderness, No Pedal Edema Neurologic/Psychiatric: Alert, Oriented x3, Normal Mood/Affect, detail assembler II-XII Norm as Tested, Abnormal Gait, Motor Weakness (generalized 3/5) Skin: Normal Color, Warm/Dry Lymphatic: No Adenopathy Results/Procedures Lab Laboratory Tests 07/24/22 09:29 Patient resulted labs reviewed. [facility] Transfers Therapy Code Descriptions/Definitions Functional [place] Measure: 0=Not Assessed/NA 4=Minimal Assistance 1=Total Assistance 5=Supervision or Setup 2=Maximal Assistance 6=Modified [place] 3=Moderate Assistance 7=Complete IndependenceSCALE: Activities may be completed with or without assistive devices. 7-Qxyyuovopy-vdnthua completes the activity by him/herself with no assistance from a helper. 5-Set-up or Clean-up Assistance-helper sets up or cleans up; patient completes activity. [place] assists only prior to or following the activity. 4-Supervision or Touching Assistance-helper provides verbal cues and/or touching/steadying and/or contact guard assistance as patient completes activity. Assistance may be provided throughout the activity or intermittently. 3-Partial/Moderate Assistance-helper does LESS THAN HALF the effort. [place] lifts, holds or supports trunk or limbs, but provides less than half the effort. 2-Substantial/Maximal Assistance-helper does MORE THAN HALF the effort. [place] lifts or holds trunk or limbs and provides more than half the effort. 0-Nqgcyscuc-ffucms does ALL the effort. Patient does none of the effort to complete the activity. Or, the assistance of 2 or more helpers is required for the patient to complete the activity. If activity was not attempted, code reason: 7-Patient Refused. 9-Not Applicable-not attempted and the patient did not perform the activity before the current illness, exacerbation or injury. 10-Not Attempted due to Environmental Limitations-(lack of equipment, weather restraints, etc.). 88-Not Attempted due to Medical Conditions or Safety Concerns. Roll Left to Right (QC): 6 Sit to Lying (QC): 6 Sit to Stand (QC): 4 Chair/Xru-pu-Glexy Xfer(QC): 4 Car Transfer (QC): 4 Gait Training Does the Patient Walk?: Yes Distance: 300', 120' Walk 10 feet (QC): 4 Walk 50 ft with 2 Turns(QC): 4 Walk 150 ft (QC): 4 Walking 10ft/uneven surface-QC: 4 Gait Persons Needed: 1 Gait Assistive Device: FWW Wheelchair Training Does the Pt Use a Wheelchair?: No Wheel 50 ft with 2 turns (QC): 9 Wheel 150 ft (QC): 9 Type of Wheelchair: N/A Stair Training Stair Training: Handrails/: 2 handrails #of Steps: 4 1 Step (curb) (QC): 4 4 Steps (QC): 4 12 Steps (QC): 88 Stairs: Pattern: Reciprocal Balance Picking up an Object (QC): 4 (SBA without using a minute clerk for basic traffic) ADL-Treatment Eating (QC): 6 Oral Hygiene (QC): 4 (SBA-Supervision) Shower/Bathe Self (QC): 5 Upper Body Dressing (QC): 3 (Min A doffing shirt, pt able to don with set up.) Lower Body Dressing (QC): 5 On/Off Footwear (QC): 5 Toileting Hygiene (QC): 4 (supervision) Toilet Transfer (QC): 4 (supervision) Assessment/Plan Assessment and Plan Assess & Plan/Chief Complaint Assessment: Critical illness myopathy Recent intubation requiring PEG and trach Meth use Anxiety Hypokalemia Plan: Monitor closely Fall risk PT OT 07/22/2022: Monitor closely Fall risk Pain control Supplement potassium 07/23/2022: DC 07/24/2022: DC tomorrow (1) Critical illness myopathy Status: Acute (2) Tracheostomy in place Status: Acute (3) Substance abuse Status: Acute (4) PEG (percutaneous endoscopic gastrostomy) status EASTON PINTO DO Jul 24, 2022 09:07
[2022-07-24] MEDS: PANTOPRAZOLE 40 MG (PROTONIX) TAB PO SCH (09:26)
[2022-07-24] MEDS: KCL 20 MEQ TAB (K-DUR) PO SCH ×3 (09:26→21:36)
[2022-07-24] MEDS: meTOprolol TARTRATE 25 MG (LOPRESSOR) TABLET PO SCH ×2 (09:26→21:37)
[2022-07-24] MEDS: FUROSEMIDE 40 MG (LASIX) TAB PO SCH (09:47)
[2022-07-24] MEDS: SENNA W/DOCUSATE (SENOKOT S) TABLET PO SCH ×2 (12:13→21:25)
[2022-07-24] MEDS: polyethylene glycoL POWDER 17 GM (MIRALAX) PACK PO SCH ×2 (12:13→21:25)
[2022-07-24] MEDS: DOCUSATE SODIUM 100 MG (COLACE) CAP PO SCH ×2 (12:13→21:25)
[2022-07-24 12:28] LABS: BASOPHILS % (AUTO) 1 % (0-10); EOSINOPHILS # (AUTO) 0.2 10^3/uL (0.0-0.3); EOSINOPHILS % (AUTO) 4 % (0-10); HEMATOCRIT 34 % (35-52); HEMOGLOBIN 10.3 g/dL (11.5-16.0); LYMPHOCYTES % (AUTO) 29 % (12-44); MEAN CORPUSCULAR HEMOGLOBIN 27 pg (25-34); MEAN CORPUSCULAR HGB CONC 31 g/dL (32-36); MEAN CORPUSCULAR VOLUME 88 fL (80-99); MEAN PLATELET VOLUME 9.8 fL (9.0-12.2); MONOCYTES # (AUTO) 0.3 10^3/uL (0.0-1.0); MONOCYTES % (AUTO) 8 % (0-12); NEUTROPHILS # (AUTO) 2.1 10^3/uL (1.8-7.8); NEUTROPHILS % (AUTO) 58 % (42-75); PLATELET COUNT 274 10^3/uL (130-400); WHITE BLOOD COUNT 3.6 10^3/uL (4.3-11.0)
[2022-07-24 12:42] LABS: ALBUMIN 3.7 GM/DL (3.2-4.5)
[2022-07-24 12:43] LABS: POTASSIUM 3.8 MMOL/L (3.6-5.0)
[2022-07-24 12:44] LABS: CALCIUM 9.6 MG/DL (8.5-10.1)
[2022-07-24 12:45] LABS: TOTAL PROTEIN 7.8 GM/DL (6.4-8.2)
[2022-07-24 12:47] LABS: BILIRUBIN,TOTAL 0.4 MG/DL (0.1-1.0)
[2022-07-24 12:49] LABS: CREATININE SERUM 0.6 MG/DL (0.60-1.30)
--- NOTE | 2022-07-24 12:57 | Occupational Ther Daily Note ---
OT Current Status-Daily Note Subjective Pt seen in room, up in recliner, agreeable to OT. No pain mentioned. Appearance Alert, cooperative ADL-Treatment Pt resting O2 sat 90-91%. During ADLs and at end of tx were 93-94%. Pt reported no problems eating and could open milk carton and cut food, feed herself i ndependently. Undressed and dressed upper body with setup. Undressed and dressed lower body with CGA for standing, FWW. Sponge bath washed and dried all parts with CGA for standing to wash ella area. Doffed and donned socks and shoes with setup. Sit to stand CGA, then walked CGA with FWW to bathroom. Stood at sink with close supervision to clean teeth. Toilet transfer CGA to [facility] over toilet. Managed clothing with CGA and hygiene with supervision. Therapy Code Descriptions/Definitions Functional [place] Measure: 0=Not Assessed/NA 4=Minimal Assistance 1=Total Assistance 5=Supervision or Setup 2=Maximal Assistance 6=Modified [place] 3=Moderate Assistance 7=Complete IndependenceSCALE: Activities may be completed with or without assistive devices. 1-Xvbzbhogqm-ieptfei completes the activity by him/herself with no assistance from a helper. 5-Set-up or Clean-up Assistance-helper sets up or cleans up; patient completes activity. [place] assists only prior to or following the activity. 4-Supervision or Touching Assistance-helper provides verbal cues and/or touching/steadying and/or contact guard assistance as patient completes activity. Assistance may be provided throughout the activity or intermittently. 3-Partial/Moderate Assistance-helper does LESS THAN HALF the effort. [place] lifts, holds or supports trunk or limbs, but provides less than half the effort. 2-Substantial/Maximal Assistance-helper does MORE THAN HALF the effort. [place] lifts or holds trunk or limbs and provides more than half the effort. 7-Siuvybqft-hwtede does ALL the effort. Patient does none of the effort to complete the activity. Or, the assistance of 2 or more helpers is required for the patient to complete the activity. If activity was not attempted, code reason: 7-Patient Refused. 9-Not Applicable-not attempted and the patient did not perform the activity before the current illness, exacerbation or injury. 10-Not Attempted due to Environmental Limitations-(lack of equipment, weather restraints, etc.). 88-Not Attempted due to Medical Conditions or Safety Concerns. Eating (QC): 6 Oral Hygiene (QC): 4 (CGA) Shower/Bathe Self (QC): 4 (CGA) Upper Body Dressing (QC): 5 (setup) Lower Body Dressing (QC): 4 (CGA) On/Off Footwear: 5 (setup) Toileting Hygiene (QC): 4 (CGA) Toilet Transfer (QC): 4 (CGA) Other Treatment Pt walked with CGA, FWW to gym. Completed 11 minutes bilat UE exercise on arm bike set at 20W resistance, with one break. Pt education on pacing herself and need to take rest breaks before she gets too fatigued. Also completed bilat peg activity and resistive clothespins with no additional weight, focusing on own body weight as resistance and overall activity tolerance. Pt did not report any SOB throughout except a little noted during arm bike activity. Pt walked back to room, [facility], FWW and O2 sats 93-94% on room air. Pt left up in recliner, all needs met. Education OT Patient Education: Energy conservation, Progress toward Goal/Update tx plan, Purpose of tx/functional activities, Reviewed precautions, Safety issues Teaching Recipient: Patient Teaching Methods: Demonstration, Discussion Response to Teaching: Verbalize Understanding, Return Demonstration OT Short Term Goals Short Term Goals Time Frame: Jul 29, 2022 Shower/bathe self: 5 Upper body dressin Lower body dressin Putting on/taking off footwear: 5 OT Data Analytics Chief Scientist Goals Data Analytics Chief Scientist Goals Time Frame: Aug 14, 2022 Acute change in mental status: 0 Inattention: 0 Disorganized thinkin Altered level of consciousness: 0 Eating (QC): 6 Oral Hygiene (QC): 6 Toileting Hygiene (QC): 6 Shower/Bathe Self (QC): 6 Upper Body Dressing (QC): 6 Lower Body Dressing (QC): 6 On/Off Footwear (QC): 6 Additional Goals: 1-Demonstrate ADL Tasks, 2-Verbalize Understanding, 3- ImproveStrength/[place] 1=Demonstrate adherence to instructed precautions during ADL tasks. 2=Patient will verbalize/demonstrate understanding of assistive devices/modifications for ADL. 3=Patient will improve strength/tolerance for activity to enable patient to perform ADL's. OT Education/Plan Discharge Recommendations Plan/Recommendations: Continue POC Treatment Plan/Plan of Care Patient would benefit from OT for education, treatment and training to promote independence in ADL's, mobility, safety and/or upper extremity function for ADL's. Plan of Care: ADL Retraining, Functional Mobility, Group Exercise/Act as Ind, UE Funct Exercise/Act Treatment Duration: Aug 14, 2022 Frequency: Modified Program (IRF) (05/12) Estimated Hrs Per Day: 1.5 hours per day Agreement: Yes Rehab Potential: Fair Time Start Time: 09:30 Stop Time: 10:45 DATE: Jul 24, 2022 Total Time Billed (hr/min): 75 Billed Treatment Time visit, ADL 45, exercise 30 GURWINDER PORTILLO OT Jul 24, 2022 12:57
--- NOTE | 2022-07-24 13:37 | Physical Therapy Daily Note ---
PT Daily Note-Current Subjective Patient in recliner pre tx, agrees to PT, has no complaints of pain. Mother comes in at the last of tx for training with ambulation and transfers. Pain Section J - Health Conditions 1. Rarely or not at all 2. Occasionally 3. Frequently 4. Almost constantly 8. Unable to answer Pain Effect on Sleep: 1 Pain Interference with Therapy: 1 Pain Interference w/Day-to-Day: 1 Appearance Patient in recliner post tx with nurse call, phone, tray, all needs met. Mental Status Patient Orientation: Person, Place, Situation Transfers SCALE: Activities may be completed with or without assistive devices. 1-Csejnqrtzl-viwexrd completes the activity by him/herself with no assistance from a helper. 5-Set-up or Clean-up Assistance-helper sets up or cleans up; patient completes activity. [place] assists only prior to or following the activity. 4-Supervision or Touching Assistance-helper provides verbal cues and/or touching/steadying and/or contact guard assistance as patient completes activity. Assistance may be provided throughout the activity or intermittently. 3-Partial/Moderate Assistance-helper does LESS THAN HALF the effort. [place] lifts, holds or supports trunk or limbs, but provides less than half the effort. 2-Substantial/Maximal Assistance-helper does MORE THAN HALF the effort. [place] lifts or holds trunk or limbs and provides more than half the effort. 0-Uykpxhmli-bjxzff does ALL the effort. Patient does none of the effort to complete the activity. Or, the assistance of 2 or more helpers is required for the patient to complete the activity. If activity was not attempted, code reason: 7-Patient Refused. 9-Not Applicable-not attempted and the patient did not perform the activity before the current illness, exacerbation or injury. 10-Not Attempted due to Environmental Limitations-(lack of equipment, weather restraints, etc.). 88-Not Attempted due to Medical Conditions or Safety Concerns. Sit to Stand (QC): 4 Chair/Pan-ei-Udxcz Xfer(QC): 4 SBA Gait Training Distance: 300', 120' Walk 10 feet (QC): 4 Walk 50 ft with 2 Turns(QC): 4 Walk 150 ft (QC): 4 Gait Assistive Device: FWW Patient ambulated 300' with a rolling walker with SBA, steadier ambulation, patient ambulated 120' without an assistive device, needs occasional steadying assist, mother educated on this Exercises Standing: Hamstring curls, Heel/toe raises, 3 way Ex=Flex, Abd, Ext (not flexion), Marching, Mini squats Standing Reps: 15 LAQ alternating for 5 min with 2# ankle weights Treatments strengthening, ambulation, transfers Assessment Current Status: Fair Progress slow but steady progress with strength and endurance PT Correction Goals Photo Print Specialist Goals PT Photo Print Specialist Goals Time Frame: Aug 04, 2022 Roll Left & Right (QC): 6 Sit to Lying (QC): 6 Lying-Sitting on Side/Bed(QC): 6 Sit to Stand (QC): 6 Chair/Gry-rt-Gpkyh Xfer(QC): 6 Toilet Transfer (QC): 6 Car Transfer (QC): 6 Does the Patient Walk: Yes Walk 10 feet (QC): 6 Walk 50ft with 2 Turns (QC): 6 Walk 150 ft (QC): 6 Walking 10ft on Uneven Surface: 6 1 Step (curb) (QC): 6 4 Steps (QC): 6 12 Steps (QC): 6 Picking up an Object (QC): 6 Wheel 50 feet with 2 turns (QC: 9 Wheel 150 feet: 9 PT Plan Problem List Problem List: Activity Tolerance, Functional Strength, Safety, Balance, Gait, Transfer, Bed Mobility, ROM Treatment/Plan Treatment Plan: Continue Plan of Care Treatment Plan: Bed Mobility, Education, Functional Activity [place], Functional Strength, Group Therapy, Gait, Safety, Therapeutic Exercise, Transfers Treatment Duration: Aug 04, 2022 Frequency: At least 5 of 7 days/Wk (IRF) Estimated Hrs Per Day: 1.5 hours per day Patient and/or Family Agrees t: Yes Safety Risks/Education Patient Education: Gait Training, Transfer Techniques, Correct Positioning, Safety Issues Teaching Recipient: Patient, Family Teaching Methods: Demonstration, Discussion Response to Teaching: Reinforcement Needed Time Time In: 1300 Time Out: 1330 DATE: Jul 24, 2022 Total Billed Treatment Time: 30 Total Billed Treatment 1 visit EX 15' FA 15' THEO ARNETT PT Jul 24, 2022 13:37
[2022-07-24] MEDS: clonazePAM 0.5 MG (KlonoPIN) TAB PO SCH (14:05)
[2022-07-24] MEDS: ENOXAPARIN INJECTION 30 MG/0.3 ML SYR SC SCH (17:15)
[2022-07-24] MEDS ORDERED: OXYC1TAB87 PO (20:27)
[2022-07-24] MEDS ORDERED: CLON1TAB13 PO (20:27)
[2022-07-24 20:37] VITALS: BP 113/60
--- NOTE | 2022-07-25 06:23 | Discharge Summary ---
Diagnosis/Chief Complaint Date of Admission Jul 21, 2022 at 13:30 Date of Discharge Discharge Date: Jul 25, 2022 Discharge Diagnosis Assessment: Critical illness myopathy Recent intubation requiring PEG and trach Meth use Anxiety Hypokalemia Plan: Monitor closely Fall risk PT OT 07/22/2022: Monitor closely Fall risk Pain control Supplement potassium 07/23/2022: DC 07/24/2022: DC tomorrow (1) Critical illness myopathy Status: Acute (2) Tracheostomy in place Status: Acute (3) Substance abuse Status: Acute (4) PEG (percutaneous endoscopic gastrostomy) status Discharge Summary Discharge Physical Examination Allergies: Coded Allergies: Sulfa (Sulfonamide Antibiotics) (Unverified Allergy, Intermediate, RASH, 10/13/11) Vitals & I&Os Vital Signs Date Time Temp Pulse Resp B/P (MAP) Pulse Ox O2 Delivery O2 Flow Rate FiO2 07/25/22 09:00 Room Air 07/25/22 07:30 36.9 98 18 109/57 (74) 97 07/24/22 08:00 2.00 General Appearance: Alert Respiratory: Clear to Auscultation Cardiovascular: Regular Rate Psych/Mental Status: Mental Status NL Hospital Course Was the Problem List Reviewed?: Yes Brief course after she was transferred from [facility] following lengthy vent course and trach and PEG. Overall she was able to regain function quickly and was able to wean off O2 and ambulate and she wished to be DC 1 week prior to expected. Labs (last 24 hrs) Laboratory Tests 07/21/22 14:48: White Blood Count 7.7, Red Blood Count 4.09, Hemoglobin 10.8L, Hematocrit 35, Mean Corpuscular Volume 85, Mean Corpuscular Hemoglobin 26, Mean Corpuscular He moglobin Concent 31L, Red Cell Distribution Width 18.4H, Platelet Count 334, Mean Platelet Volume 9.1, Immature Granulocyte % (Auto) 0, Neutrophils (%) (Auto) 78H, Lymphocytes (%) (Auto) 14, Monocytes (%) (Auto) 7, Eosinophils (%) (Auto) 1, Basophils (%) (Auto) 0, Neutrophils # (Auto) 6.0, Lymphocytes # (Auto) 1.1, Monocytes # (Auto) 0.5, Eosinophils # (Auto) 0.1, Basophils # (Auto) 0.0, Immature Granulocyte # (Auto) 0.0, Sodium Level 133L, Potassium Level 3.4L, Chloride Level 91L, Carbon Dioxide Level 25, Anion Gap 17H, Blood Urea Nitrogen 9, Creatinine 0.63, Estimat Glomerular Filtration Rate 122, BUN/Creatinine Ratio 14, Glucose Level 118H, Lactic Acid Level 1.22, Calcium Level 10.5H, Corrected Calcium 10.7H, Magnesium Level 1.8, Total Bilirubin 0.6, Aspartate Amino Transf (AST/SGOT) 18, Alanine Aminotransferase (ALT/SGPT) 10, Alkaline Phosphatase 119, Total Protein 8.7H, Albumin 3.8 07/22/22 05:05: White Blood Count 3.7L, Red Blood Count 3.31L, Hemoglobin 8.9L, Hematocrit 28L, Mean Corpuscular Volume 86, Mean Corpuscular Hemoglobin 27, Mean Corpuscular Hemoglobin Concent 31L, Red Cell Distribution Width 18.6H, Platelet Count 262, Mean Platelet Volume 9.3, Immature Granulocyte % (Auto) 0, Neutrophils (%) (Auto) 55, Lymphocytes (%) (Auto) 28, Monocytes (%) (Auto) 11, Eosinophils (%) (Auto) 5, Basophils (%) (Auto) 0, Neutrophils # (Auto) 2.0, Lymphocytes # (Auto) 1.1, Monocytes # (Auto) 0.4, Eosinophils # (Auto) 0.2, Basophils # (Auto) 0.0, Immature Granulocyte # (Auto) 0.0, Sodium Level 136, Potassium Level 2.9L, Chloride Level 100, Carbon Dioxide Level 25, Anion Gap 11, Blood Urea Nitrogen 6L, Creatinine 0.49L, Estimat Glomerular Filtration Rate 129, BUN/Creatinine Ratio 12, Glucose Level 84, Calcium Level 9.1, Corrected Calcium 9.9, Total Bilirubin 0.4, Aspartate Amino Transf (AST/SGOT) 14, Alanine Aminotransferase (ALT/SGPT) 9, Alkaline Phosphatase 105, Total Protein 6.8, Albumin 3.0L 07/23/22 05:03: Iron Level 44, Vitamin B12 Level 769 07/24/22 09:29: White Blood Count 3.6L, Red Blood Count 3.83, Hemoglobin 10.3L, Hematocrit 34L, Mean Corpuscular Volume 88, Mean Corpuscular Hemoglobin 27, Mean Corpuscular Hemoglobin Concent 31L, Red Cell Distribution Width 19.1H, Platelet Count 274, Mean Platelet Volume 9.8, Immature Granulocyte % (Auto) 0, Neutrophils (%) (Auto) 58, Lymphocytes (%) (Auto) 29, Monocytes (%) (Auto) 8, Eosinophils (%) (Auto) 4, Basophils (%) (Auto) 1, Neutrophils # (Auto) 2.1, Lymphocytes # (Auto) 1.0, Monocytes # (Auto) 0.3, Eosinophils # (Auto) 0.2, Basophils # (Auto) 0.0, Immature Granulocyte # (Auto) 0.0, Sodium Level 140, Potassium Level 3.8, Chloride Level 104, Carbon Dioxide Level 21, Anion Gap 15H, Blood Urea Nitrogen 6L, Creatinine 0.60, Estimat Glomerular Filtration Rate 123, BUN/Creatinine Ratio 10, Glucose Level 121H, Calcium Level 9.6, Corrected Calcium 9.8, Total Bilirubin 0.4, Aspartate Amino Transf (AST/SGOT) 17, Alanine Aminotransferase (ALT/SGPT) 10, Alkaline Phosphatase 120, Total Protein 7.8, Albumin 3.7 Microbiology 07/21/22 Blood Culture - Preliminary, Resulted No growth Pending Labs Microbiology Date/Time Source Procedure Growth Status 07/21/22 14:50 Peripheral Rt Hand Blood Culture - Preliminary No growth Resulted 07/21/22 14:48 Peripheral Lt Ac Blood Culture - Preliminary No growth Resulted Laboratory Tests 07/21/22 14:48: White Blood Count 7.7, Red Blood Count 4.09, Hemoglobin 10.8, Hematocrit 35, Mean Corpuscular Volume 85, Mean Corpuscular Hemoglobin 26, Mean Corpuscular Hemoglobin Concent 31, Red Cell Distribution Width 18.4, Platelet Count 334, Mean Platelet Volume 9.1, Immature Granulocyte % (Auto) 0, Neutrophils (%) (Auto) 78, Lymphocytes (%) (Auto) 14, Monocytes (%) (Auto) 7, Eosinophils (%) (Auto) 1, Basophils (%) (Auto) 0, Neutrophils # (Auto) 6.0, Lymphocytes # (Auto) 1.1, Monocytes # (Auto) 0.5, Eosinophils # (Auto) 0.1, Basophils # (Auto) 0.0, Immature Granulocyte # (Auto) 0.0, Sodium Level 133, Potassium Level 3.4, Chloride Level 91, Carbon Dioxide Level 25, Anion Gap 17, Blood Urea Nitrogen 9, Creatinine 0.63, Estimat Glomerular Filtration Rate 122, BUN/Creatinine Ratio 14, Glucose Level 118, Lactic Acid Level 1.22, Calcium Level 10.5, Corrected Calcium 10.7, Magnesium Level 1.8, Total Bilirubin 0.6, Aspartate Amino Transf (AST/SGOT) 18, Alanine Aminotransferase (ALT/SGPT) 10, Alkaline Phosphatase 119, Total Protein 8.7, Albumin 3.8 07/22/22 05:05: White Blood Count 3.7, Red Blood Count 3.31, Hemoglobin 8.9, Hematocrit 28, Mean Corpuscular Volume 86, Mean Corpuscular Hemoglobin 27, Mean Corpuscular Hemoglobin Concent 31, Red Cell Distribution Width 18.6, Platelet Count 262, Mean Platelet Volume 9.3, Immature Granulocyte % (Auto) 0, Neutrophils (%) (Auto) 55, Lymphocytes (%) (Auto) 28, Monocytes (%) (Auto) 11, Eosinophils (%) (Auto) 5, Basophils (%) (Auto) 0, Neutrophils # (Auto) 2.0, Lymphocytes # (Auto) 1.1, Monocytes # (Auto) 0.4, Eosinophils # (Auto) 0.2, Basophils # (Auto) 0.0, Immature Granulocyte # (Auto) 0.0, Sodium Level 136, Potassium Level 2.9, Chloride Level 100, Carbon Dioxide Level 25, Anion Gap 11, Blood Urea Nitrogen 6, Creatinine 0.49, Estimat Glomerular Filtration Rate 129, BUN/Creatinine Ratio 12, Glucose Level 84, Calcium Level 9.1, Corrected Calcium 9.9, Total Bilirubin 0.4, Aspartate Amino Transf (AST/SGOT) 14, Alanine Aminotransferase (ALT/SGPT) 9, Alkaline Phosphatase 105, Total Protein 6.8, Albumin 3.0 07/23/22 05:03: Iron Level 44, Vitamin B12 Level 769 07/24/22 09:29: White Blood Count 3.6, Red Blood Count 3.83, Hemoglobin 10.3, Hematocrit 34, Mean Corpuscular Volume 88, Mean Corpuscular Hemoglobin 27, Mean Corpuscular Hemoglobin Concent 31, Red Cell Distribution Width 19.1, Platelet Count 274, Mean Platelet Volume 9.8, Immature Granulocyte % (Auto) 0, Neutrophils (%) (Auto) 58, Lymphocytes (%) (Auto) 29, Monocytes (%) (Auto) 8, Eosinophils (%) (Auto) 4, Basophils (%) (Auto) 1, Neutrophils # (Auto) 2.1, Lymphocytes # (Auto) 1.0, Monocytes # (Auto) 0.3, Eosinophils # (Auto) 0.2, Basophils # (Auto) 0.0, Immature Granulocyte # (Auto) 0.0, Sodium Level 140, Potassium Level 3.8, Chloride Level 104, Carbon Dioxide Level 21, Anion Gap 15, Blood Urea Nitrogen 6, Creatinine 0.60, Estimat Glomerular Filtration Rate 123, BUN/Creatinine Ratio 10, Glucose Level 121, Calcium Level 9.6, Corrected Calcium 9.8, Total Bilirubin 0.4, Aspartate Amino Transf (AST/SGOT) 17, Alanine Aminotransferase (ALT/SGPT) 10, Alkaline Phosphatase 120, Total Protein 7.8, Albumin 3.7 Discharge Home Medications: Active Scripts Active Clonazepam 1 Mg Tablet 1 Mg PO 0600,2200 Percocet 5-325 mg Tablet (Oxycodone HCl/Acetaminophen) 1 Each Tablet 1 Tab PO BID PRN Instructions to patient/family Please see electronic discharge instructions given to patient. Diagnosis/Problems Diagnosis/Problems (1) Critical illness myopathy Status: Acute (2) Tracheostomy in place Status: Acute (3) Substance abuse Status: Acute (4) PEG (percutaneous endoscopic gastrostomy) status EASTON PINTO DO Jul 25, 2022 06:23
[2022-07-25] MEDS: clonazePAM 1 MG (KlonoPIN) TAB PO SCH (06:50)
[2022-07-25] MEDS: oxyCODONE/APAP 5/325MG (PERCOCET 5) TABLET PO PRN (06:50)
[2022-07-25 07:30] VITALS: BP 109/57
[2022-07-25] MEDS: KCL 20 MEQ TAB (K-DUR) PO SCH (09:36)
[2022-07-25] MEDS: PANTOPRAZOLE 40 MG (PROTONIX) TAB PO SCH (09:36)
[2022-07-25] MEDS: SENNA W/DOCUSATE (SENOKOT S) TABLET PO SCH (09:37)
[2022-07-25] MEDS: polyethylene glycoL POWDER 17 GM (MIRALAX) PACK PO SCH (09:37)
[2022-07-25] MEDS: meTOprolol TARTRATE 25 MG (LOPRESSOR) TABLET PO SCH (09:37)
[2022-07-25] MEDS: DOCUSATE SODIUM 100 MG (COLACE) CAP PO SCH (09:37)
--- NOTE | 2022-07-27 09:27 | Therapy Team Discharge Summary ---
Therapy Discharge Summary Discharge Recommendations Date of Discharge Jul 25, 2022 at 10:30 Physical Therapy Patient came to rehab with critical illness myopathy. Upon evaluation patient performs rolling with independence, supine <-> sit SBA, sit <-> stand and transfers CGA, car transfer CGA, ambulate 120' with a rolling walker with CGA (including 50' with at least 2 turns of 90 degrees and 10' over an uneven surface), up and down 1 step using a rolling walker with CGA, and picked up an object from the floor using a embroidery patternmaker. Patient has been performing bed mobility and transfer training, balance and endurance training, functional strengthening, stair training, gait training, and education. 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 Now, patient performs rolling and supine <-> sit with independence, sit <-> stand and transfers SBA, car transfer SBA, can ambulate 300' with a rolling walker with SBA (including 50' with at least 2 turns of 90 degrees but needs CGA for ambulating 10' over an uneven surface), can go up and down 4 steps using 2 handrails with CGA, and can bean picker an object from the floor using a embroidery patternmaker with SBA. Patient has been discharged from this facility and will be discharged from PT at this time. Roll Left to Right (QC): 6 Sit to Lying (QC): 6 Lying to Sitting/Side of Bed(Q: 6 Sit to Stand (QC): 4 Chair/Jpu-ln-Dzdmm Xfer(QC): 4 Toilet Transfer (QC): 4 Car Transfer (QC): 4 Does the Patient Walk: Yes Mode of Locomotion: Walk Anticipated Mode of Locomotion: Walk Walk 10 feet (QC): 4 Walk 50 ft with 2 Turns(QC): 4 Walk 150 ft (QC): 4 Walking 10ft on uneven surface: 4 Distance: 120' Gait Assistive Device: FWW Does the Pt Use a Wheelchair: No Wheel 50 ft with 2 turns (QC): 9 Wheel 150 ft (QC): 9 Type of Wheelchair: N/A #of Steps: 4 1 Step (curb) (QC): 4 4 Steps (QC): 4 12 Steps (QC): 88 Walking Assistive Device: Walker Balance Sitting Static: Normal Balance Sitting Dynamic: Normal Balance-Standing Static: Fair Picking up an Object (QC): 4 (SBA without using a embroidery patternmaker) Occupational Therapy Decreased Activ Tolerance, Decreased UE Strength, Impaired Funct Balance, Impaired I ADL's, Impaired Self-Care Skills Eating (QC): 6 Oral Hygiene (QC): 4 (CGA) Shower/Bathe Self (QC): 4 (CGA) Upper Body Dressing (QC): 5 (setup) Lower Body Dressing (QC): 4 (CGA) On/Off Footwear (QC): 5 (setup) Toileting Hygiene (QC): 4 (CGA) PT Custodial Goals Custodial Goals PT Toy Designer Goals Time Frame: Aug 04, 2022 Roll Left to Right (QC): 6 Sit to Lying (QC): 6 Lying-Sitting on Side/Bed(QC): 6 Sit to Stand (QC): 6 Chair/Zis-kv-Vptif Xfer(QC): 6 Toilet/Commode Transfer (QC): 6 Car Transfer (QC): 6 Does the Patient Walk: Yes Walk 10 feet (QC): 6 Walk 10ft-Uneven Surface(QC): 6 Walk 50ft with 2 Turns (QC): 6 Walk 150 ft (QC): 6 Wheel 50 feet with 2 turns (QC: 9 Wheel 150 feet: 9 1 Step (curb) (QC): 6 4 Steps (QC): 6 12 Steps (QC): 6 Picking up an Object (QC): 6 OT Custodial Goals Custodial Goals Time Frame: Aug 14, 2022 Acute change in mental status: 0 Inattention: 0 Disorganized thinkin Altered level of consciousness: 0 Eating (QC): 6 Oral Hygiene (QC): 6 Toileting Hygiene (QC): 6 Shower/Bathe Self (QC): 6 Upper Body Dressing (QC): 6 Lower Body Dressing (QC): 6 On/Off Footwear (QC): 6 Additional Goals: 1-Demonstrate ADL Tasks, 2-Verbalize Understanding, 3- ImproveStrength/[place] 1=Demonstrate adherence to instructed precautions during ADL tasks. 2=Patient will verbalize/demonstrate understanding of assistive devices/modifications for ADL. 3=Patient will improve strength/tolerance for activity to enable patient to perform ADL's. THEO ARNETT PT Jul 27, 2022 09:26
--- NOTE | 2022-07-27 09:48 | Therapy Team Discharge Summary ---
Therapy Discharge Summary Discharge Recommendations Date of Discharge Jul 25, 2022 at 10:30 Physical Therapy Roll Left to Right (QC): 6 Sit to Lying (QC): 6 Lying to Sitting/Side of Bed(Q: 6 Sit to Stand (QC): 4 Chair/Nma-ap-Hbemb Xfer(QC): 4 Toilet Transfer (QC): 4 Car Transfer (QC): 4 Does the Patient Walk: Yes Mode of Locomotion: Walk Anticipated Mode of Locomotion: Walk Walk 10 feet (QC): 4 Walk 50 ft with 2 Turns(QC): 4 Walk 150 ft (QC): 4 Walking 10ft on uneven surface: 4 Distance: 120' Gait Assistive Device: FWW Does the Pt Use a Wheelchair: No Wheel 50 ft with 2 turns (QC): 9 Wheel 150 ft (QC): 9 Type of Wheelchair: N/A #of Steps: 4 1 Step (curb) (QC): 4 4 Steps (QC): 4 12 Steps (QC): 88 Walking Assistive Device: Walker Balance Sitting Static: Normal Balance Sitting Dynamic: Normal Balance-Standing Static: Fair Picking up an Object (QC): 4 (SBA without using a health care analyst) Occupational Therapy Pt admitted to ARU with critical illness myopathy. At [facility], pt was independent with ADLS and functional mobility. Upon initial evaluation, pt required set up with eating and UE dressing, SBA with oral care and footwear, and CGA with showering, LE Dressing and toileting. OT Tx focused on increasing BUE strength and activity tolerance, and increasing safety and independence with ADLS and functional mobility. Pt made functional progress towards goals, but only attained LTG for eating. Pt discharged home with family support, d/c from OT. Decreased Activ Tolerance, Decreased UE Strength, Impaired Funct Balance, Impaired I ADL's, Impaired Self-Care Skills Eating (QC): 6 Oral Hygiene (QC): 4 (CGA) Shower/Bathe Self (QC): 4 (CGA) Upper Body Dressing (QC): 5 (setup) Lower Body Dressing (QC): 4 (CGA) On/Off Footwear (QC): 5 (setup) Toileting Hygiene (QC): 4 (CGA) PT Pier Master Goals Pier Master Goals PT Group Home Goals Time Frame: Aug 04, 2022 Roll Left to Right (QC): 6 Sit to Lying (QC): 6 Lying-Sitting on Side/Bed(QC): 6 Sit to Stand (QC): 6 Chair/Ajv-dv-Pvrlv Xfer(QC): 6 Toilet/Commode Transfer (QC): 6 Car Transfer (QC): 6 Does the Patient Walk: Yes Walk 10 feet (QC): 6 Walk 10ft-Uneven Surface(QC): 6 Walk 50ft with 2 Turns (QC): 6 Walk 150 ft (QC): 6 Wheel 50 feet with 2 turns (QC: 9 Wheel 150 feet: 9 1 Step (curb) (QC): 6 4 Steps (QC): 6 12 Steps (QC): 6 Picking up an Object (QC): 6 OT Pier Master Goals Pier Master Goals Time Frame: Aug 14, 2022 Acute change in mental status: 0 Inattention: 0 Disorganized thinkin Altered level of consciousness: 0 Eating (QC): 6 (met) Oral Hygiene (QC): 6 (not met) Toileting Hygiene (QC): 6 (not met) Shower/Bathe Self (QC): 6 (not met) Upper Body Dressing (QC): 6 (not met) Lower Body Dressing (QC): 6 (not met) On/Off Footwear (QC): 6 (not met) Additional Goals: 1-Demonstrate ADL Tasks, 2-Verbalize Understanding, 3- ImproveStrength/[place] 1=Demonstrate adherence to instructed precautions during ADL tasks. 2=Patient will verbalize/demonstrate understanding of assistive devices/modifications for ADL. 3=Patient will improve strength/tolerance for activity to enable patient to perform ADL's. VERONIKA SALEH OT Jul 27, 2022 09:48
== END 2022-07-25 10:30 | disposition home or self-care (01) | DRG 948 ==
LOC: EEVIPCON 13:30
PROVIDERS: ADMIT Internal Medicine; ATTEND Internal Medicine
DX: R53.81 Other malaise (principal); G72.81 Critical illness myopathy; E46 Unspecified protein-calorie malnutrition; Z68.1 Body mass index [BMI] 19.9 or less, adult; J90 Pleural effusion, not elsewhere classified; R09.02 Hypoxemia; E87.6 Hypokalemia; F41.9 Anxiety disorder, unspecified; F17.200 Nicotine dependence, unspecified, uncomplicated; F15.10 Other stimulant abuse, uncomplicated; Z99.81 Dependence on supplemental oxygen; Z93.1 Gastrostomy status; Z88.2 Allergy status to sulfonamides
CPT/HCPCS: 36415; 71045; 80053; 82607; 83540; 83605; 83735; 85025; 87040; 94664; 94760; 94761

== ENCOUNTER 2022-08-29 16:17 | Emergency (ER) | payer MEDICAID ==
[~2022-08-29] VITALS: Ht 167 cm; Wt 45.0 kg
[~2022-08-29 16:17] MED LIST changes: -ACETAMINOPHEN 325 MG TABLET PO PRN; -ALPRAZolam 0.25 MG (XANAX) TAB PO PRN; -BISACODYL 10 MG SUPP (DULCOLAX) PR PRN; -CALCIUM CARBONATE 500 MG (TUMS) TAB.CHEW PO PRN; -DOCUSATE SODIUM 100 MG (COLACE) CAP PO PRN; -FLEET ENEMA ADULT 1 EA BTL PR PRN; -LACTULOSE SYRUP 10GM/15ML (ENULOSE) 30ML UDC PO PRN; -LOPERAMIDE 2 MG (IMODIUM) TABLET PO PRN; -MELATONIN 3 MG TABLET PO PRN; -ONDANSETRON 4 MG (ZOFRAN) ORAL DISSOLVE TAB PO PRN; +OXYC1TAB87 PO; -diphenhydrAMINE 25 MG TAB (BENADRYL) PO PRN; -guaiFENesin/CODEINE (ROBITUSSIN AC) 10ML UDC PO PRN
[2022-08-29] MEDS ORDERED: LACTATED RINGERS 1,000 ML IV ONE (16:30)
[2022-08-29 16:41] LABS: BASOPHILS % (AUTO) 0 % (0-10); EOSINOPHILS # (AUTO) 0.1 10^3/uL (0.0-0.3); EOSINOPHILS % (AUTO) 1 % (0-10); HEMATOCRIT 45 % (35-52); HEMOGLOBIN 13.8 g/dL (11.5-16.0); LYMPHOCYTES # (AUTO) 2.2 X 10^3 (1.0-4.0); LYMPHOCYTES % (AUTO) 31 % (12-44); MEAN CORPUSCULAR HEMOGLOBIN 28 pg (25-34); MEAN CORPUSCULAR HGB CONC 31 g/dL (32-36); MEAN CORPUSCULAR VOLUME 91 fL (80-99); MEAN PLATELET VOLUME 9.2 fL (9.0-12.2); MONOCYTES # (AUTO) 0.5 X 10^3 (0.0-1.0); MONOCYTES % (AUTO) 7 % (0-12); NEUTROPHILS # (AUTO) 4.3 X 10^3 (1.8-7.8); NEUTROPHILS % (AUTO) 59 % (42-75); PLATELET COUNT 332 10^3/uL (130-400); WHITE BLOOD COUNT 7.3 10^3/uL (4.3-11.0)
[2022-08-29] MEDS ORDERED: IOHEXOL 350 MG/ML 100 ML (OMNIPAQUE 350) VIAL IV ONE (16:45)
[2022-08-29] MEDS ORDERED: NS 100 ML (IVPB) BAG IV ONE (16:45)
[2022-08-29 16:47] LABS: CHLORIDE 110 MMOL/L (98-107); POTASSIUM 3.7 MMOL/L (3.6-5.0); SODIUM 141 MMOL/L (135-145)
[2022-08-29 16:49] LABS: AMYLASE 113 U/L (25-125); CALCIUM 9.2 MG/DL (8.5-10.1)
[2022-08-29 16:50] LABS: GLUCOSE 108 MG/DL (70-105)
[2022-08-29 16:51] LABS: CARBON DIOXIDE 21 MMOL/L (21-32)
[2022-08-29 16:52] LABS: BILIRUBIN,TOTAL 0.3 MG/DL (0.1-1.0)
[2022-08-29 16:53] LABS: ALKALINE PHOSPHATASE 149 U/L (40-136)
[2022-08-29 16:54] LABS: CREATININE SERUM 0.62 MG/DL (0.60-1.30); GFR ESTIMATED 122
[2022-08-29 16:55] LABS: BUN/CREATININE RATIO 15
[2022-08-29 16:56] LABS: ALANINE AMINOTRANSFERASE 26 U/L (0-55); MAGNESIUM 2.4 MG/DL (1.6-2.4)
[2022-08-29 16:57] LABS: LIPASE 100 U/L (8-78)
[2022-08-29 16:58] LABS: CREATINE KINASE 85 U/L (29-168)
[2022-08-29 17:02] LABS: FIBRIN DEGRADATION PRODUCTS 4.06 UG/ML (0.00-0.49); INR 1.1 (0.8-1.4); PROTHROMBIN TIME PATIENT 14.3 SEC (12.2-14.7)
--- NOTE | 2022-08-29 17:02 | Diagnostic Imaging Report ---
PROCEDURE: CT head without contrast. TECHNIQUE: Multiple contiguous axial images were obtained through the brain without the use of intravenous contrast. Auto Exposure Controls were utilized during the CT exam to meet ALARA standards for radiation dose reduction. INDICATION: Trauma. COMPARISON: None. FINDINGS: No intracranial hemorrhage, mass effect, hydrocephalus or extra-axial fluid collections. No CT evidence of a territorial infarction. Osseous structures are intact. Small air-fluid levels and frothy secretions in the maxillary and ethmoid sinuses. Mastoids are unremarkable. IMPRESSION: 1. No acute intracranial CT findings. 2. Small air-fluid levels and frothy secretions in the paranasal sinuses as above. No maxillofacial fractures are identified within the [id number]-gw-bodp. Dictated by: Dictated on workstation # [id number]
[2022-08-29 17:05] LABS: CREATINE KINASE MB 2.6 NG/ML (<6.6)
--- NOTE | 2022-08-29 17:39 | Diagnostic Imaging Report ---
INDICATION: Trauma with pelvic injury. EXAMINATION: AP view of pelvis was obtained. FINDINGS: There is gaseous distention of small and large bowel. No acute fracture is seen. Hip joints are intact. There is no evidence of sacroiliac diastasis. Contrast material is present in the urinary tract. IMPRESSION: No acute abnormality is detected. Dictated by: Dictated on workstation # [id number]
--- NOTE | 2022-08-29 17:39 | Diagnostic Imaging Report ---
INDICATION: Trauma with chest pain. EXAMINATION: Single AP view of the chest was obtained. COMPARISON: Study of 07/21/2022. FINDINGS: Extensive background emphysema is again identified. There is no evidence of pneumothorax. No pleural fluid is seen. There is gaseous distention of the stomach. IMPRESSION: Extensive air trapping similar to previous study without pneumothorax or other definite acute abnormality. Dictated by: Dictated on workstation # [id number]
--- NOTE | 2022-08-29 17:52 | Diagnostic Imaging Report ---
INDICATION: Trauma. EXAMINATION: Automatic exposure controls were utilized to keep dose as low as reasonably achievable. CTA NECK: CTA was performed after bolus contrast administration with 3D reformatted images. There is a normal three-vessel branching pattern arising from the aortic arch. Internal carotid arteries and common carotid arteries are patent throughout the neck. Vertebral arteries are also widely patent. There is no evidence of pseudoaneurysm, transection or contrast extravasation. IMPRESSION: No evidence of great vessel abnormality in the neck. CT CERVICAL SPINE: Multiple contiguous axial CT images of the cervical spine were obtained with sagittal and coronal reformatted images produced. FINDINGS: The cervical curvature and alignment are within normal limits. The vertebral body heights and disc spaces are maintained without evidence of fracture or subluxation. There is no paraspinous hematoma. Extensive caries disease involves multiple teeth. IMPRESSION: No CT evidence of acute cervical spinal abnormality. There is poor dictation and dental consultation would be useful. CT THORAX: There is extensive centrilobular emphysema with interstitial and septal thickening most pronounced in the upper lobes. In addition, there is an approximately 1 cm irregular subpleural nodule in the left lower lobe with patchy atelectasis and/or scarring in the lung bases, bilaterally. There are nondisplaced fractures involving the lateral aspect of left 9th and 10th ribs. No significant hemothorax is identified. There is no evidence of paraspinous hematoma or mediastinal hematoma. IMPRESSION: Mildly displaced left 9th and 10th rib fractures. Note is made of T12 fracture described in separate report. There is extensive background emphysema with suspicious 1 cm nodule in the left lower lobe which should be further evaluated on elective follow-up CT scan and possible PET imaging. CT THORACIC SPINE: There is a mildly comminuted, minimally displaced superior endplate fracture at T12 to the left of midline which extends into the pedicle. No definite involvement of the canal is identified. This is not associated with significant hematoma. There is also burst fracture at L1 which will be described in a separate report. IMPRESSION: Superior endplate fracture at T12 without other acute thoracic spinal injury identified. Patient referred to lumbar spine CT for additional fractures of the spine. CT LUMBAR SPINE: There is comminuted fracture involving the superior endplate of L1 with extension through the anterior and posterior vertebral body cortices and mild fragmentation toward the left. This also extends into the left pedicle with only a small amount of associated hematoma. There is mild retropulsion of posterior L1 vertebral body cortex fragment into the spinal canal. The remainder of lumbar spine is intact without other fracture or malalignment identified. Sacroiliac joints and visible sacrum are unremarkable. IMPRESSION: Mild burst fracture at L1 involving the superior aspect of the vertebral body with mild retropulsion into spinal canal. Consideration could be given to MRI for assessment of conus medullaris involvement. CT ABDOMEN/PELVIS: No focal hepatic, gallbladder, splenic or adrenal gland abnormality is identified. There is bilateral renal function with multiple bilateral renal cortical cysts. No focal abnormality is seen. There is a small hiatal hernia. There is no evidence of hemoperitoneum. Partially opacified urinary bladder is unremarkable. No acute pelvic fracture is seen. Burst fracture at L1 is noted and described in a separate report. There is mild to moderate amount of stool in the colon. There is gaseous distention of the stomach. Otherwise no acute abnormality identified. IMPRESSION: No evidence of acute abdominal or pelvic visceral injury. Note is made of L1 burst fracture described in a separate report. Dictated by: Dictated on workstation # [id number]
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
[2022-08-29] MEDS ORDERED: fentaNYL INJ 100 MCG/2 ML AMP IVP STA (18:10)
[2022-08-29] MEDS ORDERED: LIDOCAINE UROJET 2% GEL 10 ML PKG TOP ONE (18:15)
[2022-08-29 18:42] LABS: BILIRUBIN,URINE NEGATIVE (NEGATIVE); CLARITY,URINE CLOUDY; COLOR,URINE YELLOW; GLUCOSE, URINE (UA) NEGATIVE (NEGATIVE); KETONES,URINE NEGATIVE (NEGATIVE); LEUKOCYTE ESTERASE ,URINE NEGATIVE (NEGATIVE); NITRITE,URINE NEGATIVE (NEGATIVE); PH,URINE 5.5 (5-9); PROTEIN,URINE 1+ (NEGATIVE)
[2022-08-29 18:45] LABS: AMORPHOUS SEDIMENT,UR FEW AMOR URATES /LPF; BACTERIA,URINE TRACE /HPF; SQUAMOUS EPITHELIAL CELL,UR 0-2 /HPF
[2022-08-29 18:46] LABS: CALCIUM OXALATE CRYSTALS,UR FEW /LPF
[2022-08-29 18:50] LABS: AMPHETAMINE SCREEN, URINE POSITIVE (NEGATIVE); BARBITURATE SCREEN URINE NEGATIVE (NEGATIVE); BENZODIAZEPINES SCREEN URINE NEGATIVE (NEGATIVE); CANNABINOID SCREEN, URINE NEGATIVE (NEGATIVE); COCAINE SCREEN URINE NEGATIVE (NEGATIVE); METHADONE STAT NEGATIVE (NEGATIVE); OPIATE SCREEN URINE NEGATIVE (NEGATIVE); OXYCODONE STAT NEGATIVE (NEGATIVE); PROPOXYPHENE STAT NEGATIVE (NEGATIVE); TRICYCLIC ANTIDEPRESSANTS SCRE NEGATIVE (NEGATIVE)
[2022-08-29] MEDS ORDERED: fentaNYL INJ 100 MCG/2 ML AMP IVP ONE (19:15)
[2022-08-29 19:28] VITALS: BP 113/78
== END 2022-08-29 19:30 | disposition short-term general hospital (02) ==
LOC: EDUNIT# 16:17 → ER 16:19
DX: S22.42XA Multiple fractures of ribs, left side, initial encounter for closed fracture (principal); S32.011A Stable burst fracture of first lumbar vertebra, initial encounter for closed fracture; S22.088A Other fracture of T11-T12 vertebra, initial encounter for closed fracture; F15.90 Other stimulant use, unspecified, uncomplicated; F17.210 Nicotine dependence, cigarettes, uncomplicated; Z28.310 Unvaccinated for COVID-19; V48.6XXA Car passenger injured in noncollision transport accident in traffic accident, initial encounter; Y92.410 Unspecified street and highway as the place of occurrence of the external cause
CPT/HCPCS: 51702; 70450; 70498; 71045; 71260; 72170; 74177; 80053; 80306; 81000; 82150; 82550; 82553; 83690; 83735; 83874; 84484; 84703; 85025; 85379; 85610; 85730; 93005; 93041; 99285; G0480 ×2; 36415; 80320; 80329